=== PATIENT | male | born 1950 | race Caucasian/White ===

== ENCOUNTER 2016-11-16 12:37 | Inpatient (IN) | payer OTHER ==
[~2016-11-16] VITALS: Ht 165.1 cm; Wt 80.7 kg
[2016-11-16] MEDS ORDERED: SOD CHLORIDE 0.9% 500 ML IV STA (14:11)
[2016-11-16 14:36] LABS: ADD SCAN DIFF NO
[2016-11-16 14:40] LABS: BASOPHILS % 0.2 % (0.0-2.0); EOSINOPHILS # 0.1 10^3/ul (0.0-0.5); EOSINOPHILS % 0.4 % (0.0-7.0); HEMATOCRIT 34.4 % (42.0-52.0); HEMOGLOBIN 12.2 g/dl (14.0-18.0); LYMPHOCYTES # 1.9 10^3/ul (0.8-2.9); MEAN CORPUSCULAR HEMOGLOBIN 37.1 pg (29.0-33.0); MEAN CORPUSCULAR HGB CONC 35.5 g/dl (32.0-37.0); MEAN CORPUSCULAR VOLUME 104.6 fl (82.0-101.0); MEAN PLATELET VOLUME 11.3 fl (7.4-10.4); MONOCYTE # 1.2 10^3/ul (0.3-0.9); MONOCYTES % 6.9 % (0.0-11.0); NEUTROPHIL # 13.4 10^3/ul (1.6-7.5); NEUTROPHILS % 79.6 % (39.0-77.0); PLATELET COUNT 365 10^3/UL (140-415); RED BLOOD COUNT 3.29 10^6/ul (4.70-6.10); RED CELL DISTRIBUTION WIDTH 17.5 % (11.5-14.5); WHITE BLOOD COUNT 16.9 10^3/ul (4.8-10.8)
[2016-11-16 14:49] LABS: INR 1.29; PROTIME 16.2 Sec (12.2-14.2); PT RATIO 1.3
[2016-11-16 14:50] LABS: PARTIAL THROMBOPLASTIN TIME 36.6 Sec (25.0-35.0)
[2016-11-16 14:54] LABS: ALANINE AMINOTRANSFERASE 92 IU/L (13-69); ALBUMIN 2.9 g/dl (3.3-4.9); ALBUMIN/GLOBULIN RATIO 0.56; ALKALINE PHOSPHATASE 452 IU/L (42-121); ANION GAP 16 (8-16); ASPARTATE AMINO TRANSFERASE 277 IU/L (15-46); BILIRUBIN,INDIRECT 1.8 mg/dl (0-1.1); BLOOD UREA NITROGEN 9 mg/dl (7-20); CALCIUM 8.4 mg/dl (8.4-10.2); CARBON DIOXIDE 25 mmol/L (21-31); CHLORIDE 94 mmol/L (97-110); CREATININE 0.63 mg/dl (0.61-1.24); GLUCOSE 170 mg/dl (70-220); POTASSIUM 3.7 mmol/L (3.5-5.1); SODIUM 131 mmol/L (135-144)
[2016-11-16 15:20] LABS: TROPONIN-I < 0.012 ng/ml (0.00-0.12)
--- NOTE | 2016-11-16 15:32 | RADRPT ---
PROCEDURE: CT Abdomen and Pelvis without contrast. CLINICAL INDICATION: Abdominal and pelvic pain. Abdominal distension. TECHNIQUE: CT scan of the abdomen and pelvis without contrast was performed. Coronal and sagittal reformatted images were obtained from the axial source images. Images were reviewed on a high-resolu [employer] PACS workstation. Total exam DLP is 964.97 mGy-cm. CTDIvol is 15.32 mGy. One or more of the f ollowing dose reduction techniques were used: Automated exposure control, adjustment of the mA and/o r kV according to patient size, use of iterative reconstruction technique. COMPARISON: None. FINDINGS: The lung bases are normal. There is no pleural effusion. The heart size is normal and there is no p ericardial effusion. There is coronary artery calcification. The liver is enlarged and diffusely decreased in attenuation. There is no focal hepatic lesion. The re is recanalization of the umbilical vein. Dilated veins are present in the upper abdomen consiste nt with portal hypertension. Gallstones are present in the gallbladder. There is mild diffuse gallbladder wall thickening. The bile ducts are normal. The spleen is normal in size. There is no focal splenic lesion. Both adrenals are normal with no enlargement or mass. The pancreas is unremarkable with no mass or evidence of pancreatitis. There is no renal mass or hydronephrosis. There is no renal calculus or ureteral calculus. The abdominal aorta is not dilated. There is calcification in the aorta consistent with atherosclero sis. There is no retroperitoneal lymphadenopathy or mass. There is no pelvic lymphadenopathy or mass. The bladder and distal ureters are normal. The periappendiceal region is unremarkable with no evidence of appendicitis. The appendix is well se en and appears normal. There is extensive diverticulosis throughout the colon. There is no evidence of diverticulitis. Th e bowel and mesentery are otherwise normal. There is mild ascites. There is no free air. There are degenerative changes of the spine. There is no fracture or lytic lesion. IMPRESSION: 1. Coronary artery calcification. 2. Hepatomegaly. 3. Fatty metamorphosis of the liver. 4. Portal hypertension with multiple dilated veins in the upper abdomen and recanalization of the u mbilical vein. 5. Gallstones in the gallbladder and diffuse gallbladder wall thickening. 6. Atherosclerosis. 7. Normal appendix. 8. Extensive diverticulosis throughout the colon. No evidence of diverticulitis. 9. Mild ascites. 10. Degenerative changes of the spine. RPTAT: QQ .Roe Toribio MD, MD Date Time Electronically viewed and signed by .Roe Toribio MD, MD on 11/16/2016 15:32 .R/
[2016-11-16] MEDS ORDERED: ONDANSETRON 4 MG INJ IV STA (15:41)
[2016-11-16] MEDS ORDERED: morphine 4 MG/ML VIAL IV STA (15:41)
[2016-11-16] MEDS ORDERED: CEFTRIAXONE 1 GM/50 ML (PMX) 50 ML IVPB ONE (16:30)
--- NOTE | 2016-11-16 16:34 | RADRPT ---
PROCEDURE: Right upper quadrant abdominal ultrasound. CLINICAL INDICATION: Abdominal pain, abnormal liver function tests TECHNIQUE: Ojeda scale and color doppler ultrasound images of the right upper quadrant. COMPARISON: CT abdomen 11/16/2016 FINDINGS: Pancreas: Visualized portions appear of normal echogenicity, no focal lesions. Liver: Morphology: Enlarged measuring 20.0 cm. No evidence of contour nodularity. Echogenicity: Increased echogenicity of the liver parenchyma suggestive of hepatic steatosis. Focal lesions: None. Main portal vein: Hepatopetal flow observed on color Doppler images however spectral Doppler images were not obtained. Biliary System: Gallbladder appears contracted however there is apparent superimposed mural edema as seen on the regina or CT scan. No gallstones seen. No intrahepatic biliary dilatation. Common bile duct measures 4.7 mm in maximal dimension. Kidneys: Right 10.8 cm in length. Right renal cortical thickness is preserved. Normal echogenicity. No hydronephrosis. No renal calculi. No focal lesions. Trace ascites is present. IMPRESSION: Gallbladder appears contracted with mural edema without gallstones as seen on the prior CT scan. Th e appearance would be atypical for cholecystitis and may represent secondary causes of gallbladder w all thickening such as hepatic dysfunction. If clinical concern for cholecystitis HIDA scan can be obtained for further evaluation. Liver is enlarged and of increased echogenicity compatible with hepatic steatosis. No evidence of i ntrahepatic or extrahepatic biliary dilatation. No focal hepatic lesions. No definite contour nodul arity is seen to suggest sonographic changes of cirrhosis. Trace ascites is present. Main portal vein demonstrates hepatopetal flow on color Doppler images however spectral Doppler imag ing was not obtained. Complete portal - systemic vascular ultrasound of the abdomen can be obtained for further evaluation. RPTAT: AADD .Avinash Yan MD, Date Time Electronically viewed and signed by .Avinash Yan MD, on 11/16/2016 16:34 .B/
[2016-11-16 17:03] LABS: ADD UMIC NO; URINE BILIRUBIN (Dip) 3+ (NEGATIVE); URINE BLOOD (Dip) NEGATIVE (NEGATIVE); URINE COLOR AMBER (YELLOW); URINE GLUCOSE (Dip) NEGATIVE (NEGATIVE); URINE KETONES (Dip) NEGATIVE (NEGATIVE); URINE LEUKOCYTE ESTERASE (Dip) NEGATIVE (NEGATIVE); URINE NITRITE (Dip) NEGATIVE (NEGATIVE); URINE TOTAL PROTEIN (Dip) NEGATIVE (NEGATIVE); URINE UROBILINOGEN (Dip) 1.0 E.U./dL (0.1-1.0)
[2016-11-16 17:05] LABS: ICTOTEST POSITIVE (NEGATIVE)
--- NOTE | 2016-11-16 17:34 | RADRPT ---
PROCEDURE: US Abdomen (limited). CLINICAL INDICATION: Abdominal pain and distension. TECHNIQUE: Multiple real-time longitudinal and transverse images of the four quadrants of the abdo men were acquired utilizing a curved array transducer. Images were reviewed on a high-resolution PAC S workstation. COMPARISON: None FINDINGS: There is a small amount of free fluid in the abdomen. Free fluid is adjacent to the gallbladder. IMPRESSION: 1. Small amount of free fluid in the abdomen. 2. Free fluid is adjacent to the gallbladder. RPTAT: QQ .Roe Toribio MD, MD Date Time Electronically viewed and signed by .Roe Toribio MD, MD on 11/16/2016 17:34 .R/
[2016-11-16] MEDS ORDERED: SOD CHLORIDE 0.9% 1,000 ML IV SCH (17:43)
--- NOTE | 2016-11-16 17:49 | ERA ---
ER Documentation Chief Complaint Date/Time DATE: 11/16/16 TIME: 17:43 Chief Complaint FEELS WEAK, JAUNDINCE X 1 MOS. STOP DRINKING 10 DAYS AGO HPI This is a 65 male who presents to the emergency room for generalized weakness, jaundice, and abdominal distention. This patient does state that his symptoms have been present and progressively getting worse over the past 1 month. He has not seen a physician, he does state that he is to be a daily drinker and is to stop drinking 10 days ago. He states that he is uncomfortable in all portions of his abdomen, denies any nausea, vomiting or diarrhea. ROS All systems reviewed and are negative except as per history of present illness. Medications Home Meds No Active Prescriptions or Reported Meds Allergies Allergies: Coded Allergies: No Known Allergy (Unverified , 11/16/16) PMhx/Soc Hx Miscellaneous Medical Probl: Yes (CIRRHOSIS/ASCITES) Hx Alcohol Use: Yes Smoking Status: Current some day smoker Physical Exam Vitals Vital Signs Date Time Temp Pulse Resp B/P Pulse Ox O2 Delivery O2 Flow Rate FiO2 11/16/16 16:42 77 18 126/81 98 Room Air 11/16/16 12:41 98.1 101 18 129/76 99 Physical Exam INITIAL VITAL SIGNS: Reviewed by me GENERAL: The patient is well developed and appropriate for usual state of health in no apparent distress HEENT: Bilateral scleral icterus, pupils equal, round, and reactive to light. EOMI. NECK: C-spine is soft and supple, there is no meningismus. There is no cervical lymphadenopathy. LUNGS: Clear to auscultation bilaterally. There are no rales, wheezes or rhonchi. HEART: Regular rate and rhythm, no murmurs, clicks, rubs or gallops. ABDOMEN: Abdominal distention, tender in epigastric region, there are bowel sounds in all four quadrants. No rebound or guarding. EXTREMITIES: There is no peripheral cyanosis or edema. No focal swelling or erythema. NEUROLOGICAL: The patient moves all four extremities with 5/5 strength. Cranial nerves II - XII are intact. Normal gait. Alert and oriented SKIN: Jaundice HEME/LYMPHATIC: There is no evidence of excessive bruising or lymphedema. PSYCHIATRIC: The patient does not appear anxious or depressed. Result Diagram: 11/16/16 1420 11/16/16 1420 Results 24 hrs Laboratory Tests Test 11/16/16 14:20 11/16/16 16:47 White Blood Count 16.910^3/ul Red Blood Count 3.2910^6/ul Hemoglobin 12.2g/dl Hematocrit 34.4% Mean Corpuscular Volume 104.6fl Mean Corpuscular Hemoglobin 37.1pg Mean Corpuscular Hemoglobin Concent 35.5g/dl Red Cell Distribution Width 17.5% Platelet Count 52871^3/UL Mean Platelet Volume 11.3fl Neutrophils % 79.6% Lymphocytes % 11.0% Monocytes % 6.9% Eosinophils % 0.4% Basophils % 0.2% Nucleated Red Blood Cells % 0.0/100WBC Neutrophils # 13.410^3/ul Lymphocytes # 1.910^3/ul Monocytes # 1.210^3/ul Eosinophils # 0.110^3/ul Basophils # 0.010^3/ul Nucleated Red Blood Cells # 0.010^3/ul Prothrombin Time 16.2Sec Prothrombin Time Ratio 1.3 INR International Normalized Ratio 1.29 Activated Partial Thromboplast Time 36.6Sec Sodium Level 131mmol/L Potassium Level 3.7mmol/L Chloride Level 94mmol/L Carbon Dioxide Level 25mmol/L Anion Gap 16 Blood Urea Nitrogen 9mg/dl Creatinine 0.63mg/dl Glucose Level 170mg/dl Calcium Level 8.4mg/dl Total Bilirubin 11.0mg/dl Direct Bilirubin 9.20mg/dl Indirect Bilirubin 1.8mg/dl Aspartate Amino Transf (AST/SGOT) 277IU/L Alanine Aminotransferase (ALT/SGPT) 92IU/L Alkaline Phosphatase 452IU/L Troponin I < 0.012ng/ml Total Protein 8.0g/dl Albumin 2.9g/dl Globulin 5.10g/dl Albumin/Globulin Ratio 0.56 Lipase 268U/L Urine Color PEYMAN Urine Clarity CLEAR Urine pH 6.0 Urine Specific [place] 1.010 Urine Ketones NEGATIVE Urine Nitrite NEGATIVE Urine Bilirubin 3+ Urine Ictotest POSITIVE Urine Urobilinogen 1.0 E.U./dL Urine Leukocyte Esterase NEGATIVE Urine Hemoglobin NEGATIVE Urine Glucose NEGATIVE% Urine Total Protein NEGATIVE Current Medications Medications (Trade) Dose Ordered Sig/Carlie Route PRN Reason Start Time Stop Time Status Last Admin Dose Admin Sodium Chloride (NS) 500 ml @ 500 mls/hr Q1H STAT IV 11/16/16 14:11 11/16/16 15:10 DC 11/16/16 14:28 Morphine Sulfate (morphine) 4 mg ONCE STAT IV 11/16/16 15:41 11/16/16 15:52 DC Ondansetron HCl 4 mg 4 mg ONCE STAT IV 11/16/16 15:41 11/16/16 15:52 DC Ceftriaxone Sodium (Rocephin) 50 ml @ 100 mls/hr ONCE ONCE IVPB 11/16/16 16:30 11/16/16 16:59 DC 11/16/16 17:11 Procedures/MDM CT abdomen pelvis without: 1. Coronary artery calcification. 2. Hepatomegaly. 3. Fatty metamorphosis of the liver. 4. Portal hypertension with multiple dilated veins in the upper abdomen and recanalization of the umbilical vein. 5. Gallstones in the gallbladder and diffuse gallbladder wall thickening. 6. Atherosclerosis. 7. Normal appendix. 8. Extensive diverticulosis throughout the colon. No evidence of diverticulitis. 9. Mild ascites. 10. Degenerative changes of the spine. Gallbladder ultrasound: Gallbladder appears contracted with mural edema without gallstones as seen on the prior CT scan. The appearance would be atypical for cholecystitis and may represent secondary causes of gallbladder wall thickening such as hepatic dysfunction. If clinical concern for cholecystitis HIDA scan can be obtained for further evaluation. Liver is enlarged and of increased echogenicity compatible with hepatic steatosis. No evidence of intrahepatic or extrahepatic biliary dilatation. No focal hepatic lesions. No definite contour nodularity is seen to suggest sonographic changes of cirrhosis. Trace ascites is present. Main portal vein demonstrates hepatopetal flow on color Doppler images however spectral Doppler imaging was not obtained. Complete portal - systemic vascular ultrasound of the abdomen can be obtained for further evaluation. This 65-year-old male presents to the emergency room for evaluation of abdominal distention and jaundice. When I evaluated him this patient did have bilateral scleral icterus, he did appear jaundiced and did have abdominal distention. Lab work was obtained which shows elevation in his bilirubin. I did obtain a CT of the abdomen pelvis which showed gallbladder wall thickening. Ultrasound of the gallbladder was obtained which does not show any gallstones however does have gallbladder wall thickening. This patient does not have any severe tenderness over the right upper quadrant. He does have a leukocytosis of 17,000. He was given 1 g Rocephin. The patient is extremely jaundiced and will be placed in for admission at this time for possible HIDA scan as there is no definitive signs of cholecystitis. My suspicion for spontaneous pectoral peritonitis is low however he was given 1 g Rocephin for broad-spectrum coverage Departure Diagnosis: Primary Impression: Hepatitis Additional Impressions: Jaundice Leukocytosis Abdominal distention Hyperbilirubinemia Condition: Stable PITA MCARTHUR DO Nov 16, 2016 17:49
[2016-11-16] MEDS ORDERED: ACETAMINOPHEN 325 MG TAB PO PRN (18:00)
[2016-11-16] MEDS ORDERED: ONDANSETRON 4 MG INJ IV PRN ×2 (18:00→19:30)
[2016-11-16] MEDS ORDERED: morphine 2 MG INJ IV PRN (19:30)
[2016-11-16 21:00] VITALS: Ht 165.1 cm; Wt 80.7 kg
[2016-11-16] MEDS: SUCRALFATE 1 GM TAB PO SCH (21:00)
[2016-11-16] MEDS: CHLORDIAZEPOXIDE 25 MG CAP PO SCH (21:00)
[2016-11-16 21:38] VITALS: BP 136/90; RESP 18
[2016-11-17] MEDS: PANTOPRAZOLE 40 MG INJ IV SCH (06:11)
--- NOTE | 2016-11-17 07:23 | HP ---
DATE OF ADMISSION: 11/16/2016 PRESENTING COMPLAINT: Abdominal distention and weakness. HISTORY OF PRESENT ILLNESS: Mr. Gorman is a 65-year-old male with no significant medical history other than chronic alcoholism and probable underlying alcoholic cirrhosis who is not routinely followed by any doctors. The patient is complaining of severe lethargy, jaundice and abdominal distention and his last drink he says was about 10 days ago. He is very uncomfortable and he attributes this to abdominal distention. Denies fever. Denies nausea or vomiting. Denies diarrhea, denies hematuria or hematochezia. REVIEW OF SYSTEMS: A 12-point review of system was done. Pertinent findings as noted. HOME MEDICATIONS: None. ALLERGIES: NO KNOWN DRUG ALLERGIES. SOCIAL HISTORY: Current smoker and positive history of heavy alcohol use. FAMILY HISTORY: Noncontributory. PHYSICAL EXAMINATION VITAL SIGNS: Temperature 98.1, pulse ranges between 80 and 101, respirations between 17 18, blood pressure 129/76, saturations 98% on room air. GENERAL: A 65-year-old male obviously jaundiced, currently in no distress. HEENT: Bilateral scleral icterus. Mucous membranes are moist. Posterior pharynx is clear of exudate. NECK: Supple. CHEST: Clear to auscultation without crackles or wheezing. CARDIOVASCULAR: S1 and S2, no murmurs. ABDOMEN: Distended with mild epigastric tenderness, normoactive bowel sounds. EXTREMITIES: Negative for edema. NEUROLOGIC: No focal deficits. SKIN: Jaundiced. PSYCHIATRIC: Mildly anxious, but cooperative with exam. LABORATORY VALUES: Leukocytosis of 16,000. Megaloblastic anemia with hemoglobin of 12, with normal platelet count. Neutrophilia 79%. His chemistry is consistent with hyperbilirubinemia with a total bilirubin level of 11, direct bilirubin of 9.2, indirect bilirubin 1.8, AST of 277, ALT of 92, alkaline phosphatase of 452 and a low albumin level. Lipase was normal. Serum sodium was low at 131. IMAGING STUDIES: He had multiple imaging studies today. The first was a CT abdomen and pelvis that showed coronary artery calcification, hepatomegaly, fatty liver, portal hypertension with multiple dilated veins in the upper abdomen and recanalization of the umbilical vein. Gallstones of the gallbladder and bladder wall thickening, atherosclerosis, extensive diverticulosis without diverticulitis. Mild ascites and degenerative spine changes. Gallbladder ultrasound was obtained and showed hepatomegaly, hepatic steatosis and trace ascites and contracted gallbladder wall without gallstones. Assessment and plan 65 yo M who presents with abd distention, jaundice and lethargy managed for the following 1. Acute alcoholic hepatitis MDF score <32 2. Chronic liver disease 2/2 severe fatty liver superimposed by chronic heavy alcohol use 3. Probable underlying liver cirrhosis 4. Chronic alcoholism 5. Megaloblastic anemia 2/2 #2 6. Severe Jaundice 2/2 #1 7. Chronic Tobacco user 8. Portal hypertension 2/2 #2 PLAN: * Admit for supportive care * No steroids for now / alcohol abstinence / GI consult / banana bag / Librium therapy * Patient may likely also need upper endoscopy to evaluate for varices * Alcohol and Smoking Cessation Therapy: Pt. was advised for greater than 5 minutes on the health risks of continued smoking and alcohol abuse and the benefits of cessation and this will continue to be reinforced throughout hospitalization. * Check ammonia levels and commence lactulose therapy ifi indicated * r/o occult UTI as well Further evaluation and treatment will be based on clinical course Full discussion with care team done. All questions Answered PROPHYLAXIS: SCDS / PPI Dictated By: ZEUS PHILIPPE MD BA/NTS Conf#: [id number] DID#: [id number] ADRIANA
[2016-11-17 07:37] LABS: ADD SCAN DIFF NO
[2016-11-17 07:41] LABS: BASOPHIL # 0.1 10^3/ul (0.0-0.1); BASOPHILS % 0.3 % (0.0-2.0); EOSINOPHILS # 0.1 10^3/ul (0.0-0.5); EOSINOPHILS % 0.7 % (0.0-7.0); HEMATOCRIT 34.2 % (42.0-52.0); HEMOGLOBIN 11.8 g/dl (14.0-18.0); LYMPHOCYTES % 16.5 % (15.0-51.0); MEAN CORPUSCULAR HEMOGLOBIN 36.2 pg (29.0-33.0); MEAN CORPUSCULAR HGB CONC 34.5 g/dl (32.0-37.0); MEAN CORPUSCULAR VOLUME 104.9 fl (82.0-101.0); MEAN PLATELET VOLUME 11.1 fl (7.4-10.4); MONOCYTE # 1.3 10^3/ul (0.3-0.9); MONOCYTES % 7.1 % (0.0-11.0); NEUTROPHIL # 13.3 10^3/ul (1.6-7.5); NEUTROPHILS % 73.6 % (39.0-77.0); PLATELET COUNT 360 10^3/UL (140-415); RED BLOOD COUNT 3.26 10^6/ul (4.70-6.10); RED CELL DISTRIBUTION WIDTH 17.8 % (11.5-14.5); WHITE BLOOD COUNT 18.1 10^3/ul (4.8-10.8)
[2016-11-17 08:09] LABS: ALBUMIN 2.6 g/dl (3.3-4.9); ALBUMIN/GLOBULIN RATIO 0.57; BILIRUBIN,DIRECT 9.3 mg/dl (0.00-0.20); BILIRUBIN,INDIRECT 1.8 mg/dl (0-1.1); BILIRUBIN,TOTAL 11.1 mg/dl (0.2-1.3); CALCIUM 7.7 mg/dl (8.4-10.2); CHOL/HDL RATIO 10.4 RATIO; CREATININE 0.56 mg/dl (0.61-1.24); POTASSIUM 3.6 mmol/L (3.5-5.1); TOTAL PROTEIN 7.1 g/dl (6.1-8.1)
[2016-11-17 08:11] LABS: INR 1.31; PROTIME 16.4 Sec (12.2-14.2); PT RATIO 1.3
[2016-11-17 08:12] LABS: PARTIAL THROMBOPLASTIN TIME 37.2 Sec (25.0-35.0)
[2016-11-17 08:15] VITALS: BP 117/76; RESP 18
[2016-11-17] MEDS: MULTIVITAMINS 10 ML, THIAMINE 100 MG, FOLIC ACID 1 MG in SOD CHLORIDE 0.9% 1,000 ML IVPB SCH (10:30)
[2016-11-17] MEDS: SUCRALFATE 1 GM TAB PO SCH ×4 (10:42→21:36)
[2016-11-17] MEDS: CHLORDIAZEPOXIDE 25 MG CAP PO SCH ×3 (10:42→21:37)
--- NOTE | 2016-11-17 11:58 | PN ---
Date/Time of Note Date/Time of Note DATE: 11/17/16 TIME: 11:48 Assessment/Plan VTE Prophylaxis VTE Prophylaxis Intervention: SCD's Lines/Catheters IV Catheter Type (from Nrs): Peripheral IV Urinary Cath still in place: No Assessment/Plan Assessment/Plan 1. Alcoholic liver disease and probably MARSH, liver cirrhosis with portal hypertension, stopped drinking about 3 weeks ago, no withdrawal symptoms 2. Jaundice with high alk phos, ERCP 3. Macrocytic anemia due to alcoholism 4. Tobacco dependence, quit Subjective 24 Hr Interval Summary Free Text/Dictation abdominal distension, no nausea or vomiting, no fever or chills, no abdominal pain. Exam/Review of Systems Vital Signs Vitals Vital Signs Date Time Temp Pulse Resp B/P Pulse Ox O2 Delivery O2 Flow Rate FiO2 11/17/16 08:15 98.6 85 18 117/76 94 11/16/16 18:40 Room Air Intake and Output 11/16/16 11/16/16 11/17/16 15:00 23:00 07:00 Intake Total 720 ml Balance 720 ml Exam Constitutional: alert, oriented, well developed Psych: nl mood/affect, no complaints Head: atraumatic, normocephalic Eyes: EOMI, PERRL, nl conjunctiva, nl lids ENMT: nl external ears & nose, nl lips & teeth, nl nasal mucosa & septum Neck: non-tender, supple Respiratory: clear to auscultation, normal air movement, No congested cough, No crackles/rales, No diminished breath sounds, No intercostal retraction, No labored breathing, No other, No respirations, No tactile fremitus, No wheezing Cardiovascular: nl pulses, regular rate and rhythm, No S3, No S4, No bruits, No diastolic murmur, No edema, No gallop, No irregular rhythm, No jugular venous distention (JVD), No murmurs/extra sounds, No other, No rub, No systolic murmur Gastrointestinal: distended, hepatomegaly, soft Musculoskeletal: nl extremities to inspection Extremities: normal pulses, No calf tenderness, No clubbing, No cyanosis, No edema, No other, No palpable cord, No pitting pedal edema, No tenderness Neurological: [employer] II-XII intact, nl mental status, nl speech, nl strength Skin: nl turgor Lymph: nl lymph nodes Results Result Diagram: 11/17/16 0720 11/17/16 0720 Results 24 hrs Laboratory Tests Test 11/16/16 14:20 11/16/16 15:47 11/16/16 16:47 11/16/16 18:21 White Blood Count 16.9 H Red Blood Count 3.29 L Hemoglobin 12.2 L Hematocrit 34.4 L Mean Corpuscular Volume 104.6 H Mean Corpuscular Hemoglobin 37.1 H Mean Corpuscular Hemoglobin Concent 35.5 Red Cell Distribution Width 17.5 H Platelet Count 365 Mean Platelet Volume 11.3 H Neutrophils % 79.6 H Lymphocytes % 11.0 L Monocytes % 6.9 Eosinophils % 0.4 Basophils % 0.2 Nucleated Red Blood Cells % 0.0 Neutrophils # 13.4 H Lymphocytes # 1.9 Monocytes # 1.2 H Eosinophils # 0.1 Basophils # 0.0 Nucleated Red Blood Cells # 0.0 Prothrombin Time 16.2 H Prothrombin Time Ratio 1.3 INR International Normalized Ratio 1.29 Activated Partial Thromboplast Time 36.6 H Sodium Level 131 L Potassium Level 3.7 Chloride Level 94 L Carbon Dioxide Level 25 Anion Gap 16 Blood Urea Nitrogen 9 Creatinine 0.63 Glucose Level 170 Calcium Level 8.4 Total Bilirubin 11.0 H Direct Bilirubin 9.20 H Indirect Bilirubin 1.8 H Aspartate Amino Transf (AST/SGOT) 277 H Alanine Aminotransferase (ALT/SGPT) 92 H Alkaline Phosphatase 452 H Troponin I < 0.012 Total Protein 8.0 Albumin 2.9 L Globulin 5.10 H Albumin/Globulin Ratio 0.56 Lipase 268 Magnesium Level 2.1 Hepatitis B Surface Antibody NEGATIVE Hepatitis B Core Total Antibody REACTIVE H Hepatitis C Antibody NEGATIVE Urine Color PEYMAN Urine Clarity CLEAR Urine pH 6.0 Urine Specific [place] 1.010 Urine Ketones NEGATIVE Urine Nitrite NEGATIVE Urine Bilirubin 3+ H Urine Ictotest POSITIVE Urine Urobilinogen 1.0 E.U./dL Urine Leukocyte Esterase NEGATIVE Urine Hemoglobin NEGATIVE Urine Glucose NEGATIVE Urine Total Protein NEGATIVE Ammonia 178 H Test 11/17/16 07:20 White Blood Count 18.1 H Red Blood Count 3.26 L Hemoglobin 11.8 L Hematocrit 34.2 L Mean Corpuscular Volume 104.9 H Mean Corpuscular Hemoglobin 36.2 H Mean Corpuscular Hemoglobin Concent 34.5 Red Cell Distribution Width 17.8 H Platelet Count 360 Mean Platelet Volume 11.1 H Neutrophils % 73.6 Lymphocytes % 16.5 Monocytes % 7.1 Eosinophils % 0.7 Basophils % 0.3 Nucleated Red Blood Cells % 0.0 Neutrophils # 13.3 H Lymphocytes # 3.0 H Monocytes # 1.3 H Eosinophils # 0.1 Basophils # 0.1 Nucleated Red Blood Cells # 0.0 Prothrombin Time 16.4 H Prothrombin Time Ratio 1.3 INR International Normalized Ratio 1.31 Activated Partial Thromboplast Time 37.2 H Sodium Level 131 L Potassium Level 3.6 Chloride Level 101 Carbon Dioxide Level 23 Anion Gap 11 Blood Urea Nitrogen 9 Creatinine 0.56 L Glucose Level 92 # Calcium Level 7.7 L Total Bilirubin 11.1 H Direct Bilirubin 9.30 H Indirect Bilirubin 1.8 H Aspartate Amino Transf (AST/SGOT) 280 H Alanine Aminotransferase (ALT/SGPT) 90 H Alkaline Phosphatase 406 H Total Protein 7.1 Albumin 2.6 L Globulin 4.50 H Albumin/Globulin Ratio 0.57 Triglycerides Level 359 H Cholesterol Level 283 H LDL Cholesterol, Calculated 184 HDL Cholesterol 27 L Cholesterol/HDL Ratio 10.4 Medications Medications Current Medications Multivitamins/ Thiamine HCl/ Folic Acid/Sodium Chloride (Mvi Adult/ Vitamin B1/ Folic Acid/NS) 1,011.2 ml @ 125 mls/ hr DAILY@09 IVPB ; Start 11/17/16 at 09:00 Chlordiazepoxide (Librium) 25 mg TID PO Last administered on 11/17/16 10:42; Admin Dose 25 MG; Start 11/16/16 at 21:00 Pantoprazole (Protonix Iv) 40 mg DAILY@06 IV Last administered on 11/17/16 06: 11; Admin Dose 40 MG; Start 11/17/16 at 06:00 Sucralfate (Carafate) 1 gm QID PO Last administered on 11/17/16 10:42; Admin Dose 1 GM; Start 11/16/16 at 21:00 Ondansetron HCl (Zofran Inj) 4 mg Q6H PRN IV NAUSEA AND/OR VOMITING; Start at 19:30 Morphine Sulfate (morphine) 2 mg Q4H PRN IV pain; Start 11/16/16 at 19:30 RADHA JORGENSEN MD Nov 17, 2016 11:58
--- NOTE | 2016-11-17 17:02 | RADRPT ---
AMENDMENT: 11/18/2016 12:04:20 AM Riddhi Novak MD Delayed images of the abdomen obtained at 3 hours post injection demonstrates a small area of increa sed and in the gallbladder fossa region, which likely represents a visualization of the gallbladder. PROCEDURE: HIDA scan CLINICAL INDICATION: 65 -year-old patient with abdominal pain. TECHNIQUE: Following the intravenous injection of 8.4 mCi of Tc-99m mebrofenin, multiple images of the abdomen were obtained up to 90 minutes post injection. COMPARISON: No prior studies. FINDINGS: The liver is promptly visualized, demonstrates persistent homogeneous distribution of radionuclide. There is visualization of the common bile duct and gastrointestinal activity within normal time. The gallbladder is not visualized up to 90 minutes post injection. IMPRESSION: 1. Nonvisualization of the gallbladder up to 90 minutes post injection. 2. No definite evidence to suggest the presence of a common bile duct obstruction. 3. Persistent liver activity. Delayed images to follow. RPTAT: HH .Riddhi Novak MD, MD Date Time Electronically viewed and signed by .Riddhi Novak MD, on 11/18/2016 00:04 .L/
--- NOTE | 2016-11-17 17:13 | RADRPT ---
PROCEDURE: MRCP. CLINICAL INDICATION: Elevated liver function tests. Jaundice. TECHNIQUE: MRCP was performed. The following sequences were obtained: Three plane gradient echo localizers, coronal gradient echo images, breath hold axial T2-weighted fat saturation images, dianne nal T2-weighted images, axial 3-D LAVA images, axial T2-weighted breath hold fast spin echo images, and 3-D coronal rotating MIP images of the biliary tree. COMPARISON: CT scan of the abdomen and pelvis dated 11/16/2016 which demonstrated hepatomegaly, fa tty metamorphosis of the liver, portal hypertension, gallstones in the gallbladder, gallbladder wall thickening, and mild ascites. Nuclear medicine hepatic biliary scan dated 11/17/2016 which demonst rated nonvisualization of the gallbladder. FINDINGS: The liver is enlarged and demonstrates decreased signal intensity on the fat saturation images consi stent with fatty metamorphosis. There is no focal hepatic lesion. The gallbladder is distended and there is mild gallbladder wall thickening with adjacent fluid. The re are no gallstones visualized within the gallbladder. There is mild ascites. The spleen is normal in size and homogeneous in signal intensity. The pancreas is unremarkable with no evidence of pancreatitis or mass. The pancreatic duct is not d ilated. The bile ducts are normal with no dilatation or filling defect. Both kidneys are unremarkable. There is no renal mass or hydronephrosis. The abdominal aorta is not dilated. There is no retroperitoneal lymphadenopathy. IMPRESSION: 1. Fatty metamorphosis of the liver. Hepatomegaly. 2. Distended gallbladder with mild gallbladder wall thickening and adjacent fluid. This may indica te acalculous cholecystitis. 3. Mild ascites. 4. Normal bile ducts. 5. Otherwise unremarkable study. RPTAT: QQ .Roe Toribio MD, Date Time Electronically viewed and signed by .Roe Toribio MD, MD on 11/17/2016 17:13 .R/
--- NOTE | 2016-11-17 18:27 | CONS ---
Date/Time of Note Date/Time of Note DATE: 11/17/16 TIME: 18:07 Assessment/Plan Assessment/Plan Additional Assessment/Plan Assessment * Jaundice * Hepatocellular vs extrahepatic causes * Acute alcoholic hepatitis [facility] liver discrimination function 30 * Chronic alcoholism * Plan * await MRCP results * await HIDA scan results * resume regular diet Consultation Date/Type/Reason Admit Date/Time Nov 16, 2016 at 17:43 Date of Consultation: Nov 17, 2016 Type of Consultation: Gastroenterology Reason for Consultation alcoholic hepatitis Referring Provider: ZEUS PHILIPPE of Present Illness 65 y/o male with known history of chronic alcoholism for the past 27 years consuming a bottle of liquor 3x a week comes to our emergency room because of abdominal distension,body malaise and jaundice.patient denies any nausea or vomiting.He claims last intake of alcohol was 32 weeks ago.Emergency room course revealed total bilirubin 11 AST 277,ALT 92,alkaline phosphatase 422, ammonia 178. CT pelvis/abdomen 11/16/2016 1. Coronary artery calcification. 2. Hepatomegaly. 3. Fatty metamorphosis of the liver. 4. Portal hypertension with multiple dilated veins in the upper abdomen and recanalization of the umbilical vein. 5. Gallstones in the gallbladder and diffuse gallbladder wall thickening. 6. Atherosclerosis. 7. Normal appendix. 8. Extensive diverticulosis throughout the colon. No evidence of diverticulitis. 9. Mild ascites. 10. Degenerative changes of the spine. Ultrasound of abdomen Gallbladder appears contracted with mural edema without gallstones as seen on the prior CT scan. The appearance would be atypical for cholecystitis and may represent secondary causes of gallbladder wall thickening such as hepatic dysfunction. If clinical concern for cholecystitis HIDA scan can be obtained for further evaluation. Liver is enlarged and of increased echogenicity compatible with hepatic steatosis. No evidence of intrahepatic or extrahepatic biliary dilatation. No focal hepatic lesions. No definite contour nodularity is seen to suggest sonographic changes of cirrhosis. Trace ascites is present. Main portal vein demonstrates hepatopetal flow on color Doppler images however spectral Doppler imaging was not obtained. Complete portal - systemic vascular ultrasound of the abdomen can be obtained for further evaluation. Presently ,patient denies any abdominal pain,but still wary of his abdominal distention.Since his [facility] discriminant function is 30 ,corticosteroids wont be of benefit to this patient Eyes: no complaints ENT: no complaints Respiratory: no complaints Cardiovascular: no complaints Gastrointestinal: decreased appetite, flatus, pain (mild) Genitourinary: no complaints Musculoskeletal: no complaints Skin: no complaints Neurologic: no complaints Endocrine: no complaints Lymphatic: no complaints Psychological: nl mood/affect, no complaints Immunologic: no complaints Past Surgical History Past Surgical Hx: other (hernia surgery) Family History Significant Family History: no pertinent family hx Social History Alcohol Use: heavy (27 years consuming a bottle of liquor 3x a week) Smoking Status: Never smoker Exam/Review of Systems Vital Signs Vitals Vital Signs Date Time Temp Pulse Resp B/P Pulse Ox O2 Delivery O2 Flow Rate FiO2 11/17/16 08:15 98.6 85 18 117/76 94 11/16/16 18:40 Room Air Intake and Output 11/16/16 11/16/16 11/17/16 14:59 22:59 06:59 Intake Total 720 ml Balance 720 ml Exam Constitutional: alert, oriented, well developed Psych: nl mood/affect, no complaints Head: atraumatic, normocephalic Eyes: EOMI, PERRL, nl conjunctiva, nl lids, other (icteric sclera) Neck: non-tender, supple Respiratory: clear to auscultation, normal air movement Cardiovascular: nl pulses, regular rate and rhythm Gastrointestinal: bowel sounds, distended, non-tender, soft Musculoskeletal: nl extremities to inspection, nl gait and stance Extremities: normal pulses Neurological: nl speech, nl strength Skin: nl turgor, No rash or lesions Lymph: nl lymph nodes Results Result Diagram: 11/17/16 0720 11/17/16 0720 Results 24 hrs Laboratory Tests Test 11/16/16 18:21 11/17/16 07:20 Ammonia 178 H White Blood Count 18.1 H Red Blood Count 3.26 L Hemoglobin 11.8 L Hematocrit 34.2 L Mean Corpuscular Volume 104.9 H Mean Corpuscular Hemoglobin 36.2 H Mean Corpuscular Hemoglobin Concent 34.5 Red Cell Distribution Width 17.8 H Platelet Count 360 Mean Platelet Volume 11.1 H Neutrophils % 73.6 Lymphocytes % 16.5 Monocytes % 7.1 Eosinophils % 0.7 Basophils % 0.3 Nucleated Red Blood Cells % 0.0 Neutrophils # 13.3 H Lymphocytes # 3.0 H Monocytes # 1.3 H Eosinophils # 0.1 Basophils # 0.1 Nucleated Red Blood Cells # 0.0 Prothrombin Time 16.4 H Prothrombin Time Ratio 1.3 INR International Normalized Ratio 1.31 Activated Partial Thromboplast Time 37.2 H Sodium Level 131 L Potassium Level 3.6 Chloride Level 101 Carbon Dioxide Level 23 Anion Gap 11 Blood Urea Nitrogen 9 Creatinine 0.56 L Glucose Level 92 # Calcium Level 7.7 L Total Bilirubin 11.1 H Direct Bilirubin 9.30 H Indirect Bilirubin 1.8 H Aspartate Amino Transf (AST/SGOT) 280 H Alanine Aminotransferase (ALT/SGPT) 90 H Alkaline Phosphatase 406 H Total Protein 7.1 Albumin 2.6 L Globulin 4.50 H Albumin/Globulin Ratio 0.57 Triglycerides Level 359 H Cholesterol Level 283 H LDL Cholesterol, Calculated 184 HDL Cholesterol 27 L Cholesterol/HDL Ratio 10.4 Medications Medications Current Medications Multivitamins/ Thiamine HCl/ Folic Acid/Sodium Chloride (Mvi Adult/ Vitamin B1/ Folic Acid/NS) 1,011.2 ml @ 125 mls/ hr DAILY@09 IVPB Last administered on 10:30; Admin Dose 125 MLS/HR; Start 11/17/16 at 09:00 Chlordiazepoxide (Librium) 25 mg TID PO Last administered on 11/17/16 10:42; Admin Dose 25 MG; Start 11/16/16 at 21:00 Pantoprazole (Protonix Iv) 40 mg DAILY@06 IV Last administered on 11/17/16 06: 11; Admin Dose 40 MG; Start 11/17/16 at 06:00 Sucralfate (Carafate) 1 gm QID PO Last administered on 11/17/16 18:04; Admin Dose 1 GM; Start 11/16/16 at 21:00 Ondansetron HCl (Zofran Inj) 4 mg Q6H PRN IV NAUSEA AND/OR VOMITING; Start at 19:30 Morphine Sulfate (morphine) 2 mg Q4H PRN IV pain; Start 11/16/16 at 19:30 MORIS HINES MD Nov 17, 2016 18:17
[2016-11-17 21:28] VITALS: BP 147/84; RESP 18
[2016-11-18] MEDS: PANTOPRAZOLE 40 MG INJ IV SCH (05:35)
[2016-11-18 05:47] LABS: ADD SCAN DIFF NO
[2016-11-18 06:04] LABS: BASOPHIL # 0.1 10^3/ul (0.0-0.1); BASOPHILS % 0.4 % (0.0-2.0); EOSINOPHILS # 0.3 10^3/ul (0.0-0.5); EOSINOPHILS % 1.9 % (0.0-7.0); HEMATOCRIT 30.5 % (42.0-52.0); LYMPHOCYTES # 1.6 10^3/ul (0.8-2.9); LYMPHOCYTES % 11.2 % (15.0-51.0); MEAN CORPUSCULAR HEMOGLOBIN 38.2 pg (29.0-33.0); MEAN CORPUSCULAR HGB CONC 36.1 g/dl (32.0-37.0); MEAN CORPUSCULAR VOLUME 105.9 fl (82.0-101.0); MEAN PLATELET VOLUME 11.6 fl (7.4-10.4); NEUTROPHIL # 10.8 10^3/ul (1.6-7.5); NEUTROPHILS % 77.7 % (39.0-77.0); PLATELET COUNT 360 10^3/UL (140-415); RED BLOOD COUNT 2.88 10^6/ul (4.70-6.10); RED CELL DISTRIBUTION WIDTH 17.7 % (11.5-14.5); WHITE BLOOD COUNT 13.9 10^3/ul (4.8-10.8)
[2016-11-18 07:02] LABS: ALBUMIN 2.5 g/dl (3.3-4.9); ALBUMIN/GLOBULIN RATIO 0.58; BILIRUBIN,INDIRECT 1.7 mg/dl (0-1.1); BILIRUBIN,TOTAL 10.7 mg/dl (0.2-1.3); CALCIUM 7.6 mg/dl (8.4-10.2); CREATININE 0.72 mg/dl (0.61-1.24); TOTAL PROTEIN 6.8 g/dl (6.1-8.1)
[2016-11-18 07:25] VITALS: BP 125/81; RESP 16
[2016-11-18 09:10] LABS: INR 1.3; PROTIME 16.3 Sec (12.2-14.2); PT RATIO 1.3
[2016-11-18 09:11] LABS: PARTIAL THROMBOPLASTIN TIME 35.5 Sec (25.0-35.0)
[2016-11-18] MEDS: CHLORDIAZEPOXIDE 25 MG CAP PO SCH ×4 (09:21→20:11)
[2016-11-18] MEDS: SUCRALFATE 1 GM TAB PO SCH ×5 (09:21→20:11)
[2016-11-18] MEDS: MULTIVITAMINS 10 ML, THIAMINE 100 MG, FOLIC ACID 1 MG in SOD CHLORIDE 0.9% 1,000 ML IVPB SCH (09:21)
--- NOTE | 2016-11-18 11:11 | PN ---
Date/Time of Note Date/Time of Note DATE: 11/18/16 TIME: 10:58 Assessment/Plan VTE Prophylaxis VTE Prophylaxis Intervention: SCD's Lines/Catheters IV [facility] (from [facility]): Peripheral IV Urinary Cath still in place: No Assessment/Plan Assessment/Plan 1. Acute acalculous cholecystitis, Dr. Kwon consultation 2. Alcoholic liver disease and probably MARSH, liver cirrhosis with portal hypertension, stopped drinking about 3 weeks ago, no withdrawal symptoms 3. Jaundice with high alk phos, ERCP negative for CBD stone 4. Macrocytic anemia due to alcoholism 5. Tobacco dependence, quit 6. Dyslipidemia Subjective 24 Hr Interval Summary Free Text/Dictation no abdominal pain. no fever or chills Exam/Review of Systems Vital Signs Vitals Vital Signs Date Time Temp Pulse Resp B/P Pulse Ox O2 Delivery O2 Flow Rate FiO2 11/18/16 07:25 99.6 88 16 125/81 94 11/16/16 18:40 Room Air Intake and Output 11/17/16 11/17/16 11/18/16 15:00 23:00 07:00 Intake Total 500 ml 1231.2 ml Balance 500 ml 1231.2 ml Exam Constitutional: alert, oriented, well developed Psych: nl mood/affect, no complaints Head: atraumatic, normocephalic Eyes: EOMI, PERRL, nl conjunctiva, nl lids ENMT: nl external ears & nose, nl lips & teeth, nl nasal mucosa & septum Neck: non-tender, supple Respiratory: clear to auscultation, normal air movement, No congested cough, No crackles/rales, No diminished breath sounds, No intercostal retraction, No labored breathing, No other, No respirations, No tactile fremitus, No wheezing Cardiovascular: regular rate and rhythm, No S3, No S4, No bruits, No diastolic murmur, No edema, No gallop, No irregular rhythm, No jugular venous distention (JVD), No murmurs/extra sounds, No nl pulses, No other, No rub, No systolic murmur Gastrointestinal: distended, hepatomegaly, soft Musculoskeletal: nl extremities to inspection Extremities: normal pulses, No calf tenderness, No clubbing, No cyanosis, No edema, No other, No palpable cord, No pitting pedal edema, No tenderness Neurological: DIRECTOR ONCOLOGY II-XII intact, nl mental status, nl speech, nl strength Results Result Diagram: 11/18/16 0500 11/18/16 0500 Results 24 hrs Laboratory Tests Test 11/18/16 05:00 11/18/16 08:55 White Blood Count 13.9 #H Red Blood Count 2.88 L Hemoglobin 11.0 L Hematocrit 30.5 L Mean Corpuscular Volume 105.9 H Mean Corpuscular Hemoglobin 38.2 H Mean Corpuscular Hemoglobin Concent 36.1 Red Cell Distribution Width 17.7 H Platelet Count 360 Mean Platelet Volume 11.6 H Neutrophils % 77.7 H Lymphocytes % 11.2 L Monocytes % 7.0 Eosinophils % 1.9 Basophils % 0.4 Nucleated Red Blood Cells % 0.0 Neutrophils # 10.8 H Lymphocytes # 1.6 Monocytes # 1.0 H Eosinophils # 0.3 Basophils # 0.1 Nucleated Red Blood Cells # 0.0 Sodium Level 131 L Potassium Level 4.0 Chloride Level 99 Carbon Dioxide Level 26 Anion Gap 10 Blood Urea Nitrogen 12 Creatinine 0.72 Glucose Level 106 Calcium Level 7.6 L Total Bilirubin 10.7 H Direct Bilirubin 9.00 H Indirect Bilirubin 1.7 H Aspartate Amino Transf (AST/SGOT) 272 H Alanine Aminotransferase (ALT/SGPT) 84 H Alkaline Phosphatase 388 H Ammonia 70 #H Total Protein 6.8 Albumin 2.5 L Globulin 4.30 H Albumin/Globulin Ratio 0.58 Prothrombin Time 16.3 H Prothrombin Time Ratio 1.3 INR International Normalized Ratio 1.30 Activated Partial Thromboplast Time 35.5 H Medications Medications Current Medications Multivitamins/ Thiamine HCl/ Folic Acid/Sodium Chloride (Mvi Adult/ Vitamin B1/ Folic Acid/NS) 1,011.2 ml @ 125 mls/ hr DAILY@09 IVPB Last administered on 09:21; Admin Dose 125 MLS/HR; Start 11/17/16 at 09:00 Chlordiazepoxide (Librium) 25 mg TID PO Last administered on 11/18/16 09:21; Admin Dose 25 MG; Start 11/16/16 at 21:00 Pantoprazole (Protonix Iv) 40 mg DAILY@06 IV Last administered on 11/18/16 05: 35; Admin Dose 40 MG; Start 11/17/16 at 06:00 Sucralfate (Carafate) 1 gm QID PO Last administered on 11/18/16t 09:21; Admin Dose 1 GM; Start 11/16/16 at 21:00 Ondansetron HCl (Zofran Inj) 4 mg Q6H PRN IV NAUSEA AND/OR VOMITING; Start at 19:30 Morphine Sulfate (morphine) 2 mg Q4H PRN IV pain; Start 11/16/16 at 19:30 RADHA JORGENSEN MD Nov 18, 2016 11:08
[2016-11-18] MEDS: POTASSIUM CHLORIDE 10 MEQ in SOD CHLORIDE 0.9% 1,000 ML IV SCH ×2 (13:23→20:12)
--- NOTE | 2016-11-18 14:22 | PN ---
Date/Time of Note Date/Time of Note DATE: 11/18/16 TIME: 14:06 Assessment/Plan VTE Prophylaxis VTE Prophylaxis Intervention: SCD's Lines/Catheters [facility] (from [facility]): Peripheral IV Urinary Cath still in place: No Assessment/Plan Assessment/Plan Jaundice * Hepatocellular * Acute alcoholic hepatitis [facility] liver discrimination function 30 * Calculous cholecystitis BY MRCP * Hepatitis B infection chronic(?) * MRCP 11/18/2016 * 1. Fatty metamorphosis of the liver. Hepatomegaly. 2. Distended gallbladder with mild gallbladder wall thickening and adjacent fluid. This may indicate acalculous cholecystitis. 3. Mild ascites. 4. Normal bile ducts. 5. Otherwise unremarkable study. * HIDA scan 11/16/2016 * 1. Nonvisualization of the gallbladder up to 90 minutes post injection. 2. No definite evidence to suggest the presence of a common bile duct obstruction. 3. Persistent liver activity. Delayed images to follow. Delayed images of the abdomen obtained at 3 hours post injection demonstrates a small area of increased and in the gallbladder fossa region, which likely represents a visualization of the gallbladder * Chronic alcoholism * Plan * continue present management * monitor liver profile daily * Hepatitis B IgM antibody det Subjective 24 Hr Interval Summary Free Text/Dictation * Course reviewed with RN * patient seen and examined * denies abdominal pain * Hep B core antibody (+).Hep B surface antibody negative * still jaundice with abdominal distension * MRCP 11/17/2016 * 1. Fatty metamorphosis of the liver. Hepatomegaly. 2. Distended gallbladder with mild gallbladder wall thickening and adjacent fluid. This may indicate acalculous cholecystitis. 3. Mild ascites. 4. Normal bile ducts. 5. Otherwise unremarkable study. HIDA scan 11/17/2016 1. Nonvisualization of the gallbladder up to 90 minutes post injection. 2. No definite evidence to suggest the presence of a common bile duct obstruction. 3. Persistent liver activity. Delayed images to follow. Delayed images of the abdomen obtained at 3 hours post injection demonstrates a small area of increased and in the gallbladder fossa region, which likely represents a visualization of the gallbladder. Exam/Review of Systems Vital Signs Vitals Vital Signs Date Time Temp Pulse Resp B/P Pulse Ox O2 Delivery O2 Flow Rate FiO2 11/18/16 07:25 99.6 88 16 125/81 94 11/16/16 18:40 Room Air Intake and Output 11/17/16 11/17/16 11/18/16 15:00 23:00 07:00 Intake Total 500 ml 1231.2 ml Balance 500 ml 1231.2 ml Exam Constitutional: alert, oriented Head: normocephalic Neck: non-tender, supple Respiratory: clear to auscultation, normal air movement Cardiovascular: nl pulses, regular rate and rhythm Gastrointestinal: bowel sounds, distended, soft, No rebound or guarding Musculoskeletal: nl extremities to inspection, nl gait and stance Extremities: normal pulses Neurological: nl speech Skin: nl turgor Results Result Diagram: 11/18/16 0500 11/18/16 0500 Results 24 hrs Laboratory Tests Test 11/18/16 05:00 11/18/16 08:55 White Blood Count 13.9 #H Red Blood Count 2.88 L Hemoglobin 11.0 L Hematocrit 30.5 L Mean Corpuscular Volume 105.9 H Mean Corpuscular Hemoglobin 38.2 H Mean Corpuscular Hemoglobin Concent 36.1 Red Cell Distribution Width 17.7 H Platelet Count 360 Mean Platelet Volume 11.6 H Neutrophils % 77.7 H Lymphocytes % 11.2 L Monocytes % 7.0 Eosinophils % 1.9 Basophils % 0.4 Nucleated Red Blood Cells % 0.0 Neutrophils # 10.8 H Lymphocytes # 1.6 Monocytes # 1.0 H Eosinophils # 0.3 Basophils # 0.1 Nucleated Red Blood Cells # 0.0 Sodium Level 131 L Potassium Level 4.0 Chloride Level 99 Carbon Dioxide Level 26 Anion Gap 10 Blood Urea Nitrogen 12 Creatinine 0.72 Glucose Level 106 Calcium Level 7.6 L Total Bilirubin 10.7 H Direct Bilirubin 9.00 H Indirect Bilirubin 1.7 H Aspartate Amino Transf (AST/SGOT) 272 H Alanine Aminotransferase (ALT/SGPT) 84 H Alkaline Phosphatase 388 H Ammonia 70 #H Total Protein 6.8 Albumin 2.5 L Globulin 4.30 H Albumin/Globulin Ratio 0.58 Prothrombin Time 16.3 H Prothrombin Time Ratio 1.3 INR International Normalized Ratio 1.30 Activated Partial Thromboplast Time 35.5 H Medications Medications Current Medications Multivitamins/ Thiamine HCl/ Folic Acid/Sodium Chloride (Mvi Adult/ Vitamin B1/ Folic Acid/NS) 1,011.2 ml @ 125 mls/ hr DAILY@09 IVPB Last administered on t 09:21; Admin Dose 125 MLS/HR; Start 11/17/16 at 09:00 Chlordiazepoxide (Librium) 25 mg TID PO Last administered on 11/18/16 09:21; Admin Dose 25 MG; Start 11/16/16 at 21:00 Pantoprazole (Protonix Iv) 40 mg DAILY@06 IV Last administered on 11/18/16 05: 35; Admin Dose 40 MG; Start 11/17/16 at 06:00 Sucralfate (Carafate) 1 gm QID PO Last administered on 11/18/16 09:21; Admin Dose 1 GM; Start 11/16/16 at 21:00 Ondansetron HCl (Zofran Inj) 4 mg Q6H PRN IV NAUSEA AND/OR VOMITING; Start at 19:30 Morphine Sulfate 2 mg 2 mg Q4H PRN IV pain; Start 11/16/16 at 19:30 Piperacillin Sod/ Tazobactam Sod 100 ml @ 200 mls/hr Q8 IVPB ; Start 11/18/16 at 14:00 Potassium Chloride/Sodium Chloride (KCl/NS) 1,005 ml @ 75 mls/hr [id number] IV Last administered on 11/18/16 13:23; Admin Dose 75 MLS/HR; Start 11/18/16 at 11 :30 MORIS HINES MD Nov 18, 2016 14:17
[2016-11-18] MEDS: PIPER-TAZO 3.375 GM IV (PMX) 100 ML IVPB SCH ×2 (14:46→22:42)
[2016-11-18 20:54] VITALS: BP 124/80; RESP 18
[2016-11-19] MEDS: PANTOPRAZOLE 40 MG INJ IV SCH (05:45)
[2016-11-19] MEDS: PIPER-TAZO 3.375 GM IV (PMX) 100 ML IVPB SCH ×3 (05:46→21:19)
[2016-11-19 05:52] LABS: ALBUMIN 2.4 g/dl (3.3-4.9)
[2016-11-19 05:53] LABS: POTASSIUM 3.3 mmol/L (3.5-5.1)
[2016-11-19 05:55] LABS: ALBUMIN/GLOBULIN RATIO 0.54; BILIRUBIN,DIRECT 9.5 mg/dl (0.00-0.20); BILIRUBIN,INDIRECT 1.7 mg/dl (0-1.1); BILIRUBIN,TOTAL 11.2 mg/dl (0.2-1.3); CREATININE 0.64 mg/dl (0.61-1.24); TOTAL PROTEIN 6.8 g/dl (6.1-8.1)
[2016-11-19 05:56] LABS: CALCIUM 7.5 mg/dl (8.4-10.2)
[2016-11-19 06:10] LABS: ADD SCAN DIFF NO
[2016-11-19 06:23] LABS: BASOPHIL # 0.1 10^3/ul (0.0-0.1); BASOPHILS % 0.3 % (0.0-2.0); EOSINOPHILS # 0.2 10^3/ul (0.0-0.5); EOSINOPHILS % 1.5 % (0.0-7.0); HEMATOCRIT 32.1 % (42.0-52.0); HEMOGLOBIN 11.4 g/dl (14.0-18.0); LYMPHOCYTES # 1.8 10^3/ul (0.8-2.9); LYMPHOCYTES % 10.7 % (15.0-51.0); MEAN CORPUSCULAR HEMOGLOBIN 36.8 pg (29.0-33.0); MEAN CORPUSCULAR HGB CONC 35.5 g/dl (32.0-37.0); MEAN CORPUSCULAR VOLUME 103.5 fl (82.0-101.0); MONOCYTE # 1.3 10^3/ul (0.3-0.9); MONOCYTES % 7.8 % (0.0-11.0); NEUTROPHIL # 12.8 10^3/ul (1.6-7.5); NEUTROPHILS % 78.5 % (39.0-77.0); NUCLEATED RED BLOOD CELLS% 0.1 /100WBC (0.0-0.0); PLATELET COUNT 339 10^3/UL (140-415); RED CELL DISTRIBUTION WIDTH 17.4 % (11.5-14.5); WHITE BLOOD COUNT 16.3 10^3/ul (4.8-10.8)
[2016-11-19 07:30] VITALS: BP 124/79; RESP 18
[2016-11-19] MEDS: SUCRALFATE 1 GM TAB PO SCH ×4 (08:15→20:26)
[2016-11-19] MEDS: CHLORDIAZEPOXIDE 25 MG CAP PO SCH ×3 (08:15→20:26)
[2016-11-19] MEDS: MULTIVITAMINS 10 ML, THIAMINE 100 MG, FOLIC ACID 1 MG in SOD CHLORIDE 0.9% 1,000 ML IVPB SCH (08:24)
[2016-11-19] MEDS ORDERED: POTASSIUM CHLORIDE (SR) 20 MEQ TAB PO STA (14:26)
--- NOTE | 2016-11-19 14:26 | PN ---
Date/Time of Note Date/Time of Note DATE: 11/19/16 TIME: 14:24 Assessment/Plan VTE Prophylaxis VTE Prophylaxis Intervention: SCD's Lines/Catheters [facility] Peripheral IV Urinary Cath still in place: No Assessment/Plan Assessment/Plan 1. Acute acalculous cholecystitis, follow up with surgery, on zosyn 2. Alcoholic liver disease and probably MARSH, liver cirrhosis with portal hypertension, stopped drinking about 3 weeks ago, no withdrawal symptoms 3. Jaundice with high alk phos, ERCP negative for CBD stone 4. Macrocytic anemia due to alcoholism 5. Tobacco dependence, quit 6. Dyslipidemia 9. Hypokalemia, KCL Subjective 24 Hr Interval Summary Free Text/Dictation abdominal distension. no abdominal pain. no fever or chills. Exam/Review of Systems Vital Signs Vitals Vital Signs Date Time Temp Pulse Resp B/P Pulse Ox O2 Delivery O2 Flow Rate FiO2 11/19/16 07:30 98.9 96 18 124/79 96 11/16/16 18:40 Room Air Intake and Output 11/18/16 11/18/16 11/19/16 15:00 23:00 07:00 Intake Total 1550 ml 1040 ml Balance 1550 ml 1040 ml Exam Constitutional: alert, oriented, well developed Psych: nl mood/affect, no complaints Head: atraumatic, normocephalic Eyes: EOMI, PERRL, nl conjunctiva, nl lids ENMT: mucosa pink and moist, nl external ears & nose, nl lips & teeth, nl nasal mucosa & septum Neck: non-tender, supple Respiratory: clear to auscultation, normal air movement, No congested cough, No crackles/rales, No diminished breath sounds, No intercostal retraction, No labored breathing, No other, No respirations, No tactile fremitus, No wheezing Cardiovascular: nl pulses, regular rate and rhythm, No S3, No S4, No bruits, No diastolic murmur, No edema, No gallop, No irregular rhythm, No jugular venous distention (JVD), No murmurs/extra sounds, No other, No rub, No systolic murmur Gastrointestinal: distended, hepatomegaly Musculoskeletal: nl extremities to inspection Extremities: normal pulses, No calf tenderness, No clubbing, No cyanosis, No edema, No other, No palpable cord, No pitting pedal edema, No tenderness Neurological: TROLLEY COLLECTOR II-XII intact, nl mental status, nl speech, nl strength Skin: nl turgor Lymph: nl lymph nodes Results Result Diagram: 11/19/16 0504 11/19/16 0504 Results 24 hrs Laboratory Tests Test 11/19/16 05:04 White Blood Count 16.3 H Red Blood Count 3.10 L Hemoglobin 11.4 L Hematocrit 32.1 L Mean Corpuscular Volume 103.5 H Mean Corpuscular Hemoglobin 36.8 H Mean Corpuscular Hemoglobin Concent 35.5 Red Cell Distribution Width 17.4 H Platelet Count 339 Mean Platelet Volume 12.0 H Neutrophils % 78.5 H Lymphocytes % 10.7 L Monocytes % 7.8 Eosinophils % 1.5 Basophils % 0.3 Nucleated Red Blood Cells % 0.1 H Neutrophils # 12.8 H Lymphocytes # 1.8 Monocytes # 1.3 H Eosinophils # 0.2 Basophils # 0.1 Nucleated Red Blood Cells # 0.0 Sodium Level 134 L Potassium Level 3.3 L Chloride Level 100 Carbon Dioxide Level 22 Anion Gap 15 Blood Urea Nitrogen 10 Creatinine 0.64 Glucose Level 119 Calcium Level 7.5 L Total Bilirubin 11.2 H Direct Bilirubin 9.50 H Indirect Bilirubin 1.7 H Aspartate Amino Transf (AST/SGOT) 246 H Alanine Aminotransferase (ALT/SGPT) 82 H Alkaline Phosphatase 395 H Total Protein 6.8 Albumin 2.4 L Globulin 4.40 H Albumin/Globulin Ratio 0.54 Medications Medications Current Medications Multivitamins/ Thiamine HCl/ Folic Acid/Sodium Chloride (Mvi Adult/ Vitamin B1/ Folic Acid/NS) 1,011.2 ml @ 125 mls/ hr DAILY@09 IVPB Last administered on 08:24; Admin Dose 125 MLS/HR; Start 11/17/16 at 09:00 Chlordiazepoxide (Librium) 25 mg TID PO Last administered on 11/18/16 20:11; Admin Dose 25 MG; Start 11/16/16 at 21:00 Pantoprazole (Protonix Iv) 40 mg DAILY@06 IV Last administered on 11/19/16 05: 45; Admin Dose 40 MG; Start 11/17/16 at 06:00 Sucralfate (Carafate) 1 gm QID PO Last administered on 4/19/17at 20:11; Admin Dose 1 GM; Start 11/16/16 at 21:00 Ondansetron HCl (Zofran Inj) 4 mg Q6H PRN IV NAUSEA AND/OR VOMITING; Start at 19:30 Morphine Sulfate 2 mg 2 mg Q4H PRN IV pain; Start 11/16/16 at 19:30 Piperacillin Sod/ Tazobactam Sod 100 ml @ 200 mls/hr Q8 IVPB Last administered on 11/19/16t 05:46; Admin Dose 200 MLS/HR; Start 11/18/16 at 14:00 Potassium Chloride/Sodium Chloride (KCl/NS) 1,005 ml @ 75 mls/hr [id number] IV Last administered on 11/18/16t 20:12; Admin Dose 75 MLS/HR; Start 11/18/16 at 11 :30 RADHA JORGENSEN MD Nov 19, 2016 14:26
[2016-11-19] MEDS: POTASSIUM CHLORIDE 10 MEQ in SOD CHLORIDE 0.9% 1,000 ML IV SCH (14:32)
--- NOTE | 2016-11-19 14:35 | PN ---
Date/Time of Note Date/Time of Note DATE: 11/19/16 TIME: 14:31 Assessment/Plan VTE Prophylaxis VTE Prophylaxis Intervention: SCD's, other Lines/Catheters IV Catheter Type (from [facility]): Peripheral IV Urinary Cath still in place: No Assessment/Plan Assessment/Plan Jaundice * Hepatocellular * Acute alcoholic hepatitis [facility] liver discrimination function 30 * Calculous cholecystitis BY MRCP * Hepatitis B infection chronic(?) * MRCP 11/18/2016 * 1. Fatty metamorphosis of the liver. Hepatomegaly. 2. Distended gallbladder with mild gallbladder wall thickening and adjacent fluid. This may indicate acalculous cholecystitis. 3. Mild ascites. 4. Normal bile ducts. 5. Otherwise unremarkable study. * HIDA scan 11/16/2016 * 1. Nonvisualization of the gallbladder up to 90 minutes post injection. 2. No definite evidence to suggest the presence of a common bile duct obstruction. 3. Persistent liver activity. Delayed images to follow. Delayed images of the abdomen obtained at 3 hours post injection demonstrates a small area of increased and in the gallbladder fossa region, which likely represents a visualization of the gallbladder * Chronic alcoholism * Plan * continue present management * monitor liver profile daily * awaiting Hep[ B IgM result Subjective 24 Hr Interval Summary Free Text/Dictation * Course reviewed with RN * patient seen and examined * no abdominal pain but distended abdomen Exam/Review of Systems Vital Signs Vitals Vital Signs Date Time Temp Pulse Resp B/P Pulse Ox O2 Delivery O2 Flow Rate FiO2 11/19/16 07:30 98.9 96 18 124/79 96 11/16/16 18:40 Room Air Intake and Output 11/18/16 11/18/16 11/19/16 15:00 23:00 07:00 Intake Total 1550 ml 1040 ml Balance 1550 ml 1040 ml Exam Constitutional: alert, oriented Eyes: other (icteric sclera) Neck: non-tender, supple Respiratory: clear to auscultation, normal air movement Cardiovascular: nl pulses, regular rate and rhythm Gastrointestinal: bowel sounds, distended, non-tender, soft Musculoskeletal: nl extremities to inspection, nl gait and stance Neurological: nl mental status, nl strength Results Result Diagram: 11/19/16 0504 11/19/16 0504 Results 24 hrs Laboratory Tests Test 11/19/16 05:04 White Blood Count 16.3 H Red Blood Count 3.10 L Hemoglobin 11.4 L Hematocrit 32.1 L Mean Corpuscular Volume 103.5 H Mean Corpuscular Hemoglobin 36.8 H Mean Corpuscular Hemoglobin Concent 35.5 Red Cell Distribution Width 17.4 H Platelet Count 339 Mean Platelet Volume 12.0 H Neutrophils % 78.5 H Lymphocytes % 10.7 L Monocytes % 7.8 Eosinophils % 1.5 Basophils % 0.3 Nucleated Red Blood Cells % 0.1 H Neutrophils # 12.8 H Lymphocytes # 1.8 Monocytes # 1.3 H Eosinophils # 0.2 Basophils # 0.1 Nucleated Red Blood Cells # 0.0 Sodium Level 134 L Potassium Level 3.3 L Chloride Level 100 Carbon Dioxide Level 22 Anion Gap 15 Blood Urea Nitrogen 10 Creatinine 0.64 Glucose Level 119 Calcium Level 7.5 L Total Bilirubin 11.2 H Direct Bilirubin 9.50 H Indirect Bilirubin 1.7 H Aspartate Amino Transf (AST/SGOT) 246 H Alanine Aminotransferase (ALT/SGPT) 82 H Alkaline Phosphatase 395 H Total Protein 6.8 Albumin 2.4 L Globulin 4.40 H Albumin/Globulin Ratio 0.54 Medications Medications Current Medications Multivitamins/ Thiamine HCl/ Folic Acid/Sodium Chloride (Mvi Adult/ Vitamin B1/ Folic Acid/NS) 1,011.2 ml @ 125 mls/ hr DAILY@09 IVPB Last administered on 08:24; Admin Dose 125 MLS/HR; Start 11/17/16 at 09:00 Chlordiazepoxide (Librium) 25 mg TID PO Last administered on 11/18/16 20:11; Admin Dose 25 MG; Start 11/16/16 at 21:00 Pantoprazole (Protonix Iv) 40 mg DAILY@06 IV Last administered on 11/19/16 05: 45; Admin Dose 40 MG; Start 11/17/16 at 06:00 Sucralfate (Carafate) 1 gm QID PO Last administered on 11/18/16 20:11; Admin Dose 1 GM; Start 11/16/16 at 21:00 Ondansetron HCl (Zofran Inj) 4 mg Q6H PRN IV NAUSEA AND/OR VOMITING; Start at 19:30 Morphine Sulfate 2 mg 2 mg Q4H PRN IV pain; Start 11/16/16 at 19:30 Piperacillin Sod/ Tazobactam Sod 100 ml @ 200 mls/hr Q8 IVPB Last administered on 11/19/16 05:46; Admin Dose 200 MLS/HR; Start 11/18/16 at 14:00 Potassium Chloride/Sodium Chloride (KCl/NS) 1,005 ml @ 75 mls/hr [id number] IV Last administered on 11/18/16 20:12; Admin Dose 75 MLS/HR; Start 11/18/16 at 11 :30 MORIS HINES MD Nov 19, 2016 14:34
--- NOTE | 2016-11-19 16:05 | CONS ---
[facility] INITIAL INPATIENT CONSULTATION NOTE DATE OF CONSULTATION: 11/19/2016 PLACE OF SERVICE: [facility], second floor, [facility] ASSESSMENT AND PLAN: A very pleasant but unfortunate 65-year-old gentleman with multiple comorbidities including BMI 29.6, presenting with what appears to be active hepatitis likely due to his alcohol abuse. The gallbladder is visualized after 3 hours on the HIDA scan and he does not have any significant tenderness in the right upper quadrant. In the setting of active hepatitis, I sometimes find a HIDA scan not to be as sensitive for demonstration of issues with the cystic duct. The patient otherwise is at high risk for surgical complications given his active hepatitis, and fortunately I do not see any reason to offer the patient a surgical resection of the gallbladder. I also do not see any indication currently for interventional radiology drainage of the gallbladder. If the patient has a better, clearer clinical picture that demonstrates acalculous cholecystitis or need for interventions of the gallbladder, the first order of business would be to do a transhepatic percutaneous cholecystostomy tube to drain the gallbladder and allow the patient to recover from his active hepatitis with the plans of returning him after a number of weeks for an elective or a semi-elective laparoscopic cholecystectomy. In the meantime, the patient may eat and we can observe him in the hospital. I certainly think the patient is not stable enough to be discharged home and should be kept in house at least over the course of the next few days and perhaps over the weekend for us to be able to carefully monitor him and to manage issues as they arise. I explained all of this in detail with the patient, but mainly to his family and had multiple conversations with other physicians and providers regarding his care. I answered all questions to the best of my ability and I believe that the patient and family appear to understand and agree with the plans. With above assessment, I recommend the followin. Keep in-house. 2. Okay to start feedings. 3. Check labs in a.m. 4. Plan on having the patient stay in the hospital for at least the next 48 to 72 hours and likely over the course of the weekend. Thank you again for allowing us to participate in the care of this very pleasant gentleman and his wonderful family. If there are any questions, please feel free to contact to contact me at [phone]. TOTAL VISIT TIME: Sixty minutes, of which more than half was spent in face-to- face discussion with the patient, discussions with his family, as well as coordination of care between multiple physicians and providers. UPDATED CLINICAL SUMMARY: Patient is a very pleasant but unfortunate 65-year- old gentleman with comorbidities including BMI 29.6 as well as alcoholic cirrhosis, who was admitted through the emergency department to [facility] on 11/16/2016 with active hepatitis. COMORBIDITIES. 1. BMI 29.6. 2. Chronic alcoholism with likely alcohol related cirrhosis associated with some evidence of portal hypertension, although the platelet count is in the 300s , presenting with jaundice, elevated bilirubin, elevated ALT and AST as well as alkaline phosphatase and evidence of slight encephalopathy. 3. Megaloblastic anemia with hemoglobin of 12. 4. Hyperbilirubinemia. 5. Hyponatremia with sodium of 131. 6. Coronary artery calcification. 7. Degenerative spine changes. 8. Chronic tobacco user. 9. Mention of previous hernia surgery. 10. Heavy alcohol use, including 27 years consuming a bottle of liquor 3 times a week 11. Hepatomegaly. 12. Fatty liver disease. 13. Extensive diverticulosis without evidence of diverticulitis. DATE OF ADMISSION: 11/16/2016 HISTORY OF PRESENT ILLNESS: The patient is a very pleasant 65-year-old gentleman with above-mentioned comorbidities whom we were kindly asked to consult. The patient had a series of examinations done including CT scan of abdomen and pelvis on 11/16/2016, gallbladder ultrasound on the same date as well as abdominal ultrasound, HIDA scan on 11/18/2016 that reportedly showed nonvisualization of the gallbladder up to 90 minutes post-injection, and no definite evidence to suggest the presence of a common bile duct obstruction and persistent liver activity, but subsequent delayed images at 3 hours showed a small area of increased uptake in the gallbladder fossa region, likely representing visualization of the gallbladder. Patient also had an MRCP on that demonstrated a distended gallbladder with mild gallbladder wall thickening and adjacent fluid which may indicate acalculous cholecystitis. Mild ascites and normal bile ducts were noted. During my visit, the patient did not have any pain complaints and did not complain of any nausea or vomiting. Confirmed by family, the patient appears to be slightly confused and sometimes seen to be talking to himself. No issues with blood in the stool or urine and no difficulty with weight loss. ALLERGIES: NO KNOWN DRUG ALLERGIES. HOME MEDICATIONS: The patient does not have a list of medications. MEDICATIONS: Currently, the patient is on multiple medications, includin. Piperacillin/tazobactam. 2. Protonix. 3. Librium. 4. Carafate. 5. Zofran. 6. Morphine. SOCIAL HISTORY: The patient lives with his family. He drinks heavily and there is report of him stopping his drinking a short while ago. There is controversy whether he smokes or not, parts of the chart report him being a heavy smoker and parts say that he is not. The patient himself cannot tell us and the family did not comment. He does not report any intravenous drug use. FAMILY HISTORY: No mention of major medical, surgical or oncologic problems in the family. REVIEW OF SYSTEMS: Somewhat difficult to obtain given the patient's slight encephalopathic state, but no other pertinent positives or pertinent negatives in the attempted review of systems. HEENT: The patient appears to be a very pleasant gentleman of descent, appearing stated age, sitting in a chair comfortably and in no acute distress. BMI is 29.6. VITAL SIGNS: Temperature is 98.9, blood pressure 124/79, pulse 96, respiratory rate 18, pulse oximetry 96% on room air. HEENT: Normocephalic and atraumatic. Extraocular muscles and hearing are grossly intact bilaterally and symmetrically. Sclerae are icteric. Oral cavity is clear; oral mucosa appeared to be pink and moist. Dentition: fair to poor. NECK: Supple. There is no lymphadenopathy or JVD. There is no submental, submandibular or supraclavicular lymphadenopathy. CHEST: Rises symmetrically with each breath; patient is breathing comfortably. There are no audible wheezes, rales or rhonchi on the gross exam. HEART: Pulse is regular and palpable on the right wrist. Capillary refill was normal. Carotid pulses are palpable bilaterally and symmetrically in the neck. EXTREMITIES: Lower extremities contain no pitting edema around the ankles bilaterally and symmetrically. ABDOMEN: Protuberant. This is a well-healed scar in the anterior supraumbilical region. There is no obvious organomegaly, caput medusae, engorged subcutaneous veins, or obvious evidence of ascites. There is absolutely no tenderness to palpation in any of the quadrants, including deep palpation in the right upper quadrant. The abdomen is otherwise soft and does not appear to be distended, although it is protuberant. No peritoneal signs or guarding. SKIN: SKIN: Jaundiced and feels warm to touch. NEUROLOGIC: Awake, alert, and follows commands appropriately. LABORATORY DATA: Reviewed above. Note that his serologies show hepatitis B surface antibody to be negative, hepatitis C antibody is negative, hepatitis B core total antibody is reactive. The hepatitis B immunoglobulin levels are pending. His albumin is 2.4 after resuscitation. INR is 1.30. His latest platelet count was 339. Creatinine 0.64, sodium 134. Alkaline phosphatase 395. Total bilirubin 11.2. AST 246, ALT 82. IMAGING: Reviewed above. Note that I personally reviewed all the available images and I agree in general with their overall reported findings. Dictated By: ABEBA LEES/[place] Conf#: [id number] DID#: [id number] MTDD
[2016-11-19 20:37] VITALS: BP 113/75; RESP 18
[2016-11-20 05:24] LABS: ADD SCAN DIFF NO
[2016-11-20] MEDS: POTASSIUM CHLORIDE 10 MEQ in SOD CHLORIDE 0.9% 1,000 ML IV SCH ×2 (05:28→17:06)
[2016-11-20] MEDS: PANTOPRAZOLE 40 MG INJ IV SCH (05:30)
[2016-11-20] MEDS: PIPER-TAZO 3.375 GM IV (PMX) 100 ML IVPB SCH ×3 (05:31→21:12)
[2016-11-20 05:39] LABS: BASOPHIL # 0.1 10^3/ul (0.0-0.1); BASOPHILS % 0.5 % (0.0-2.0); EOSINOPHILS # 0.3 10^3/ul (0.0-0.5); EOSINOPHILS % 1.7 % (0.0-7.0); HEMOGLOBIN 11.8 g/dl (14.0-18.0); LYMPHOCYTES # 1.5 10^3/ul (0.8-2.9); LYMPHOCYTES % 9.2 % (15.0-51.0); MEAN CORPUSCULAR HEMOGLOBIN 37.2 pg (29.0-33.0); MEAN CORPUSCULAR HGB CONC 34.7 g/dl (32.0-37.0); MEAN CORPUSCULAR VOLUME 107.3 fl (82.0-101.0); MEAN PLATELET VOLUME 11.8 fl (7.4-10.4); MONOCYTE # 1.2 10^3/ul (0.3-0.9); MONOCYTES % 7.1 % (0.0-11.0); NEUTROPHIL # 13.2 10^3/ul (1.6-7.5); NEUTROPHILS % 79.6 % (39.0-77.0); PLATELET COUNT 339 10^3/UL (140-415); RED BLOOD COUNT 3.17 10^6/ul (4.70-6.10); WHITE BLOOD COUNT 16.6 10^3/ul (4.8-10.8)
[2016-11-20 06:15] LABS: ALBUMIN 2.4 g/dl (3.3-4.9)
[2016-11-20 06:16] LABS: POTASSIUM 3.8 mmol/L (3.5-5.1)
[2016-11-20 06:18] LABS: ALBUMIN/GLOBULIN RATIO 0.52; BILIRUBIN,DIRECT 10.1 mg/dl (0.00-0.20); BILIRUBIN,INDIRECT 1.7 mg/dl (0-1.1); BILIRUBIN,TOTAL 11.8 mg/dl (0.2-1.3); CREATININE 0.79 mg/dl (0.61-1.24)
[2016-11-20 06:19] LABS: CALCIUM 7.6 mg/dl (8.4-10.2)
[2016-11-20 08:50] VITALS: BP 133/88; RESP 17
[2016-11-20] MEDS: CHLORDIAZEPOXIDE 25 MG CAP PO SCH ×3 (08:54→21:12)
[2016-11-20] MEDS: SUCRALFATE 1 GM TAB PO SCH ×4 (08:54→21:12)
[2016-11-20] MEDS: MULTIVITAMINS 10 ML, THIAMINE 100 MG, FOLIC ACID 1 MG in SOD CHLORIDE 0.9% 1,000 ML IVPB SCH (09:45)
--- NOTE | 2016-11-20 10:50 | PN ---
Date/Time of Note Date/Time of Note DATE: 11/20/16 TIME: 10:48 Assessment/Plan Lines/Catheters IV Catheter Type (from [facility]): Peripheral IV [place] in Place (from [facility]): No Assessment/Plan Assessment/Plan [facility] Progress Note Date of Service: 11/20/16 Today's Impression & Plan: Overall stable. No indication for acute surgical intervention. Active hepatitis ongoing. Abd benign. With above assessment, I've recommended the following for today: 1. Cont current cares 2. Will follow from periphery and visit as needed Thank you again for your great care of this very pleasant patient and wonderful family. If there are any questions, please feel free to call me at [phone]. TOTAL VISIT TIME: 20 minutes of which more than half was spent in [id number] discussion with the patient, possibly including family, as well as coordination of care between multiple physicians and providers. Disclaimer: Inadvertent spelling or grammatical errors are likely due to EHR/ dictation software use and do not reflect on the overall quality of patient care. Updated Clinical Summary: Patient is a very pleasant but unfortunate 65-year-old gentleman with comorbidities including BMI 29.6 as well as alcoholic cirrhosis, who was admitted through the emergency department to [facility] on with active hepatitis. COMORBIDITIES. 1. BMI 29.6. 2. Chronic alcoholism with likely alcohol related cirrhosis associated with some evidence of portal hypertension, although the platelet count is in the 300s , presenting with jaundice, elevated bilirubin, elevated ALT and AST as well as alkaline phosphatase and evidence of slight encephalopathy. 3. Megaloblastic anemia with hemoglobin of 12. 4. Hyperbilirubinemia. 5. Hyponatremia with sodium of 131. 6. Coronary artery calcification. 7. Degenerative spine changes. 8. Chronic tobacco user. 9. Mention of previous hernia surgery. 10. Heavy alcohol use, including 27 years consuming a bottle of liquor 3 times a week 11. Hepatomegaly. 12. Fatty liver disease. 13. Extensive diverticulosis without evidence of diverticulitis. Subjective: No major events or complaints; no abd pain and tolerating solid food; no n/v/d; no sob or cp; + flatus; + BM; + activity Objective: Vitals: See below Exam: GENERAL: On exam, the patient was sitting in a chair and appeared to be comfortable and in no acute distress. ABDOMEN: Soft, nontender and nondistended. There are no peritoneal signs or guarding. SKIN: Skin appears to be jaundiced and feels warm to touch. NEUROLOGIC: Patient is awake, alert, and follows commands appropriately. Exam/Review of Systems Vital Signs Vitals Vital Signs Date Time Temp Pulse Resp B/P Pulse Ox O2 Delivery O2 Flow Rate FiO2 11/20/16 08:50 98.4 103 17 133/88 98 11/16/16 18:40 Room Air Intake and Output 11/19/16 11/19/16 11/20/16 15:00 23:00 07:00 Intake Total 405 ml 1697 ml 1090 ml Balance 405 ml 1697 ml 1090 ml Results Result Diagram: 11/20/16 0455 11/20/16 0455 ABEBA TIMMONS M.D. Nov 20, 2016 10:50
--- NOTE | 2016-11-20 11:04 | PN ---
Date/Time of Note Date/Time of Note DATE: 11/20/16 TIME: 10:57 Assessment/Plan VTE Prophylaxis VTE Prophylaxis Intervention: SCD's Lines/Catheters IV [facility]ter Type (from [facility]): Peripheral IV Urinary Cath still in place: No Assessment/Plan Assessment/Plan Jaundice * Hepatocellular * Acute alcoholic hepatitis [facility] liver discrimination function 30 * Calculous cholecystitis BY MRCP * Hepatitis B infection chronic(?) * MRCP 11/18/2016 * 1. Fatty metamorphosis of the liver. Hepatomegaly. 2. Distended gallbladder with mild gallbladder wall thickening and adjacent fluid. This may indicate acalculous cholecystitis. 3. Mild ascites. 4. Normal bile ducts. 5. Otherwise unremarkable study. * HIDA scan 11/16/2016 * 1. Nonvisualization of the gallbladder up to 90 minutes post injection. 2. No definite evidence to suggest the presence of a common bile duct obstruction. 3. Persistent liver activity. Delayed images to follow. Delayed images of the abdomen obtained at 3 hours post injection demonstrates a small area of increased and in the gallbladder fossa region, which likely represents a visualization of the gallbladder * Chronic alcoholism * Plan continue present management monitor liver function Subjective 24 Hr Interval Summary Free Text/Dictation * Course reviewed with RN * Patient seen and examined * Denies abdominal pain, Exam/Review of Systems Vital Signs Vitals Vital Signs Date Time Temp Pulse Resp B/P Pulse Ox O2 Delivery O2 Flow Rate FiO2 11/20/16 08:50 98.4 103 17 133/88 98 11/16/16 18:40 Room Air Intake and Output 11/19/16 11/19/16 11/20/16 15:00 23:00 07:00 Intake Total 405 ml 1697 ml 1090 ml Balance 405 ml 1697 ml 1090 ml Exam Constitutional: alert, oriented Eyes: icteric, nl conjunctiva Neck: non-tender, supple Respiratory: clear to auscultation, diminished breath sounds, normal air movement Cardiovascular: edema, nl pulses, regular rate and rhythm Gastrointestinal: bowel sounds, distended, soft Musculoskeletal: nl extremities to inspection, nl gait and stance Extremities: normal pulses Neurological: nl speech Results Result Diagram: 11/20/16 0455 11/20/16 0455 Results 24 hrs Laboratory Tests Test 11/20/16 04:55 White Blood Count 16.6 H Red Blood Count 3.17 L Hemoglobin 11.8 L Hematocrit 34.0 L Mean Corpuscular Volume 107.3 H Mean Corpuscular Hemoglobin 37.2 H Mean Corpuscular Hemoglobin Concent 34.7 Red Cell Distribution Width 18.0 H Platelet Count 339 Mean Platelet Volume 11.8 H Neutrophils % 79.6 H Lymphocytes % 9.2 L Monocytes % 7.1 Eosinophils % 1.7 Basophils % 0.5 Nucleated Red Blood Cells % 0.0 Neutrophils # 13.2 H Lymphocytes # 1.5 Monocytes # 1.2 H Eosinophils # 0.3 Basophils # 0.1 Nucleated Red Blood Cells # 0.0 Sodium Level 136 Potassium Level 3.8 Chloride Level 102 Carbon Dioxide Level 25 Anion Gap 13 Blood Urea Nitrogen 10 Creatinine 0.79 Glucose Level 119 Calcium Level 7.6 L Total Bilirubin 11.8 H Direct Bilirubin 10.10 H Indirect Bilirubin 1.7 H Aspartate Amino Transf (AST/SGOT) 261 H Alanine Aminotransferase (ALT/SGPT) 84 H Alkaline Phosphatase 445 H Total Protein 7.0 Albumin 2.4 L Globulin 4.60 H Albumin/Globulin Ratio 0.52 Medications Medications Current Medications Multivitamins/ Thiamine HCl/ Folic Acid/Sodium Chloride (Mvi Adult/ Vitamin B1/ Folic Acid/NS) 1,011.2 ml @ 125 mls/ hr DAILY@09 IVPB Last administered on 09:45; Admin Dose 125 MLS/HR; Start 11/17/16 at 09:00 Chlordiazepoxide (Librium) 25 mg TID PO Last administered on 11/20/16 08:54; Admin Dose 25 MG; Start 11/16/16 at 21:00 Pantoprazole (Protonix Iv) 40 mg DAILY@06 IV Last administered on 11/20/16 05: 30; Admin Dose 40 MG; Start 11/17/16 at 06:00 Sucralfate (Carafate) 1 gm QID PO Last administered on 11/20/16 08:54; Admin Dose 1 GM; Start 11/16/16 at 21:00 Ondansetron HCl (Zofran Inj) 4 mg Q6H PRN IV NAUSEA AND/OR VOMITING; Start at 19:30 Morphine Sulfate 2 mg 2 mg Q4H PRN IV pain; Start 11/16/16 at 19:30 Piperacillin Sod/ Tazobactam Sod 100 ml @ 200 mls/hr Q8 IVPB Last administered on 11/20/16 05:31; Admin Dose 200 MLS/HR; Start 11/18/16 at 14:00 Potassium Chloride/Sodium Chloride (KCl/NS) 1,005 ml @ 75 mls/hr [id number] IV Last administered on 11/20/16 05:28; Admin Dose 75 MLS/HR; Start 11/18/16 at 11 :30 MORIS HINES MD Nov 20, 2016 11:04
--- NOTE | 2016-11-20 13:27 | PN ---
Date/Time of Note Date/Time of Note DATE: 11/20/16 TIME: 13:23 Assessment/Plan VTE Prophylaxis VTE Prophylaxis Intervention: other Lines/Catheters IV Catheter Type (from [facility]): Peripheral IV Urinary Cath still in place: No Assessment/Plan Assessment/Plan 1. Possible acute acalculous cholecystitis, follow up with surgery, on zosyn 2. Alcoholic liver disease and probably MARSH, liver cirrhosis with portal hypertension, stopped drinking about 3 weeks ago, no withdrawal symptoms 3. Jaundice with high alk phos, ERCP negative for CBD stone 4. Macrocytic anemia due to alcoholism 5. Tobacco dependence, quit 6. Dyslipidemia 7. Leukocytosis, follow up with CBC Subjective 24 Hr Interval Summary Free Text/Dictation afebrile. no pain Exam/Review of Systems Vital Signs Vitals Vital Signs Date Time Temp Pulse Resp B/P Pulse Ox O2 Delivery O2 Flow Rate FiO2 11/20/16 08:50 98.4 103 17 133/88 98 11/16/16 18:40 Room Air Intake and Output 11/19/16 11/19/16 11/20/16 15:00 23:00 07:00 Intake Total 405 ml 1697 ml 1090 ml Balance 405 ml 1697 ml 1090 ml Exam Constitutional: alert, oriented, well developed Psych: nl mood/affect, no complaints Head: atraumatic, normocephalic Eyes: EOMI, PERRL, nl conjunctiva, nl lids ENMT: nl external ears & nose, nl lips & teeth, nl nasal mucosa & septum Neck: non-tender, supple Respiratory: clear to auscultation, normal air movement, No congested cough, No crackles/rales, No diminished breath sounds, No intercostal retraction, No labored breathing, No other, No respirations, No tactile fremitus, No wheezing Cardiovascular: nl pulses, regular rate and rhythm, No S3, No S4, No bruits, No diastolic murmur, No edema, No gallop, No irregular rhythm, No jugular venous distention (JVD), No murmurs/extra sounds, No other, No rub, No systolic murmur Gastrointestinal: distended, hepatomegaly Musculoskeletal: nl extremities to inspection Extremities: normal pulses, No calf tenderness, No clubbing, No cyanosis, No edema, No other, No palpable cord, No pitting pedal edema, No tenderness Neurological: GRAVITY METER OBSERVER II-XII intact, nl mental status, nl speech, nl strength Lymph: nl lymph nodes Results Result Diagram: 11/20/16 0455 11/20/16 0455 Results 24 hrs Laboratory Tests Test 11/20/16 04:55 White Blood Count 16.6 H Red Blood Count 3.17 L Hemoglobin 11.8 L Hematocrit 34.0 L Mean Corpuscular Volume 107.3 H Mean Corpuscular Hemoglobin 37.2 H Mean Corpuscular Hemoglobin Concent 34.7 Red Cell Distribution Width 18.0 H Platelet Count 339 Mean Platelet Volume 11.8 H Neutrophils % 79.6 H Lymphocytes % 9.2 L Monocytes % 7.1 Eosinophils % 1.7 Basophils % 0.5 Nucleated Red Blood Cells % 0.0 Neutrophils # 13.2 H Lymphocytes # 1.5 Monocytes # 1.2 H Eosinophils # 0.3 Basophils # 0.1 Nucleated Red Blood Cells # 0.0 Sodium Level 136 Potassium Level 3.8 Chloride Level 102 Carbon Dioxide Level 25 Anion Gap 13 Blood Urea Nitrogen 10 Creatinine 0.79 Glucose Level 119 Calcium Level 7.6 L Total Bilirubin 11.8 H Direct Bilirubin 10.10 H Indirect Bilirubin 1.7 H Aspartate Amino Transf (AST/SGOT) 261 H Alanine Aminotransferase (ALT/SGPT) 84 H Alkaline Phosphatase 445 H Total Protein 7.0 Albumin 2.4 L Globulin 4.60 H Albumin/Globulin Ratio 0.52 Medications Medications Current Medications Multivitamins/ Thiamine HCl/ Folic Acid/Sodium Chloride (Mvi Adult/ Vitamin B1/ Folic Acid/NS) 1,011.2 ml @ 125 mls/ hr DAILY@09 IVPB Last administered on 09:45; Admin Dose 125 MLS/HR; Start 11/17/16 at 09:00 Chlordiazepoxide (Librium) 25 mg TID PO Last administered on 11/20/16 13:08; Admin Dose 25 MG; Start 11/16/16 at 21:00 Pantoprazole (Protonix Iv) 40 mg DAILY@06 IV Last administered on 11/20/16 05: 30; Admin Dose 40 MG; Start 11/17/16 at 06:00 Sucralfate (Carafate) 1 gm QID PO Last administered on 11/20/16 13:08; Admin Dose 1 GM; Start 11/16/16 at 21:00 Ondansetron HCl (Zofran Inj) 4 mg Q6H PRN IV NAUSEA AND/OR VOMITING; Start at 19:30 Morphine Sulfate 2 mg 2 mg Q4H PRN IV pain; Start 11/16/16 at 19:30 Piperacillin Sod/ Tazobactam Sod 100 ml @ 200 mls/hr Q8 IVPB Last administered on 11/20/16 05:31; Admin Dose 200 MLS/HR; Start 11/18/16 at 14:00 Potassium Chloride/Sodium Chloride (KCl/NS) 1,005 ml @ 75 mls/hr [id number] IV Last administered on 11/20/16 05:28; Admin Dose 75 MLS/HR; Start 11/18/16 at 11 :30 RADHA JORGENSEN MD Nov 20, 2016 13:27
[2016-11-20 21:33] VITALS: BP 128/84; RESP 20
[2016-11-21] MEDS: POTASSIUM CHLORIDE 10 MEQ in SOD CHLORIDE 0.9% 1,000 ML IV SCH ×2 (00:31→21:07)
[2016-11-21] MEDS: PANTOPRAZOLE 40 MG INJ IV SCH (05:12)
[2016-11-21] MEDS: PIPER-TAZO 3.375 GM IV (PMX) 100 ML IVPB SCH ×3 (05:16→21:07)
[2016-11-21 06:13] LABS: ADD SCAN DIFF NO
[2016-11-21 06:28] LABS: BASOPHIL # 0.1 10^3/ul (0.0-0.1); BASOPHILS % 0.5 % (0.0-2.0); EOSINOPHILS # 0.3 10^3/ul (0.0-0.5); EOSINOPHILS % 1.5 % (0.0-7.0); HEMATOCRIT 35.5 % (42.0-52.0); HEMOGLOBIN 12.4 g/dl (14.0-18.0); LYMPHOCYTES # 2.2 10^3/ul (0.8-2.9); MEAN CORPUSCULAR HEMOGLOBIN 36.8 pg (29.0-33.0); MEAN CORPUSCULAR HGB CONC 34.9 g/dl (32.0-37.0); MEAN CORPUSCULAR VOLUME 105.3 fl (82.0-101.0); MEAN PLATELET VOLUME 12.1 fl (7.4-10.4); MONOCYTE # 1.3 10^3/ul (0.3-0.9); MONOCYTES % 7.2 % (0.0-11.0); NEUTROPHILS % 76.8 % (39.0-77.0); PLATELET COUNT 393 10^3/UL (140-415); RED BLOOD COUNT 3.37 10^6/ul (4.70-6.10); WHITE BLOOD COUNT 18.2 10^3/ul (4.8-10.8)
[2016-11-21 06:47] LABS: ALBUMIN/GLOBULIN RATIO 0.51
[2016-11-21 06:55] LABS: ALBUMIN 2.5 g/dl (3.3-4.9); BILIRUBIN,DIRECT 9.9 mg/dl (0.00-0.20); BILIRUBIN,INDIRECT 1.9 mg/dl (0-1.1); BILIRUBIN,TOTAL 11.8 mg/dl (0.2-1.3); CALCIUM 7.9 mg/dl (8.4-10.2); CREATININE 0.71 mg/dl (0.61-1.24); POTASSIUM 3.6 mmol/L (3.5-5.1); TOTAL PROTEIN 7.4 g/dl (6.1-8.1)
[2016-11-21 07:15] VITALS: BP 119/82; RESP 20
[2016-11-21] MEDS: SUCRALFATE 1 GM TAB PO SCH ×4 (08:25→21:07)
[2016-11-21] MEDS: CHLORDIAZEPOXIDE 25 MG CAP PO SCH (08:25)
[2016-11-21] MEDS: MULTIVITAMINS 10 ML, THIAMINE 100 MG, FOLIC ACID 1 MG in SOD CHLORIDE 0.9% 1,000 ML IVPB SCH (09:32)
--- NOTE | 2016-11-21 11:57 | PN ---
Date/Time of Note Date/Time of Note DATE: 11/21/16 TIME: 11:50 Assessment/Plan VTE Prophylaxis VTE Prophylaxis Intervention: SCD's Lines/Catheters IV Catheter Type (from [facility]): Peripheral IV Urinary Cath still in place: No Assessment/Plan Assessment/Plan Assessment/Plan Jaundice/Hepatocellular * Acute alcoholic hepatitis [facility] liver discrimination function 30 ?Acalculous cholecystitis BY MRCP/ clinically unlikely Hepatitis B exposure/no active infection Chronic alcoholism Plan continue present management monitor liver function Subjective 24 Hr Interval Summary Free Text/Dictation * Course reviewed with RN * Patient seen and examined * Denies abdominal pain * Tolerating diet Exam/Review of Systems Vital Signs Vitals Vital Signs Date Time Temp Pulse Resp B/P Pulse Ox O2 Delivery O2 Flow Rate FiO2 11/21/16 07:15 98.0 100 20 119/82 98 Intake and Output 11/20/16 11/20/16 11/21/16 15:00 23:00 07:00 Intake Total 225 ml 2171.2 ml 1910 ml Balance 225 ml 2171.2 ml 1910 ml Exam Constitutional: alert, oriented Eyes: icteric, nl conjunctiva Neck: non-tender, supple Respiratory: clear to auscultation, diminished breath sounds, normal air movement Cardiovascular: edema, nl pulses, regular rate and rhythm Gastrointestinal: bowel sounds, distended, soft Musculoskeletal: nl extremities to inspection, nl gait and stance Extremities: normal pulses Neurological: nl speech Results Result Diagram: 11/21/16 0503 11/21/16 0503 Results 24 hrs Laboratory Tests Test 11/21/16 05:03 White Blood Count 18.2 H Red Blood Count 3.37 L Hemoglobin 12.4 L Hematocrit 35.5 L Mean Corpuscular Volume 105.3 H Mean Corpuscular Hemoglobin 36.8 H Mean Corpuscular Hemoglobin Concent 34.9 Red Cell Distribution Width 18.0 H Platelet Count 393 Mean Platelet Volume 12.1 H Neutrophils % 76.8 Lymphocytes % 12.0 L Monocytes % 7.2 Eosinophils % 1.5 Basophils % 0.5 Nucleated Red Blood Cells % 0.0 Neutrophils # 14.0 H Lymphocytes # 2.2 Monocytes # 1.3 H Eosinophils # 0.3 Basophils # 0.1 Nucleated Red Blood Cells # 0.0 Sodium Level 134 L Potassium Level 3.6 Chloride Level 102 Carbon Dioxide Level 20 L Anion Gap 16 Blood Urea Nitrogen 10 Creatinine 0.71 Glucose Level 124 Calcium Level 7.9 L Total Bilirubin 11.8 H Direct Bilirubin 9.90 H Indirect Bilirubin 1.9 H Aspartate Amino Transf (AST/SGOT) 286 H Alanine Aminotransferase (ALT/SGPT) 88 H Alkaline Phosphatase 513 H Total Protein 7.4 Albumin 2.5 L Globulin 4.90 H Albumin/Globulin Ratio 0.51 Medications Medications Current Medications Multivitamins/ Thiamine HCl/ Folic Acid/Sodium Chloride (Mvi Adult/ Vitamin B1/ Folic Acid/NS) 1,011.2 ml @ 125 mls/ hr DAILY@09 IVPB Last administered on 09:32; Admin Dose 125 MLS/HR; Start 11/17/16 at 09:00 Chlordiazepoxide (Librium) 25 mg TID PO Last administered on 11/21/16 08:25; Admin Dose 25 MG; Start 11/16/16 at 21:00 Pantoprazole (Protonix Iv) 40 mg DAILY@06 IV Last administered on 11/21/16 05: 12; Admin Dose 40 MG; Start 11/17/16 at 06:00 Sucralfate (Carafate) 1 gm QID PO Last administered on 11/21/16 08:25; Admin Dose 1 GM; Start 11/16/16 at 21:00 Ondansetron HCl (Zofran Inj) 4 mg Q6H PRN IV NAUSEA AND/OR VOMITING; Start at 19:30 Morphine Sulfate 2 mg 2 mg Q4H PRN IV pain; Start 11/16/16 at 19:30 Piperacillin Sod/ Tazobactam Sod 100 ml @ 200 mls/hr Q8 IVPB Last administered on 11/21/16 05:16; Admin Dose 200 MLS/HR; Start 11/18/16 at 14:00 Potassium Chloride/Sodium Chloride (KCl/NS) 1,005 ml @ 75 mls/hr [id number] IV Last administered on 11/21/16 00:31; Admin Dose 75 MLS/HR; Start 11/18/16 at 11 :30 MORIS HINES MD Nov 21, 2016 11:57
--- NOTE | 2016-11-21 13:40 | PN ---
Date/Time of Note Date/Time of Note DATE: 11/21/16 TIME: 13:36 Assessment/Plan Lines/Catheters IV Catheter Type (from [facility]): Peripheral IV Mcmullen in Place (from [facility]): No Assessment/Plan Assessment/Plan [facility] Progress Note Date of Service: 11/21/16 Today's Impression & Plan: Overall stable. No indication for acute surgical intervention. Active hepatitis ongoing. Abd benign, but more distended than the last few days (? ascites build up). No active surgical issues, but still worried about hepatic function and ability of patient to be outside of the hospital safely. Appreciate Dr. Silver and rest of GI team's input regarding timing of discharge and outpatient management. Will follow from periphery for now and visit as needed. With above assessment, I've recommended the following for today: 1. Cont current cares 2. Will follow from periphery and visit as needed Thank you again for your great care of this very pleasant patient and wonderful family. If there are any questions, please feel free to call me at [phone]. TOTAL VISIT TIME: 20 minutes of which more than half was spent in [id number] discussion with the patient, possibly including family, as well as coordination of care between multiple physicians and providers. Disclaimer: Inadvertent spelling or grammatical errors are likely due to EHR/ dictation software use and do not reflect on the overall quality of patient care. Updated Clinical Summary: Patient is a very pleasant but unfortunate 65-year-old gentleman with comorbidities including BMI 29.6 as well as alcoholic cirrhosis, who was admitted through the emergency department to [facility] on with active hepatitis. COMORBIDITIES. 1. BMI 29.6. 2. Chronic alcoholism with likely alcohol related cirrhosis associated with some evidence of portal hypertension, although the platelet count is in the 300s , presenting with jaundice, elevated bilirubin, elevated ALT and AST as well as alkaline phosphatase and evidence of slight encephalopathy. 3. Megaloblastic anemia with hemoglobin of 12. 4. Hyperbilirubinemia. 5. Hyponatremia with sodium of 131. 6. Coronary artery calcification. 7. Degenerative spine changes. 8. Chronic tobacco user. 9. Mention of previous hernia surgery. 10. Heavy alcohol use, including 27 years consuming a bottle of liquor 3 times a week 11. Hepatomegaly. 12. Fatty liver disease. 13. Extensive diverticulosis without evidence of diverticulitis. Subjective: No major events or complaints; no abd pain and tolerating solid food; wondering when he can be discharged; no n/v/d; no sob or cp; + flatus; + BM; + activity Objective: Vitals: See below Exam: GENERAL: On exam, the patient was laying in bed and appeared to be comfortable and in no acute distress. ABDOMEN: Soft, nontender and distended. There are no peritoneal signs or guarding. SKIN: Skin appears to be jaundiced and feels warm to touch. NEUROLOGIC: Patient is awake, alert, and follows commands appropriately. Exam/Review of Systems Vital Signs Vitals Vital Signs Date Time Temp Pulse Resp B/P Pulse Ox O2 Delivery O2 Flow Rate FiO2 11/21/16 07:15 98.0 100 20 119/82 98 Intake and Output 11/20/16 11/20/16 11/21/16 15:00 23:00 07:00 Intake Total 225 ml 2171.2 ml 1910 ml Balance 225 ml 2171.2 ml 1910 ml Results Result Diagram: 11/21/16 0503 11/21/16 0503 ABEBA TIMMONS M.D. Nov 21, 2016 13:40
[2016-11-21] MEDS: LACTULOSE 30ML CUP PO SCH (13:46)
[2016-11-21] MEDS ORDERED: LIDOCAINE 1% (MPF) 5 ML VIAL ONE (16:16)
--- NOTE | 2016-11-21 16:26 | RADRPT ---
PROCEDURE: Ultrasound guided paracentesis. CLINICAL INDICATION: Ascites. TECHNIQUE: Ultrasound guidance. COMPARISON: MRI dated 11/17/2016. FINDINGS: Informed consent was obtained prior to the start of the procedure with the aid of a British interpre ter. The risks, benefits, alternatives were discussed which include but are not limited to bleeding , infection, damage the adjacent structures, and bowel perforation. A time out was performed immedi ately prior to the start of the procedure. Preliminary ultrasound of the abdomen was performed and demonstrated ascites. An appropriate site f or entry into the peritoneal cavity was identified in the right lower quadrant and marked at the ski n surface. The patient was prepped and draped in usual sterile fashion. The subcutaneous tissues we re anesthetized with 1% lidocaine. A small incision was made at the skin surface. Then, a 5-German coaxial needle was introduced into the peritoneal cavity and connected to tubing for suction. Appr oximately 3200 cc of clear yellow fluid was aspirated. The catheter was then removed and hemostasis was achieved at the skin surface with manual compression. A dry dressing was applied. The patient tolerated the procedure well and there were no immediate complications. A sample was sent to the lab for further analysis. IMPRESSION: Technically successful ultrasound-guided paracentesis. There were no immediate complications. RPTAT: QQ .Kyaw Cartagena MD, MD Date Time Electronically viewed and signed by .Kyaw Cartagena MD, MD on 11/21/2016 16:26 .P/
[2016-11-21 18:36] LABS: FLUID APPEARANCE CLEAR; FLUID TYPE ASCITES
[2016-11-21 18:37] LABS: FLUID RBC EST 0; FLUID WBC'S 370 /cmm
[2016-11-21 19:13] LABS: FLUID LYMPHOCYTES 32 %; FLUID NEUTROPHILS 17 %
[2016-11-21 19:15] LABS: FLUID BASOPHIL 0 %; FLUID EOSINOPHIL 0 %; FLUID MONOCYTES 16 %
[2016-11-21 20:01] VITALS: BP 135/85; RESP 19
[2016-11-22 05:57] LABS: INR 1.43; PROTIME 17.5 Sec (12.2-14.2); PT RATIO 1.4
[2016-11-22 05:58] LABS: ADD SCAN DIFF NO; PARTIAL THROMBOPLASTIN TIME 36.2 Sec (25.0-35.0)
[2016-11-22 06:00] LABS: ALBUMIN 2.4 g/dl (3.3-4.9); ALBUMIN/GLOBULIN RATIO 0.51; BILIRUBIN,INDIRECT 1.8 mg/dl (0-1.1); BILIRUBIN,TOTAL 11.8 mg/dl (0.2-1.3); CALCIUM 7.9 mg/dl (8.4-10.2); CREATININE 0.73 mg/dl (0.61-1.24); PHOSPHORUS 2.8 mg/dl (2.5-4.9); POTASSIUM 3.8 mmol/L (3.5-5.1); TOTAL PROTEIN 7.1 g/dl (6.1-8.1)
[2016-11-22] MEDS: PIPER-TAZO 3.375 GM IV (PMX) 100 ML IVPB SCH ×3 (06:01→21:33)
[2016-11-22] MEDS: PANTOPRAZOLE 40 MG INJ IV SCH (06:01)
[2016-11-22 06:06] LABS: ABNORMAL IP MESSAGE 1; BASOPHIL # 0.1 10^3/ul (0.0-0.1); BASOPHILS % 0.3 % (0.0-2.0); EOSINOPHILS # 0.2 10^3/ul (0.0-0.5); HEMATOCRIT 35.6 % (42.0-52.0); HEMOGLOBIN 12.3 g/dl (14.0-18.0); LYMPHOCYTES # 2.8 10^3/ul (0.8-2.9); LYMPHOCYTES % 14.6 % (15.0-51.0); MEAN CORPUSCULAR HEMOGLOBIN 36.5 pg (29.0-33.0); MEAN CORPUSCULAR HGB CONC 34.6 g/dl (32.0-37.0); MEAN CORPUSCULAR VOLUME 105.6 fl (82.0-101.0); MEAN PLATELET VOLUME 11.9 fl (7.4-10.4); MONOCYTE # 1.5 10^3/ul (0.3-0.9); MONOCYTES % 7.9 % (0.0-11.0); NEUTROPHIL # 14.3 10^3/ul (1.6-7.5); NEUTROPHILS % 73.9 % (39.0-77.0); PLATELET COUNT 377 10^3/UL (140-415); RED BLOOD COUNT 3.37 10^6/ul (4.70-6.10); RED CELL DISTRIBUTION WIDTH 18.2 % (11.5-14.5); WHITE BLOOD COUNT 19.4 10^3/ul (4.8-10.8)
[2016-11-22 07:07] LABS: ALBUMIN 2.2 g/dl (3.3-4.9)
[2016-11-22 07:08] LABS: POTASSIUM 3.9 mmol/L (3.5-5.1)
[2016-11-22 07:10] LABS: BILIRUBIN,DIRECT 10.2 mg/dl (0.00-0.20); BILIRUBIN,TOTAL 12.2 mg/dl (0.2-1.3); CREATININE 0.75 mg/dl (0.61-1.24)
[2016-11-22 07:11] LABS: CALCIUM 7.9 mg/dl (8.4-10.2); TOTAL PROTEIN 6.6 g/dl (6.1-8.1)
[2016-11-22] MEDS: LACTULOSE 30ML CUP PO SCH (08:17)
[2016-11-22] MEDS: SUCRALFATE 1 GM TAB PO SCH ×4 (08:17→21:33)
[2016-11-22 08:45] VITALS: BP 100/61; RESP 18
[2016-11-22] MEDS: MULTIVITAMINS 10 ML, THIAMINE 100 MG, FOLIC ACID 1 MG in SOD CHLORIDE 0.9% 1,000 ML IVPB SCH (08:53)
[2016-11-22] MEDS: POTASSIUM CHLORIDE 10 MEQ in SOD CHLORIDE 0.9% 1,000 ML IV SCH ×2 (09:18→22:42)
--- NOTE | 2016-11-22 10:28 | PN ---
Date/Time of Note Date/Time of Note DATE: 11/22/16 TIME: 10:23 Assessment/Plan VTE Prophylaxis VTE Prophylaxis Intervention: SCD's Lines/Catheters IV Catheter Type (from [facility]): Peripheral IV Urinary Cath still in place: No Assessment/Plan Assessment/Plan Jaundice/Hepatocellular * Acute alcoholic hepatitis [facility] liver discrimination function 37.5 ?Acalculous cholecystitis BY MRCP/ clinically unlikely Hepatitis B exposure/no active infection Ascites Chronic alcoholism Plan continue present management monitor liver function continue prednisolone 40 mg daily for 28 days Subjective 24 Hr Interval Summary Free Text/Dictation * Course reviewed with RN * patient seen and examined * Denies abdominal pain * S/P paracentesis 11/21/2016 * 4.2 liters taken Exam/Review of Systems Vital Signs Vitals Vital Signs Date Time Temp Pulse Resp B/P Pulse Ox O2 Delivery O2 Flow Rate FiO2 11/22/16 08:45 98.4 91 18 100/61 97 Intake and Output 11/21/16 11/21/16 11/22/16 15:00 23:00 07:00 Intake Total 400 ml 1711.2 ml 900 ml Output Total 300 ml Balance 400 ml 1411.2 ml 900 ml Exam Constitutional: alert, oriented Eyes: icteric, nl conjunctiva Neck: non-tender, supple Respiratory: clear to auscultation, diminished breath sounds, normal air movement Cardiovascular: edema, nl pulses, regular rate and rhythm Gastrointestinal: bowel sounds, distended, soft Musculoskeletal: nl extremities to inspection, nl gait and stance Extremities: normal pulses Neurological: nl speech Results Result Diagram: 11/22/16 0510 11/22/16 0510 Results 24 hrs Laboratory Tests Test 11/21/16 15:45 11/22/16 05:10 11/22/16 09:36 11/22/16 09:37 Body Fluid Type ASCITES Body Fluid Volume 21.0 Body Fluid Color YELLOW Body Fluid Appearance CLEAR Body Fluid WBC 370 Body Fluid RBC 0 Body Fluid Neutrophils % 17 Body Fluid Lymphocytes (%) 32 Body Fluid Monocytes % 16 Body Fluid Eosinophils % 0 Body Fluid Basophils % 0 Body Fluid Other Cells (%) White Blood Count 19.4 H Red Blood Count 3.37 L Hemoglobin 12.3 L Hematocrit 35.6 L Mean Corpuscular Volume 105.6 H Mean Corpuscular Hemoglobin 36.5 H Mean Corpuscular Hemoglobin Concent 34.6 Red Cell Distribution Width 18.2 H Platelet Count 377 Mean Platelet Volume 11.9 H Neutrophils % 73.9 Lymphocytes % 14.6 L Monocytes % 7.9 Eosinophils % 1.0 Basophils % 0.3 Nucleated Red Blood Cells % 0.0 Neutrophils # 14.3 H Lymphocytes # 2.8 Monocytes # 1.5 H Eosinophils # 0.2 Basophils # 0.1 Nucleated Red Blood Cells # 0.0 Prothrombin Time 17.5 H Prothrombin Time Ratio 1.4 INR International Normalized Ratio 1.43 Activated Partial Thromboplast Time 36.2 H Sodium Level 135 Potassium Level 3.9 Chloride Level 105 Carbon Dioxide Level 18 L Anion Gap 16 Blood Urea Nitrogen 10 Creatinine 0.75 Glucose Level 101 Lactic Acid Level 2.6 H Calcium Level 7.9 L Phosphorus Level 3.0 Magnesium Level 2.0 Total Bilirubin 12.2 H Direct Bilirubin 10.20 H Indirect Bilirubin 2.0 H Aspartate Amino Transf (AST/SGOT) 272 H Alanine Aminotransferase (ALT/SGPT) 90 H Alkaline Phosphatase 473 H Ammonia 50 H B-Type Natriuretic Peptide 170 H Total Protein 6.6 Albumin 2.2 L Globulin 4.70 H Albumin/Globulin Ratio 0.51 Lab Scanned Report REFERENCE LAB REFERENCE LAB Medications Medications Current Medications Multivitamins/ Thiamine HCl/ Folic Acid/Sodium Chloride (Mvi Adult/ Vitamin B1/ Folic Acid/NS) 1,011.2 ml @ 125 mls/ hr DAILY@09 IVPB Last administered on 08:53; Admin Dose 125 MLS/HR; Start 11/17/16 at 09:00 Pantoprazole (Protonix Iv) 40 mg DAILY@06 IV Last administered on 11/22/16 06: 01; Admin Dose 40 MG; Start 11/17/16 at 06:00 Sucralfate (Carafate) 1 gm QID PO Last administered on 11/22/16 08:17; Admin Dose 1 GM; Start 11/16/16 at 21:00 Ondansetron HCl (Zofran Inj) 4 mg Q6H PRN IV NAUSEA AND/OR VOMITING; Start at 19:30 Morphine Sulfate 2 mg 2 mg Q4H PRN IV pain; Start 11/16/16 at 19:30 Piperacillin Sod/ Tazobactam Sod 100 ml @ 200 mls/hr Q8 IVPB Last administered on 11/22/16 06:01; Admin Dose 200 MLS/HR; Start 11/18/16 at 14:00 Potassium Chloride/Sodium Chloride (KCl/NS) 1,005 ml @ 75 mls/hr [id number] IV Last administered on 11/21/16 21:07; Admin Dose 75 MLS/HR; Start 11/18/16 at 11 :30 Lactulose (Enulose) 20 gm DAILY PO Last administered on 11/22/16 08:17; Admin Dose 20 GM; Start 11/21/16 at 13:30 MOIRS HINES MD Nov 22, 2016 10:28
[2016-11-22] MEDS: FUROSEMIDE 40 MG TAB PO SCH ×3 (11:00→13:18)
[2016-11-22] MEDS: [UNRECOGNIZED DRUG - REMARK] XX SCH ×2 (12:00→20:00)
--- NOTE | 2016-11-22 13:33 | PN ---
Date/Time of Note Date/Time of Note DATE: 11/22/16 TIME: 13:31 Assessment/Plan VTE Prophylaxis VTE Prophylaxis Intervention: SCD's Lines/Catheters IV Catheter Type (from [facility]): Peripheral IV Urinary Cath still in place: No Assessment/Plan Assessment/Plan 65 yo M with 1. Acute alcoholic hepatitis 2. Severe chronic liver disease 2/2 fatty liver + chronic alcohol abuse 3. SIRS with leucocytosis and lactic acidosis likely 2/2 #1 4. Macrocytic anemia due to alcoholism 5. Tobacco dependence, quit 6. Dyslipidemia 7. Cholecytitis r/o negative HIDA scan PLAN: * Patient continues to have worsening leucocytosis, bilirubin levels with lactic acidosis no clear source of infection. Calculated DF score at this time is 36. Will start 28day treatment for alcoholic hepatitis with steroids and assess daily for improvement * Continue in-house supportive care. Plan for discharge once improved * Alcohol cessation re-inforced daily Subjective 24 Hr Interval Summary Free Text/Dictation Patient seen and examined. s/p paracentesis yesterday abd less distended Exam/Review of Systems Vital Signs Vitals Vital Signs Date Time Temp Pulse Resp B/P Pulse Ox O2 Delivery O2 Flow Rate FiO2 11/22/16 08:45 98.4 91 18 100/61 97 Intake and Output 11/21/16 11/21/16 11/22/16 15:00 23:00 07:00 Intake Total 400 ml 1711.2 ml 900 ml Output Total 300 ml Balance 400 ml 1411.2 ml 900 ml Exam Constitutional: alert, oriented Eyes: icteric ENMT: mucosa pink and moist Respiratory: clear to auscultation, diminished breath sounds Cardiovascular: regular rate and rhythm, No murmurs/extra sounds Gastrointestinal: ascites, bowel sounds, distended, soft Extremities: edema Neurological: nl mental status Skin: other (jaundiced) Results Result Diagram: 11/22/16 0510 11/22/16 0510 Results 24 hrs Laboratory Tests Test 11/21/16 15:45 11/22/16 05:10 11/22/16 09:36 11/22/16 09:37 Body Fluid Type ASCITES Body Fluid Volume 21.0 Body Fluid Color YELLOW Body Fluid Appearance CLEAR Body Fluid WBC 370 Body Fluid RBC 0 Body Fluid Neutrophils % 17 Body Fluid Lymphocytes (%) 32 Body Fluid Monocytes % 16 Body Fluid Eosinophils % 0 Body Fluid Basophils % 0 Body Fluid Other Cells (%) White Blood Count 19.4 H Red Blood Count 3.37 L Hemoglobin 12.3 L Hematocrit 35.6 L Mean Corpuscular Volume 105.6 H Mean Corpuscular Hemoglobin 36.5 H Mean Corpuscular Hemoglobin Concent 34.6 Red Cell Distribution Width 18.2 H Platelet Count 377 Mean Platelet Volume 11.9 H Neutrophils % 73.9 Lymphocytes % 14.6 L Monocytes % 7.9 Eosinophils % 1.0 Basophils % 0.3 Nucleated Red Blood Cells % 0.0 Neutrophils # 14.3 H Lymphocytes # 2.8 Monocytes # 1.5 H Eosinophils # 0.2 Basophils # 0.1 Nucleated Red Blood Cells # 0.0 Prothrombin Time 17.5 H Prothrombin Time Ratio 1.4 INR International Normalized Ratio 1.43 Activated Partial Thromboplast Time 36.2 H Sodium Level 135 Potassium Level 3.9 Chloride Level 105 Carbon Dioxide Level 18 L Anion Gap 16 Blood Urea Nitrogen 10 Creatinine 0.75 Glucose Level 101 Lactic Acid Level 2.6 H Calcium Level 7.9 L Phosphorus Level 3.0 Magnesium Level 2.0 Total Bilirubin 12.2 H Direct Bilirubin 10.20 H Indirect Bilirubin 2.0 H Aspartate Amino Transf (AST/SGOT) 272 H Alanine Aminotransferase (ALT/SGPT) 90 H Alkaline Phosphatase 473 H Ammonia 50 H B-Type Natriuretic Peptide 170 H Total Protein 6.6 Albumin 2.2 L Globulin 4.70 H Albumin/Globulin Ratio 0.51 Lab Scanned Report REFERENCE LAB REFERENCE LAB Medications Medications Current Medications Multivitamins/ Thiamine HCl/ Folic Acid/Sodium Chloride (Mvi Adult/ Vitamin B1/ Folic Acid/NS) 1,011.2 ml @ 125 mls/ hr DAILY@09 IVPB Last administered on 08:53; Admin Dose 125 MLS/HR; Start 11/17/16 at 09:00 Pantoprazole (Protonix Iv) 40 mg DAILY@06 IV Last administered on 11/22/16 06: 01; Admin Dose 40 MG; Start 11/17/16 at 06:00 Sucralfate (Carafate) 1 gm QID PO Last administered on 11/22/16 13:15; Admin Dose 1 GM; Start 11/16/16 at 21:00 Ondansetron HCl (Zofran Inj) 4 mg Q6H PRN IV NAUSEA AND/OR VOMITING; Start at 19:30 Morphine Sulfate 2 mg 2 mg Q4H PRN IV pain; Start 11/16/16 at 19:30 Piperacillin Sod/ Tazobactam Sod 100 ml @ 200 mls/hr Q8 IVPB Last administered on 11/22/16 13:14; Admin Dose 200 MLS/HR; Start 11/18/16 at 14:00 Potassium Chloride/Sodium Chloride (KCl/NS) 1,005 ml @ 75 mls/hr [id number] IV Last administered on 11/21/16 21:07; Admin Dose 75 MLS/HR; Start 11/18/16 at 11 :30 Lactulose (Enulose) 20 gm DAILY PO Last administered on 11/22/16 08:17; Admin Dose 20 GM; Start 11/21/16 at 13:30 Spironolactone (Aldactone) 100 mg DAILY PO ; Start 11/22/16 at 11:30 Furosemide (Lasix) 40 mg DAILY PO Last administered on 11/22/16 13:18; Admin Dose 40 MG; Start 11/22/16 at 11:00 Prednisolone (Prednisolone) 40 mg DAILY PO ; Start 11/22/16 at 12:00; Stop 12/20 at 11:59 Miscellaneous Information (*Order Clarification Bulletin) RE: PREDNISOLONE 40 MG... Q8H XX ; Start 11/22/16 at 12:00 Procedures Procedures PROCEDURE: Ultrasound guided paracentesis. CLINICAL INDICATION: Ascites. TECHNIQUE: Ultrasound guidance. COMPARISON: MRI dated 11/17/2016. FINDINGS: Informed consent was obtained prior to the start of the procedure with the aid of a radiation control worker. The risks, benefits, alternatives were discussed which include but are not limited to bleeding, infection, damage the adjacent structures, and bowel perforation. A time out was performed immediately prior to the start of the procedure. Preliminary ultrasound of the abdomen was performed and demonstrated ascites. An appropriate site for entry into the peritoneal cavity was identified in the right lower quadrant and marked at the skin surface. The patient was prepped and draped in usual sterile fashion. The subcutaneous tissues were anesthetized with 1% lidocaine. A small incision was made at the skin surface. Then, a 5-Israeli coaxial needle was introduced into the peritoneal cavity and connected to tubing for suction. Approximately 3200 cc of clear yellow fluid was aspirated. The catheter was then removed and hemostasis was achieved at the skin surface with manual compression. A dry dressing was applied. The patient tolerated the procedure well and there were no immediate complications. A sample was sent to the lab for further analysis. IMPRESSION: Technically successful ultrasound-guided paracentesis. There were no immediate complications. RPTAT: QQ .Kyaw Cartagena MD, MD Date Time Electronically viewed and signed by .Kyaw Cartagena MD, MD on 11/21/2016 16:26 .P/ CC: ZEUS PHILIPPE BOLATITO M. Nov 22, 2016 13:33
[2016-11-22] MEDS: SPIRONOLACTONE 50 MG TAB PO SCH (13:38)
[2016-11-22] MEDS: predniSOLONE 5 MG TAB PO SCH (13:38)
--- NOTE | 2016-11-22 14:07 | EN ---
Date/Time of Note Date/Time of Note DATE: 11/22/16 TIME: 14:03 Event Note Medicine Medicine Event Note LATE PROGRESS NOTE DATE OF SERVICE: 11/21/16 SUBJECTIVE: significant abd distention with discomfort OBJECTIVE: Vital Signs Date Time Temp Pulse Resp B/P Pulse Ox O2 Delivery O2 Flow Rate FiO2 11/21/16 07:15 98.0 100 20 119/82 98 Intake and Output 11/20/16 11/20/16 11/21/16 15:00 23:00 07:00 Intake Total 225 ml 2171.2 ml 1910 ml Balance 225 ml 2171.2 ml 1910 ml GENERAL: On exam, the patient was laying in bed and appeared to be comfortable and in no acute distress. CHEST : Diminished breath sounds ABDOMEN: Soft, nontender and distended. There are no peritoneal signs or guarding. SKIN: Skin appears to be jaundiced NEUROLOGIC: Patient is awake, alert, and follows commands appropriately. Results Result Diagram: 11/21/16 0503 11/21/16 0503 ASSESSMENT: 65 yo M with 1. Acute alcoholic hepatitis 2. Severe chronic liver disease 2/2 fatty liver + chronic alcohol abuse 3. SIRS with leucocytosis and lactic acidosis likely 2/2 #1 4. Macrocytic anemia due to alcoholism 5. Tobacco dependence, quit 6. Dyslipidemia 7. Cholecystitis ruled out with negative HIDA scan PLAN: * patient is having worsening leucocytosis and liver enzymes * plan for paracentesis today, if no improvement in labs by tomorrow, will consider steroid therapy. * Continue supportive care ZEUS PHILIPPE Nov 22, 2016 14:07
[2016-11-22 21:04] VITALS: BP 115/77; RESP 20
[2016-11-23] MEDS: POTASSIUM CHLORIDE 10 MEQ in SOD CHLORIDE 0.9% 1,000 ML IV SCH ×2 (02:24→21:43)
[2016-11-23] MEDS: [UNRECOGNIZED DRUG - REMARK] XX SCH ×3 (04:00→20:00)
[2016-11-23 05:10] LABS: ADD SCAN DIFF NO
[2016-11-23 05:20] LABS: BASOPHILS % 0.1 % (0.0-2.0); EOSINOPHILS % 0.1 % (0.0-7.0); HEMATOCRIT 32.9 % (42.0-52.0); HEMOGLOBIN 11.5 g/dl (14.0-18.0); LYMPHOCYTES # 1.3 10^3/ul (0.8-2.9); MEAN CORPUSCULAR HEMOGLOBIN 37.3 pg (29.0-33.0); MEAN CORPUSCULAR VOLUME 106.8 fl (82.0-101.0); MONOCYTE # 0.5 10^3/ul (0.3-0.9); MONOCYTES % 3.2 % (0.0-11.0); NEUTROPHIL # 14.3 10^3/ul (1.6-7.5); NEUTROPHILS % 86.8 % (39.0-77.0); PLATELET COUNT 325 10^3/UL (140-415); RED BLOOD COUNT 3.08 10^6/ul (4.70-6.10); RED CELL DISTRIBUTION WIDTH 18.1 % (11.5-14.5); WHITE BLOOD COUNT 16.5 10^3/ul (4.8-10.8)
[2016-11-23] MEDS: PIPER-TAZO 3.375 GM IV (PMX) 100 ML IVPB SCH ×3 (05:26→21:43)
[2016-11-23] MEDS: PANTOPRAZOLE 40 MG INJ IV SCH (05:26)
[2016-11-23 05:30] LABS: ALBUMIN 2.2 g/dl (3.3-4.9); CALCIUM 7.7 mg/dl (8.4-10.2); CREATININE 0.74 mg/dl (0.61-1.24); PHOSPHORUS 3.8 mg/dl (2.5-4.9); POTASSIUM 3.9 mmol/L (3.5-5.1)
[2016-11-23] MEDS: SUCRALFATE 1 GM TAB PO SCH ×4 (08:00→20:31)
[2016-11-23] MEDS: predniSOLONE 5 MG TAB PO SCH (08:00)
[2016-11-23] MEDS: SPIRONOLACTONE 50 MG TAB PO SCH (08:00)
[2016-11-23] MEDS: LACTULOSE 30ML CUP PO SCH (08:00)
[2016-11-23] MEDS: FUROSEMIDE 40 MG TAB PO SCH (08:03)
[2016-11-23 08:15] VITALS: BP 126/87; RESP 20
[2016-11-23] MEDS: MULTIVITAMINS 10 ML, THIAMINE 100 MG, FOLIC ACID 1 MG in SOD CHLORIDE 0.9% 1,000 ML IVPB SCH (08:54)
--- NOTE | 2016-11-23 15:17 | PN ---
Date/Time of Note Date/Time of Note DATE: 11/23/16 TIME: 15:10 Assessment/Plan VTE Prophylaxis VTE Prophylaxis Intervention: SCD's Lines/Catheters [facility] (from [facility]): Peripheral IV Urinary Cath still in place: No Assessment/Plan Chief Complaint/Hosp Course Assessment/Plan 65 yo M with 1. Acute alcoholic hepatitis 2. Severe chronic liver disease 2/2 fatty liver + chronic alcohol abuse 3. SIRS with leucocytosis and lactic acidosis likely 2/2 #1 4. Macrocytic anemia due to alcoholism 5. Tobacco dependence, quit 6. Dyslipidemia 7. Cholecytitis r/o negative HIDA scan PLAN: * Patient continues to have worsening leucocytosis, bilirubin levels with lactic acidosis no clear source of infection. Calculated DF score at this time is 36. continue 28day treatment for alcoholic hepatitis including steroids and assess daily for improvement * Continue in-house supportive care. Plan for discharge once improved * Alcohol cessation re-inforced daily, including today with family at bedside Problems: Subjective 24 Hr Interval Summary Free Text/Dictation No acute events overnight, family at bedside. Exam/Review of Systems Vital Signs Vitals Vital Signs Date Time Temp Pulse Resp B/P Pulse Ox O2 Delivery O2 Flow Rate FiO2 11/23/16 08:15 98.0 83 20 126/87 92 Intake and Output 11/22/16 11/22/16 11/23/16 15:00 23:00 07:00 Intake Total 500 ml 2330 ml 1066.2 ml Balance 500 ml 2330 ml 1066.2 ml Exam Constitutional: alert, oriented Eyes: icteric ENMT: mucosa pink and moist Respiratory: clear to auscultation, diminished breath sounds Cardiovascular: regular rate and rhythm, No murmurs/extra sounds Gastrointestinal: ascites, bowel sounds, distended, soft Extremities: edema Neurological: nl mental status Skin: other (jaundiced) Results Result Diagram: 11/23/16 0435 11/23/16 0435 Results 24 hrs Laboratory Tests Test 11/23/16 04:35 White Blood Count 16.5 H Red Blood Count 3.08 L Hemoglobin 11.5 L Hematocrit 32.9 L Mean Corpuscular Volume 106.8 H Mean Corpuscular Hemoglobin 37.3 H Mean Corpuscular Hemoglobin Concent 35.0 Red Cell Distribution Width 18.1 H Platelet Count 325 Mean Platelet Volume 12.0 H Neutrophils % 86.8 H Lymphocytes % 8.0 L Monocytes % 3.2 Eosinophils % 0.1 Basophils % 0.1 Nucleated Red Blood Cells % 0.0 Neutrophils # 14.3 H Lymphocytes # 1.3 Monocytes # 0.5 Eosinophils # 0.0 Basophils # 0.0 Nucleated Red Blood Cells # 0.0 Sodium Level 132 L Potassium Level 3.9 Chloride Level 106 Carbon Dioxide Level 21 Anion Gap 9 # Blood Urea Nitrogen 12 Creatinine 0.74 Glucose Level 169 Calcium Level 7.7 L Phosphorus Level 3.8 Albumin 2.2 L Medications Medications Current Medications Multivitamins/ Thiamine HCl/ Folic Acid/Sodium Chloride (Mvi Adult/ Vitamin B1/ Folic Acid/NS) 1,011.2 ml @ 125 mls/ hr DAILY@09 IVPB Last administered on 08:54; Admin Dose 125 MLS/HR; Start 11/17/16 at 09:00 Pantoprazole (Protonix Iv) 40 mg DAILY@06 IV Last administered on 11/23/16 05: 26; Admin Dose 40 MG; Start 11/17/16 at 06:00 Sucralfate (Carafate) 1 gm QID PO Last administered on 11/23/16 13:14; Admin Dose 1 GM; Start 11/16/16 at 21:00 Ondansetron HCl (Zofran Inj) 4 mg Q6H PRN IV NAUSEA AND/OR VOMITING; Start at 19:30 Morphine Sulfate 2 mg 2 mg Q4H PRN IV pain; Start 11/16/16 at 19:30 Piperacillin Sod/ Tazobactam Sod 100 ml @ 200 mls/hr Q8 IVPB Last administered on 11/23/16 13:14; Admin Dose 200 MLS/HR; Start 11/18/16 at 14:00 Potassium Chloride/Sodium Chloride (KCl/NS) 1,005 ml @ 75 mls/hr [id number] IV Last administered on 11/23/16 02:24; Admin Dose 75 MLS/HR; Start 11/18/16 at 11 :30 Lactulose (Enulose) 20 gm DAILY PO Last administered on 11/23/16 08:00; Admin Dose 20 GM; Start 11/21/16 at 13:30 Spironolactone (Aldactone) 100 mg DAILY PO Last administered on 11/23/16 08:00 ; Admin Dose 100 MG; Start 11/22/16 at 11:30 Furosemide (Lasix) 40 mg DAILY PO Last administered on 11/23/16 08:03; Admin Dose 40 MG; Start 11/22/16 at 11:00 Prednisolone (Prednisolone) 40 mg DAILY PO Last administered on 11/23/16 08:00 ; Admin Dose 40 MG; Start 11/22/16 at 12:00; Stop 12/20/16 at 11:59 Miscellaneous Information (*Order Clarification Bulletin) RE: PREDNISOLONE 40 MG... Q8H XX ; Start 11/22/16 at 12:00 HARI HUMPHREYS Nov 23, 2016 15:17
--- NOTE | 2016-11-23 15:54 | PN ---
Date/Time of Note Date/Time of Note DATE: 11/23/16 TIME: 15:51 Assessment/Plan VTE Prophylaxis VTE Prophylaxis Intervention: SCD's Lines/Catheters [facility] (from [facility] Peripheral IV Urinary Cath still in place: No Assessment/Plan Assessment/Plan Jaundice/Hepatocellular * Acute alcoholic hepatitis Osiris liver discrimination function 37.5 ?Acalculous cholecystitis BY MRCP/ clinically unlikely Hepatitis B exposure/no active infection Ascites Chronic alcoholism Plan continue present management monitor liver function continue prednisolone 40 mg daily for 28 days Subjective 24 Hr Interval Summary Free Text/Dictation * Course reviewed with RN * patient seen and examined * denies abdominal pain Exam/Review of Systems Vital Signs Vitals Vital Signs Date Time Temp Pulse Resp B/P Pulse Ox O2 Delivery O2 Flow Rate FiO2 11/23/16 08:15 98.0 83 20 126/87 92 Intake and Output 11/22/16 11/22/16 11/23/16 15:00 23:00 07:00 Intake Total 500 ml 2330 ml 1066.2 ml Balance 500 ml 2330 ml 1066.2 ml Exam Constitutional: alert, oriented Psych: no complaints Head: normocephalic Eyes: icteric, nl conjunctiva Neck: non-tender, supple Respiratory: clear to auscultation, diminished breath sounds, normal air movement Cardiovascular: nl pulses, regular rate and rhythm Gastrointestinal: ascites, bowel sounds, non-tender, soft, No rebound or guarding Musculoskeletal: nl extremities to inspection, nl gait and stance Extremities: normal pulses Neurological: nl speech Skin: nl turgor, rash or lesions Lymph: nl lymph nodes Results Result Diagram: 11/23/16 0435 11/23/16 0435 Results 24 hrs Laboratory Tests Test 11/23/16 04:35 White Blood Count 16.5 H Red Blood Count 3.08 L Hemoglobin 11.5 L Hematocrit 32.9 L Mean Corpuscular Volume 106.8 H Mean Corpuscular Hemoglobin 37.3 H Mean Corpuscular Hemoglobin Concent 35.0 Red Cell Distribution Width 18.1 H Platelet Count 325 Mean Platelet Volume 12.0 H Neutrophils % 86.8 H Lymphocytes % 8.0 L Monocytes % 3.2 Eosinophils % 0.1 Basophils % 0.1 Nucleated Red Blood Cells % 0.0 Neutrophils # 14.3 H Lymphocytes # 1.3 Monocytes # 0.5 Eosinophils # 0.0 Basophils # 0.0 Nucleated Red Blood Cells # 0.0 Sodium Level 132 L Potassium Level 3.9 Chloride Level 106 Carbon Dioxide Level 21 Anion Gap 9 # Blood Urea Nitrogen 12 Creatinine 0.74 Glucose Level 169 Calcium Level 7.7 L Phosphorus Level 3.8 Albumin 2.2 L Medications Medications Current Medications Multivitamins/ Thiamine HCl/ Folic Acid/Sodium Chloride (Mvi Adult/ Vitamin B1/ Folic Acid/NS) 1,011.2 ml @ 125 mls/ hr DAILY@09 IVPB Last administered on 08:54; Admin Dose 125 MLS/HR; Start 11/17/16 at 09:00 Pantoprazole (Protonix Iv) 40 mg DAILY@06 IV Last administered on 11/23/16 05: 26; Admin Dose 40 MG; Start 11/17/16 at 06:00 Sucralfate (Carafate) 1 gm QID PO Last administered on 11/23/16 13:14; Admin Dose 1 GM; Start 11/16/16 at 21:00 Ondansetron HCl (Zofran Inj) 4 mg Q6H PRN IV NAUSEA AND/OR VOMITING; Start at 19:30 Morphine Sulfate 2 mg 2 mg Q4H PRN IV pain; Start 11/16/16 at 19:30 Piperacillin Sod/ Tazobactam Sod 100 ml @ 200 mls/hr Q8 IVPB Last administered on 11/23/16 13:14; Admin Dose 200 MLS/HR; Start 11/18/16 at 14:00 Potassium Chloride/Sodium Chloride (KCl/NS) 1,005 ml @ 75 mls/hr [id number] IV Last administered on 11/23/16 02:24; Admin Dose 75 MLS/HR; Start 11/18/16 at 11 :30 Lactulose (Enulose) 20 gm DAILY PO Last administered on 11/23/16 08:00; Admin Dose 20 GM; Start 11/21/16 at 13:30 Spironolactone (Aldactone) 100 mg DAILY PO Last administered on 11/23/16 08:00 ; Admin Dose 100 MG; Start 11/22/16 at 11:30 Furosemide (Lasix) 40 mg DAILY PO Last administered on 11/23/16 08:03; Admin Dose 40 MG; Start 11/22/16 at 11:00 Prednisolone (Prednisolone) 40 mg DAILY PO Last administered on 11/23/16t 08:00 ; Admin Dose 40 MG; Start 11/22/16 at 12:00; Stop 12/20/16 at 11:59 Miscellaneous Information (*Order Clarification Bulletin) RE: PREDNISOLONE 40 MG... Q8H XX ; Start 11/22/16 at 12:00 MORIS HINES MD Nov 23, 2016 15:54
[2016-11-23 19:52] VITALS: BP 136/93; RESP 16
[2016-11-24] MEDS: [UNRECOGNIZED DRUG - REMARK] XX SCH ×3 (04:00→20:00)
[2016-11-24] MEDS: PIPER-TAZO 3.375 GM IV (PMX) 100 ML IVPB SCH ×3 (05:12→21:14)
[2016-11-24] MEDS: PANTOPRAZOLE (EC) 40 MG TAB PO SCH (05:12)
[2016-11-24 05:30] LABS: ADD SCAN DIFF NO
[2016-11-24 05:47] LABS: ALBUMIN 2.1 g/dl (3.3-4.9); POTASSIUM 4.3 mmol/L (3.5-5.1)
[2016-11-24 05:50] LABS: BASOPHILS % 0.1 % (0.0-2.0); CALCIUM 7.9 mg/dl (8.4-10.2); CREATININE 0.88 mg/dl (0.61-1.24); HEMATOCRIT 36.5 % (42.0-52.0); HEMOGLOBIN 12.3 g/dl (14.0-18.0); LYMPHOCYTES # 2.2 10^3/ul (0.8-2.9); LYMPHOCYTES % 10.8 % (15.0-51.0); MEAN CORPUSCULAR HEMOGLOBIN 36.1 pg (29.0-33.0); MEAN CORPUSCULAR HGB CONC 33.7 g/dl (32.0-37.0); MONOCYTE # 1.1 10^3/ul (0.3-0.9); MONOCYTES % 5.4 % (0.0-11.0); NEUTROPHIL # 16.9 10^3/ul (1.6-7.5); NEUTROPHILS % 81.9 % (39.0-77.0); PHOSPHORUS 3.7 mg/dl (2.5-4.9); PLATELET COUNT 407 10^3/UL (140-415); RED BLOOD COUNT 3.41 10^6/ul (4.70-6.10); RED CELL DISTRIBUTION WIDTH 18.3 % (11.5-14.5); WHITE BLOOD COUNT 20.7 10^3/ul (4.8-10.8)
[2016-11-24 07:57] VITALS: BP 132/87; RESP 20
[2016-11-24] MEDS: SUCRALFATE 1 GM TAB PO SCH ×4 (08:37→21:14)
[2016-11-24] MEDS: predniSOLONE 5 MG TAB PO SCH (08:37)
[2016-11-24] MEDS: SPIRONOLACTONE 50 MG TAB PO SCH (08:37)
[2016-11-24] MEDS: LACTULOSE 30ML CUP PO SCH (08:37)
[2016-11-24] MEDS: MULTIVITAMINS 10 ML, THIAMINE 100 MG, FOLIC ACID 1 MG in SOD CHLORIDE 0.9% 1,000 ML IVPB SCH (08:37)
[2016-11-24] MEDS: FUROSEMIDE 40 MG TAB PO SCH (08:38)
[2016-11-24 09:36] LABS: ALBUMIN 2.1 g/dl (3.3-4.9); BILIRUBIN,DIRECT 5.9 mg/dl (0.00-0.20); BILIRUBIN,INDIRECT 1.9 mg/dl (0-1.1); BILIRUBIN,TOTAL 7.8 mg/dl (0.2-1.3); TOTAL PROTEIN 6.3 g/dl (6.1-8.1)
[2016-11-24] MEDS: POTASSIUM CHLORIDE 10 MEQ in SOD CHLORIDE 0.9% 1,000 ML IV SCH (14:54)
--- NOTE | 2016-11-24 15:33 | PN ---
Date/Time of Note Date/Time of Note DATE: 11/24/16 TIME: 15:32 Assessment/Plan VTE Prophylaxis VTE Prophylaxis Intervention: SCD's Lines/Catheters [facility] Type (from [facility]): Peripheral IV Urinary Cath still in place: No Assessment/Plan Chief Complaint/Hosp Course Assessment/Plan: 65 yo M with 1. Acute alcoholic hepatitis 2. Severe chronic liver disease 2/2 fatty liver + chronic alcohol abuse 3. SIRS with leucocytosis and lactic acidosis likely 2/2 #1 4. Macrocytic anemia due to alcoholism 5. Tobacco dependence, quit 6. Dyslipidemia 7. Cholecytitis r/o negative HIDA scan PLAN: * Patient continues to have worsening leucocytosis, bilirubin levels with lactic acidosis no clear source of infection. Calculated DF score at this time is 36. continue 28day treatment for alcoholic hepatitis including steroids and assess daily for improvement * Continue in-house supportive care. Plan for discharge once improved * Alcohol cessation re-inforced daily, including today with family at bedside Problems: Exam/Review of Systems Vital Signs Vitals Vital Signs Date Time Temp Pulse Resp B/P Pulse Ox O2 Delivery O2 Flow Rate FiO2 11/24/16 07:57 97.4 71 20 132/87 92 Intake and Output 11/23/16 11/23/16 11/24/16 15:00 23:00 07:00 Intake Total 475 ml 2830 ml 725 ml Output Total 700 ml Balance 475 ml 2830 ml 25 ml Exam Constitutional: lying in bed Eyes: icteric ENMT: mucosa pink and moist Respiratory: clear to auscultation, diminished breath sounds Cardiovascular: regular rate and rhythm, No murmurs/extra sounds Gastrointestinal: ascites, bowel sounds, distended, soft Extremities: edema Neurological: nl mental status Skin: other (jaundiced) Results Result Diagram: 11/24/16 0515 11/24/16 0515 Results 24 hrs Laboratory Tests Test 11/24/16 05:15 White Blood Count 20.7 #H Red Blood Count 3.41 L Hemoglobin 12.3 L Hematocrit 36.5 L Mean Corpuscular Volume 107.0 H Mean Corpuscular Hemoglobin 36.1 H Mean Corpuscular Hemoglobin Concent 33.7 Red Cell Distribution Width 18.3 H Platelet Count 407 # Mean Platelet Volume 12.0 H Neutrophils % 81.9 H Lymphocytes % 10.8 L Monocytes % 5.4 Eosinophils % 0.0 Basophils % 0.1 Nucleated Red Blood Cells % 0.0 Neutrophils # 16.9 H Lymphocytes # 2.2 Monocytes # 1.1 H Eosinophils # 0.0 Basophils # 0.0 Nucleated Red Blood Cells # 0.0 Sodium Level 135 Potassium Level 4.3 Chloride Level 103 Carbon Dioxide Level 22 Anion Gap 14 Blood Urea Nitrogen 17 Creatinine 0.88 Glucose Level 122 # Lactic Acid Level 1.5 Calcium Level 7.9 L Phosphorus Level 3.7 Total Bilirubin 7.8 H Direct Bilirubin 5.90 H Indirect Bilirubin 1.9 H Aspartate Amino Transf (AST/SGOT) 200 H Alanine Aminotransferase (ALT/SGPT) 87 H Alkaline Phosphatase 441 H Ammonia 25 # Total Protein 6.3 Albumin 2.1 L Medications Medications Current Medications Multivitamins/ Thiamine HCl/ Folic Acid/Sodium Chloride (Mvi Adult/ Vitamin B1/ Folic Acid/NS) 1,011.2 ml @ 125 mls/ hr DAILY@09 IVPB Last administered on 08:37; Admin Dose 125 MLS/HR; Start 11/17/16 at 09:00 Sucralfate (Carafate) 1 gm QID PO Last administered on 11/24/16 08:37; Admin Dose 1 GM; Start 11/16/16 at 21:00 Ondansetron HCl (Zofran Inj) 4 mg Q6H PRN IV NAUSEA AND/OR VOMITING; Start at 19:30 Morphine Sulfate 2 mg 2 mg Q4H PRN IV pain; Start 11/16/16 at 19:30 Piperacillin Sod/ Tazobactam Sod 100 ml @ 200 mls/hr Q8 IVPB Last administered on 11/24/16 14:22; Admin Dose 200 MLS/HR; Start 11/18/16 at 14:00 Potassium Chloride/Sodium Chloride (KCl/NS) 1,005 ml @ 75 mls/hr [id number] IV Last administered on 11/23/16 21:43; Admin Dose 75 MLS/HR; Start 11/18/16 at 11 :30 Lactulose (Enulose) 20 gm DAILY PO Last administered on 11/24/16 08:37; Admin Dose 20 GM; Start 11/21/16 at 13:30 Spironolactone (Aldactone) 100 mg DAILY PO Last administered on 11/24/16 08:37 ; Admin Dose 100 MG; Start 11/22/16 at 11:30 Furosemide (Lasix) 40 mg DAILY PO Last administered on 11/24/16 08:38; Admin Dose 40 MG; Start 11/22/16 at 11:00 Prednisolone (Prednisolone) 40 mg DAILY PO Last administered on 11/24/16 08:37 ; Admin Dose 40 MG; Start 11/22/16 at 12:00; Stop 12/20/16 at 11:59 Miscellaneous Information (*Order Clarification Bulletin) RE: PREDNISOLONE 40 MG... Q8H XX ; Start 11/22/16 at 12:00 Pantoprazole (Protonix Tab) 40 mg DAILY@06 PO Last administered on 11/24/16 05 :12; Admin Dose 40 MG; Start 11/24/16 at 06:00 HARI HUMPHREYS Nov 24, 2016 15:33
--- NOTE | 2016-11-24 15:49 | PN ---
Date/Time of Note Date/Time of Note DATE: 11/24/16 TIME: 15:46 Assessment/Plan VTE Prophylaxis VTE Prophylaxis Intervention: SCD's Lines/Catheters IV [facility] Type (from [facility] Peripheral IV Urinary Cath still in place: No Assessment/Plan Chief Complaint/Hosp Course Assessment/Plan: 65 yo M with 1. Acute alcoholic hepatitis 2. Severe chronic liver disease 2/2 fatty liver + chronic alcohol abuse 3. SIRS with leucocytosis and lactic acidosis likely 2/2 #1 4. Macrocytic anemia due to alcoholism 5. Tobacco dependence, quit 6. Dyslipidemia 7. Cholecytitis r/o negative HIDA scan PLAN: * Patient continues to have worsening leucocytosis, bilirubin levels with lactic acidosis no clear source of infection. Calculated DF score at this time is 36. continue 28day treatment for alcoholic hepatitis including steroids and assess daily for improvement * Continue in-house supportive care. Plan for discharge once improved * Alcohol cessation re-inforced daily with family at bedside Problems: Subjective 24 Hr Interval Summary Free Text/Dictation No acute events overnight. Exam/Review of Systems Vital Signs Vitals Vital Signs Date Time Temp Pulse Resp B/P Pulse Ox O2 Delivery O2 Flow Rate FiO2 11/24/16 07:57 97.4 71 20 132/87 92 Intake and Output 11/23/16 11/23/16 11/24/16 15:00 23:00 07:00 Intake Total 475 ml 2830 ml 725 ml Output Total 700 ml Balance 475 ml 2830 ml 25 ml Exam Constitutional: lying in bed Eyes: icteric ENMT: mucosa pink and moist Respiratory: clear to auscultation, diminished breath sounds Cardiovascular: regular rate and rhythm, No murmurs/extra sounds Gastrointestinal: ascites, bowel sounds, distended, soft Extremities: edema Neurological: nl mental status Skin: other (jaundiced) Results Result Diagram: 11/24/16 0515 11/24/16 0515 Results 24 hrs Laboratory Tests Test 11/24/16 05:15 White Blood Count 20.7 #H Red Blood Count 3.41 L Hemoglobin 12.3 L Hematocrit 36.5 L Mean Corpuscular Volume 107.0 H Mean Corpuscular Hemoglobin 36.1 H Mean Corpuscular Hemoglobin Concent 33.7 Red Cell Distribution Width 18.3 H Platelet Count 407 # Mean Platelet Volume 12.0 H Neutrophils % 81.9 H Lymphocytes % 10.8 L Monocytes % 5.4 Eosinophils % 0.0 Basophils % 0.1 Nucleated Red Blood Cells % 0.0 Neutrophils # 16.9 H Lymphocytes # 2.2 Monocytes # 1.1 H Eosinophils # 0.0 Basophils # 0.0 Nucleated Red Blood Cells # 0.0 Sodium Level 135 Potassium Level 4.3 Chloride Level 103 Carbon Dioxide Level 22 Anion Gap 14 Blood Urea Nitrogen 17 Creatinine 0.88 Glucose Level 122 # Lactic Acid Level 1.5 Calcium Level 7.9 L Phosphorus Level 3.7 Total Bilirubin 7.8 H Direct Bilirubin 5.90 H Indirect Bilirubin 1.9 H Aspartate Amino Transf (AST/SGOT) 200 H Alanine Aminotransferase (ALT/SGPT) 87 H Alkaline Phosphatase 441 H Ammonia 25 # Total Protein 6.3 Albumin 2.1 L Medications Medications Current Medications Multivitamins/ Thiamine HCl/ Folic Acid/Sodium Chloride (Mvi Adult/ Vitamin B1/ Folic Acid/NS) 1,011.2 ml @ 125 mls/ hr DAILY@09 IVPB Last administered on 08:37; Admin Dose 125 MLS/HR; Start 11/17/16 at 09:00 Sucralfate (Carafate) 1 gm QID PO Last administered on 11/24/16 08:37; Admin Dose 1 GM; Start 11/16/16 at 21:00 Ondansetron HCl (Zofran Inj) 4 mg Q6H PRN IV NAUSEA AND/OR VOMITING; Start at 19:30 Morphine Sulfate 2 mg 2 mg Q4H PRN IV pain; Start 11/16/16 at 19:30 Piperacillin Sod/ Tazobactam Sod 100 ml @ 200 mls/hr Q8 IVPB Last administered on 11/24/16 14:22; Admin Dose 200 MLS/HR; Start 11/18/16 at 14:00 Potassium Chloride/Sodium Chloride (KCl/NS) 1,005 ml @ 75 mls/hr [id number] IV Last administered on 11/23/16 21:43; Admin Dose 75 MLS/HR; Start 11/18/16 at 11 :30 Lactulose (Enulose) 20 gm DAILY PO Last administered on 11/24/16 08:37; Admin Dose 20 GM; Start 11/21/16 at 13:30 Spironolactone (Aldactone) 100 mg DAILY PO Last administered on 11/24/16 08:37 ; Admin Dose 100 MG; Start 11/22/16 at 11:30 Furosemide (Lasix) 40 mg DAILY PO Last administered on 11/24/16 08:38; Admin Dose 40 MG; Start 11/22/16 at 11:00 Prednisolone (Prednisolone) 40 mg DAILY PO Last administered on 11/24/16 08:37 ; Admin Dose 40 MG; Start 11/22/16 at 12:00; Stop 12/20/16 at 11:59 Miscellaneous Information (*Order Clarification Bulletin) RE: PREDNISOLONE 40 MG... Q8H XX ; Start 11/22/16 at 12:00 Pantoprazole (Protonix Tab) 40 mg DAILY@06 PO Last administered on 11/24/16 05 :12; Admin Dose 40 MG; Start 11/24/16 at 06:00 HARI HUMPHREYS Nov 24, 2016 15:48
--- NOTE | 2016-11-24 17:19 | PN ---
Date/Time of Note Date/Time of Note DATE: 11/24/16 TIME: 17:16 Assessment/Plan VTE Prophylaxis VTE Prophylaxis Intervention: SCD's Lines/Catheters IV C[facility]ter Type (from [facility]): Peripheral IV Urinary Cath still in place: No Assessment/Plan Assessment/Plan Jaundice/Hepatocellular * Acute alcoholic hepatitis Osiris liver discrimination function 37.5 ?Acalculous cholecystitis BY MRCP/ clinically unlikely Hepatitis B exposure/no active infection Ascites Chronic alcoholism Plan continue present management monitor liver function Subjective 24 Hr Interval Summary Free Text/Dictation * Course reviewed with RN * Patient seen and examined * Denies abdominal pain * Total bilirubin improved 7.8 from 12 Exam/Review of Systems Vital Signs Vitals Vital Signs Date Time Temp Pulse Resp B/P Pulse Ox O2 Delivery O2 Flow Rate FiO2 11/24/16 07:57 97.4 71 20 132/87 92 Intake and Output 11/23/16 11/23/16 11/24/16 15:00 23:00 07:00 Intake Total 475 ml 2830 ml 725 ml Output Total 700 ml Balance 475 ml 2830 ml 25 ml Exam Constitutional: alert, oriented Eyes: PERRL, icteric, nl conjunctiva Neck: non-tender, supple Respiratory: clear to auscultation, diminished breath sounds Cardiovascular: nl pulses, regular rate and rhythm Gastrointestinal: ascites, bowel sounds, distended, non-tender, soft, No rebound or guarding Musculoskeletal: nl extremities to inspection, nl gait and stance Extremities: normal pulses Neurological: nl speech Skin: nl turgor, rash or lesions Results Result Diagram: 11/24/16 0515 11/24/16 0515 Results 24 hrs Laboratory Tests Test 11/24/16 05:15 White Blood Count 20.7 #H Red Blood Count 3.41 L Hemoglobin 12.3 L Hematocrit 36.5 L Mean Corpuscular Volume 107.0 H Mean Corpuscular Hemoglobin 36.1 H Mean Corpuscular Hemoglobin Concent 33.7 Red Cell Distribution Width 18.3 H Platelet Count 407 # Mean Platelet Volume 12.0 H Neutrophils % 81.9 H Lymphocytes % 10.8 L Monocytes % 5.4 Eosinophils % 0.0 Basophils % 0.1 Nucleated Red Blood Cells % 0.0 Neutrophils # 16.9 H Lymphocytes # 2.2 Monocytes # 1.1 H Eosinophils # 0.0 Basophils # 0.0 Nucleated Red Blood Cells # 0.0 Sodium Level 135 Potassium Level 4.3 Chloride Level 103 Carbon Dioxide Level 22 Anion Gap 14 Blood Urea Nitrogen 17 Creatinine 0.88 Glucose Level 122 # Lactic Acid Level 1.5 Calcium Level 7.9 L Phosphorus Level 3.7 Total Bilirubin 7.8 H Direct Bilirubin 5.90 H Indirect Bilirubin 1.9 H Aspartate Amino Transf (AST/SGOT) 200 H Alanine Aminotransferase (ALT/SGPT) 87 H Alkaline Phosphatase 441 H Ammonia 25 # Total Protein 6.3 Albumin 2.1 L Medications Medications Current Medications Multivitamins/ Thiamine HCl/ Folic Acid/Sodium Chloride (Mvi Adult/ Vitamin B1/ Folic Acid/NS) 1,011.2 ml @ 125 mls/ hr DAILY@09 IVPB Last administered on 08:37; Admin Dose 125 MLS/HR; Start 11/17/16 at 09:00 Sucralfate (Carafate) 1 gm QID PO Last administered on 11/24/16 08:37; Admin Dose 1 GM; Start 11/16/16 at 21:00 Ondansetron HCl (Zofran Inj) 4 mg Q6H PRN IV NAUSEA AND/OR VOMITING; Start at 19:30 Morphine Sulfate 2 mg 2 mg Q4H PRN IV pain; Start 11/16/16 at 19:30 Piperacillin Sod/ Tazobactam Sod 100 ml @ 200 mls/hr Q8 IVPB Last administered on 11/24/16 14:22; Admin Dose 200 MLS/HR; Start 11/18/16 at 14:00 Potassium Chloride/Sodium Chloride (KCl/NS) 1,005 ml @ 75 mls/hr [id number] IV Last administered on 11/23/16 21:43; Admin Dose 75 MLS/HR; Start 11/18/16 at 11 :30 Lactulose (Enulose) 20 gm DAILY PO Last administered on 11/24/16 08:37; Admin Dose 20 GM; Start 11/21/16 at 13:30 Spironolactone (Aldactone) 100 mg DAILY PO Last administered on 11/24/16 08:37 ; Admin Dose 100 MG; Start 11/22/16 at 11:30 Furosemide (Lasix) 40 mg DAILY PO Last administered on 11/24/16 08:38; Admin Dose 40 MG; Start 11/22/16 at 11:00 Prednisolone (Prednisolone) 40 mg DAILY PO Last administered on 11/24/16 08:37 ; Admin Dose 40 MG; Start 11/22/16 at 12:00; Stop 12/20/16 at 11:59 Miscellaneous Information (*Order Clarification Bulletin) RE: PREDNISOLONE 40 MG... Q8H XX ; Start 11/22/16 at 12:00 Pantoprazole (Protonix Tab) 40 mg DAILY@06 PO Last administered on 11/24/16 05 :12; Admin Dose 40 MG; Start 11/24/16 at 06:00 MORIS HINES MD Nov 24, 2016 17:19
[2016-11-24 20:02] VITALS: BP 135/97; RESP 18
[2016-11-25] MEDS: [UNRECOGNIZED DRUG - REMARK] XX SCH ×3 (04:00→20:00)
[2016-11-25] MEDS: POTASSIUM CHLORIDE 10 MEQ in SOD CHLORIDE 0.9% 1,000 ML IV SCH ×2 (04:41→17:57)
[2016-11-25] MEDS: PIPER-TAZO 3.375 GM IV (PMX) 100 ML IVPB SCH ×3 (04:41→22:07)
[2016-11-25] MEDS: PANTOPRAZOLE (EC) 40 MG TAB PO SCH (04:44)
[2016-11-25 05:25] LABS: ADD SCAN DIFF NO
[2016-11-25 05:29] LABS: BASOPHILS % 0.1 % (0.0-2.0); EOSINOPHILS % 0.1 % (0.0-7.0); HEMATOCRIT 35.3 % (42.0-52.0); HEMOGLOBIN 12.1 g/dl (14.0-18.0); LYMPHOCYTES # 1.4 10^3/ul (0.8-2.9); MEAN CORPUSCULAR HEMOGLOBIN 36.1 pg (29.0-33.0); MEAN CORPUSCULAR HGB CONC 34.3 g/dl (32.0-37.0); MEAN CORPUSCULAR VOLUME 105.4 fl (82.0-101.0); MONOCYTE # 1.3 10^3/ul (0.3-0.9); MONOCYTES % 6.4 % (0.0-11.0); NEUTROPHIL # 17.1 10^3/ul (1.6-7.5); NEUTROPHILS % 85.1 % (39.0-77.0); PLATELET COUNT 372 10^3/UL (140-415); RED BLOOD COUNT 3.35 10^6/ul (4.70-6.10); RED CELL DISTRIBUTION WIDTH 18.3 % (11.5-14.5); WHITE BLOOD COUNT 20.2 10^3/ul (4.8-10.8)
[2016-11-25 07:14] LABS: BILIRUBIN,DIRECT 5.1 mg/dl (0.00-0.20); BILIRUBIN,INDIRECT 1.5 mg/dl (0-1.1); BILIRUBIN,TOTAL 6.6 mg/dl (0.2-1.3); TOTAL PROTEIN 5.8 g/dl (6.1-8.1)
[2016-11-25 07:45] VITALS: BP 121/82; RESP 16
[2016-11-25] MEDS: MULTIVITAMINS 10 ML, THIAMINE 100 MG, FOLIC ACID 1 MG in SOD CHLORIDE 0.9% 1,000 ML IVPB SCH (08:45)
[2016-11-25] MEDS: SPIRONOLACTONE 50 MG TAB PO SCH (08:46)
[2016-11-25] MEDS: SUCRALFATE 1 GM TAB PO SCH ×4 (08:46→21:02)
[2016-11-25] MEDS: FUROSEMIDE 40 MG TAB PO SCH (08:46)
[2016-11-25] MEDS: LACTULOSE 30ML CUP PO SCH (08:46)
[2016-11-25] MEDS: predniSOLONE 5 MG TAB PO SCH (08:49)
--- NOTE | 2016-11-25 14:06 | PN ---
Date/Time of Note Date/Time of Note DATE: 11/25/16 TIME: 14:03 Assessment/Plan VTE Prophylaxis VTE Prophylaxis Intervention: SCD's Lines/Catheters IV Catheter Type (from [facility]): Saline Lock Urinary Cath still in place: No Assessment/Plan Chief Complaint/Hosp Course Assessment/Plan: 65 yo M with 1. Acute alcoholic hepatitis 2. Severe chronic liver disease 2/2 fatty liver + chronic alcohol abuse 3. SIRS with leucocytosis and lactic acidosis likely 2/2 #1 4. Macrocytic anemia due to alcoholism 5. Tobacco dependence, quit 6. Dyslipidemia 7. Cholecytitis r/o negative HIDA scan PLAN: * Leukocytosis likely sec to PO steroids, no fevers. Calculated DF score at this time is 36. continue 28day treatment for alcoholic hepatitis including steroids and assess daily for improvement * Continue in-house supportive care. Plan for discharge once improved and after PT eval. * Alcohol cessation re-inforced daily with family at bedside Problems: Subjective 24 Hr Interval Summary Free Text/Dictation No acute events overnight, Pt ambulating in room at times. Exam/Review of Systems Vital Signs Vitals Vital Signs Date Time Temp Pulse Resp B/P Pulse Ox O2 Delivery O2 Flow Rate FiO2 11/25/16 07:45 97.5 92 16 121/82 94 Intake and Output 11/24/16 11/24/16 11/25/16 15:00 23:00 07:00 Intake Total 300 ml 2700 ml 885 ml Output Total 950 ml 500 ml Balance 300 ml 1750 ml 385 ml Exam Constitutional: lying in bed Eyes: icteric ENMT: mucosa pink and moist Respiratory: clear to auscultation, diminished breath sounds Cardiovascular: regular rate and rhythm, No murmurs/extra sounds Gastrointestinal: ascites, bowel sounds, distended, soft Extremities: edema Neurological: nl mental status Skin: other (jaundiced) Results Result Diagram: 11/25/16 0500 11/24/16 0515 Results 24 hrs Laboratory Tests Test 11/25/16 05:00 11/25/16 12:09 White Blood Count 20.2 H Red Blood Count 3.35 L Hemoglobin 12.1 L Hematocrit 35.3 L Mean Corpuscular Volume 105.4 H Mean Corpuscular Hemoglobin 36.1 H Mean Corpuscular Hemoglobin Concent 34.3 Red Cell Distribution Width 18.3 H Platelet Count 372 Mean Platelet Volume 12.0 H Neutrophils % 85.1 H Lymphocytes % 7.0 L Monocytes % 6.4 Eosinophils % 0.1 Basophils % 0.1 Nucleated Red Blood Cells % 0.0 Neutrophils # 17.1 H Lymphocytes # 1.4 Monocytes # 1.3 H Eosinophils # 0.0 Basophils # 0.0 Nucleated Red Blood Cells # 0.0 Total Bilirubin 6.6 H Direct Bilirubin 5.10 H Indirect Bilirubin 1.5 H Aspartate Amino Transf (AST/SGOT) 233 H Alanine Aminotransferase (ALT/SGPT) 102 H Alkaline Phosphatase 512 H Total Protein 5.8 L Albumin 2.0 L Bedside Glucose 159 Medications Medications Current Medications Multivitamins/ Thiamine HCl/ Folic Acid/Sodium Chloride (Mvi Adult/ Vitamin B1/ Folic Acid/NS) 1,011.2 ml @ 125 mls/ hr DAILY@09 IVPB Last administered on 08:45; Admin Dose 125 MLS/HR; Start 11/17/16 at 09:00 Sucralfate (Carafate) 1 gm QID PO Last administered on 11/25/16 12:10; Admin Dose 1 GM; Start 11/16/16 at 21:00 Ondansetron HCl (Zofran Inj) 4 mg Q6H PRN IV NAUSEA AND/OR VOMITING; Start at 19:30 Morphine Sulfate 2 mg 2 mg Q4H PRN IV pain; Start 11/16/16 at 19:30 Piperacillin Sod/ Tazobactam Sod 100 ml @ 200 mls/hr Q8 IVPB Last administered on 11/25/16 04:41; Admin Dose 200 MLS/HR; Start 11/18/16 at 14:00 Potassium Chloride/Sodium Chloride (KCl/NS) 1,005 ml @ 75 mls/hr [id number] IV Last administered on 11/25/16 04:41; Admin Dose 75 MLS/HR; Start 11/18/16 at 11 :30 Lactulose (Enulose) 20 gm DAILY PO Last administered on 11/25/16 08:46; Admin Dose 20 GM; Start 11/21/16 at 13:30 Spironolactone (Aldactone) 100 mg DAILY PO Last administered on 11/25/16 08:46 ; Admin Dose 100 MG; Start 11/22/16 at 11:30 Furosemide (Lasix) 40 mg DAILY PO Last administered on 11/25/16 08:46; Admin Dose 40 MG; Start 11/22/16 at 11:00 Prednisolone (Prednisolone) 40 mg DAILY PO Last administered on 11/25/16 08:49 ; Admin Dose 40 MG; Start 11/22/16 at 12:00; Stop 12/20/16 at 11:59 Miscellaneous Information (*Order Clarification Bulletin) RE: PREDNISOLONE 40 MG... Q8H XX ; Start 11/22/16 at 12:00 Pantoprazole (Protonix Tab) 40 mg DAILY@06 PO Last administered on 11/25/16 04 :44; Admin Dose 40 MG; Start 11/24/16 at 06:00 HARI HUMPHREYS Nov 25, 2016 14:06
--- NOTE | 2016-11-25 17:44 | PN ---
Date/Time of Note Date/Time of Note DATE: 11/25/16 TIME: 17:41 Assessment/Plan VTE Prophylaxis VTE Prophylaxis Intervention: SCD's Lines/Catheters [facility] Saline Lock Urinary Cath still in place: No Assessment/Plan Assessment/Plan Jaundice/Hepatocellular * Acute alcoholic hepatitis [place] liver discrimination function 37.5 ?Acalculous cholecystitis BY MRCP/ clinically unlikely Hepatitis B exposure/no active infection Ascites Chronic alcoholism Plan continue present management Subjective 24 Hr Interval Summary Free Text/Dictation * Course reviewed with RN * Patient seen and examined * Denies abdominal pain.jaundice improving Exam/Review of Systems Vital Signs Vitals Vital Signs Date Time Temp Pulse Resp B/P Pulse Ox O2 Delivery O2 Flow Rate FiO2 11/25/16 07:45 97.5 92 16 121/82 94 Intake and Output 11/24/16 11/24/16 11/25/16 15:00 23:00 07:00 Intake Total 300 ml 2700 ml 885 ml Output Total 950 ml 500 ml Balance 300 ml 1750 ml 385 ml Exam Constitutional: alert, oriented Psych: no complaints Head: normocephalic Neck: non-tender, supple Respiratory: clear to auscultation, normal air movement Cardiovascular: nl pulses, regular rate and rhythm Gastrointestinal: ascites, bowel sounds, non-tender, soft, No rebound or guarding Musculoskeletal: nl extremities to inspection, nl gait and stance Extremities: normal pulses Results Result Diagram: 11/25/16 0500 11/24/16 0515 Results 24 hrs Laboratory Tests Test 11/25/16 05:00 11/25/16 12:09 White Blood Count 20.2 H Red Blood Count 3.35 L Hemoglobin 12.1 L Hematocrit 35.3 L Mean Corpuscular Volume 105.4 H Mean Corpuscular Hemoglobin 36.1 H Mean Corpuscular Hemoglobin Concent 34.3 Red Cell Distribution Width 18.3 H Platelet Count 372 Mean Platelet Volume 12.0 H Neutrophils % 85.1 H Lymphocytes % 7.0 L Monocytes % 6.4 Eosinophils % 0.1 Basophils % 0.1 Nucleated Red Blood Cells % 0.0 Neutrophils # 17.1 H Lymphocytes # 1.4 Monocytes # 1.3 H Eosinophils # 0.0 Basophils # 0.0 Nucleated Red Blood Cells # 0.0 Total Bilirubin 6.6 H Direct Bilirubin 5.10 H Indirect Bilirubin 1.5 H Aspartate Amino Transf (AST/SGOT) 233 H Alanine Aminotransferase (ALT/SGPT) 102 H Alkaline Phosphatase 512 H Total Protein 5.8 L Albumin 2.0 L Bedside Glucose 159 Medications Medications Current Medications Multivitamins/ Thiamine HCl/ Folic Acid/Sodium Chloride (Mvi Adult/ Vitamin B1/ Folic Acid/NS) 1,011.2 ml @ 125 mls/ hr DAILY@09 IVPB Last administered on 08:45; Admin Dose 125 MLS/HR; Start 11/17/16 at 09:00 Sucralfate (Carafate) 1 gm QID PO Last administered on 11/25/16 12:10; Admin Dose 1 GM; Start 11/16/16 at 21:00 Ondansetron HCl (Zofran Inj) 4 mg Q6H PRN IV NAUSEA AND/OR VOMITING; Start at 19:30 Morphine Sulfate 2 mg 2 mg Q4H PRN IV pain; Start 11/16/16 at 19:30 Piperacillin Sod/ Tazobactam Sod 100 ml @ 200 mls/hr Q8 IVPB Last administered on 11/25/16 15:05; Admin Dose 200 MLS/HR; Start 11/18/16 at 14:00 Potassium Chloride/Sodium Chloride (KCl/NS) 1,005 ml @ 75 mls/hr [id number] IV Last administered on 11/25/16 04:41; Admin Dose 75 MLS/HR; Start 11/18/16 at 11 :30 Lactulose (Enulose) 20 gm DAILY PO Last administered on 11/25/16 08:46; Admin Dose 20 GM; Start 11/21/16 at 13:30 Spironolactone (Aldactone) 100 mg DAILY PO Last administered on 11/25/16 08:46 ; Admin Dose 100 MG; Start 11/22/16 at 11:30 Furosemide (Lasix) 40 mg DAILY PO Last administered on 11/25/16 08:46; Admin Dose 40 MG; Start 11/22/16 at 11:00 Prednisolone (Prednisolone) 40 mg DAILY PO Last administered on 11/25/16 08:49 ; Admin Dose 40 MG; Start 11/22/16 at 12:00; Stop 12/20/16 at 11:59 Miscellaneous Information (*Order Clarification Bulletin) RE: PREDNISOLONE 40 MG... Q8H XX ; Start 11/22/16 at 12:00 Pantoprazole (Protonix Tab) 40 mg DAILY@06 PO Last administered on 11/25/16t 04 :44; Admin Dose 40 MG; Start 11/24/16 at 06:00 MORIS HINES MD Nov 25, 2016 17:44
[2016-11-25 21:33] VITALS: BP 125/83; RESP 16
[2016-11-26] MEDS: [UNRECOGNIZED DRUG - REMARK] XX SCH (04:00)
[2016-11-26] MEDS: PANTOPRAZOLE (EC) 40 MG TAB PO SCH (05:22)
[2016-11-26] MEDS: PIPER-TAZO 3.375 GM IV (PMX) 100 ML IVPB SCH ×3 (05:22→21:16)
[2016-11-26 05:49] LABS: ADD SCAN DIFF NO
[2016-11-26 05:55] LABS: BASOPHIL # 0.1 10^3/ul (0.0-0.1); BASOPHILS % 0.2 % (0.0-2.0); EOSINOPHILS % 0.2 % (0.0-7.0); HEMATOCRIT 35.6 % (42.0-52.0); HEMOGLOBIN 12.4 g/dl (14.0-18.0); LYMPHOCYTES # 1.7 10^3/ul (0.8-2.9); LYMPHOCYTES % 7.7 % (15.0-51.0); MEAN CORPUSCULAR HEMOGLOBIN 36.5 pg (29.0-33.0); MEAN CORPUSCULAR HGB CONC 34.8 g/dl (32.0-37.0); MEAN CORPUSCULAR VOLUME 104.7 fl (82.0-101.0); MEAN PLATELET VOLUME 11.7 fl (7.4-10.4); MONOCYTE # 1.1 10^3/ul (0.3-0.9); MONOCYTES % 5.1 % (0.0-11.0); NEUTROPHIL # 18.2 10^3/ul (1.6-7.5); NEUTROPHILS % 85.4 % (39.0-77.0); PLATELET COUNT 399 10^3/UL (140-415); RED CELL DISTRIBUTION WIDTH 18.3 % (11.5-14.5); WHITE BLOOD COUNT 21.4 10^3/ul (4.8-10.8)
[2016-11-26] MEDS: POTASSIUM CHLORIDE 10 MEQ in SOD CHLORIDE 0.9% 1,000 ML IV SCH ×2 (07:06→17:51)
[2016-11-26 08:22] VITALS: BP 104/72; RESP 18
[2016-11-26] MEDS: MULTIVITAMINS 10 ML, THIAMINE 100 MG, FOLIC ACID 1 MG in SOD CHLORIDE 0.9% 1,000 ML IVPB SCH (08:36)
[2016-11-26] MEDS: predniSOLONE 5 MG TAB PO SCH (08:43)
[2016-11-26] MEDS: SUCRALFATE 1 GM TAB PO SCH ×4 (08:44→20:10)
[2016-11-26] MEDS: SPIRONOLACTONE 50 MG TAB PO SCH (08:44)
[2016-11-26] MEDS: LACTULOSE 30ML CUP PO SCH (08:44)
[2016-11-26] MEDS: FUROSEMIDE 40 MG TAB PO SCH (08:49)
[2016-11-26 10:59] LABS: ALBUMIN 2.2 g/dl (3.3-4.9)
[2016-11-26 11:01] LABS: BILIRUBIN,DIRECT 4.1 mg/dl (0.00-0.20); BILIRUBIN,INDIRECT 1.6 mg/dl (0-1.1); BILIRUBIN,TOTAL 5.7 mg/dl (0.2-1.3); TOTAL PROTEIN 6.3 g/dl (6.1-8.1)
--- NOTE | 2016-11-26 13:33 | PN ---
Date/Time of Note Date/Time of Note DATE: 11/26/16 TIME: 13:30 Assessment/Plan VTE Prophylaxis VTE Prophylaxis Intervention: SCD's Lines/Catheters IV [facility] Type (from [facility] Saline Lock Urinary Cath still in place: No Assessment/Plan Assessment/Plan Jaundice/Hepatocellular * Acute alcoholic hepatitis [place] liver discrimination function 37.5 ?Acalculous cholecystitis BY MRCP/ clinically unlikely Hepatitis B exposure/no active infection Ascites Chronic alcoholism Plan continue present management Subjective 24 Hr Interval Summary Free Text/Dictation * Course reviewed with RN * Patient seen and examined * Denies abdominal pain * WBC 21.4,afebrile Exam/Review of Systems Vital Signs Vitals Vital Signs Date Time Temp Pulse Resp B/P Pulse Ox O2 Delivery O2 Flow Rate FiO2 11/26/16 08:22 97.1 80 18 104/72 95 Intake and Output 11/25/16 11/25/16 11/26/16 15:00 23:00 07:00 Intake Total 1911.2 ml 1505 ml Output Total 1500 ml Balance 1911.2 ml 5 ml Exam Constitutional: alert, oriented Psych: no complaints Head: normocephalic Eyes: icteric Neck: non-tender, supple Respiratory: clear to auscultation, normal air movement Cardiovascular: nl pulses, regular rate and rhythm Gastrointestinal: ascites, bowel sounds, distended, soft, No rebound or guarding Musculoskeletal: nl extremities to inspection, nl gait and stance Skin: nl turgor, rash or lesions Results Result Diagram: 11/26/16 0520 11/24/16 0515 Results 24 hrs Laboratory Tests Test 11/26/16 00:52 11/26/16 05:20 Total Bilirubin 5.7 H Direct Bilirubin 4.10 #H Indirect Bilirubin 1.6 H Aspartate Amino Transf (AST/SGOT) 281 H Alanine Aminotransferase (ALT/SGPT) 114 H Alkaline Phosphatase 511 H Total Protein 6.3 Albumin 2.2 L White Blood Count 21.4 H Red Blood Count 3.40 L Hemoglobin 12.4 L Hematocrit 35.6 L Mean Corpuscular Volume 104.7 H Mean Corpuscular Hemoglobin 36.5 H Mean Corpuscular Hemoglobin Concent 34.8 Red Cell Distribution Width 18.3 H Platelet Count 399 Mean Platelet Volume 11.7 H Neutrophils % 85.4 H Lymphocytes % 7.7 L Monocytes % 5.1 Eosinophils % 0.2 Basophils % 0.2 Nucleated Red Blood Cells % 0.0 Neutrophils # 18.2 H Lymphocytes # 1.7 Monocytes # 1.1 H Eosinophils # 0.0 Basophils # 0.1 Nucleated Red Blood Cells # 0.0 Medications Medications Current Medications Multivitamins/ Thiamine HCl/ Folic Acid/Sodium Chloride (Mvi Adult/ Vitamin B1/ Folic Acid/NS) 1,011.2 ml @ 125 mls/ hr DAILY@09 IVPB Last administered on 08:36; Admin Dose 125 MLS/HR; Start 11/17/16 at 09:00 Sucralfate (Carafate) 1 gm QID PO Last administered on 11/26/16 08:44; Admin Dose 1 GM; Start 11/16/16 at 21:00 Ondansetron HCl (Zofran Inj) 4 mg Q6H PRN IV NAUSEA AND/OR VOMITING; Start at 19:30 Morphine Sulfate 2 mg 2 mg Q4H PRN IV pain; Start 11/16/16 at 19:30 Piperacillin Sod/ Tazobactam Sod 100 ml @ 200 mls/hr Q8 IVPB Last administered on 11/26/16 05:22; Admin Dose 200 MLS/HR; Start 11/18/16 at 14:00 Potassium Chloride/Sodium Chloride (KCl/NS) 1,005 ml @ 75 mls/hr [id number] IV Last administered on 11/25/16 17:57; Admin Dose 75 MLS/HR; Start 11/18/16 at 11 :30 Lactulose (Enulose) 20 gm DAILY PO Last administered on 11/26/16 08:44; Admin Dose 20 GM; Start 11/21/16 at 13:30 Spironolactone (Aldactone) 100 mg DAILY PO Last administered on 11/26/16 08:44 ; Admin Dose 100 MG; Start 11/22/16 at 11:30 Furosemide (Lasix) 40 mg DAILY PO Last administered on 11/25/16 08:46; Admin Dose 40 MG; Start 11/22/16 at 11:00 Prednisolone (Prednisolone) 40 mg DAILY PO Last administered on 11/26/16 08:43 ; Admin Dose 40 MG; Start 11/22/16 at 12:00; Stop 12/20/16 at 11:59 Miscellaneous Information (*Order Clarification Bulletin) RE: PREDNISOLONE 40 MG... Q8H XX ; Start 11/22/16 at 12:00 Pantoprazole (Protonix Tab) 40 mg DAILY@06 PO Last administered on 11/26/16t 05 :22; Admin Dose 40 MG; Start 11/24/16 at 06:00 MORIS HINES MD Nov 26, 2016 13:33
--- NOTE | 2016-11-26 15:10 | PN ---
Date/Time of Note Date/Time of Note DATE: 11/26/16 TIME: 15:09 Assessment/Plan VTE Prophylaxis VTE Prophylaxis Intervention: SCD's Lines/Catheters IV [facility] Type (from [facility] Saline Lock Urinary Cath still in place: No Assessment/Plan Chief Complaint/Hosp Course Assessment/Plan: 65 yo M with 1. Acute alcoholic hepatitis 2. Severe chronic liver disease 2/2 fatty liver + chronic alcohol abuse 3. SIRS with leucocytosis and lactic acidosis likely 2/2 #1 4. Macrocytic anemia due to alcoholism 5. Tobacco dependence, quit 6. Dyslipidemia 7. Cholecytitis r/o negative HIDA scan PLAN: * Leukocytosis likely sec to PO steroids, no fevers. Calculated DF score at this time is 36. continue 28day treatment for alcoholic hepatitis including steroids and assess daily for improvement * Continue in-house supportive care. Plan for discharge once improved and after PT eval. * Alcohol cessation re-inforced daily with family at bedside Problems: Subjective 24 Hr Interval Summary Free Text/Dictation Pt denies cp or SOB. Exam/Review of Systems Vital Signs Vitals Vital Signs Date Time Temp Pulse Resp B/P Pulse Ox O2 Delivery O2 Flow Rate FiO2 11/26/16 08:22 97.1 80 18 104/72 95 Intake and Output 11/25/16 11/25/16 11/26/16 15:00 23:00 07:00 Intake Total 1911.2 ml 1505 ml Output Total 1500 ml Balance 1911.2 ml 5 ml Exam Constitutional: lying in bed Eyes: icteric ENMT: mucosa pink and moist Respiratory: clear to auscultation, diminished breath sounds Cardiovascular: regular rate and rhythm, No murmurs/extra sounds Gastrointestinal: ascites, bowel sounds, distended, soft Extremities: edema Neurological: nl mental status Skin: other (jaundiced) Results Result Diagram: 11/26/16 0520 11/24/16 0515 Results 24 hrs Laboratory Tests Test 11/26/16 00:52 11/26/16 05:20 Total Bilirubin 5.7 H Direct Bilirubin 4.10 #H Indirect Bilirubin 1.6 H Aspartate Amino Transf (AST/SGOT) 281 H Alanine Aminotransferase (ALT/SGPT) 114 H Alkaline Phosphatase 511 H Total Protein 6.3 Albumin 2.2 L White Blood Count 21.4 H Red Blood Count 3.40 L Hemoglobin 12.4 L Hematocrit 35.6 L Mean Corpuscular Volume 104.7 H Mean Corpuscular Hemoglobin 36.5 H Mean Corpuscular Hemoglobin Concent 34.8 Red Cell Distribution Width 18.3 H Platelet Count 399 Mean Platelet Volume 11.7 H Neutrophils % 85.4 H Lymphocytes % 7.7 L Monocytes % 5.1 Eosinophils % 0.2 Basophils % 0.2 Nucleated Red Blood Cells % 0.0 Neutrophils # 18.2 H Lymphocytes # 1.7 Monocytes # 1.1 H Eosinophils # 0.0 Basophils # 0.1 Nucleated Red Blood Cells # 0.0 Medications Medications Current Medications Multivitamins/ Thiamine HCl/ Folic Acid/Sodium Chloride (Mvi Adult/ Vitamin B1/ Folic Acid/NS) 1,011.2 ml @ 125 mls/ hr DAILY@09 IVPB Last administered on 08:36; Admin Dose 125 MLS/HR; Start 11/17/16 at 09:00 Sucralfate (Carafate) 1 gm QID PO Last administered on 11/26/16 13:54; Admin Dose 1 GM; Start 11/16/16 at 21:00 Ondansetron HCl (Zofran Inj) 4 mg Q6H PRN IV NAUSEA AND/OR VOMITING; Start at 19:30 Morphine Sulfate 2 mg 2 mg Q4H PRN IV pain; Start 11/16/16 at 19:30 Piperacillin Sod/ Tazobactam Sod 100 ml @ 200 mls/hr Q8 IVPB Last administered on 11/26/16 13:54; Admin Dose 200 MLS/HR; Start 11/18/16 at 14:00 Potassium Chloride/Sodium Chloride (KCl/NS) 1,005 ml @ 75 mls/hr [id number] IV Last administered on 11/25/16 17:57; Admin Dose 75 MLS/HR; Start 11/18/16 at 11 :30 Lactulose (Enulose) 20 gm DAILY PO Last administered on 11/26/16 08:44; Admin Dose 20 GM; Start 11/21/16 at 13:30 Spironolactone (Aldactone) 100 mg DAILY PO Last administered on 11/26/16 08:44 ; Admin Dose 100 MG; Start 11/22/16 at 11:30 Furosemide (Lasix) 40 mg DAILY PO Last administered on 11/25/16 08:46; Admin Dose 40 MG; Start 11/22/16 at 11:00 Prednisolone (Prednisolone) 40 mg DAILY PO Last administered on 11/26/16 08:43 ; Admin Dose 40 MG; Start 11/22/16 at 12:00; Stop 12/20/16 at 11:59 Miscellaneous Information (*Order Clarification Bulletin) RE: PREDNISOLONE 40 MG... Q8H XX ; Start 11/22/16 at 12:00 Pantoprazole (Protonix Tab) 40 mg DAILY@06 PO Last administered on 11/26/16 05 :22; Admin Dose 40 MG; Start 11/24/16 at 06:00 HARI HUMPHREYS Nov 26, 2016 15:09
[2016-11-26 16:36] VITALS: BP 180/86; PULSE 85
[2016-11-26 20:59] VITALS: BP 126/84; RESP 16
[2016-11-27] MEDS: PIPER-TAZO 3.375 GM IV (PMX) 100 ML IVPB SCH ×3 (05:36→22:27)
[2016-11-27] MEDS: PANTOPRAZOLE (EC) 40 MG TAB PO SCH (05:36)
[2016-11-27 06:43] LABS: ADD SCAN DIFF NO
[2016-11-27 06:49] LABS: BASOPHILS % 0.1 % (0.0-2.0); EOSINOPHILS % 0.1 % (0.0-7.0); HEMATOCRIT 36.8 % (42.0-52.0); HEMOGLOBIN 12.7 g/dl (14.0-18.0); LYMPHOCYTES % 8.7 % (15.0-51.0); MEAN CORPUSCULAR HEMOGLOBIN 36.5 pg (29.0-33.0); MEAN CORPUSCULAR HGB CONC 34.5 g/dl (32.0-37.0); MEAN CORPUSCULAR VOLUME 105.7 fl (82.0-101.0); MEAN PLATELET VOLUME 11.9 fl (7.4-10.4); MONOCYTE # 0.9 10^3/ul (0.3-0.9); MONOCYTES % 3.8 % (0.0-11.0); NEUTROPHIL # 19.3 10^3/ul (1.6-7.5); NUCLEATED RED BLOOD CELLS% 0.1 /100WBC (0.0-0.0); PLATELET COUNT 405 10^3/UL (140-415); RED BLOOD COUNT 3.48 10^6/ul (4.70-6.10); RED CELL DISTRIBUTION WIDTH 18.3 % (11.5-14.5); WHITE BLOOD COUNT 22.5 10^3/ul (4.8-10.8)
[2016-11-27 07:05] LABS: ALBUMIN 2.1 g/dl (3.3-4.9)
[2016-11-27 07:08] LABS: BILIRUBIN,DIRECT 4.3 mg/dl (0.00-0.20); BILIRUBIN,INDIRECT 1.4 mg/dl (0-1.1); BILIRUBIN,TOTAL 5.7 mg/dl (0.2-1.3); TOTAL PROTEIN 6.1 g/dl (6.1-8.1)
[2016-11-27 07:44] VITALS: BP 104/74; PULSE 76; RESP 16
[2016-11-27] MEDS: MULTIVITAMINS 10 ML, THIAMINE 100 MG, FOLIC ACID 1 MG in SOD CHLORIDE 0.9% 1,000 ML IVPB SCH (08:12)
[2016-11-27] MEDS: predniSOLONE 5 MG TAB PO SCH (08:13)
[2016-11-27] MEDS: SPIRONOLACTONE 50 MG TAB PO SCH (08:13)
[2016-11-27] MEDS: SUCRALFATE 1 GM TAB PO SCH ×4 (08:13→22:27)
[2016-11-27] MEDS: LACTULOSE 30ML CUP PO SCH ×3 (08:13→22:27)
[2016-11-27] MEDS: FUROSEMIDE 40 MG TAB PO SCH (08:14)
[2016-11-27 08:58] VITALS: BP 104/74; RESP 16
[2016-11-27] MEDS: POTASSIUM CHLORIDE 10 MEQ in SOD CHLORIDE 0.9% 1,000 ML IV SCH ×2 (09:54→17:55)
--- NOTE | 2016-11-27 10:36 | CONS ---
Date/Time of Note Date/Time of Note DATE: 11/27/16 TIME: 10:35 Assessment/Plan Assessment/Plan Additional Assessment/Plan Jaundice/Hepatocellular * Acute alcoholic hepatitis [place] liver discrimination function 37.5 ?Acalculous cholecystitis BY MRCP/ clinically unlikely Hepatitis B exposure/no active infection Ascites Chronic alcoholism Plan * continue present management * monitor liver function * continue prednisolone 40 mg daily for 28 days * Further recommendations depend on clinical course * Pt seen in collaboration with Dr. Silver Consultation Date/Type/Reason Admit Date/Time Nov 16, 2016 at 17:43 Initial Consult Date 11/17/16 Type of Consultation: Gastroenterology Referring Provider: ZEUS PHILIPPE 24 HR Interval Summary Free Text/Dictation LFTs elevated Christi diet Denies abdominal pain Exam/Review of Systems Vital Signs Vitals Vital Signs Date Time Temp Pulse Resp B/P Pulse Ox O2 Delivery O2 Flow Rate FiO2 11/27/16 08:58 95.0 76 16 104/74 96 11/27/16 07:44 Room Air Intake and Output 11/26/16 11/26/16 11/27/16 15:00 23:00 07:00 Intake Total 100 ml 2490 ml 1450 ml Output Total 1000 ml Balance 100 ml 2490 ml 450 ml Exam Constitutional: alert, oriented Psych: no complaints Head: normocephalic Neck: non-tender, supple Respiratory: clear to auscultation, normal air movement Cardiovascular: nl pulses, regular rate and rhythm Gastrointestinal: ascites, bowel sounds, non-tender, soft, No rebound or guarding Musculoskeletal: nl extremities to inspection, nl gait and stance Extremities: normal pulses Results Result Diagram: 11/27/16 0545 11/24/16 0515 Results 24 hrs Laboratory Tests Test 11/26/16 18:12 11/27/16 05:45 Ammonia 62 #H White Blood Count 22.5 H Red Blood Count 3.48 L Hemoglobin 12.7 L Hematocrit 36.8 L Mean Corpuscular Volume 105.7 H Mean Corpuscular Hemoglobin 36.5 H Mean Corpuscular Hemoglobin Concent 34.5 Red Cell Distribution Width 18.3 H Platelet Count 405 Mean Platelet Volume 11.9 H Neutrophils % 86.0 H Lymphocytes % 8.7 L Monocytes % 3.8 Eosinophils % 0.1 Basophils % 0.1 Nucleated Red Blood Cells % 0.1 H Neutrophils # 19.3 H Lymphocytes # 2.0 Monocytes # 0.9 Eosinophils # 0.0 Basophils # 0.0 Nucleated Red Blood Cells # 0.0 Total Bilirubin 5.7 H Direct Bilirubin 4.30 H Indirect Bilirubin 1.4 H Aspartate Amino Transf (AST/SGOT) 274 H Alanine Aminotransferase (ALT/SGPT) 129 H Alkaline Phosphatase 540 H Total Protein 6.1 Albumin 2.1 L Medications Medications Current Medications Multivitamins/ Thiamine HCl/ Folic Acid/Sodium Chloride (Mvi Adult/ Vitamin B1/ Folic Acid/NS) 1,011.2 ml @ 125 mls/ hr DAILY@09 IVPB Last administered on 08:12; Admin Dose 125 MLS/HR; Start 11/17/16 at 09:00 Sucralfate (Carafate) 1 gm QID PO Last administered on 11/27/16 08:13; Admin Dose 1 GM; Start 11/16/16 at 21:00 Ondansetron HCl (Zofran Inj) 4 mg Q6H PRN IV NAUSEA AND/OR VOMITING; Start at 19:30 Morphine Sulfate 2 mg 2 mg Q4H PRN IV pain; Start 11/16/16 at 19:30 Piperacillin Sod/ Tazobactam Sod 100 ml @ 200 mls/hr Q8 IVPB Last administered on 11/27/16 05:36; Admin Dose 200 MLS/HR; Start 11/18/16 at 14:00 Potassium Chloride/Sodium Chloride (KCl/NS) 1,005 ml @ 75 mls/hr [id number] IV Last administered on 11/26/16 17:51; Admin Dose 75 MLS/HR; Start 11/18/16 at 11 :30 Lactulose (Enulose) 20 gm DAILY PO Last administered on 11/27/16 08:13; Admin Dose 20 GM; Start 11/21/16 at 13:30 Spironolactone (Aldactone) 100 mg DAILY PO Last administered on 11/27/16 08:13 ; Admin Dose 100 MG; Start 11/22/16 at 11:30 Furosemide (Lasix) 40 mg DAILY PO Last administered on 11/25/16 08:46; Admin Dose 40 MG; Start 11/22/16 at 11:00 Prednisolone (Prednisolone) 40 mg DAILY PO Last administered on 11/27/16 08:13 ; Admin Dose 40 MG; Start 11/22/16 at 12:00; Stop 12/20/16 at 11:59 Miscellaneous Information (*Order Clarification Bulletin) RE: PREDNISOLONE 40 MG... Q8H XX ; Start 11/22/16 at 12:00 Pantoprazole (Protonix Tab) 40 mg DAILY@06 PO Last administered on 11/27/16 05 :36; Admin Dose 40 MG; Start 11/24/16 at 06:00 ZEENAT BRAY Nov 27, 2016 10:36
--- NOTE | 2016-11-27 12:58 | PN ---
Date/Time of Note Date/Time of Note DATE: 11/27/16 TIME: 12:56 Assessment/Plan VTE Prophylaxis VTE Prophylaxis Intervention: SCD's Lines/Catheters [facility] ([facility] Peripheral IV Urinary Cath still in place: No Assessment/Plan Chief Complaint/Hosp Course Assessment/Plan: 65 yo M with 1. Acute alcoholic hepatitis 2. Severe chronic liver disease 2/2 fatty liver + chronic alcohol abuse 3. SIRS with leucocytosis and lactic acidosis likely 2/2 #1 4. Macrocytic anemia due to alcoholism 5. Tobacco dependence, quit 6. Dyslipidemia 7. Cholecytitis r/o negative HIDA scan PLAN: * Leukocytosis likely sec to PO steroids, no fevers. Calculated DF score at this time is 36. continue 28day treatment for alcoholic hepatitis including steroids and assess daily for improvement * Continue in-house supportive care. Plan for discharge once improved, will also increase lactulose to TID today given elevated ammonia. * Alcohol cessation re-inforced daily with family at bedside Problems: Subjective 24 Hr Interval Summary Free Text/Dictation Pt feels more distended today. Exam/Review of Systems Vital Signs Vitals Vital Signs Date Time Temp Pulse Resp B/P Pulse Ox O2 Delivery O2 Flow Rate FiO2 11/27/16 08:58 95.0 76 16 104/74 96 11/27/16 07:44 Room Air Intake and Output 11/26/16 11/26/16 11/27/16 15:00 23:00 07:00 Intake Total 100 ml 2490 ml 1450 ml Output Total 1000 ml Balance 100 ml 2490 ml 450 ml Exam Constitutional: lying in bed Eyes: icteric ENMT: mucosa pink and moist Respiratory: clear to auscultation, diminished breath sounds Cardiovascular: regular rate and rhythm, No murmurs/extra sounds Gastrointestinal: ascites, bowel sounds, distended, soft Extremities: edema Neurological: nl mental status Skin: other (jaundiced) Results Result Diagram: 11/27/16 0545 11/24/16 0515 Results 24 hrs Laboratory Tests Test 11/26/16 18:12 11/27/16 05:45 Ammonia 62 #H White Blood Count 22.5 H Red Blood Count 3.48 L Hemoglobin 12.7 L Hematocrit 36.8 L Mean Corpuscular Volume 105.7 H Mean Corpuscular Hemoglobin 36.5 H Mean Corpuscular Hemoglobin Concent 34.5 Red Cell Distribution Width 18.3 H Platelet Count 405 Mean Platelet Volume 11.9 H Neutrophils % 86.0 H Lymphocytes % 8.7 L Monocytes % 3.8 Eosinophils % 0.1 Basophils % 0.1 Nucleated Red Blood Cells % 0.1 H Neutrophils # 19.3 H Lymphocytes # 2.0 Monocytes # 0.9 Eosinophils # 0.0 Basophils # 0.0 Nucleated Red Blood Cells # 0.0 Total Bilirubin 5.7 H Direct Bilirubin 4.30 H Indirect Bilirubin 1.4 H Aspartate Amino Transf (AST/SGOT) 274 H Alanine Aminotransferase (ALT/SGPT) 129 H Alkaline Phosphatase 540 H Total Protein 6.1 Albumin 2.1 L Medications Medications Current Medications Multivitamins/ Thiamine HCl/ Folic Acid/Sodium Chloride (Mvi Adult/ Vitamin B1/ Folic Acid/NS) 1,011.2 ml @ 125 mls/ hr DAILY@09 IVPB Last administered on 08:12; Admin Dose 125 MLS/HR; Start 11/17/16 at 09:00 Sucralfate (Carafate) 1 gm QID PO Last administered on 11/27/16 12:30; Admin Dose 1 GM; Start 11/16/16 at 21:00 Ondansetron HCl (Zofran Inj) 4 mg Q6H PRN IV NAUSEA AND/OR VOMITING; Start at 19:30 Morphine Sulfate 2 mg 2 mg Q4H PRN IV pain; Start 11/16/16 at 19:30 Piperacillin Sod/ Tazobactam Sod 100 ml @ 200 mls/hr Q8 IVPB Last administered on 11/27/16 05:36; Admin Dose 200 MLS/HR; Start 11/18/16 at 14:00 Potassium Chloride/Sodium Chloride (KCl/NS) 1,005 ml @ 75 mls/hr [id number] IV Last administered on 11/26/16 17:51; Admin Dose 75 MLS/HR; Start 11/18/16 at 11 :30 Spironolactone (Aldactone) 100 mg DAILY PO Last administered on 11/27/16 08:13 ; Admin Dose 100 MG; Start 11/22/16 at 11:30 Furosemide (Lasix) 40 mg DAILY PO Last administered on 11/25/16 08:46; Admin Dose 40 MG; Start 11/22/16 at 11:00 Prednisolone (Prednisolone) 40 mg DAILY PO Last administered on 11/27/16 08:13 ; Admin Dose 40 MG; Start 11/22/16 at 12:00; Stop 12/20/16 at 11:59 Miscellaneous Information (*Order Clarification Bulletin) RE: PREDNISOLONE 40 MG... Q8H XX ; Start 11/22/16 at 12:00 Pantoprazole (Protonix Tab) 40 mg DAILY@06 PO Last administered on 11/27/16 05 :36; Admin Dose 40 MG; Start 11/24/16 at 06:00 Lactulose (Enulose) 20 gm TID PO Last administered on 11/27/16 12:31; Admin Dose 20 GM; Start 11/27/16 at 13:00 HARI HUMPHREYS Nov 27, 2016 12:58
[2016-11-27] MEDS ORDERED: LIDOCAINE 1% (MPF) 5 ML VIAL ONE (15:00)
[2016-11-27 16:11] VITALS: BP 136/90; PULSE 78; RESP 20
[2016-11-27 17:23] VITALS: BP 103/73; PULSE 80; RESP 18
--- NOTE | 2016-11-27 17:34 | RADRPT ---
PROCEDURE: Ultrasound guided paracentesis. CLINICAL INDICATION: Ascites and shortness of breath. COMPARISON: 11/21/2016. TECHNIQUE: The risks, benefits, and alternatives were explained to the patient and/or the patient's family, inc luding but not limited to bleeding, infection, pain, visceral or vascular damage, shock, and . The patient and/or the patient's family understood the risks and the alternatives and wished to pro ceed with the procedure. Informed written consent was obtained. A procedural time out was performed . The patient's name, date of , and procedure to be performed were verified. Utilizing ultrasound guidance, optimal location for entry to the peritoneal cavity was ascertained. The overlying skin was prepped and draped in the usual sterile fashion. Approximately 10 ml of 1% Xylocaine was injected locally for pain control. Using ultrasound guidance, an 8 [place] catheter wa s introduced into the peritoneal cavity in the right lower quadrant without difficulty. FINDINGS: Initial images demonstrate ascites. Approximately 4.7 liters of serous fluid was aspirated and disc arded. The patient tolerated the procedure well without complication. IMPRESSION: 1. Successful ultrasound-guided paracentesis. RPTAT: QQ .Roe Toribio MD, Date Time Electronically viewed and signed by .Roe Toribio MD, on 11/27/2016 17:34 .R/
[2016-11-27 21:23] VITALS: BP 122/83; RESP 16
[2016-11-28 05:57] LABS: ADD SCAN DIFF NO
[2016-11-28] MEDS: PANTOPRAZOLE (EC) 40 MG TAB PO SCH (06:05)
[2016-11-28] MEDS: PIPER-TAZO 3.375 GM IV (PMX) 100 ML IVPB SCH ×3 (06:05→22:04)
[2016-11-28 06:11] LABS: BASOPHILS % 0.2 % (0.0-2.0); HEMATOCRIT 35.5 % (42.0-52.0); HEMOGLOBIN 12.1 g/dl (14.0-18.0); LYMPHOCYTES # 1.2 10^3/ul (0.8-2.9); LYMPHOCYTES % 5.8 % (15.0-51.0); MEAN CORPUSCULAR HEMOGLOBIN 35.9 pg (29.0-33.0); MEAN CORPUSCULAR HGB CONC 34.1 g/dl (32.0-37.0); MEAN CORPUSCULAR VOLUME 105.3 fl (82.0-101.0); MEAN PLATELET VOLUME 12.1 fl (7.4-10.4); MONOCYTE # 0.8 10^3/ul (0.3-0.9); MONOCYTES % 3.8 % (0.0-11.0); NEUTROPHILS % 89.3 % (39.0-77.0); PLATELET COUNT 353 10^3/UL (140-415); RED BLOOD COUNT 3.37 10^6/ul (4.70-6.10); RED CELL DISTRIBUTION WIDTH 18.2 % (11.5-14.5); WHITE BLOOD COUNT 21.3 10^3/ul (4.8-10.8)
[2016-11-28 08:01] VITALS: BP 114/74; RESP 18
[2016-11-28 08:24] LABS: ALBUMIN 2.2 g/dl (3.3-4.9); BILIRUBIN,DIRECT 3.5 mg/dl (0.00-0.20); BILIRUBIN,INDIRECT 1.1 mg/dl (0-1.1); BILIRUBIN,TOTAL 4.6 mg/dl (0.2-1.3)
[2016-11-28] MEDS: LACTULOSE 30ML CUP PO SCH ×2 (09:15→22:03)
[2016-11-28] MEDS: MULTIVITAMINS 10 ML, THIAMINE 100 MG, FOLIC ACID 1 MG in SOD CHLORIDE 0.9% 1,000 ML IVPB SCH (09:18)
[2016-11-28] MEDS: SUCRALFATE 1 GM TAB PO SCH ×4 (09:21→22:04)
[2016-11-28] MEDS: predniSOLONE 5 MG TAB PO SCH (09:21)
[2016-11-28] MEDS: SPIRONOLACTONE 50 MG TAB PO SCH (09:23)
[2016-11-28] MEDS: FUROSEMIDE 40 MG TAB PO SCH (09:23)
--- NOTE | 2016-11-28 10:05 | CONS ---
Date/Time of Note Date/Time of Note DATE: 11/28/16 TIME: 10:02 Assessment/Plan Assessment/Plan Additional Assessment/Plan Jaundice/Hepatocellular * Acute alcoholic hepatitis Osiris liver discrimination function 37.5 ?Acalculous cholecystitis BY MRCP/ clinically unlikely Hepatitis B exposure/no active infection Ascites Chronic alcoholism Plan: Continue present management Monitor liver function test Paracentesis as needed Continue prednisolone 40 mg daily for 28 days Further recommendations depend on clinical course Pt seen in collaboration with Dr. Silver Consultation Date/Type/Reason Admit Date/Time Nov 16, 2016 at 17:43 Initial Consult Date 11/17/16 Type of Consultation: Gastroenterology Referring Provider: ZEUS PHILIPPE 24 HR Interval Summary Free Text/Dictation Status post 4.7 L removed paracentesis Denies abdominal pain Tolerating diet Exam/Review of Systems Vital Signs Vitals Vital Signs Date Time Temp Pulse Resp B/P Pulse Ox O2 Delivery O2 Flow Rate FiO2 11/28/16 08:01 97.9 74 18 114/74 96 11/27/16 17:23 Room Air Intake and Output 11/27/16 11/27/16 11/28/16 15:00 23:00 07:00 Intake Total 1831.2 ml 1430 ml Output Total 5000 ml 520 ml Balance -3168.8 ml 910 ml Exam Constitutional: alert, oriented Psych: no complaints Head: normocephalic Neck: non-tender, supple Respiratory: clear to auscultation, normal air movement Cardiovascular: nl pulses, regular rate and rhythm Gastrointestinal: ascites, bowel sounds, non-tender, soft, No rebound or guarding Musculoskeletal: nl extremities to inspection, nl gait and stance Extremities: normal pulses Results Result Diagram: 11/28/16 0510 11/24/16 0515 Results 24 hrs Laboratory Tests Test 11/28/16 05:10 White Blood Count 21.3 H Red Blood Count 3.37 L Hemoglobin 12.1 L Hematocrit 35.5 L Mean Corpuscular Volume 105.3 H Mean Corpuscular Hemoglobin 35.9 H Mean Corpuscular Hemoglobin Concent 34.1 Red Cell Distribution Width 18.2 H Platelet Count 353 Mean Platelet Volume 12.1 H Neutrophils % 89.3 H Lymphocytes % 5.8 L Monocytes % 3.8 Eosinophils % 0.0 Basophils % 0.2 Nucleated Red Blood Cells % 0.0 Neutrophils # 19.0 H Lymphocytes # 1.2 Monocytes # 0.8 Eosinophils # 0.0 Basophils # 0.0 Nucleated Red Blood Cells # 0.0 Total Bilirubin 4.6 H Direct Bilirubin 3.50 H Indirect Bilirubin 1.1 Aspartate Amino Transf (AST/SGOT) 249 H Alanine Aminotransferase (ALT/SGPT) 143 H Alkaline Phosphatase 667 H Ammonia 50 H Total Protein 6.0 L Albumin 2.2 L Medications Medications Current Medications Multivitamins/ Thiamine HCl/ Folic Acid/Sodium Chloride (Mvi Adult/ Vitamin B1/ Folic Acid/NS) 1,011.2 ml @ 125 mls/ hr DAILY@09 IVPB Last administered on 09:18; Admin Dose 125 MLS/HR; Start 11/17/16 at 09:00 Sucralfate (Carafate) 1 gm QID PO Last administered on 11/28/16 09:21; Admin Dose 1 GM; Start 11/16/16 at 21:00 Ondansetron HCl (Zofran Inj) 4 mg Q6H PRN IV NAUSEA AND/OR VOMITING; Start at 19:30 Morphine Sulfate 2 mg 2 mg Q4H PRN IV pain; Start 11/16/16 at 19:30 Piperacillin Sod/ Tazobactam Sod 100 ml @ 200 mls/hr Q8 IVPB Last administered on 11/28/16 06:05; Admin Dose 200 MLS/HR; Start 11/18/16 at 14:00 Potassium Chloride/Sodium Chloride (KCl/NS) 1,005 ml @ 75 mls/hr [id number] IV Last administered on 11/27/16 17:55; Admin Dose 75 MLS/HR; Start 11/18/16 at 11 :30 Spironolactone (Aldactone) 100 mg DAILY PO Last administered on 11/28/16 09:23 ; Admin Dose 100 MG; Start 11/22/16 at 11:30 Furosemide (Lasix) 40 mg DAILY PO Last administered on 11/28/16 09:23; Admin Dose 40 MG; Start 11/22/16 at 11:00 Prednisolone (Prednisolone) 40 mg DAILY PO Last administered on 11/28/16 09:21 ; Admin Dose 40 MG; Start 11/22/16 at 12:00; Stop 12/20/16 at 11:59 Pantoprazole (Protonix Tab) 40 mg DAILY@06 PO Last administered on 11/28/16 06 :05; Admin Dose 40 MG; Start 11/24/16 at 06:00 Lactulose (Enulose) 20 gm TID PO Last administered on 11/28/16 09:15; Admin Dose 20 GM; Start 11/27/16 at 13:00 ZEENAT BRAY Nov 28, 2016 10:05
--- NOTE | 2016-11-28 14:27 | PN ---
Date/Time of Note Date/Time of Note DATE: 11/28/16 TIME: 14:26 Assessment/Plan VTE Prophylaxis VTE Prophylaxis Intervention: SCD's Lines/Catheters [facility] Type (from [facility]): Peripheral IV Urinary Cath still in place: No Assessment/Plan Chief Complaint/Hosp Course Assessment/Plan: 65 yo M with 1. Acute alcoholic hepatitis 2. Severe chronic liver disease 2/2 fatty liver + chronic alcohol abuse 3. SIRS with leucocytosis and lactic acidosis likely 2/2 #1 4. Macrocytic anemia due to alcoholism 5. Tobacco dependence, quit 6. Dyslipidemia 7. Cholecytitis r/o negative HIDA scan PLAN: * Leukocytosis likely sec to PO steroids, no fevers. Calculated DF score at this time is 36. continue 28day treatment for alcoholic hepatitis including steroids and assess daily for improvement * Continue in-house supportive care. Plan for discharge once improved, lactulose TID given elevated ammonia. * Alcohol cessation re-inforced daily with family at bedside Problems: Subjective 24 Hr Interval Summary Free Text/Dictation Pt had paracentesis, no acute events overnight. Exam/Review of Systems Vital Signs Vitals Vital Signs Date Time Temp Pulse Resp B/P Pulse Ox O2 Delivery O2 Flow Rate FiO2 11/28/16 08:01 97.9 74 18 114/74 96 11/27/16 17:23 Room Air Intake and Output 11/27/16 11/27/16 11/28/16 15:00 23:00 07:00 Intake Total 1831.2 ml 1430 ml Output Total 5000 ml 520 ml Balance -3168.8 ml 910 ml Exam Constitutional: lying in bed Eyes: less icteric ENMT: mucosa pink and moist Respiratory: clear to auscultation, diminished breath sounds Cardiovascular: regular rate and rhythm, No murmurs/extra sounds Gastrointestinal: ascites, bowel sounds, distended, soft Extremities: edema Neurological: nl mental status Skin: other (jaundiced) Results Result Diagram: 11/28/16 0510 11/24/16 0515 Results 24 hrs Laboratory Tests Test 11/28/16 05:10 White Blood Count 21.3 H Red Blood Count 3.37 L Hemoglobin 12.1 L Hematocrit 35.5 L Mean Corpuscular Volume 105.3 H Mean Corpuscular Hemoglobin 35.9 H Mean Corpuscular Hemoglobin Concent 34.1 Red Cell Distribution Width 18.2 H Platelet Count 353 Mean Platelet Volume 12.1 H Neutrophils % 89.3 H Lymphocytes % 5.8 L Monocytes % 3.8 Eosinophils % 0.0 Basophils % 0.2 Nucleated Red Blood Cells % 0.0 Neutrophils # 19.0 H Lymphocytes # 1.2 Monocytes # 0.8 Eosinophils # 0.0 Basophils # 0.0 Nucleated Red Blood Cells # 0.0 Total Bilirubin 4.6 H Direct Bilirubin 3.50 H Indirect Bilirubin 1.1 Aspartate Amino Transf (AST/SGOT) 249 H Alanine Aminotransferase (ALT/SGPT) 143 H Alkaline Phosphatase 667 H Ammonia 50 H Total Protein 6.0 L Albumin 2.2 L Medications Medications Current Medications Sucralfate (Carafate) 1 gm QID PO Last administered on 11/28/16 09:21; Admin Dose 1 GM; Start 11/16/16 at 21:00 Ondansetron HCl (Zofran Inj) 4 mg Q6H PRN IV NAUSEA AND/OR VOMITING; Start at 19:30 Morphine Sulfate 2 mg 2 mg Q4H PRN IV pain; Start 11/16/16 at 19:30 Piperacillin Sod/ Tazobactam Sod (Zosyn 3.375gm/ 100 ml (Pmx)) 100 ml @ 200 mls /hr Q8 IVPB Last administered on 11/28/16 06:05; Admin Dose 200 MLS/HR; Start 11/18/16 at 14:00 Spironolactone (Aldactone) 100 mg DAILY PO Last administered on 11/28/16 09:23 ; Admin Dose 100 MG; Start 11/22/16 at 11:30 Prednisolone (Prednisolone) 40 mg DAILY PO Last administered on 11/28/16 09:21 ; Admin Dose 40 MG; Start 11/22/16 at 12:00; Stop 12/20/16 at 11:59 Pantoprazole (Protonix Tab) 40 mg DAILY@06 PO Last administered on 11/28/16 06 :05; Admin Dose 40 MG; Start 11/24/16 at 06:00 Furosemide (Lasix) 20 mg DAILY IV ; Start 11/28/16 at 14:30 Lactulose (Enulose) 30 gm TID PO ; Start 11/28/16 at 21:00 HARI HUMPHREYS Nov 28, 2016 14:27
[2016-11-28] MEDS: FUROSEMIDE 20 MG INJ IV SCH (15:30)
[2016-11-28 20:18] VITALS: BP 126/84; RESP 18
[2016-11-29 05:35] LABS: ADD SCAN DIFF NO
[2016-11-29] MEDS: PIPER-TAZO 3.375 GM IV (PMX) 100 ML IVPB SCH ×3 (05:56→21:03)
[2016-11-29] MEDS: PANTOPRAZOLE (EC) 40 MG TAB PO SCH (05:57)
[2016-11-29 05:58] LABS: ABNORMAL IP MESSAGE 1; BASOPHILS % 0.2 % (0.0-2.0); EOSINOPHILS % 0.1 % (0.0-7.0); HEMATOCRIT 35.2 % (42.0-52.0); HEMOGLOBIN 12.2 g/dl (14.0-18.0); LYMPHOCYTES # 1.4 10^3/ul (0.8-2.9); LYMPHOCYTES % 5.5 % (15.0-51.0); MEAN CORPUSCULAR HEMOGLOBIN 36.3 pg (29.0-33.0); MEAN CORPUSCULAR HGB CONC 34.7 g/dl (32.0-37.0); MEAN CORPUSCULAR VOLUME 104.8 fl (82.0-101.0); MEAN PLATELET VOLUME 12.2 fl (7.4-10.4); NEUTROPHIL # 22.8 10^3/ul (1.6-7.5); NEUTROPHILS % 89.3 % (39.0-77.0); PLATELET COUNT 378 10^3/UL (140-415); RED BLOOD COUNT 3.36 10^6/ul (4.70-6.10); RED CELL DISTRIBUTION WIDTH 18.1 % (11.5-14.5); WHITE BLOOD COUNT 25.5 10^3/ul (4.8-10.8)
[2016-11-29 06:04] LABS: POTASSIUM 3.6 mmol/L (3.5-5.1)
[2016-11-29 06:07] LABS: CREATININE 0.87 mg/dl (0.61-1.24)
[2016-11-29 06:08] LABS: CALCIUM 8.3 mg/dl (8.4-10.2)
[2016-11-29 07:21] LABS: ALBUMIN 2.2 g/dl (3.3-4.9)
[2016-11-29 07:24] LABS: BILIRUBIN,DIRECT 3.7 mg/dl (0.00-0.20); BILIRUBIN,INDIRECT 1.4 mg/dl (0-1.1); BILIRUBIN,TOTAL 5.1 mg/dl (0.2-1.3); TOTAL PROTEIN 6.2 g/dl (6.1-8.1)
[2016-11-29 08:00] VITALS: BP 105/73; RESP 20
[2016-11-29] MEDS: LACTULOSE 30ML CUP PO SCH ×5 (10:06→21:03)
[2016-11-29] MEDS: SPIRONOLACTONE 50 MG TAB PO SCH (10:07)
[2016-11-29] MEDS: SUCRALFATE 1 GM TAB PO SCH ×4 (10:07→21:03)
[2016-11-29] MEDS: predniSOLONE 5 MG TAB PO SCH (10:08)
[2016-11-29] MEDS: FUROSEMIDE 20 MG INJ IV SCH (10:09)
--- NOTE | 2016-11-29 12:36 | PN ---
Date/Time of Note Date/Time of Note DATE: 11/29/16 TIME: 12:34 Assessment/Plan VTE Prophylaxis VTE Prophylaxis Intervention: SCD's Lines/Catheters IV Catheter Type (from [facility]): Peripheral IV Urinary Cath still in place: No Assessment/Plan Chief Complaint/Hosp Course Assessment/Plan: 65 yo M with 1. Acute alcoholic hepatitis 2. Severe chronic liver disease 2/2 fatty liver + chronic alcohol abuse 3. SIRS with leucocytosis and lactic acidosis likely 2/2 #1 4. Macrocytic anemia due to alcoholism 5. Tobacco dependence, quit 6. Dyslipidemia 7. Cholecytitis r/o negative HIDA scan PLAN: * Leukocytosis likely sec to PO steroids, no fevers. Calculated DF score at this time is 36. continue 28day treatment for alcoholic hepatitis including steroids and assess daily for improvement * Continue in-house supportive care. Plan for discharge once improved, lactulose now QID given still elevated ammonia, although pt asymptomatic * Alcohol cessation re-inforced daily with family at bedside Problems: Subjective 24 Hr Interval Summary Free Text/Dictation Pt alert, taking his meds. Exam/Review of Systems Vital Signs Vitals Vital Signs Date Time Temp Pulse Resp B/P Pulse Ox O2 Delivery O2 Flow Rate FiO2 11/29/16 08:00 97.8 84 20 105/73 98 11/27/16 17:23 Room Air Intake and Output 11/28/16 11/28/16 11/29/16 15:00 23:00 07:00 Intake Total 250 ml 1600 ml 480 ml Output Total 1150 ml 1200 ml Balance 250 ml 450 ml -720 ml Exam Constitutional: lying in bed Eyes: less icteric ENMT: mucosa pink and moist Respiratory: clear to auscultation, diminished breath sounds Cardiovascular: regular rate and rhythm, No murmurs/extra sounds Gastrointestinal: ascites, bowel sounds, distended, soft Extremities: edema Neurological: nl mental status Skin: other (jaundiced) Results Result Diagram: 11/29/16 0450 11/29/16 0450 Results 24 hrs Laboratory Tests Test 11/29/16 04:50 White Blood Count 25.5 H Red Blood Count 3.36 L Hemoglobin 12.2 L Hematocrit 35.2 L Mean Corpuscular Volume 104.8 H Mean Corpuscular Hemoglobin 36.3 H Mean Corpuscular Hemoglobin Concent 34.7 Red Cell Distribution Width 18.1 H Platelet Count 378 Mean Platelet Volume 12.2 H Neutrophils % 89.3 H Lymphocytes % 5.5 L Monocytes % 4.0 Eosinophils % 0.1 Basophils % 0.2 Nucleated Red Blood Cells % 0.0 Neutrophils # 22.8 H Lymphocytes # 1.4 Monocytes # 1.0 H Eosinophils # 0.0 Basophils # 0.0 Nucleated Red Blood Cells # 0.0 Sodium Level 133 L Potassium Level 3.6 Chloride Level 98 Carbon Dioxide Level 25 Anion Gap 14 Blood Urea Nitrogen 15 Creatinine 0.87 Glucose Level 181 Calcium Level 8.3 L Total Bilirubin 5.1 H Direct Bilirubin 3.70 H Indirect Bilirubin 1.4 H Aspartate Amino Transf (AST/SGOT) 251 H Alanine Aminotransferase (ALT/SGPT) 150 H Alkaline Phosphatase 753 H Ammonia 79 #H Total Protein 6.2 Albumin 2.2 L Medications Medications Current Medications Sucralfate (Carafate) 1 gm QID PO Last administered on 11/29/16 12:17; Admin Dose 1 GM; Start 11/16/16 at 21:00 Ondansetron HCl (Zofran Inj) 4 mg Q6H PRN IV NAUSEA AND/OR VOMITING; Start at 19:30 Morphine Sulfate 2 mg 2 mg Q4H PRN IV pain; Start 11/16/16 at 19:30 Piperacillin Sod/ Tazobactam Sod (Zosyn 3.375gm/ 100 ml (Pmx)) 100 ml @ 200 mls /hr Q8 IVPB Last administered on 11/29/16 05:56; Admin Dose 200 MLS/HR; Start 11/18/16 at 14:00 Spironolactone (Aldactone) 100 mg DAILY PO Last administered on 11/29/16 10:07 ; Admin Dose 100 MG; Start 11/22/16 at 11:30 Prednisolone (Prednisolone) 40 mg DAILY PO Last administered on 11/29/16 10:08 ; Admin Dose 40 MG; Start 11/22/16 at 12:00; Stop 12/20/16 at 11:59 Pantoprazole (Protonix Tab) 40 mg DAILY@06 PO Last administered on 11/29/16 05 :57; Admin Dose 40 MG; Start 11/24/16 at 06:00 Furosemide (Lasix) 20 mg DAILY IV Last administered on 11/29/16 10:09; Admin Dose 20 MG; Start 11/28/16 at 14:30 Lactulose (Enulose) 30 gm TID PO Last administered on 11/29/16t 12:17; Admin Dose 30 GM; Start 11/28/16 at 21:00 HARI HUMPHREYS Nov 29, 2016 12:36
[2016-11-29] MEDS ORDERED: LACTULOSE ENEMA 1,000 ML BTL PR ONE (13:00)
--- NOTE | 2016-11-29 13:16 | CONS ---
Date/Time of Note Date/Time of Note DATE: 11/29/16 TIME: 13:14 Assessment/Plan Assessment/Plan Additional Assessment/Plan Jaundice/Hepatocellular * Acute alcoholic hepatitis [place] liver discrimination function 37.5 ?Acalculous cholecystitis BY MRCP/ clinically unlikely Hepatitis B exposure/no active infection Ascites Chronic alcoholism Plan: Continue present management Monitor liver function test Paracentesis as needed Continue prednisolone 40 mg daily for 28 days Further recommendations depend on clinical course Pt seen in collaboration with Dr. Silver Consultation Date/Type/Reason Admit Date/Time Nov 16, 2016 at 17:43 Initial Consult Date 11/17/16 Type of Consultation: Gastroenterology Referring Provider: ZEUS PHILIPPE 24 HR Interval Summary Free Text/Dictation Christi diet Denies abdominal pain Lfts trending upward Exam/Review of Systems Vital Signs Vitals Vital Signs Date Time Temp Pulse Resp B/P Pulse Ox O2 Delivery O2 Flow Rate FiO2 11/29/16 08:00 97.8 84 20 105/73 98 11/27/16 17:23 Room Air Intake and Output 11/28/16 11/28/16 11/29/16 15:00 23:00 07:00 Intake Total 250 ml 1600 ml 480 ml Output Total 1150 ml 1200 ml Balance 250 ml 450 ml -720 ml Exam Constitutional: alert, oriented Psych: no complaints Head: normocephalic Neck: non-tender, supple Respiratory: clear to auscultation, normal air movement Cardiovascular: nl pulses, regular rate and rhythm Gastrointestinal: ascites, distended, bowel sounds, non-tender, soft, No rebound or guarding Musculoskeletal: nl extremities to inspection, nl gait and stance Extremities: normal pulses Results Result Diagram: 11/29/16 0450 11/29/16 0450 Results 24 hrs Laboratory Tests Test 11/29/16 04:50 White Blood Count 25.5 H Red Blood Count 3.36 L Hemoglobin 12.2 L Hematocrit 35.2 L Mean Corpuscular Volume 104.8 H Mean Corpuscular Hemoglobin 36.3 H Mean Corpuscular Hemoglobin Concent 34.7 Red Cell Distribution Width 18.1 H Platelet Count 378 Mean Platelet Volume 12.2 H Neutrophils % 89.3 H Lymphocytes % 5.5 L Monocytes % 4.0 Eosinophils % 0.1 Basophils % 0.2 Nucleated Red Blood Cells % 0.0 Neutrophils # 22.8 H Lymphocytes # 1.4 Monocytes # 1.0 H Eosinophils # 0.0 Basophils # 0.0 Nucleated Red Blood Cells # 0.0 Sodium Level 133 L Potassium Level 3.6 Chloride Level 98 Carbon Dioxide Level 25 Anion Gap 14 Blood Urea Nitrogen 15 Creatinine 0.87 Glucose Level 181 Calcium Level 8.3 L Total Bilirubin 5.1 H Direct Bilirubin 3.70 H Indirect Bilirubin 1.4 H Aspartate Amino Transf (AST/SGOT) 251 H Alanine Aminotransferase (ALT/SGPT) 150 H Alkaline Phosphatase 753 H Ammonia 79 #H Total Protein 6.2 Albumin 2.2 L Medications Medications Current Medications Sucralfate (Carafate) 1 gm QID PO Last administered on 11/29/16 12:17; Admin Dose 1 GM; Start 11/16/16 at 21:00 Ondansetron HCl (Zofran Inj) 4 mg Q6H PRN IV NAUSEA AND/OR VOMITING; Start at 19:30 Morphine Sulfate 2 mg 2 mg Q4H PRN IV pain; Start 11/16/16 at 19:30 Piperacillin Sod/ Tazobactam Sod (Zosyn 3.375gm/ 100 ml (Pmx)) 100 ml @ 200 mls /hr Q8 IVPB Last administered on 11/29/16 05:56; Admin Dose 200 MLS/HR; Start 11/18/16 at 14:00 Spironolactone (Aldactone) 100 mg DAILY PO Last administered on 11/29/16 10:07 ; Admin Dose 100 MG; Start 11/22/16 at 11:30 Prednisolone (Prednisolone) 40 mg DAILY PO Last administered on 11/29/16 10:08 ; Admin Dose 40 MG; Start 11/22/16 at 12:00; Stop 12/20/16 at 11:59 Pantoprazole (Protonix Tab) 40 mg DAILY@06 PO Last administered on 11/29/16 05 :57; Admin Dose 40 MG; Start 11/24/16 at 06:00 Furosemide (Lasix) 20 mg DAILY IV Last administered on 11/29/16 10:09; Admin Dose 20 MG; Start 11/28/16 at 14:30 Lactulose (Enulose) 30 gm QID PO ; Start 11/29/16 at 13:00 Lactulose (Lactulose Enema) 100 ml ONCE ONCE VT ; Start 11/29/16 at 13:00; Stop 11/29/16 at 13:01 ZEENAT BRAY Nov 29, 2016 13:16
[2016-11-29 21:17] VITALS: BP 118/86; RESP 20
[2016-11-30] MEDS: PANTOPRAZOLE (EC) 40 MG TAB PO SCH (05:18)
[2016-11-30] MEDS: PIPER-TAZO 3.375 GM IV (PMX) 100 ML IVPB SCH ×2 (05:18→13:31)
[2016-11-30 05:27] LABS: ADD SCAN DIFF NO
[2016-11-30 05:31] LABS: ABNORMAL IP MESSAGE 1; BASOPHILS % 0.2 % (0.0-2.0); HEMATOCRIT 35.7 % (42.0-52.0); HEMOGLOBIN 12.6 g/dl (14.0-18.0); LYMPHOCYTES # 1.4 10^3/ul (0.8-2.9); LYMPHOCYTES % 6.1 % (15.0-51.0); MEAN CORPUSCULAR HGB CONC 35.3 g/dl (32.0-37.0); MEAN CORPUSCULAR VOLUME 104.7 fl (82.0-101.0); MONOCYTES % 4.3 % (0.0-11.0); NEUTROPHIL # 20.1 10^3/ul (1.6-7.5); NEUTROPHILS % 88.4 % (39.0-77.0); PLATELET COUNT 330 10^3/UL (140-415); RED BLOOD COUNT 3.41 10^6/ul (4.70-6.10); RED CELL DISTRIBUTION WIDTH 18.1 % (11.5-14.5); WHITE BLOOD COUNT 22.8 10^3/ul (4.8-10.8)
[2016-11-30 05:56] LABS: POTASSIUM 3.8 mmol/L (3.5-5.1)
[2016-11-30 05:59] LABS: CREATININE 0.8 mg/dl (0.61-1.24)
[2016-11-30 06:00] LABS: CALCIUM 8.5 mg/dl (8.4-10.2)
[2016-11-30 07:45] VITALS: BP 109/77; RESP 16
[2016-11-30 08:55] LABS: ALBUMIN 2.3 g/dl (3.3-4.9)
[2016-11-30 08:58] LABS: BILIRUBIN,DIRECT 2.6 mg/dl (0.00-0.20); BILIRUBIN,INDIRECT 1.4 mg/dl (0-1.1); TOTAL PROTEIN 6.2 g/dl (6.1-8.1)
[2016-11-30] MEDS: predniSOLONE 5 MG TAB PO SCH (09:14)
[2016-11-30] MEDS: FUROSEMIDE 20 MG INJ IV SCH (09:15)
[2016-11-30] MEDS: SPIRONOLACTONE 50 MG TAB PO SCH (09:15)
[2016-11-30] MEDS: SUCRALFATE 1 GM TAB PO SCH ×4 (09:15→20:49)
[2016-11-30] MEDS: LACTULOSE 30ML CUP PO SCH ×4 (09:19→20:49)
--- NOTE | 2016-11-30 11:12 | PN ---
Date/Time of Note Date/Time of Note DATE: 11/30/16 TIME: 11:10 Assessment/Plan VTE Prophylaxis VTE Prophylaxis Intervention: ambulation VTE Contraindication Reason: patient non compliant (with scds) Lines/Catheters IV Catheter Type (from Nrs): Saline Lock Urinary Cath still in place: No Assessment/Plan Assessment/Plan 1. Acute alcoholic hepatitis: improving 2. Severe chronic liver disease 2/2 fatty liver + chronic alcohol abuse 3. SIRS with leucocytosis and lactic acidosis likely 2/2 #1 4. Macrocytic anemia due to alcoholism 5. Tobacco dependence, quit 6. Dyslipidemia 7. Cholecystitis ruled out with negative HIDA scan 8. Hyperammonianemia without encephalopathy PLAN: * Leukocytosis likely sec to PO steroids, no fevers. Calculated DF score was 36. continue 28day treatment for alcoholic hepatitis including steroids and assess daily for improvement * Continue in-house supportive care. Plan for discharge once improved, Continue daily lactulose * Alcohol cessation re-inforced daily with family at bedside Subjective 24 Hr Interval Summary Free Text/Dictation Patient seen and examined. Nursing reports no acute overnight events. Exam/Review of Systems Vital Signs Vitals Vital Signs Date Time Temp Pulse Resp B/P Pulse Ox O2 Delivery O2 Flow Rate FiO2 11/30/16 07:45 97.6 78 16 109/77 98 11/27/16 17:23 Room Air Intake and Output 11/29/16 11/29/16 11/30/16 14:59 22:59 06:59 Intake Total 100 ml 620 ml 460 ml Output Total 800 ml Balance 100 ml -180 ml 460 ml Exam Constitutional: lying in bed Eyes: less icteric ENMT: mucosa pink and moist Respiratory: clear to auscultation, diminished breath sounds Cardiovascular: regular rate and rhythm, No murmurs/extra sounds Gastrointestinal: ascites, bowel sounds, distended, soft Extremities: edema Neurological: nl mental status Skin: other (jaundiced) Results Result Diagram: 11/30/16 0500 11/30/16 0500 Results 24 hrs Laboratory Tests Test 11/30/16 05:00 White Blood Count 22.8 H Red Blood Count 3.41 L Hemoglobin 12.6 L Hematocrit 35.7 L Mean Corpuscular Volume 104.7 H Mean Corpuscular Hemoglobin 37.0 H Mean Corpuscular Hemoglobin Concent 35.3 Red Cell Distribution Width 18.1 H Platelet Count 330 Mean Platelet Volume 12.0 H Neutrophils % 88.4 H Lymphocytes % 6.1 L Monocytes % 4.3 Eosinophils % 0.0 Basophils % 0.2 Nucleated Red Blood Cells % 0.0 Neutrophils # 20.1 H Lymphocytes # 1.4 Monocytes # 1.0 H Eosinophils # 0.0 Basophils # 0.0 Nucleated Red Blood Cells # 0.0 Sodium Level 138 Potassium Level 3.8 Chloride Level 101 Carbon Dioxide Level 27 Anion Gap 14 Blood Urea Nitrogen 17 Creatinine 0.80 Glucose Level 148 Calcium Level 8.5 Total Bilirubin 4.0 H Direct Bilirubin 2.60 #H Indirect Bilirubin 1.4 H Aspartate Amino Transf (AST/SGOT) 225 H Alanine Aminotransferase (ALT/SGPT) 159 H Alkaline Phosphatase 681 H Ammonia 45 H Total Protein 6.2 Albumin 2.3 L Medications Medications Current Medications Sucralfate (Carafate) 1 gm QID PO Last administered on 11/30/16 09:15; Admin Dose 1 GM; Start 11/16/16 at 21:00 Ondansetron HCl (Zofran Inj) 4 mg Q6H PRN IV NAUSEA AND/OR VOMITING; Start at 19:30 Morphine Sulfate 2 mg 2 mg Q4H PRN IV pain; Start 11/16/16 at 19:30 Piperacillin Sod/ Tazobactam Sod (Zosyn 3.375gm/ 100 ml (Pmx)) 100 ml @ 200 mls /hr Q8 IVPB Last administered on 11/30/16 05:18; Admin Dose 200 MLS/HR; Start 11/18/16 at 14:00 Spironolactone (Aldactone) 100 mg DAILY PO Last administered on 11/30/16 09:15 ; Admin Dose 100 MG; Start 11/22/16 at 11:30 Prednisolone (Prednisolone) 40 mg DAILY PO Last administered on 11/30/16 09:14 ; Admin Dose 40 MG; Start 11/22/16 at 12:00; Stop 12/20/16 at 11:59 Pantoprazole (Protonix Tab) 40 mg DAILY@06 PO Last administered on 11/30/16 05: 18; Admin Dose 40 MG; Start 11/24/16 at 06:00 Furosemide (Lasix) 20 mg DAILY IV Last administered on 11/30/16 09:15; Admin Dose 20 MG; Start 11/28/16 at 14:30 Lactulose (Enulose) 30 gm QID PO Last administered on 11/30/16 09:19; Admin Dose 30 GM; Start 11/29/16 at 13:00 ZEUS PHILIPPE November 30, 2016 11:12
--- NOTE | 2016-11-30 13:34 | PN ---
Date/Time of Note Date/Time of Note DATE: 11/30/16 TIME: 13:30 Assessment/Plan VTE Prophylaxis VTE Prophylaxis Intervention: SCD's Lines/Catheters IV [facility]from [facility] Saline Lock Urinary Cath still in place: No Assessment/Plan Assessment/Plan Jaundice/Hepatocellular * Acute alcoholic hepatitis ?Acalculous cholecystitis BY MRCP/ clinically unlikely Hepatitis B exposure/no active infection Ascites Chronic alcoholism Plan: Continue present management Monitor liver function test Paracentesis as needed Continue prednisolone 40 mg daily for 28 days Subjective 24 Hr Interval Summary Free Text/Dictation * Course reviewed with RN * Patient seen and examined * Denies any abdominal pain Exam/Review of Systems Vital Signs Vitals Vital Signs Date Time Temp Pulse Resp B/P Pulse Ox O2 Delivery O2 Flow Rate FiO2 11/30/16 07:45 97.6 78 16 109/77 98 11/27/16 17:23 Room Air Intake and Output 11/29/16 11/29/16 11/30/16 15:00 23:00 07:00 Intake Total 100 ml 620 ml 460 ml Output Total 800 ml Balance 100 ml -180 ml 460 ml Exam Constitutional: alert, oriented Psych: no complaints Head: normocephalic Eyes: icteric Neck: non-tender, supple Respiratory: clear to auscultation, diminished breath sounds, normal air movement Cardiovascular: nl pulses, regular rate and rhythm Gastrointestinal: ascites, bowel sounds, distended, non-tender, soft Musculoskeletal: nl extremities to inspection, nl gait and stance Extremities: normal pulses Skin: nl turgor, other (jaundice), rash or lesions Results Result Diagram: 11/30/16 0500 11/30/16 0500 Results 24 hrs Laboratory Tests Test 11/30/16 05:00 White Blood Count 22.8 H Red Blood Count 3.41 L Hemoglobin 12.6 L Hematocrit 35.7 L Mean Corpuscular Volume 104.7 H Mean Corpuscular Hemoglobin 37.0 H Mean Corpuscular Hemoglobin Concent 35.3 Red Cell Distribution Width 18.1 H Platelet Count 330 Mean Platelet Volume 12.0 H Neutrophils % 88.4 H Lymphocytes % 6.1 L Monocytes % 4.3 Eosinophils % 0.0 Basophils % 0.2 Nucleated Red Blood Cells % 0.0 Neutrophils # 20.1 H Lymphocytes # 1.4 Monocytes # 1.0 H Eosinophils # 0.0 Basophils # 0.0 Nucleated Red Blood Cells # 0.0 Sodium Level 138 Potassium Level 3.8 Chloride Level 101 Carbon Dioxide Level 27 Anion Gap 14 Blood Urea Nitrogen 17 Creatinine 0.80 Glucose Level 148 Calcium Level 8.5 Total Bilirubin 4.0 H Direct Bilirubin 2.60 #H Indirect Bilirubin 1.4 H Aspartate Amino Transf (AST/SGOT) 225 H Alanine Aminotransferase (ALT/SGPT) 159 H Alkaline Phosphatase 681 H Ammonia 45 H Total Protein 6.2 Albumin 2.3 L Medications Medications Current Medications Sucralfate (Carafate) 1 gm QID PO Last administered on 11/30/16 09:15; Admin Dose 1 GM; Start 11/16/16 at 21:00 Ondansetron HCl (Zofran Inj) 4 mg Q6H PRN IV NAUSEA AND/OR VOMITING; Start at 19:30 Morphine Sulfate 2 mg 2 mg Q4H PRN IV pain; Start 11/16/16 at 19:30 Piperacillin Sod/ Tazobactam Sod (Zosyn 3.375gm/ 100 ml (Pmx)) 100 ml @ 200 mls /hr Q8 IVPB Last administered on 11/30/16 05:18; Admin Dose 200 MLS/HR; Start 11/18/16 at 14:00 Spironolactone (Aldactone) 100 mg DAILY PO Last administered on 11/30/16 09:15 ; Admin Dose 100 MG; Start 11/22/16 at 11:30 Prednisolone (Prednisolone) 40 mg DAILY PO Last administered on 11/30/16 09:14 ; Admin Dose 40 MG; Start 11/22/16 at 12:00; Stop 12/20/16 at 11:59 Pantoprazole (Protonix Tab) 40 mg DAILY@06 PO Last administered on 11/30/16 05: 18; Admin Dose 40 MG; Start 11/24/16 at 06:00 Furosemide (Lasix) 20 mg DAILY IV Last administered on 11/30/16 09:15; Admin Dose 20 MG; Start 11/28/16 at 14:30 Lactulose (Enulose) 30 gm QID PO Last administered on 11/30/16 09:19; Admin Dose 30 GM; Start 11/29/16 at 13:00 MORIS HINES MD November 30, 2016 13:34
[2016-11-30 20:02] VITALS: BP 138/92; RESP 17
[2016-12-01] MEDS: PIPER-TAZO 3.375 GM IV (PMX) 100 ML IVPB SCH ×3 (00:26→14:50)
[2016-12-01] MEDS: PANTOPRAZOLE (EC) 40 MG TAB PO SCH (05:31)
[2016-12-01 05:38] LABS: ADD SCAN DIFF NO
[2016-12-01 05:45] LABS: ABNORMAL IP MESSAGE 1; BASOPHILS % 0.1 % (0.0-2.0); EOSINOPHILS % 0.1 % (0.0-7.0); HEMATOCRIT 34.3 % (42.0-52.0); LYMPHOCYTES # 1.5 10^3/ul (0.8-2.9); LYMPHOCYTES % 6.1 % (15.0-51.0); MEAN CORPUSCULAR HEMOGLOBIN 36.7 pg (29.0-33.0); MEAN CORPUSCULAR VOLUME 104.9 fl (82.0-101.0); MEAN PLATELET VOLUME 12.4 fl (7.4-10.4); MONOCYTE # 1.2 10^3/ul (0.3-0.9); MONOCYTES % 4.9 % (0.0-11.0); NEUTROPHIL # 20.9 10^3/ul (1.6-7.5); NEUTROPHILS % 87.9 % (39.0-77.0); PLATELET COUNT 285 10^3/UL (140-415); RED BLOOD COUNT 3.27 10^6/ul (4.70-6.10); RED CELL DISTRIBUTION WIDTH 18.2 % (11.5-14.5); WHITE BLOOD COUNT 23.8 10^3/ul (4.8-10.8)
[2016-12-01 06:35] LABS: POTASSIUM 3.7 mmol/L (3.5-5.1)
[2016-12-01 06:38] LABS: CALCIUM 8.4 mg/dl (8.4-10.2); CREATININE 0.88 mg/dl (0.61-1.24)
[2016-12-01 07:48] VITALS: BP 102/70; RESP 20
[2016-12-01] MEDS: predniSOLONE 5 MG TAB PO SCH (08:02)
[2016-12-01] MEDS: SUCRALFATE 1 GM TAB PO SCH ×4 (08:02→22:10)
[2016-12-01] MEDS: LACTULOSE 30ML CUP PO SCH ×4 (08:03→22:10)
[2016-12-01] MEDS: FUROSEMIDE 20 MG INJ IV SCH (08:03)
[2016-12-01] MEDS: SPIRONOLACTONE 50 MG TAB PO SCH (12:03)
--- NOTE | 2016-12-01 13:29 | PN ---
Date/Time of Note Date/Time of Note DATE: 12/01/16 TIME: 13:27 Assessment/Plan VTE Prophylaxis VTE Prophylaxis Intervention: SCD's Lines/Catheters [facility] Saline Lock Urinary Cath still in place: No Assessment/Plan Assessment/Plan Jaundice/Hepatocellular * Acute alcoholic hepatitis ?Acalculous cholecystitis BY MRCP/ clinically unlikely Hepatitis B exposure/no active infection Ascites Chronic alcoholism Plan: Continue present management Monitor liver function test Paracentesis as needed Continue prednisolone 40 mg daily for 28 days Subjective 24 Hr Interval Summary Free Text/Dictation * Course reviewed with RN * Patient seen and examined * Denies abdominal pain Exam/Review of Systems Vital Signs Vitals Vital Signs Date Time Temp Pulse Resp B/P Pulse Ox O2 Delivery O2 Flow Rate FiO2 12/01/16 07:48 97.5 86 20 102/70 96 11/27/16 17:23 Room Air Intake and Output 11/30/16 11/30/16 12/01/16 15:00 23:00 07:00 Intake Total 100 ml 950 ml 550 ml Balance 100 ml 950 ml 550 ml Exam Constitutional: alert, oriented Psych: nl mood/affect, no complaints Head: atraumatic Eyes: icteric Neck: non-tender, supple Respiratory: clear to auscultation, normal air movement Cardiovascular: nl pulses, regular rate and rhythm Gastrointestinal: ascites, bowel sounds, distended, non-tender, soft Musculoskeletal: nl extremities to inspection Extremities: normal pulses Neurological: nl mental status Skin: nl turgor, rash or lesions Results Result Diagram: 12/01/16 0505 12/01/16 0505 Results 24 hrs Laboratory Tests Test 12/01/16 05:05 White Blood Count 23.8 H Red Blood Count 3.27 L Hemoglobin 12.0 L Hematocrit 34.3 L Mean Corpuscular Volume 104.9 H Mean Corpuscular Hemoglobin 36.7 H Mean Corpuscular Hemoglobin Concent 35.0 Red Cell Distribution Width 18.2 H Platelet Count 285 Mean Platelet Volume 12.4 H Neutrophils % 87.9 H Lymphocytes % 6.1 L Monocytes % 4.9 Eosinophils % 0.1 Basophils % 0.1 Nucleated Red Blood Cells % 0.0 Neutrophils # 20.9 H Lymphocytes # 1.5 Monocytes # 1.2 H Eosinophils # 0.0 Basophils # 0.0 Nucleated Red Blood Cells # 0.0 Sodium Level 137 Potassium Level 3.7 Chloride Level 100 Carbon Dioxide Level 27 Anion Gap 14 Blood Urea Nitrogen 18 Creatinine 0.88 Glucose Level 193 Calcium Level 8.4 Medications Medications Current Medications Sucralfate (Carafate) 1 gm QID PO Last administered on 12/01/16 12:03; Admin Dose 1 GM; Start 11/16/16 at 21:00 Ondansetron HCl (Zofran Inj) 4 mg Q6H PRN IV NAUSEA AND/OR VOMITING; Start at 19:30 Morphine Sulfate 2 mg 2 mg Q4H PRN IV pain; Start 11/16/16 at 19:30 Piperacillin Sod/ Tazobactam Sod (Zosyn 3.375gm/ 100 ml (Pmx)) 100 ml @ 200 mls /hr Q8 IVPB Last administered on 12/01/16 05:30; Admin Dose 200 MLS/HR; Start 11/18/16 at 14:00 Spironolactone (Aldactone) 100 mg DAILY PO Last administered on 12/01/16 12:03 ; Admin Dose 100 MG; Start 11/22/16 at 11:30 Prednisolone (Prednisolone) 40 mg DAILY PO Last administered on 12/01/16 08:02 ; Admin Dose 40 MG; Start 11/22/16 at 12:00; Stop 12/20/16 at 11:59 Pantoprazole (Protonix Tab) 40 mg DAILY@06 PO Last administered on 12/01/16 05: 31; Admin Dose 40 MG; Start 11/24/16 at 06:00 Furosemide (Lasix) 20 mg DAILY IV Last administered on 12/01/16 08:03; Admin Dose 20 MG; Start 11/28/16 at 14:30 Lactulose (Enulose) 30 gm QID PO Last administered on 12/01/16 12:03; Admin Dose 30 GM; Start 11/29/16 at 13:00 MORIS HINES MD December 01, 2016 13:29
--- NOTE | 2016-12-01 18:02 | PN ---
Date/Time of Note Date/Time of Note DATE: 12/01/16 TIME: 18:00 Assessment/Plan VTE Prophylaxis VTE Prophylaxis Intervention: SCD's VTE Contraindication Reason: thrombocytopenia Lines/Catheters IV Catheter Type (from Nrs): Saline Lock Urinary Cath still in place: No Assessment/Plan Assessment/Plan 1. Acute alcoholic hepatitis: improving 2. Severe chronic liver disease 2/2 fatty liver + chronic alcohol abuse 3. SIRS with leucocytosis and lactic acidosis likely 2/2 #1 4. Macrocytic anemia due to alcoholism 5. Tobacco dependence, quit 6. Dyslipidemia 7. Cholecystitis ruled out with negative HIDA scan 8. Hyperammonianemia without encephalopathy PLAN: * Leukocytosis likely sec to PO steroids, no fevers. Calculated DF score was 36. continue 28day treatment for alcoholic hepatitis including steroids and assess daily for improvement * Will repeat [facility] cultures to r/o occult infection * Continue in-house supportive care. Plan for discharge once improved, Continue daily lactulose * Alcohol cessation re-inforced daily with family at bedside Subjective 24 Hr Interval Summary Constitutional: no complaints Exam/Review of Systems Vital Signs Vitals Vital Signs Date Time Temp Pulse Resp B/P Pulse Ox O2 Delivery O2 Flow Rate FiO2 12/01/16 07:48 97.5 86 20 102/70 96 11/27/16 17:23 Room Air Intake and Output 11/30/16 11/30/16 12/01/16 14:59 22:59 06:59 Intake Total 100 ml 950 ml 550 ml Balance 100 ml 950 ml 550 ml Exam Constitutional: lying in bed Eyes: less icteric ENMT: mucosa pink and moist Respiratory: clear to auscultation, diminished breath sounds Cardiovascular: regular rate and rhythm, No murmurs/extra sounds Gastrointestinal: ascites, bowel sounds, distended, soft Extremities: edema Neurological: nl mental status Skin: other (jaundiced) Results Result Diagram: 12/01/16 0505 12/01/16 0505 Results 24 hrs Laboratory Tests Test 12/01/16 05:05 White Blood Count 23.8 H Red Blood Count 3.27 L Hemoglobin 12.0 L Hematocrit 34.3 L Mean Corpuscular Volume 104.9 H Mean Corpuscular Hemoglobin 36.7 H Mean Corpuscular Hemoglobin Concent 35.0 Red Cell Distribution Width 18.2 H Platelet Count 285 Mean Platelet Volume 12.4 H Neutrophils % 87.9 H Lymphocytes % 6.1 L Monocytes % 4.9 Eosinophils % 0.1 Basophils % 0.1 Nucleated Red Blood Cells % 0.0 Neutrophils # 20.9 H Lymphocytes # 1.5 Monocytes # 1.2 H Eosinophils # 0.0 Basophils # 0.0 Nucleated Red Blood Cells # 0.0 Sodium Level 137 Potassium Level 3.7 Chloride Level 100 Carbon Dioxide Level 27 Anion Gap 14 Blood Urea Nitrogen 18 Creatinine 0.88 Glucose Level 193 Calcium Level 8.4 Medications Medications Current Medications Sucralfate (Carafate) 1 gm QID PO Last administered on 12/01/16 16:55; Admin Dose 1 GM; Start 11/16/16 at 21:00 Ondansetron HCl (Zofran Inj) 4 mg Q6H PRN IV NAUSEA AND/OR VOMITING; Start at 19:30 Morphine Sulfate 2 mg 2 mg Q4H PRN IV pain; Start 11/16/16 at 19:30 Piperacillin Sod/ Tazobactam Sod (Zosyn 3.375gm/ 100 ml (Pmx)) 100 ml @ 200 mls /hr Q8 IVPB Last administered on 12/01/16 14:50; Admin Dose 200 MLS/HR; Start 11/18/16 at 14:00 Spironolactone (Aldactone) 100 mg DAILY PO Last administered on 12/01/16 12:03 ; Admin Dose 100 MG; Start 11/22/16 at 11:30 Prednisolone (Prednisolone) 40 mg DAILY PO Last administered on 12/01/16 08:02 ; Admin Dose 40 MG; Start 11/22/16 at 12:00; Stop 12/20/16 at 11:59 Pantoprazole (Protonix Tab) 40 mg DAILY@06 PO Last administered on 12/01/16 05: 31; Admin Dose 40 MG; Start 11/24/16 at 06:00 Furosemide (Lasix) 20 mg DAILY IV Last administered on 12/01/16 08:03; Admin Dose 20 MG; Start 11/28/16 at 14:30 Lactulose (Enulose) 30 gm QID PO Last administered on 12/01/16 16:55; Admin Dose 30 GM; Start 11/29/16 at 13:00 ZEUS PHILIPPE December 01, 2016 18:01
[2016-12-01 20:31] VITALS: BP 110/76; RESP 19
[2016-12-02 05:43] LABS: ADD SCAN DIFF NO
[2016-12-02] MEDS: PANTOPRAZOLE (EC) 40 MG TAB PO SCH (06:12)
[2016-12-02 06:18] LABS: BASOPHILS % 0.1 % (0.0-2.0); EOSINOPHILS # 0.1 10^3/ul (0.0-0.5); EOSINOPHILS % 0.4 % (0.0-7.0); HEMATOCRIT 36.6 % (42.0-52.0); HEMOGLOBIN 12.5 g/dl (14.0-18.0); LYMPHOCYTES # 1.7 10^3/ul (0.8-2.9); LYMPHOCYTES % 7.7 % (15.0-51.0); MEAN CORPUSCULAR HEMOGLOBIN 36.3 pg (29.0-33.0); MEAN CORPUSCULAR HGB CONC 34.2 g/dl (32.0-37.0); MEAN CORPUSCULAR VOLUME 106.4 fl (82.0-101.0); MEAN PLATELET VOLUME 12.6 fl (7.4-10.4); MONOCYTES % 4.5 % (0.0-11.0); NEUTROPHIL # 18.9 10^3/ul (1.6-7.5); NEUTROPHILS % 86.3 % (39.0-77.0); PLATELET COUNT 251 10^3/UL (140-415); RED BLOOD COUNT 3.44 10^6/ul (4.70-6.10); WHITE BLOOD COUNT 21.9 10^3/ul (4.8-10.8)
[2016-12-02 06:24] LABS: ALBUMIN 2.2 g/dl (3.3-4.9); BILIRUBIN,DIRECT 2.7 mg/dl (0.00-0.20); BILIRUBIN,INDIRECT 1.4 mg/dl (0-1.1); BILIRUBIN,TOTAL 4.1 mg/dl (0.2-1.3); TOTAL PROTEIN 5.4 g/dl (6.1-8.1)
[2016-12-02 06:29] LABS: POTASSIUM 3.6 mmol/L (3.5-5.1)
[2016-12-02 06:31] LABS: CREATININE 0.71 mg/dl (0.61-1.24)
[2016-12-02 06:32] LABS: CALCIUM 8.4 mg/dl (8.4-10.2)
--- NOTE | 2016-12-02 06:46 | RADRPT ---
PROCEDURE: XR Chest. CLINICAL INDICATION: Leukocytosis TECHNIQUE: PA and lateral views of the chest were obtained. COMPARISON: None. FINDINGS: There is mild bibasilar atelectasis. There is a trace left pleural effusion. No pneumothorax is se en. The cardiomediastinal silhouette is within normal limits for size. The osseous structures are unremarkable. IMPRESSION: 1. Bibasilar atelectasis. 2. Trace left pleural effusion. RPTAT: HH .Fallon Garza MD, MD Date Time Electronically viewed and signed by .Fallon Garza MD, MD on 12/02/2016 06:45 .G/
[2016-12-02 08:00] VITALS: BP 115/73; RESP 18
[2016-12-02] MEDS: SUCRALFATE 1 GM TAB PO SCH ×4 (08:10→19:56)
[2016-12-02] MEDS: LACTULOSE 30ML CUP PO SCH ×4 (08:10→19:56)
[2016-12-02] MEDS: FUROSEMIDE 20 MG INJ IV SCH (08:10)
[2016-12-02] MEDS: SPIRONOLACTONE 50 MG TAB PO SCH (08:10)
[2016-12-02] MEDS: predniSOLONE 5 MG TAB PO SCH (08:10)
--- NOTE | 2016-12-02 13:08 | PN ---
Date/Time of Note Date/Time of Note DATE: 12/02/16 TIME: 13:06 Assessment/Plan VTE Prophylaxis VTE Prophylaxis Intervention: SCD's Lines/Catheters IV [facility] Saline Lock Urinary Cath still in place: No Assessment/Plan Assessment/Plan Jaundice/Hepatocellular * Acute alcoholic hepatitis ?Acalculous cholecystitis BY MRCP/ clinically unlikely Hepatitis B exposure/no active infection Ascites Chronic alcoholism Plan: Continue present management Monitor liver function test Paracentesis as needed Subjective 24 Hr Interval Summary Free Text/Dictation * Course reviewed with RN * patient seen and examined * No abdominal pain Exam/Review of Systems Vital Signs Vitals Vital Signs Date Time Temp Pulse Resp B/P Pulse Ox O2 Delivery O2 Flow Rate FiO2 12/02/16 08:00 98.6 82 18 115/73 96 Intake and Output 12/01/16 12/01/16 12/02/16 15:00 23:00 07:00 Intake Total 2140 ml 300 ml Balance 2140 ml 300 ml Exam Constitutional: alert, oriented Head: normocephalic Eyes: icteric Neck: non-tender, supple Respiratory: clear to auscultation, normal air movement Cardiovascular: nl pulses, regular rate and rhythm Gastrointestinal: ascites, bowel sounds, distended, non-tender, soft Musculoskeletal: nl extremities to inspection, nl gait and stance Extremities: normal pulses Results Result Diagram: 12/02/16 0455 12/02/16 0455 Results 24 hrs Laboratory Tests Test 12/02/16 04:55 White Blood Count 21.9 H Red Blood Count 3.44 L Hemoglobin 12.5 L Hematocrit 36.6 L Mean Corpuscular Volume 106.4 H Mean Corpuscular Hemoglobin 36.3 H Mean Corpuscular Hemoglobin Concent 34.2 Red Cell Distribution Width 18.0 H Platelet Count 251 Mean Platelet Volume 12.6 H Neutrophils % 86.3 H Lymphocytes % 7.7 L Monocytes % 4.5 Eosinophils % 0.4 Basophils % 0.1 Nucleated Red Blood Cells % 0.0 Neutrophils # 18.9 H Lymphocytes # 1.7 Monocytes # 1.0 H Eosinophils # 0.1 Basophils # 0.0 Nucleated Red Blood Cells # 0.0 Sodium Level 138 Potassium Level 3.6 Chloride Level 101 Carbon Dioxide Level 27 Anion Gap 14 Blood Urea Nitrogen 19 Creatinine 0.71 Glucose Level 119 # Calcium Level 8.4 Total Bilirubin 4.1 H Direct Bilirubin 2.70 H Indirect Bilirubin 1.4 H Aspartate Amino Transf (AST/SGOT) 213 H Alanine Aminotransferase (ALT/SGPT) 187 H Alkaline Phosphatase 745 H Ammonia 61 H Total Protein 5.4 L Albumin 2.2 L Medications Medications Current Medications Sucralfate (Carafate) 1 gm QID PO Last administered on 12/02/16 12:24; Admin Dose 1 GM; Start 11/16/16 at 21:00 Ondansetron HCl (Zofran Inj) 4 mg Q6H PRN IV NAUSEA AND/OR VOMITING; Start at 19:30 Morphine Sulfate (morphine) 2 mg Q4H PRN IV pain; Start 11/16/16 at 19:30 Spironolactone (Aldactone) 100 mg DAILY PO Last administered on 12/02/16 08:10 ; Admin Dose 100 MG; Start 11/22/16 at 11:30 Prednisolone (Prednisolone) 40 mg DAILY PO Last administered on 12/02/16 08:10 ; Admin Dose 40 MG; Start 11/22/16 at 12:00; Stop 12/20/16 at 11:59 Pantoprazole (Protonix Tab) 40 mg DAILY@06 PO Last administered on 12/02/16 06: 12; Admin Dose 40 MG; Start 11/24/16 at 06:00 Furosemide (Lasix) 20 mg DAILY IV Last administered on 12/02/16 08:10; Admin Dose 20 MG; Start 11/28/16 at 14:30 Lactulose (Enulose) 30 gm QID PO Last administered on 12/02/16 12:24; Admin Dose 30 GM; Start 11/29/16 at 13:00 MORIS HINES MD December 02, 2016 13:08
--- NOTE | 2016-12-02 18:43 | PN ---
Date/Time of Note Date/Time of Note DATE: 12/02/16 TIME: 18:41 Assessment/Plan VTE Prophylaxis VTE Prophylaxis Intervention: ambulation, SCD's Lines/Catheters IV [facility] Saline Lock Urinary Cath still in place: No Assessment/Plan Assessment/Plan 1. Acute alcoholic hepatitis: improving 2. Severe chronic liver disease 2/2 fatty liver + chronic alcohol abuse 3. SIRS with leucocytosis and lactic acidosis likely 2/2 #1 4. Macrocytic anemia due to alcoholism 5. Tobacco dependence, quit 6. Dyslipidemia 7. Cholecystitis ruled out with negative HIDA scan 8. Hyperammonemia without encephalopathy PLAN: * Leukocytosis likely sec to PO steroids, no fevers. seems to be improving * Calculated DF score was 36. * Continue 28day treatment for alcoholic hepatitis including steroids and assess daily for improvement * Cultures still pending * Continue in-house supportive care. Plan for discharge once improved, Continue daily lactulose * Alcohol cessation re-inforced daily with family at bedside Subjective 24 Hr Interval Summary Constitutional: improved, no complaints Exam/Review of Systems Vital Signs Vitals Vital Signs Date Time Temp Pulse Resp B/P Pulse Ox O2 Delivery O2 Flow Rate FiO2 12/02/16 08:00 98.6 82 18 115/73 96 Intake and Output 12/01/16 12/01/16 12/02/16 15:00 23:00 07:00 Intake Total 2140 ml 300 ml Balance 2140 ml 300 ml Exam Constitutional: lying in bed Eyes: less icteric ENMT: mucosa pink and moist Respiratory: clear to auscultation, diminished breath sounds Cardiovascular: regular rate and rhythm, No murmurs/extra sounds Gastrointestinal: ascites, bowel sounds, distended, soft Extremities: edema Neurological: nl mental status Skin: other (jaundiced) Results Result Diagram: 12/02/16 0455 12/02/16 0455 Results 24 hrs Laboratory Tests Test 12/02/16 04:55 White Blood Count 21.9 H Red Blood Count 3.44 L Hemoglobin 12.5 L Hematocrit 36.6 L Mean Corpuscular Volume 106.4 H Mean Corpuscular Hemoglobin 36.3 H Mean Corpuscular Hemoglobin Concent 34.2 Red Cell Distribution Width 18.0 H Platelet Count 251 Mean Platelet Volume 12.6 H Neutrophils % 86.3 H Lymphocytes % 7.7 L Monocytes % 4.5 Eosinophils % 0.4 Basophils % 0.1 Nucleated Red Blood Cells % 0.0 Neutrophils # 18.9 H Lymphocytes # 1.7 Monocytes # 1.0 H Eosinophils # 0.1 Basophils # 0.0 Nucleated Red Blood Cells # 0.0 Sodium Level 138 Potassium Level 3.6 Chloride Level 101 Carbon Dioxide Level 27 Anion Gap 14 Blood Urea Nitrogen 19 Creatinine 0.71 Glucose Level 119 # Calcium Level 8.4 Total Bilirubin 4.1 H Direct Bilirubin 2.70 H Indirect Bilirubin 1.4 H Aspartate Amino Transf (AST/SGOT) 213 H Alanine Aminotransferase (ALT/SGPT) 187 H Alkaline Phosphatase 745 H Ammonia 61 H Total Protein 5.4 L Albumin 2.2 L Medications Medications Current Medications Sucralfate (Carafate) 1 gm QID PO Last administered on 12/02/16 16:24; Admin Dose 1 GM; Start 11/16/16 at 21:00 Ondansetron HCl (Zofran Inj) 4 mg Q6H PRN IV NAUSEA AND/OR VOMITING; Start at 19:30 Morphine Sulfate (morphine) 2 mg Q4H PRN IV pain; Start 11/16/16 at 19:30 Spironolactone (Aldactone) 100 mg DAILY PO Last administered on 12/02/16 08:10 ; Admin Dose 100 MG; Start 11/22/16 at 11:30 Prednisolone (Prednisolone) 40 mg DAILY PO Last administered on 12/02/16 08:10 ; Admin Dose 40 MG; Start 11/22/16 at 12:00; Stop 12/20/16 at 11:59 Pantoprazole (Protonix Tab) 40 mg DAILY@06 PO Last administered on 12/02/16 06: 12; Admin Dose 40 MG; Start 11/24/16 at 06:00 Furosemide (Lasix) 20 mg DAILY IV Last administered on 12/02/16 08:10; Admin Dose 20 MG; Start 11/28/16 at 14:30 Lactulose (Enulose) 30 gm QID PO Last administered on 12/02/16 16:24; Admin Dose 30 GM; Start 11/29/16 at 13:00 ZEUS PHILIPPE December 02, 2016 18:43
[2016-12-02 21:00] VITALS: BP 121/79; RESP 20
[2016-12-03 05:47] LABS: ADD SCAN DIFF NO
[2016-12-03] MEDS: PANTOPRAZOLE (EC) 40 MG TAB PO SCH (05:55)
[2016-12-03 06:09] LABS: ABNORMAL IP MESSAGE 1; BASOPHIL # 0.1 10^3/ul (0.0-0.1); BASOPHILS % 0.2 % (0.0-2.0); EOSINOPHILS % 0.1 % (0.0-7.0); HEMATOCRIT 36.7 % (42.0-52.0); HEMOGLOBIN 12.7 g/dl (14.0-18.0); LYMPHOCYTES % 6.8 % (15.0-51.0); MEAN CORPUSCULAR HEMOGLOBIN 36.7 pg (29.0-33.0); MEAN CORPUSCULAR HGB CONC 34.6 g/dl (32.0-37.0); MEAN CORPUSCULAR VOLUME 106.1 fl (82.0-101.0); MEAN PLATELET VOLUME 13.1 fl (7.4-10.4); MONOCYTE # 1.1 10^3/ul (0.3-0.9); MONOCYTES % 3.8 % (0.0-11.0); NEUTROPHIL # 25.1 10^3/ul (1.6-7.5); PLATELET COUNT 259 10^3/UL (140-415); RED BLOOD COUNT 3.46 10^6/ul (4.70-6.10); WHITE BLOOD COUNT 28.5 10^3/ul (4.8-10.8)
[2016-12-03 06:15] LABS: POTASSIUM 3.9 mmol/L (3.5-5.1)
[2016-12-03 06:17] LABS: CREATININE 0.73 mg/dl (0.61-1.24)
[2016-12-03 06:18] LABS: CALCIUM 8.6 mg/dl (8.4-10.2)
[2016-12-03 07:31] LABS: INR 1.29; PARTIAL THROMBOPLASTIN TIME 29.5 Sec (25.0-35.0); PROTIME 16.2 Sec (12.2-14.2); PT RATIO 1.3
[2016-12-03 07:48] VITALS: BP 104/62; PULSE 84; RESP 16
[2016-12-03] MEDS ORDERED: LIDOCAINE 1% (MPF) 5 ML VIAL ONE (08:42)
[2016-12-03] MEDS: LACTULOSE 30ML CUP PO SCH ×4 (10:20→20:27)
[2016-12-03] MEDS: FUROSEMIDE 40 MG TAB PO SCH (10:21)
[2016-12-03] MEDS: SUCRALFATE 1 GM TAB PO SCH ×4 (10:21→20:26)
[2016-12-03] MEDS: predniSOLONE 5 MG TAB PO SCH (10:21)
[2016-12-03] MEDS: SPIRONOLACTONE 50 MG TAB PO SCH (10:21)
--- NOTE | 2016-12-03 11:44 | RADRPT ---
PROCEDURE: Ultrasound guided paracentesis. CLINICAL INDICATION: Ascites and shortness of breath. COMPARISON: 11/27/2016. TECHNIQUE: The risks, benefits, and alternatives were explained to the patient and/or the patient's family, inc luding but not limited to bleeding, infection, pain, visceral or vascular damage, shock, and . The patient and/or the patient's family understood the risks and the alternatives and wished to pro ceed with the procedure. Informed written consent was obtained. A procedural time out was performed . The patient's name, date of , and procedure to be performed were verified. Utilizing ultrasound guidance, optimal location for entry to the peritoneal cavity was ascertained. The overlying skin was prepped and draped in the usual sterile fashion. Approximately 10 ml of 1% Xylocaine was injected locally for pain control. Using ultrasound guidance, an 8 [place] catheter wa s introduced into the peritoneal cavity in the right upper quadrant without difficulty. FINDINGS: Initial images demonstrate ascites. Approximately 2.3 liters of serous fluid was aspirated and disc arded. The patient tolerated the procedure well without complication. IMPRESSION: 1. Successful ultrasound-guided paracentesis. RPTAT: QQ .Roe Toribio MD, Date Time Electronically viewed and signed by .Roe Toribio MD, on 12/03/2016 11:44 .R/
--- NOTE | 2016-12-03 14:27 | PN ---
Date/Time of Note Date/Time of Note DATE: 12/03/16 TIME: 14:22 Assessment/Plan VTE Prophylaxis VTE Prophylaxis Intervention: ambulation, SCD's Lines/Catheters IV Catheter Type (from [facility] Saline Lock Urinary Cath still in place: No Assessment/Plan Assessment/Plan 1. Acute alcoholic hepatitis: improving 2. Severe chronic liver disease 2/2 fatty liver + chronic alcohol abuse 3. SIRS with leucocytosis and lactic acidosis likely 2/2 #1 4. Macrocytic anemia due to alcoholism 5. Tobacco dependence, quit 6. Dyslipidemia 7. Cholecystitis ruled out with negative HIDA scan 8. Hyperammonemia without encephalopathy PLAN: * Leukocytosis likely sec to PO steroids, * Urine cultures <10,000 yeast, ID consult * Continue in-house supportive care. Plan for discharge once improved, Continue daily lactulose * Alcohol cessation re-inforced daily Subjective 24 Hr Interval Summary Free Text/Dictation Patient seen and examined. Nursing reports no acute overnight events. Exam/Review of Systems Vital Signs Vitals Vital Signs Date Time Temp Pulse Resp B/P Pulse Ox O2 Delivery O2 Flow Rate FiO2 12/03/16 07:48 97.6 84 16 104/62 97 Room Air Intake and Output 12/02/16 12/02/16 12/03/16 15:00 23:00 07:00 Intake Total 1440 ml 480 ml Balance 1440 ml 480 ml Exam Constitutional: lying in bed Eyes: less icteric ENMT: mucosa pink and moist Respiratory: clear to auscultation, diminished breath sounds Cardiovascular: regular rate and rhythm, No murmurs/extra sounds Gastrointestinal: ascites, bowel sounds, distended, soft Extremities: edema Neurological: nl mental status Skin: other (jaundiced) Results Result Diagram: 12/03/16 0450 12/03/16 0450 Results 24 hrs Laboratory Tests Test 12/03/16 04:50 12/03/16 06:38 White Blood Count 28.5 #H Red Blood Count 3.46 L Hemoglobin 12.7 L Hematocrit 36.7 L Mean Corpuscular Volume 106.1 H Mean Corpuscular Hemoglobin 36.7 H Mean Corpuscular Hemoglobin Concent 34.6 Red Cell Distribution Width 18.0 H Platelet Count 259 Mean Platelet Volume 13.1 H Neutrophils % 88.0 H Lymphocytes % 6.8 L Monocytes % 3.8 Eosinophils % 0.1 Basophils % 0.2 Nucleated Red Blood Cells % 0.0 Neutrophils # 25.1 H Lymphocytes # 2.0 Monocytes # 1.1 H Eosinophils # 0.0 Basophils # 0.1 Nucleated Red Blood Cells # 0.0 Sodium Level 136 Potassium Level 3.9 Chloride Level 99 Carbon Dioxide Level 26 Anion Gap 15 Blood Urea Nitrogen 20 Creatinine 0.73 Glucose Level 196 Calcium Level 8.6 Prothrombin Time 16.2 H Prothrombin Time Ratio 1.3 INR International Normalized Ratio 1.29 Activated Partial Thromboplast Time 29.5 Medications Medications Current Medications Sucralfate (Carafate) 1 gm QID PO Last administered on 12/03/16 13:25; Admin Dose 1 GM; Start 11/16/16 at 21:00 Ondansetron HCl (Zofran Inj) 4 mg Q6H PRN IV NAUSEA AND/OR VOMITING; Start at 19:30 Morphine Sulfate (morphine) 2 mg Q4H PRN IV pain; Start 11/16/16 at 19:30 Spironolactone (Aldactone) 100 mg DAILY PO Last administered on 12/03/16 10:21 ; Admin Dose 100 MG; Start 11/22/16 at 11:30 Pantoprazole (Protonix Tab) 40 mg DAILY@06 PO Last administered on 12/03/16 05: 55; Admin Dose 40 MG; Start 11/24/16 at 06:00 Lactulose (Enulose) 30 gm QID PO Last administered on 12/03/16 13:25; Admin Dose 30 GM; Start 11/29/16 at 13:00 Furosemide (Lasix) 40 mg DAILY PO Last administered on 12/03/16 10:21; Admin Dose 40 MG; Start 12/03/16 at 09:00 Procedures Procedures PROCEDURE: Ultrasound guided paracentesis. CLINICAL INDICATION: Ascites and shortness of breath. COMPARISON: 11/27/2016. TECHNIQUE: The risks, benefits, and alternatives were explained to the patient and/or the patient's family, including but not limited to bleeding, infection, pain, visceral or vascular damage, shock, and . The patient and/or the patient' s family understood the risks and the alternatives and wished to proceed with the procedure. Informed written consent was obtained. A procedural time out was performed. The patient's name, date of , and procedure to be performed were verified. Utilizing ultrasound guidance, optimal location for entry to the peritoneal cavity was ascertained. The overlying skin was prepped and draped in the usual sterile fashion. Approximately 10 ml of 1% Xylocaine was injected locally for pain control. Using ultrasound guidance, an 8 [place] catheter was introduced into the peritoneal cavity in the right upper quadrant without difficulty. FINDINGS: Initial images demonstrate ascites. Approximately 2.3 liters of serous fluid was aspirated and discarded. The patient tolerated the procedure well without complication. IMPRESSION: 1. Successful ultrasound-guided paracentesis. RPTAT: QQ .Roe Toribio MD, Date Time Electronically viewed and signed by .Roe Toribio MD, on 12/03/2016 11:44 .R/ CC: ZEUS PHILIPPE BOLATITO M. December 03, 2016 14:27
[2016-12-03] MEDS ORDERED: FLUCONAZOLE 200 MG TAB PO ONE (16:30)
[2016-12-03 16:42] VITALS: BP 118/79; PULSE 93; RESP 23
--- NOTE | 2016-12-03 17:54 | PN ---
Date/Time of Note Date/Time of Note DATE: 12/03/16 TIME: 17:51 Assessment/Plan VTE Prophylaxis VTE Prophylaxis Intervention: SCD's Lines/Catheters [facility]from [facility] Saline Lock Urinary Cath still in place: No Assessment/Plan Assessment/Plan Leukocytosis steroid intake vs occult infection Jaundice/Hepatocellular * Acute alcoholic hepatitis ?Acalculous cholecystitis BY MRCP/ clinically unlikely Hepatitis B exposure/no active infection Ascites Chronic alcoholism Plan: Continue present management Monitor liver function test Paracentesis as needed Continue prednisolone 40 mg daily for 28 days Subjective 24 Hr Interval Summary Free Text/Dictation * Course reviewed with RN * patient seen and examined * no abdominal pain * wbc 28.2 Exam/Review of Systems Vital Signs Vitals Vital Signs Date Time Temp Pulse Resp B/P Pulse Ox O2 Delivery O2 Flow Rate FiO2 12/03/16 16:42 98.2 93 23 118/79 95 Room Air Intake and Output 12/02/16 12/02/16 12/03/16 15:00 23:00 07:00 Intake Total 1440 ml 480 ml Balance 1440 ml 480 ml Exam Constitutional: alert, oriented Head: normocephalic Neck: non-tender, supple Respiratory: clear to auscultation, normal air movement Cardiovascular: nl pulses, regular rate and rhythm Gastrointestinal: ascites, bowel sounds, distended Musculoskeletal: nl extremities to inspection, nl gait and stance Extremities: normal pulses Results Result Diagram: 12/03/16 0450 12/03/16 0450 Results 24 hrs Laboratory Tests Test 12/03/16 04:50 12/03/16 06:38 White Blood Count 28.5 #H Red Blood Count 3.46 L Hemoglobin 12.7 L Hematocrit 36.7 L Mean Corpuscular Volume 106.1 H Mean Corpuscular Hemoglobin 36.7 H Mean Corpuscular Hemoglobin Concent 34.6 Red Cell Distribution Width 18.0 H Platelet Count 259 Mean Platelet Volume 13.1 H Neutrophils % 88.0 H Lymphocytes % 6.8 L Monocytes % 3.8 Eosinophils % 0.1 Basophils % 0.2 Nucleated Red Blood Cells % 0.0 Neutrophils # 25.1 H Lymphocytes # 2.0 Monocytes # 1.1 H Eosinophils # 0.0 Basophils # 0.1 Nucleated Red Blood Cells # 0.0 Sodium Level 136 Potassium Level 3.9 Chloride Level 99 Carbon Dioxide Level 26 Anion Gap 15 Blood Urea Nitrogen 20 Creatinine 0.73 Glucose Level 196 Calcium Level 8.6 Prothrombin Time 16.2 H Prothrombin Time Ratio 1.3 INR International Normalized Ratio 1.29 Activated Partial Thromboplast Time 29.5 Medications Medications Current Medications Sucralfate (Carafate) 1 gm QID PO Last administered on 12/03/16 13:25; Admin Dose 1 GM; Start 11/16/16 at 21:00 Ondansetron HCl (Zofran Inj) 4 mg Q6H PRN IV NAUSEA AND/OR VOMITING; Start at 19:30 Morphine Sulfate (morphine) 2 mg Q4H PRN IV pain; Start 11/16/16 at 19:30 Spironolactone (Aldactone) 100 mg DAILY PO Last administered on 12/03/16 10:21 ; Admin Dose 100 MG; Start 11/22/16 at 11:30 Pantoprazole (Protonix Tab) 40 mg DAILY@06 PO Last administered on 12/03/16 05: 55; Admin Dose 40 MG; Start 11/24/16 at 06:00 Lactulose (Enulose) 30 gm QID PO Last administered on 12/03/16 13:25; Admin Dose 30 GM; Start 11/29/16 at 13:00 Furosemide (Lasix) 40 mg DAILY PO Last administered on 12/03/16 10:21; Admin Dose 40 MG; Start 12/03/16 at 09:00 MORIS HINES MD December 03, 2016 17:54
--- NOTE | 2016-12-03 20:09 | CONS ---
DATE OF ADMISSION: 11/16/2016 DATE OF CONSULTATION: 12/03/2016 TYPE OF CONSULTATION: Infectious Disease. REASON FOR CONSULTATION: Antibiotic management. HISTORY OF PRESENT ILLNESS: Alberto Gorman is a 65-year-old male who comes in with abdominal distentio n and weakness and is being seen for leukocytosis. He had no previous medical history other than ch ronic alcoholism and underlying alcoholic cirrhosis. He is complaining of severe lethargy, jaundice , abdominal distention. His last drink was 10 days prior to admission. He denies any fever. The john atthompson was admitted as noted on, I believe, the . He is currently still with leukocytosis. On admission, his white count was 16,000. He had a megaloblastic anemia with a hemoglobin of 12, a nor mal platelet count, neutrophils of 79%. He is hyperbilirubinemic, with a total bilirubin of 11, dir ect bilirubin of 9.2, indirect of 1.8, AST 277, ALT 92, alkaline phosphatase 152 on admission. Curr ently his white count is 28.5, H and H of 12.7 and 36.7, a platelet count 259,000. BUN and creatini ne are 20/0.73. His urine shows 3+ bilirubin. Microbiology, he has yeast in his urine as of 12/01 and as far as I can see, is on no antifungal, though this was just probably reported. He was on 40 mg of prednisone which was discontinued. He had a CT scan of the abdomen and pelvis which showed th e coronary artery calcification, hepatomegaly, fatty metamorphosis of the liver, portal hypertension with multiple dilated veins in the upper abdomen and recannulization of the umbilical vein. Gallst ones in the gallbladder, diffuse gallbladder wall thickening, atherosclerosis, normal appendix, exte nsive diverticulosis throughout the colon, no evidence of diverticulitis, mild ascites, degenerative changes of the spine. A gallbladder ultrasound demonstrates hepatopetal flow, complete portal system vascular ultrasound o f the abdomen can be obtained for further evaluation. He had an abdominal ultrasound which showed a small amount of free fluid in the abdomen. A HIDA scan, nonvisualization of the gallbladder up to 90 minutes. No definite evidence to suggest the presence of common bile duct obstruction, persisten t liver activity delayed - images to follow. He had a number of paracentesis. He had one today, wh ich took off 2.3 L of serous fluid. A chest x-ray shows bibasilar atelectasis and trace left pleura l effusion. His blood cultures have been negative. Fungal cultures from the ascitic fluid have bee n negative. PAST MEDICAL HISTORY: Operations, as outlined. FAMILY HISTORY: Noncontributory. SOCIAL HISTORY: He is a current smoker, has a history of heavy alcohol abuse. ALLERGIES: NONE TO PENICILLIN, SULFA OR FOODS. MEDICATIONS: Per chart. REVIEW OF SYSTEMS: As per HPI. PHYSICAL EXAMINATION GENERAL: The patient is a jaundiced, 65-year-old male in no acute distress. VITAL SIGNS: Stable. He is afebrile. SKIN: Without generalized rash. HEENT: Within normal limits. NECK: Supple. LYMPHATIC: Lymph nodes, none palpable. CHEST: Decreased breath sounds at the bases. HEART: Without murmur or gallop. ABDOMEN: Soft, nontender, without organosplenomegaly or masses. EXTREMITIES: Without cyanosis, clubbing, or edema. RECTAL: Deferred. GENITAL: Deferred. NEUROLOGIC: No focal neurological abnormalities. IMPRESSION AND PLAN: The patient still has significant leukocytosis. We are going to start him on fluconazole 200 mg a day for 5 days. He is off prednisone and will see what happens with his white count, which is, as I said, 28.5. I will dictate my findings to the hospitalists and to the various consultants. Dictated By: JOSE EDUARDO DRISCOLL MD, JD/[place] Conf#: [id number] DID#: [id number]
[2016-12-03 21:11] VITALS: BP 129/74; RESP 20
[2016-12-04 05:21] LABS: ADD SCAN DIFF NO
[2016-12-04] MEDS: PANTOPRAZOLE (EC) 40 MG TAB PO SCH (05:31)
[2016-12-04 05:32] LABS: ABNORMAL IP MESSAGE 1; BASOPHILS % 0.1 % (0.0-2.0); HEMATOCRIT 36.6 % (42.0-52.0); HEMOGLOBIN 12.6 g/dl (14.0-18.0); LYMPHOCYTES # 1.8 10^3/ul (0.8-2.9); LYMPHOCYTES % 6.1 % (15.0-51.0); MEAN CORPUSCULAR HGB CONC 34.4 g/dl (32.0-37.0); MEAN CORPUSCULAR VOLUME 104.6 fl (82.0-101.0); MEAN PLATELET VOLUME 12.8 fl (7.4-10.4); MONOCYTE # 1.3 10^3/ul (0.3-0.9); MONOCYTES % 4.3 % (0.0-11.0); NEUTROPHIL # 26.2 10^3/ul (1.6-7.5); NEUTROPHILS % 88.3 % (39.0-77.0); PLATELET COUNT 238 10^3/UL (140-415); RED CELL DISTRIBUTION WIDTH 17.5 % (11.5-14.5); WHITE BLOOD COUNT 29.7 10^3/ul (4.8-10.8)
[2016-12-04 07:27] VITALS: BP 108/66; PULSE 71; RESP 18
[2016-12-04 08:08] VITALS: BP 108/66; RESP 18
[2016-12-04] MEDS: LACTULOSE 30ML CUP PO SCH ×4 (09:44→20:33)
[2016-12-04] MEDS: FUROSEMIDE 40 MG TAB PO SCH (09:45)
[2016-12-04] MEDS: SPIRONOLACTONE 50 MG TAB PO SCH (09:46)
[2016-12-04] MEDS: SUCRALFATE 1 GM TAB PO SCH ×4 (09:46→20:33)
--- NOTE | 2016-12-04 10:01 | PN ---
Date/Time of Note Date/Time of Note DATE: 12/04/16 TIME: 10:00 Assessment/Plan VTE Prophylaxis VTE Prophylaxis Intervention: SCD's VTE Contraindication Reason: thrombocytopenia Lines/Catheters [facility] Saline Lock Urinary Cath still in place: No Assessment/Plan Assessment/Plan 1. Acute alcoholic hepatitis: improving 2. Severe chronic liver disease 2/2 fatty liver + chronic alcohol abuse 3. SIRS with leucocytosis and lactic acidosis likely 2/2 #1 4. Macrocytic anemia due to alcoholism 5. Tobacco dependence, quit 6. Dyslipidemia 7. Cholecystitis ruled out with negative HIDA scan 8. Hyperammonemia without encephalopathy PLAN: * Leukocytosis though to be likely sec to PO steroids, steroids held 12/03 after 11 days, WBC still increasing * Urine cultures <10,000 yeast, ID recs noted and appreciated, started on antifungals * Will also consult hematology * Continue in-house supportive care. Plan for discharge once improved, Continue daily lactulose * Alcohol cessation re-inforced daily Subjective 24 Hr Interval Summary Free Text/Dictation Patient remains well without complaints. continues to deny pain or fever. Exam/Review of Systems Vital Signs Vitals Vital Signs Date Time Temp Pulse Resp B/P Pulse Ox O2 Delivery O2 Flow Rate FiO2 12/04/16 08:08 97.6 71 18 108/66 99 12/04/16 07:27 Room Air Intake and Output 12/03/16 12/03/16 12/04/16 15:00 23:00 07:00 Intake Total 780 ml 720 ml Balance 780 ml 720 ml Exam Constitutional: lying in bed Eyes: less icteric ENMT: mucosa pink and moist Respiratory: clear to auscultation, diminished breath sounds Cardiovascular: regular rate and rhythm, No murmurs/extra sounds Gastrointestinal: ascites, bowel sounds, distended, soft Extremities: edema Neurological: nl mental status Skin: other (jaundiced) Results Result Diagram: 12/04/16 0455 12/03/16 0450 Results 24 hrs Laboratory Tests Test 12/04/16 04:55 White Blood Count 29.7 H Red Blood Count 3.50 L Hemoglobin 12.6 L Hematocrit 36.6 L Mean Corpuscular Volume 104.6 H Mean Corpuscular Hemoglobin 36.0 H Mean Corpuscular Hemoglobin Concent 34.4 Red Cell Distribution Width 17.5 H Platelet Count 238 Mean Platelet Volume 12.8 H Neutrophils % 88.3 H Lymphocytes % 6.1 L Monocytes % 4.3 Eosinophils % 0.0 Basophils % 0.1 Nucleated Red Blood Cells % 0.0 Neutrophils # 26.2 H Lymphocytes # 1.8 Monocytes # 1.3 H Eosinophils # 0.0 Basophils # 0.0 Nucleated Red Blood Cells # 0.0 Medications Medications Current Medications Sucralfate (Carafate) 1 gm QID PO Last administered on 12/04/16 09:46; Admin Dose 1 GM; Start 11/16/16 at 21:00 Ondansetron HCl (Zofran Inj) 4 mg Q6H PRN IV NAUSEA AND/OR VOMITING; Start at 19:30 Morphine Sulfate (morphine) 2 mg Q4H PRN IV pain; Start 11/16/16 at 19:30 Spironolactone (Aldactone) 100 mg DAILY PO Last administered on 12/04/16 09:46 ; Admin Dose 100 MG; Start 11/22/16 at 11:30 Pantoprazole (Protonix Tab) 40 mg DAILY@06 PO Last administered on 12/04/16 05: 31; Admin Dose 40 MG; Start 11/24/16 at 06:00 Lactulose (Enulose) 30 gm QID PO Last administered on 12/04/16 09:44; Admin Dose 30 GM; Start 11/29/16 at 13:00 Furosemide (Lasix) 40 mg DAILY PO Last administered on 12/04/16 09:45; Admin Dose 40 MG; Start 12/03/16 at 09:00 ZEUS PHILIPPE December 04, 2016 10:01
--- NOTE | 2016-12-04 12:23 | CONS ---
Date/Time of Note Date/Time of Note DATE: 12/04/16 TIME: 12:22 Assessment/Plan Assessment/Plan Additional Assessment/Plan Jaundice/Hepatocellular * Acute alcoholic hepatitis [place] liver discrimination function 37.5 ?Acalculous cholecystitis BY MRCP/ clinically unlikely Hepatitis B exposure/no active infection Ascites Chronic alcoholism Plan: Continue present management Monitor liver function test Paracentesis as needed Prednisolone 40 mg daily for 28 days, recommended once leukocytosis resolved Further recommendations depend on clinical course Pt seen in collaboration with Dr. Silver Consultation Date/Type/Reason Admit Date/Time Nov 16, 2016 at 17:43 Initial Consult Date 11/17/16 Type of Consultation: Gastroenterology Referring Provider: ZEUS PHILIPPE 24 HR Interval Summary Free Text/Dictation Status post 2.3 L of fluid removed from paracentesis Tolerating LFTs elevated Exam/Review of Systems Vital Signs Vitals Vital Signs Date Time Temp Pulse Resp B/P Pulse Ox O2 Delivery O2 Flow Rate FiO2 12/04/16 08:08 97.6 71 18 108/66 99 12/04/16 07:27 Room Air Intake and Output 12/03/16 12/03/16 12/04/16 15:00 23:00 07:00 Intake Total 780 ml 720 ml Balance 780 ml 720 ml Exam Constitutional: alert, oriented Psych: no complaints Head: normocephalic Neck: non-tender, supple Respiratory: clear to auscultation, normal air movement Cardiovascular: nl pulses, regular rate and rhythm Gastrointestinal: ascites, distended, bowel sounds, non-tender, soft, No rebound or guarding Musculoskeletal: nl extremities to inspection, nl gait and stance Extremities: normal pulses Results Result Diagram: 12/04/16 0455 12/03/16 0450 Results 24 hrs Laboratory Tests Test 12/04/16 04:55 White Blood Count 29.7 H Red Blood Count 3.50 L Hemoglobin 12.6 L Hematocrit 36.6 L Mean Corpuscular Volume 104.6 H Mean Corpuscular Hemoglobin 36.0 H Mean Corpuscular Hemoglobin Concent 34.4 Red Cell Distribution Width 17.5 H Platelet Count 238 Mean Platelet Volume 12.8 H Neutrophils % 88.3 H Lymphocytes % 6.1 L Monocytes % 4.3 Eosinophils % 0.0 Basophils % 0.1 Nucleated Red Blood Cells % 0.0 Neutrophils # 26.2 H Lymphocytes # 1.8 Monocytes # 1.3 H Eosinophils # 0.0 Basophils # 0.0 Nucleated Red Blood Cells # 0.0 Medications Medications Current Medications Sucralfate (Carafate) 1 gm QID PO Last administered on 12/04/16 09:46; Admin Dose 1 GM; Start 11/16/16 at 21:00 Ondansetron HCl (Zofran Inj) 4 mg Q6H PRN IV NAUSEA AND/OR VOMITING; Start at 19:30 Morphine Sulfate (morphine) 2 mg Q4H PRN IV pain; Start 11/16/16 at 19:30 Spironolactone (Aldactone) 100 mg DAILY PO Last administered on 12/04/16 09:46 ; Admin Dose 100 MG; Start 11/22/16 at 11:30 Pantoprazole (Protonix Tab) 40 mg DAILY@06 PO Last administered on 12/04/16 05: 31; Admin Dose 40 MG; Start 11/24/16 at 06:00 Lactulose (Enulose) 30 gm QID PO Last administered on 12/04/16 09:44; Admin Dose 30 GM; Start 11/29/16 at 13:00 Furosemide (Lasix) 40 mg DAILY PO Last administered on 12/04/16 09:45; Admin Dose 40 MG; Start 12/03/16 at 09:00 ZEENAT BRAY December 04, 2016 12:23
--- NOTE | 2016-12-04 14:27 | PN ---
DATE: 12/04/2016 SUBJECTIVE: The patient is alert, feels good, complaining of diarrhea, no fevers, no acute distress . He is ambulating. WBC today 29.7, platelets 238, neutrophils 88.3, BUN 20, creatinine 0.73. MICROBIOLOGY: Urine culture December 01 grew yeast. Blood cultures have been negative. DIAGNOSTICS: Chest x-ray on December 01 revealed bibasilar atelectasis. ANTIMICROBIALS: The patient was given fluconazole dose. PHYSICAL EXAMINATION: GENERAL: Well-developed, elderly man who is alert, in no distress. HEENT: Head atraumatic, normocephalic. Sclerae anicteric. Buccal mucosa dry. NECK: Supple. CHEST: Rise symmetrical. Breath sounds clear. HEART: S1, S2. ABDOMEN: Distended, soft. Bowel sounds present. EXTREMITIES: No cyanosis. ASSESSMENT: 1. Persistent leukocytosis, likely reactive, possibly Clostridium difficile colitis. 2. Diarrhea. 3. Fungal urinary tract infection. 4. Acute alcoholic hepatitis. Questionable acalculous cholecystitis. 5. Chronic alcohol abuse. 6. Recurrent ascites, status post paracentesis with fluid cultures revealed no evidence of spontane ous bacterial peritonitis. PLAN: We are going to start patient on Flagyl and send stool for C. difficile. Dictated By: MARIBETH BARRETT RUBBER TRIMMER for JOSE EDUARDO PEPPER/[place] Conf#: [id number] DID#: [id number]
[2016-12-04] MEDS: metroNIDAZOLE 500 MG TAB PO SCH ×2 (14:49→21:40)
[2016-12-04 15:38] VITALS: BP 127/83; PULSE 101; RESP 22
--- NOTE | 2016-12-04 19:09 | CONS ---
Date/Time of Note Date/Time of Note DATE: 12/04/16 TIME: 18:59 Assessment/Plan Assessment/Plan Chief Complaint/Hosp Course Alberto Gorman is a 65-year-old male with a history of chronic alcoholism and underlying alcoholic cirrhosis, who was admitted with abdominal distention and weakness with significant leukocytosis. He denies any fever. He is being treated for acute alcoholic hepatitis, improving, with history of Hep B exposure without active infection, SIRS with leucocytosis and lactic acidosis likely 2/2 #1, and macrocytic anemia due to alcoholism. # Leukocytosis, likely reactive, secondary to acute alcoholic hepatitis and likely exacerbated by steroids - Trend WBC, will check ESR and CRP - Appreciate ID recs, agree with sending C. diff and empiric flagyl and fluconazole for fungal UTI - Though lower suspicion, will send flow cytometry for leukemia/lymphoma, BCR/ ABL and JAK2 V617 mutation to eval for underlying primary hematologic process # Macrocytic anemia, likely due to alcoholism, stable. Monitor. Will continue to follow Problems: Consultation Date/Type/Reason Admit Date/Time Nov 16, 2016 at 17:43 Date of Consultation: December 04, 2016 Type of Consultation: Hematology Reason for Consultation Leukocytosis Hx of Present Illness Alberto Gorman is a 65-year-old male with a history of chronic alcoholism and underlying alcoholic cirrhosis, who was admitted with abdominal distention and weakness with significant leukocytosis. He denies any fever. He is being treated for acute alcoholic hepatitis, improving, with history of Hep B exposure without active infection, SIRS with leucocytosis and lactic acidosis likely 2/2 #1, and macrocytic anemia due to alcoholism. Hematology being consulted for persistent leukocytosis, thought to be likely sec to PO steroids. Steroids held 12/03 after 11 days, however WBC still increasing. Urine culture showed <10,000 yeast, ID recs noted and started on antifungals for fungal UTI. Per ID, persistent leukocytosis, likely reactive, possibly Clostridium difficile colitis and patient started on Flagyl and stool for C. diff sent. Patient also with recurrent ascites, status post paracentesis with fluid cultures revealed no evidence of spontaneous bacterial peritonitis. The patient currently denies pain or fever. He does endorse continued diarrhea. He states that he feels much better overall, however. Constitutional: improved, no complaints Eyes: no complaints ENT: no complaints Respiratory: no complaints Cardiovascular: no complaints Gastrointestinal: decreased appetite, flatus, pain (mild) Genitourinary: no complaints Musculoskeletal: no complaints Skin: no complaints Neurologic: no complaints Endocrine: no complaints Lymphatic: no complaints Psychological: nl mood/affect, no complaints Immunologic: no complaints Past Medical History Chronic alcoholism and underlying alcoholic cirrhosis. Tobacco dependence, quit. Dyslipidemia Past Surgical History Past Surgical Hx: other (hernia surgery) Family History Significant Family History: no pertinent family hx Social History Denies tobacco; positive history of heavy alcohol use. Alcohol Use: heavy (27 years consuming a bottle of liquor 3x a week) Exam/Review of Systems Vital Signs Vitals Vital Signs Date Time Temp Pulse Resp B/P Pulse Ox O2 Delivery O2 Flow Rate FiO2 12/04/16 15:38 98.1 101 22 127/83 95 Room Air Intake and Output 12/03/16 12/03/16 12/04/16 15:00 23:00 07:00 Intake Total 780 ml 720 ml Balance 780 ml 720 ml Exam Constitutional: alert, oriented Psych: no complaints Head: normocephalic Neck: supple Respiratory: clear to auscultation Cardiovascular: regular rate and rhythm Gastrointestinal: soft Neurological: AGRONOMY MANAGER II-XII intact Results Result Diagram: 12/04/16 0455 12/03/16 0450 Results 24 hrs Laboratory Tests Test 12/04/16 04:55 White Blood Count 29.7 H Red Blood Count 3.50 L Hemoglobin 12.6 L Hematocrit 36.6 L Mean Corpuscular Volume 104.6 H Mean Corpuscular Hemoglobin 36.0 H Mean Corpuscular Hemoglobin Concent 34.4 Red Cell Distribution Width 17.5 H Platelet Count 238 Mean Platelet Volume 12.8 H Neutrophils % 88.3 H Lymphocytes % 6.1 L Monocytes % 4.3 Eosinophils % 0.0 Basophils % 0.1 Nucleated Red Blood Cells % 0.0 Neutrophils # 26.2 H Lymphocytes # 1.8 Monocytes # 1.3 H Eosinophils # 0.0 Basophils # 0.0 Nucleated Red Blood Cells # 0.0 Medications Medications Current Medications Sucralfate (Carafate) 1 gm QID PO Last administered on 12/04/16t 16:48; Admin Dose 1 GM; Start 11/16/16 at 21:00 Ondansetron HCl (Zofran Inj) 4 mg Q6H PRN IV NAUSEA AND/OR VOMITING; Start at 19:30 Morphine Sulfate (morphine) 2 mg Q4H PRN IV pain; Start 11/16/16 at 19:30 Spironolactone (Aldactone) 100 mg DAILY PO Last administered on 12/04/16 09:46 ; Admin Dose 100 MG; Start 11/22/16 at 11:30 Pantoprazole (Protonix Tab) 40 mg DAILY@06 PO Last administered on 12/04/16 05: 31; Admin Dose 40 MG; Start 11/24/16 at 06:00 Lactulose (Enulose) 30 gm QID PO Last administered on 12/04/16 16:48; Admin Dose 30 GM; Start 11/29/16 at 13:00 Furosemide (Lasix) 40 mg DAILY PO Last administered on 12/04/16 09:45; Admin Dose 40 MG; Start 12/03/16 at 09:00 Metronidazole (Flagyl) 500 mg Q8 PO Last administered on 12/04/16 14:49; Admin Dose 500 MG; Start 12/04/16 at 14:00 JANIE DUMAS MD December 04, 2016 19:09
[2016-12-04 20:51] VITALS: BP 105/68; RESP 20
[2016-12-05] MEDS: PANTOPRAZOLE (EC) 40 MG TAB PO SCH (05:28)
[2016-12-05] MEDS: metroNIDAZOLE 500 MG TAB PO SCH ×3 (05:28→22:25)
[2016-12-05 07:50] VITALS: BP 108/65; RESP 18
[2016-12-05] MEDS: LACTULOSE 30ML CUP PO SCH ×3 (09:21→16:38)
[2016-12-05] MEDS: SPIRONOLACTONE 50 MG TAB PO SCH (09:21)
[2016-12-05] MEDS: SUCRALFATE 1 GM TAB PO SCH ×4 (09:21→22:25)
[2016-12-05] MEDS: FUROSEMIDE 40 MG TAB PO SCH (09:21)
--- NOTE | 2016-12-05 09:46 | PN ---
Date/Time of Note Date/Time of Note DATE: 12/05/16 TIME: 09:43 Assessment/Plan VTE Prophylaxis VTE Prophylaxis Intervention: ambulation VTE Contraindication Reason: thrombocytopenia Lines/Catheters IV C[facility]ter Type (from [facility]): Saline Lock Urinary Cath still in place: No Assessment/Plan Assessment/Plan 1. Acute alcoholic hepatitis: improving 2. Severe chronic liver disease 2/2 fatty liver + chronic alcohol abuse o 3. SIRS with leucocytosis and lactic acidosis likely 2/2 #1 4. Macrocytic anemia due to alcoholism 5. Tobacco dependence, quit 6. Dyslipidemia 7. Cholecystitis ruled out with negative HIDA scan 8. Hyperammonemia without encephalopathy: on lactulose 9. Persistent leucocytosis 10. Yeast UTI : oral antifungals PLAN: * Leukocytosis though to be likely sec to PO steroids, steroids held 12/03 after 11 days, WBC still increasing * Diarrhea likely 2/2 lactulose therapy: c-diff negative * Spoke for a long time with hematology. Continue to hold steroids. White blood cell count will likely improve. Marty 2 mutation testing pending. * Continue in-house supportive care. Plan for discharge once improved, Continue daily lactulose * Alcohol cessation re-inforced daily Subjective 24 Hr Interval Summary Free Text/Dictation still having diarrhea likely from lactulose therapy. Exam/Review of Systems Vital Signs Vitals Vital Signs Date Time Temp Pulse Resp B/P Pulse Ox O2 Delivery O2 Flow Rate FiO2 12/05/16 07:50 98.1 101 18 108/65 97 12/04/16 15:38 Room Air Intake and Output 12/04/16 12/04/16 12/05/16 15:00 23:00 07:00 Intake Total 1050 ml 580 ml Balance 1050 ml 580 ml Exam Constitutional: lying in bed Eyes: less icteric ENMT: mucosa pink and moist Respiratory: clear to auscultation, diminished breath sounds Cardiovascular: regular rate and rhythm, No murmurs/extra sounds Gastrointestinal: ascites, bowel sounds, distended, soft Extremities: edema Neurological: nl mental status Skin: other (jaundiced) Results Result Diagram: 12/04/16 0455 12/03/16 0450 Results 24 hrs Laboratory Tests Test 12/05/16 05:01 12/05/16 05:08 C-Reactive Protein 7.0 H Erythrocyte Sedimentation Rate 76 H Medications Medications Current Medications Sucralfate (Carafate) 1 gm QID PO Last administered on 12/05/16 09:21; Admin Dose 1 GM; Start 11/16/16 at 21:00 Ondansetron HCl (Zofran Inj) 4 mg Q6H PRN IV NAUSEA AND/OR VOMITING; Start at 19:30 Morphine Sulfate (morphine) 2 mg Q4H PRN IV pain; Start 11/16/16 at 19:30 Spironolactone (Aldactone) 100 mg DAILY PO Last administered on 12/05/16 09:21 ; Admin Dose 100 MG; Start 11/22/16 at 11:30 Pantoprazole (Protonix Tab) 40 mg DAILY@06 PO Last administered on 12/05/16 05: 28; Admin Dose 40 MG; Start 11/24/16 at 06:00 Lactulose (Enulose) 30 gm QID PO Last administered on 12/05/16 09:21; Admin Dose 30 GM; Start 11/29/16 at 13:00 Furosemide (Lasix) 40 mg DAILY PO Last administered on 12/05/16 09:21; Admin Dose 40 MG; Start 12/03/16 at 09:00 Metronidazole (Flagyl) 500 mg Q8 PO Last administered on 12/05/16 05:28; Admin Dose 500 MG; Start 12/04/16 at 14:00 ZEUS PHILIPPE December 05, 2016 09:46
--- NOTE | 2016-12-05 12:53 | CONS ---
Date/Time of Note Date/Time of Note DATE: 12/05/16 TIME: 12:50 Assessment/Plan Assessment/Plan Additional Assessment/Plan Jaundice/Hepatocellular * Acute alcoholic hepatitis Osiris liver discrimination function 37.5 ?Acalculous cholecystitis BY MRCP/ clinically unlikely Hepatitis B exposure/no active infection Ascites Chronic alcoholism Plan: Continue present management Monitor liver function test Paracentesis as needed Prednisolone 40 mg daily for 28 days, recommended once leukocytosis resolved Further recommendations depend on clinical course Pt seen in collaboration with Dr. Silver Consultation Date/Type/Reason Admit Date/Time Nov 16, 2016 at 17:43 Initial Consult Date 11/17/16 Type of Consultation: Gastroenterology Referring Provider: ZEUS PHILIPPE 24 HR Interval Summary Free Text/Dictation Tolerating diet Denies abdominal pain, nausea, vomiting LFTs trending upward Exam/Review of Systems Vital Signs Vitals Vital Signs Date Time Temp Pulse Resp B/P Pulse Ox O2 Delivery O2 Flow Rate FiO2 12/05/16 07:50 98.1 101 18 108/65 97 12/04/16 15:38 Room Air Intake and Output 12/04/16 12/04/16 12/05/16 15:00 23:00 07:00 Intake Total 1050 ml 580 ml Balance 1050 ml 580 ml Exam Constitutional: alert, oriented Psych: no complaints Head: normocephalic Neck: non-tender, supple Respiratory: clear to auscultation, normal air movement Cardiovascular: nl pulses, regular rate and rhythm Gastrointestinal: ascites, distended, bowel sounds, non-tender, soft, No rebound or guarding Musculoskeletal: nl extremities to inspection, nl gait and stance Extremities: normal pulses Results Result Diagram: 12/04/16 0455 12/03/16 0450 Results 24 hrs Laboratory Tests Test 12/05/16 05:01 12/05/16 05:08 C-Reactive Protein 7.0 H Erythrocyte Sedimentation Rate 76 H Medications Medications Current Medications Sucralfate (Carafate) 1 gm QID PO Last administered on 12/05/16t 09:21; Admin Dose 1 GM; Start 11/16/16 at 21:00 Ondansetron HCl (Zofran Inj) 4 mg Q6H PRN IV NAUSEA AND/OR VOMITING; Start at 19:30 Morphine Sulfate (morphine) 2 mg Q4H PRN IV pain; Start 11/16/16 at 19:30 Spironolactone (Aldactone) 100 mg DAILY PO Last administered on 12/05/16 09:21 ; Admin Dose 100 MG; Start 11/22/16 at 11:30 Pantoprazole (Protonix Tab) 40 mg DAILY@06 PO Last administered on 12/05/16 05: 28; Admin Dose 40 MG; Start 11/24/16 at 06:00 Lactulose (Enulose) 30 gm QID PO Last administered on 12/05/16 09:21; Admin Dose 30 GM; Start 11/29/16 at 13:00 Furosemide (Lasix) 40 mg DAILY PO Last administered on 12/05/16 09:21; Admin Dose 40 MG; Start 12/03/16 at 09:00 Metronidazole (Flagyl) 500 mg Q8 PO Last administered on 12/05/16 05:28; Admin Dose 500 MG; Start 12/04/16 at 14:00 ZEENAT BRAY December 05, 2016 12:53
[2016-12-05 16:44] LABS: ADD SCAN DIFF NO
[2016-12-05 16:49] LABS: ABNORMAL IP MESSAGE 1; HEMATOCRIT 32.2 % (42.0-52.0); HEMOGLOBIN 11.5 g/dl (14.0-18.0); MEAN CORPUSCULAR HEMOGLOBIN 36.9 pg (29.0-33.0); MEAN CORPUSCULAR HGB CONC 35.7 g/dl (32.0-37.0); MEAN CORPUSCULAR VOLUME 103.2 fl (82.0-101.0); MEAN PLATELET VOLUME 12.8 fl (7.4-10.4); PLATELET COUNT 175 10^3/UL (140-415); RED BLOOD COUNT 3.12 10^6/ul (4.70-6.10); RED CELL DISTRIBUTION WIDTH 16.9 % (11.5-14.5); WHITE BLOOD COUNT 23.5 10^3/ul (4.8-10.8)
[2016-12-05 17:11] LABS: ALBUMIN 2.2 g/dl (3.3-4.9); ALBUMIN/GLOBULIN RATIO 0.62; BILIRUBIN,DIRECT 6.1 mg/dl (0.00-0.20); BILIRUBIN,INDIRECT 1.6 mg/dl (0-1.1); BILIRUBIN,TOTAL 7.7 mg/dl (0.2-1.3); CALCIUM 8.2 mg/dl (8.4-10.2); CREATININE 0.78 mg/dl (0.61-1.24); IRON 39 ug/dl (35-150); POTASSIUM 4.3 mmol/L (3.5-5.1); TOTAL PROTEIN 5.7 g/dl (6.1-8.1)
[2016-12-05 17:20] LABS: TOTAL IRON BINDING CAPACITY 159 ug/dl (241-421)
[2016-12-05 17:41] LABS: THYROID STIMULATING HORMONE 2.31 MIU/L (0.465-4.680)
--- NOTE | 2016-12-05 17:43 | PN ---
DATE: 12/05/2016 HISTORY OF PRESENT ILLNESS: Mr. Gorman is a 66-year-old gentleman with a history of alcoho lic cirrhosis, admitted because of ascites and abdominal distention and leukocytosis. The patient w as on steroids, which were discontinued on 12/03/2016, but even before steroids were started, his wh ite count was about 18,000 with a left shift. The patient was found to have positive hepatitis B co re antibody. PAST HISTORY AND REVIEW OF SYSTEMS: Please see the H and P. PHYSICAL EXAMINATION: GENERAL: Shows moderately built male in no distress. He is alert, oriented, cooperative. ENT: Unremarkable. HEART: Unremarkable. LUNGS: Unremarkable. ABDOMEN: Shows 4+ ascites. Other systems unremarkable. LABORATORY DATA: His CBC today shows WBC 29,700 with 88% neutrophils, hemoglobin 12.6 with MCV 104 and platelets normal at 238,000. His LFTs have improved with the bilirubin down to 4.1. His hepati tis C serology was negative. IMPRESSION: 1. Leukocytosis with mild left shift, most likely reactive. 2. Macrocytic anemia. 3. Positive hepatitis B core antibody. PLAN: This patient with history of cirrhosis now also has positive hepatitis B core antibody. Furt her serology tests for hepatitis B should be done and consider treatment if necessary for hepatitis B. Regarding leukocytosis, JAK2 mutation test has been ordered and is pending. His macrocytic anem ia may be related to his liver disease. I will add an anemia panel to this workup. Dictated By: BO MORAN/NTS Conf#: [id number] DID#: [id number]
[2016-12-05 18:16] LABS: FOLATE 7.2 ng/ml (2.8-20.0)
[2016-12-05 18:17] LABS: EOSINOPHILS # 0.2 10^3/ul (0.0-0.5); LYMPHOCYTES # 2.8 10^3/ul (0.8-2.9); MONOCYTE # 1.2 10^3/ul (0.3-0.9); MYELOCYTES # 0.5; NEUTROPHIL # 18.8 10^3/ul (1.6-7.5)
[2016-12-05] MEDS ORDERED: FUROSEMIDE 20 MG INJ IV ONE (20:00)
--- NOTE | 2016-12-05 20:02 | CONS ---
Date/Time of Note Date/Time of Note DATE: 12/05/16 TIME: 20:00 Assessment/Plan Assessment/Plan Chief Complaint/Hosp Course SUBJECTIVE: The patient is alert, feels good, no fevers MICROBIOLOGY: C dif neg. Blood cultures have been negative. DIAGNOSTICS: Chest x-ray on December 01 revealed bibasilar atelectasis. ANTIMICROBIALS: Flagyl, s/p fluconazole dose. PHYSICAL EXAMINATION: GENERAL: Well-developed, elderly man who is alert, in no distress. HEENT: Head atraumatic, normocephalic. Sclerae anicteric. Buccal mucosa dry. NECK: Supple. CHEST: Rise symmetrical. Breath sounds clear. HEART: S1, S2. ABDOMEN: Distended, soft. Bowel sounds present. EXTREMITIES: No cyanosis. ASSESSMENT: 1. Persistent leukocytosis, likely reactive 2. Diarrhea. 3. Fungal urinary tract infection. 4. Acute alcoholic hepatitis. Questionable acalculous cholecystitis. 5. Chronic alcohol abuse. 6. Recurrent ascites, status post paracentesis with fluid cultures revealed no evidence of spontaneous bacterial peritonitis. PLAN: Remains stable, wbc decreasing, continue present care, f/u GI rec-s, [facility] Problems: Consultation Date/Type/Reason Admit Date/Time Nov 16, 2016 at 17:43 Initial Consult Date 12/04/16 Type of Consultation: ID Referring Provider: ZEUS PHILIPPE Exam/Review of Systems Vital Signs Vitals Vital Signs Date Time Temp Pulse Resp B/P Pulse Ox O2 Delivery O2 Flow Rate FiO2 12/05/16 07:50 98.1 101 18 108/65 97 12/04/16 15:38 Room Air Intake and Output 12/04/16 12/04/16 12/05/16 14:59 22:59 06:59 Intake Total 1050 ml 580 ml Balance 1050 ml 580 ml Results Result Diagram: 12/05/16 1625 12/05/16 1625 Results 24 hrs Laboratory Tests Test 12/05/16 05:01 12/05/16 05:08 12/05/16 16:25 C-Reactive Protein 7.0 H Erythrocyte Sedimentation Rate 76 H White Blood Count 23.5 #H Red Blood Count 3.12 L Hemoglobin 11.5 L Hematocrit 32.2 L Mean Corpuscular Volume 103.2 H Mean Corpuscular Hemoglobin 36.9 H Mean Corpuscular Hemoglobin Concent 35.7 Red Cell Distribution Width 16.9 H Platelet Count 175 # Mean Platelet Volume 12.8 H Neutrophils % 80.0 H Lymphocytes % 12.0 L Monocytes % 5.0 Eosinophils % 1.0 Myelocytes % 2.0 H Neutrophils # 18.8 H Lymphocytes # 2.8 Monocytes # 1.2 H Eosinophils # 0.2 Myelocytes # 0.5 Sodium Level 128 L Potassium Level 4.3 Chloride Level 97 Carbon Dioxide Level 26 Anion Gap 9 Blood Urea Nitrogen 18 Creatinine 0.78 Glucose Level 251 H Calcium Level 8.2 L Iron Level 39 Total Iron Binding Capacity 159 L Percent Iron Saturation 25 Ferritin 649.0 H Total Bilirubin 7.7 H Direct Bilirubin 6.10 H Indirect Bilirubin 1.6 H Aspartate Amino Transf (AST/SGOT) 237 H Alanine Aminotransferase (ALT/SGPT) 168 H Alkaline Phosphatase 838 H Lactate Dehydrogenase 421 Total Protein 5.7 L Albumin 2.2 L Globulin 3.50 H Albumin/Globulin Ratio 0.62 Vitamin B12 Level 896 Folate 7.2 Thyroid Stimulating Hormone (TSH) 2.310 Medications Medications Current Medications Sucralfate (Carafate) 1 gm QID PO Last administered on 12/05/16 16:37; Admin Dose 1 GM; Start 11/16/16 at 21:00 Ondansetron HCl (Zofran Inj) 4 mg Q6H PRN IV NAUSEA AND/OR VOMITING; Start at 19:30 Morphine Sulfate (morphine) 2 mg Q4H PRN IV pain; Start 11/16/16 at 19:30 Spironolactone (Aldactone) 100 mg DAILY PO Last administered on 12/05/16 09:21 ; Admin Dose 100 MG; Start 11/22/16 at 11:30 Pantoprazole (Protonix Tab) 40 mg DAILY@06 PO Last administered on 12/05/16 05: 28; Admin Dose 40 MG; Start 11/24/16 at 06:00 Furosemide (Lasix) 40 mg DAILY PO Last administered on 12/05/16 09:21; Admin Dose 40 MG; Start 12/03/16 at 09:00 Metronidazole (Flagyl) 500 mg Q8 PO Last administered on 12/05/16 13:21; Admin Dose 500 MG; Start 12/04/16 at 14:00 Lactulose 30 gm 30 gm DAILY PO ; Start 12/06/16 at 09:00 Albumin Human (Albumin Human 25%) 50 ml @ 100 mls/hr ONCE ONCE IV ; Start 12/05 at 20:30; Stop 12/05/16 at 20:59 Furosemide (Lasix) 20 mg ONCE ONCE IV ; Start 12/05/16 at 20:00; Stop 12/05/16 at 20:01 MARIBETH BARRETT NP December 05, 2016 20:02
[2016-12-05] MEDS ORDERED: ALBUMIN HUMAN 25% 50 ML IV ONE (20:30)
[2016-12-05 22:12] VITALS: BP 112/58; RESP 20
[2016-12-05 22:30] VITALS: BP 107/69
[2016-12-05 23:34] VITALS: BP 101/65
[2016-12-06] MEDS: metroNIDAZOLE 500 MG TAB PO SCH ×3 (05:16→21:35)
[2016-12-06] MEDS: PANTOPRAZOLE (EC) 40 MG TAB PO SCH (05:17)
[2016-12-06 06:08] LABS: ADD SCAN DIFF NO
[2016-12-06 06:12] LABS: ABNORMAL IP MESSAGE 1; HEMATOCRIT 31.5 % (42.0-52.0); HEMOGLOBIN 10.9 g/dl (14.0-18.0); MEAN CORPUSCULAR HEMOGLOBIN 36.2 pg (29.0-33.0); MEAN CORPUSCULAR HGB CONC 34.6 g/dl (32.0-37.0); MEAN CORPUSCULAR VOLUME 104.7 fl (82.0-101.0); MEAN PLATELET VOLUME 13.7 fl (7.4-10.4); PLATELET COUNT 144 10^3/UL (140-415); RED BLOOD COUNT 3.01 10^6/ul (4.70-6.10); WHITE BLOOD COUNT 22.5 10^3/ul (4.8-10.8)
[2016-12-06 06:41] LABS: ALBUMIN 2.4 g/dl (3.3-4.9); ALBUMIN/GLOBULIN RATIO 0.68; BILIRUBIN,DIRECT 6.4 mg/dl (0.00-0.20); BILIRUBIN,TOTAL 8.4 mg/dl (0.2-1.3); CALCIUM 8.2 mg/dl (8.4-10.2); CREATININE 0.72 mg/dl (0.61-1.24); TOTAL PROTEIN 5.9 g/dl (6.1-8.1)
--- NOTE | 2016-12-06 07:31 | PN ---
Date/Time of Note Date/Time of Note DATE: 12/06/16 TIME: 07:27 Assessment/Plan VTE Prophylaxis VTE Prophylaxis Intervention: ambulation, SCD's Lines/Catheters [facility] Saline Lock Urinary Cath still in place: No Assessment/Plan Assessment/Plan 1. Acute alcoholic hepatitis: improving 2. Severe chronic liver disease 2/2 fatty liver + chronic alcohol abuse o 3. SIRS with leucocytosis and lactic acidosis likely 2/2 #1 4. Macrocytic anemia due to alcoholism 5. Tobacco dependence, quit 6. Dyslipidemia 7. Cholecystitis ruled out with negative HIDA scan 8. Hyperammonemia without encephalopathy: on lactulose 9. Persistent leucocytosis 10. Yeast UTI : oral antifungals 11. Hyponatremia: likely 2/2 end stage liver disease PLAN: * Leukocytosis though to be likely sec to PO steroids, steroids held 12/03 after 11 days, WBC now improving, however bilirubin trending up * Started on albumin and lasix for hyponatremia, will add nephro consult * Diarrhea likely 2/2 lactulose therapy: c-diff negative : lactulose dose reduced * Spoke for a long time with hematology. Continue to hold steroids. White blood cell count will likely improve. Marty 2 mutation testing pending. * Continue in-house supportive care. Plan for discharge once improved, Continue daily lactulose * Alcohol cessation re-inforced daily Subjective 24 Hr Interval Summary Constitutional: no complaints Exam/Review of Systems Vital Signs Vitals Vital Signs Date Time Temp Pulse Resp B/P Pulse Ox O2 Delivery O2 Flow Rate FiO2 12/05/16 23:34 101/65 12/05/16 22:12 98.5 91 20 100 12/04/16 15:38 Room Air Intake and Output 12/05/16 12/05/16 12/06/16 15:00 23:00 07:00 Intake Total 810 ml 530 ml Output Total 300 ml Balance 810 ml 230 ml Exam Constitutional: lying in bed Eyes: icteric ENMT: mucosa pink and moist Respiratory: clear to auscultation, diminished breath sounds Cardiovascular: regular rate and rhythm, No murmurs/extra sounds Gastrointestinal: ascites, bowel sounds, distended, soft Extremities: edema Neurological: nl mental status Skin: other (jaundiced) Results Result Diagram: 12/06/16 0501 12/06/16 0501 Results 24 hrs Laboratory Tests Test 12/05/16 16:25 12/06/16 05:01 White Blood Count 23.5 #H 22.5 H Red Blood Count 3.12 L 3.01 L Hemoglobin 11.5 L 10.9 L Hematocrit 32.2 L 31.5 L Mean Corpuscular Volume 103.2 H 104.7 H Mean Corpuscular Hemoglobin 36.9 H 36.2 H Mean Corpuscular Hemoglobin Concent 35.7 34.6 Red Cell Distribution Width 16.9 H 17.0 H Platelet Count 175 # 144 Mean Platelet Volume 12.8 H 13.7 H Neutrophils % 80.0 H 83.6 H Lymphocytes % 12.0 L 8.5 L Monocytes % 5.0 5.1 Eosinophils % 1.0 0.7 Myelocytes % 2.0 H Neutrophils # 18.8 H 18.9 H Lymphocytes # 2.8 1.9 Monocytes # 1.2 H 1.1 H Eosinophils # 0.2 0.2 Myelocytes # 0.5 Sodium Level 128 L 128 L Potassium Level 4.3 4.0 Chloride Level 97 96 L Carbon Dioxide Level 26 26 Anion Gap 9 10 Blood Urea Nitrogen 18 18 Creatinine 0.78 0.72 Glucose Level 251 H 139 # Calcium Level 8.2 L 8.2 L Iron Level 39 Total Iron Binding Capacity 159 L Percent Iron Saturation 25 Ferritin 649.0 H Total Bilirubin 7.7 H 8.4 H Direct Bilirubin 6.10 H 6.40 H Indirect Bilirubin 1.6 H 2.0 H Aspartate Amino Transf (AST/SGOT) 237 H 194 H Alanine Aminotransferase (ALT/SGPT) 168 H 153 H Alkaline Phosphatase 838 H 785 H Lactate Dehydrogenase 421 Total Protein 5.7 L 5.9 L Albumin 2.2 L 2.4 L Globulin 3.50 H 3.50 H Albumin/Globulin Ratio 0.62 0.68 Vitamin B12 Level 896 Folate 7.2 Thyroid Stimulating Hormone (TSH) 2.310 Basophils % 0.1 Nucleated Red Blood Cells % 0.0 Basophils # 0.0 Nucleated Red Blood Cells # 0.0 Medications Medications Current Medications Sucralfate (Carafate) 1 gm QID PO Last administered on 12/05/16t 22:25; Admin Dose 1 GM; Start 11/16/16 at 21:00 Ondansetron HCl (Zofran Inj) 4 mg Q6H PRN IV NAUSEA AND/OR VOMITING; Start 4/ 17/17 at 19:30 Morphine Sulfate (morphine) 2 mg Q4H PRN IV pain; Start 11/16/16 at 19:30 Spironolactone (Aldactone) 100 mg DAILY PO Last administered on 12/05/16 09:21 ; Admin Dose 100 MG; Start 11/22/16 at 11:30 Pantoprazole (Protonix Tab) 40 mg DAILY@06 PO Last administered on 12/06/16 05: 17; Admin Dose 40 MG; Start 11/24/16 at 06:00 Furosemide (Lasix) 40 mg DAILY PO Last administered on 12/05/16 09:21; Admin Dose 40 MG; Start 12/03/16 at 09:00 Metronidazole (Flagyl) 500 mg Q8 PO Last administered on 12/06/16 05:16; Admin Dose 500 MG; Start 12/04/16 at 14:00 Lactulose (Enulose) 30 gm DAILY PO ; Start 12/06/16 at 09:00 ZEUS PHILIPPE December 06, 2016 07:31
[2016-12-06 08:10] VITALS: BP 86/53; RESP 19
[2016-12-06] MEDS: SUCRALFATE 1 GM TAB PO SCH ×4 (09:13→20:42)
[2016-12-06] MEDS: SPIRONOLACTONE 50 MG TAB PO SCH (09:20)
[2016-12-06] MEDS: FUROSEMIDE 40 MG TAB PO SCH (09:20)
[2016-12-06] MEDS: LACTULOSE 30ML CUP PO SCH (09:22)
[2016-12-06 09:57] LABS: EOSINOPHILS # 0.5 10^3/ul (0.0-0.5); MONOCYTE # 0.7 10^3/ul (0.3-0.9); NEUTROPHIL # 19.4 10^3/ul (1.6-7.5); POLYCHROMASIA OCCASIONAL
--- NOTE | 2016-12-06 13:52 | CONS ---
Date/Time of Note Date/Time of Note DATE: 12/06/16 TIME: 13:49 Assessment/Plan Assessment/Plan Additional Assessment/Plan Jaundice/Hepatocellular * Acute alcoholic hepatitis [place]is liver discrimination function 37.5 ?Acalculous cholecystitis BY MRCP/ clinically unlikely Hepatitis B exposure/no active infection Ascites Chronic alcoholism Plan: Continue present management Monitor liver function test Paracentesis as needed Prednisolone 40 mg daily for 28 days, recommended once leukocytosis resolved Further recommendations depend on clinical course Pt seen in collaboration with Dr. Silver Consultation Date/Type/Reason Admit Date/Time Nov 16, 2016 at 17:43 Initial Consult Date 11/17/16 Type of Consultation: Gastroenterology Referring Provider: ZEUS PHILIPPE 24 HR Interval Summary Free Text/Dictation Tolerating diet Increasing abdominal girth, patient denies abdominal pain Will continue to monitor May need paracentesis if abdomen continues to expand Exam/Review of Systems Vital Signs Vitals Vital Signs Date Time Temp Pulse Resp B/P Pulse Ox O2 Delivery O2 Flow Rate FiO2 12/06/16 08:10 97.4 93 19 86/53 97 12/04/16 15:38 Room Air Intake and Output 12/05/16 12/05/16 12/06/16 15:00 23:00 07:00 Intake Total 810 ml 530 ml Output Total 300 ml Balance 810 ml 230 ml Exam Constitutional: alert, oriented Psych: no complaints Head: normocephalic Neck: non-tender, supple Respiratory: clear to auscultation, normal air movement Cardiovascular: nl pulses, regular rate and rhythm Gastrointestinal: ascites, distended, bowel sounds, non-tender, soft, No rebound or guarding Musculoskeletal: nl extremities to inspection, nl gait and stance Extremities: normal pulses Results Result Diagram: 12/06/16 0501 12/06/16 0501 Results 24 hrs Laboratory Tests Test 12/05/16 16:25 12/06/16 05:01 White Blood Count 23.5 #H 22.5 H Red Blood Count 3.12 L 3.01 L Hemoglobin 11.5 L 10.9 L Hematocrit 32.2 L 31.5 L Mean Corpuscular Volume 103.2 H 104.7 H Mean Corpuscular Hemoglobin 36.9 H 36.2 H Mean Corpuscular Hemoglobin Concent 35.7 34.6 Red Cell Distribution Width 16.9 H 17.0 H Platelet Count 175 # 144 Mean Platelet Volume 12.8 H 13.7 H Neutrophils % 80.0 H 86.0 H Lymphocytes % 12.0 L 9.0 L Monocytes % 5.0 3.0 Eosinophils % 1.0 2.0 Myelocytes % 2.0 H Neutrophils # 18.8 H 19.4 H Lymphocytes # 2.8 2.0 Monocytes # 1.2 H 0.7 Eosinophils # 0.2 0.5 Myelocytes # 0.5 Sodium Level 128 L 128 L Potassium Level 4.3 4.0 Chloride Level 97 96 L Carbon Dioxide Level 26 26 Anion Gap 9 10 Blood Urea Nitrogen 18 18 Creatinine 0.78 0.72 Glucose Level 251 H 139 # Calcium Level 8.2 L 8.2 L Iron Level 39 Total Iron Binding Capacity 159 L Percent Iron Saturation 25 Ferritin 649.0 H Total Bilirubin 7.7 H 8.4 H Direct Bilirubin 6.10 H 6.40 H Indirect Bilirubin 1.6 H 2.0 H Aspartate Amino Transf (AST/SGOT) 237 H 194 H Alanine Aminotransferase (ALT/SGPT) 168 H 153 H Alkaline Phosphatase 838 H 785 H Lactate Dehydrogenase 421 Total Protein 5.7 L 5.9 L Albumin 2.2 L 2.4 L Globulin 3.50 H 3.50 H Albumin/Globulin Ratio 0.62 0.68 Vitamin B12 Level 896 Folate 7.2 Thyroid Stimulating Hormone (TSH) 2.310 Basophils % Nucleated Red Blood Cells % 1.0 H Basophils # Nucleated Red Blood Cells # Differential Comment MANUAL DIFF Large Platelets OCCASIONAL Polychromasia OCCASIONAL Medications Medications Current Medications Sucralfate (Carafate) 1 gm QID PO Last administered on 12/06/16 13:37; Admin Dose 1 GM; Start 11/16/16 at 21:00 Ondansetron HCl (Zofran Inj) 4 mg Q6H PRN IV NAUSEA AND/OR VOMITING; Start at 19:30 Morphine Sulfate (morphine) 2 mg Q4H PRN IV pain; Start 11/16/16 at 19:30 Spironolactone (Aldactone) 100 mg DAILY PO Last administered on 12/06/16 09:20 ; Admin Dose 100 MG; Start 11/22/16 at 11:30 Pantoprazole (Protonix Tab) 40 mg DAILY@06 PO Last administered on 12/06/16 05: 17; Admin Dose 40 MG; Start 11/24/16 at 06:00 Furosemide (Lasix) 40 mg DAILY PO Last administered on 12/06/16 09:20; Admin Dose 40 MG; Start 12/03/16 at 09:00 Metronidazole (Flagyl) 500 mg Q8 PO Last administered on 12/06/16 13:37; Admin Dose 500 MG; Start 12/04/16 at 14:00 Lactulose (Enulose) 30 gm DAILY PO Last administered on 12/06/16 09:22; Admin Dose 30 GM; Start 12/06/16 at 09:00 ZEENAT BRAY December 06, 2016 13:52
--- NOTE | 2016-12-06 14:51 | CONS ---
DATE OF ADMISSION: 11/16/2016 DATE OF CONSULTATION: 12/06/2016 REASON FOR CONSULTATION: Severe hyponatremia, gradually worsening sodium. REFERRING PHYSICIAN: Dr. Drew Capps HISTORY OF PRESENT ILLNESS: This is a 66-year-old male who has a past medical history of chronic li rosa disease secondary to fatty liver and chronic alcohol abuse, history of dyslipidemia, history of alcoholic hepatitis, who presented with worsening jaundice and noted to have acute alcoholic hepatit is. The patient also had systemic inflammatory response syndrome with leukocytosis and lactic acido sis. His MRCP was suspicious for possible acalculous cholecystitis. The patient had a yeast UTI an d has been getting oral antifungals for that. The patient is noted to have hyponatremia of 131 on a dmission, which improved to 134 to 136. Again, it drops down to 128 and renal has been consulted fo r a hyponatremia workup. REVIEW OF SYSTEMS: Positive for abdominal pain, distention, nausea. Other review of systems has be en obtained and is negative except what is mentioned in the history of present illness. PAST MEDICAL HISTORY: History of hypertension, history of dyslipidemia, history of chronic liver di sease sending secondary to fatty liver and chronic alcohol abuse. History of dyslipidemia and histo ry of smoking. PAST SURGICAL HISTORY: History of hernia surgery. SOCIAL HISTORY: The patient has a history of alcohol abuse but no smoking or recreational drug use. FAMILY HISTORY: No family history of coronary artery disease, chronic kidney disease or stroke in t he family. PHYSICAL EXAMINATION: VITAL SIGNS: Temperature 97.4, heart rate 93, respiration 19, blood pressure 86/53, saturation is 9 7% on room air. GENERAL: Awake, alert, no acute distress, but the patient has a significantly distended abdomen. HEENT: Mild scleral icterus, pale conjunctivae. Pupils equal, round, reactive to light and accommo dation. NECK: Supple, no JVD, no lymphadenopathy. LUNGS: Decreased breath sounds at both lung bases. No crackles, no wheezes. HEART: S1, S2, with regular rhythm, no murmur. ABDOMEN: Soft, distended. Ascites present. Fluid wave is present, nontender. EXTREMITIES: 1 to 2+ pitting edema, no clubbing, no cyanosis. NEUROLOGICAL: Alert, oriented x3. Cranial nerves II through XII intact. No focal deficits. Stren gth is normal. PSYCHIATRIC: Appropriate affect and mood. LABORATORY DATA/DIAGNOSTIC IMAGING: Sodium 128, potassium 4, chloride 96, bicarbonate 26, BUN 18, c reatinine 0.7, glucose 139, calcium 8.2, total bilirubin 8.4, total direct bilirubin 6.4, ALT 194, A ST 153, alkaline phosphatase 785, albumin 2.4. PT, PTT, INR is normal. WBC 22.5, hemoglobin 10.9, platelet count 144. Urinalysis was done on admission which was negative for any protein. Serology has been positive for hepatitis B core total antibody. IMPRESSION: This is a 66-year-old male who has been admitted for acute alcoholic hepatitis and celso re chronic liver disease. He has been having this workup for systemic inflammatory response syndrom e and workup has been initially positive for possible acalculous cholecystitis, but his HIDA scan sandoval s been negative. The patient is noted to have a hyponatremia with a sodium of 128 and renal has bee n consulted for: 1. Hyponatremia likely secondary to liver disease causing hypovolemic hyponatremia. 2. Chronic and acute alcoholic hepatitis. 3. Severe chronic liver disease with a significant symptomatic ascites. 4. Systemic inflammatory response syndrome with leukocytosis and lactic acidosis likely secondary t o acute alcoholic hepatitis. 5. Macrocytic anemia. 6. History of smoking. 7. History of dyslipidemia. 8. Cholecystitis ruled out with negative HIDA scan. 9. Hyperammonemia without encephalopathy. 10. Persistent leukocytosis secondary to alcoholic hepatitis. 11. Urinary tract infection on oral antifungals. PLAN: 1. Thank you, Dr. Capps, for this consultation. The patient will need paracentesis for his significa nt symptomatic ascites, which will help in improvement of his sodium. We will plan to give albumin a fter the paracentesis done. 2. Currently urine studies have been ordered including a urine sodium, urine osmolality and serum o smolality acid. 3. Continue the Lasix 40 mg p.o. daily. Spironolactone 100 mg p.o. daily for his liver cirrhosis a nd symptomatic ascites. 4. The patient is currently seen in the med/surg floor and will be followed up along with the [facility] service and the GI service. Once again, thank you, Dr. Capps, for this consultation. I will continue to follow this patient along with you. Dictated By: ISRRAEL MACKEY MD, KP/[place] Conf#: [id number] [facility]#: [id number]
--- NOTE | 2016-12-06 16:03 | CONS ---
Date/Time of Note Date/Time of Note DATE: 12/06/16 TIME: 16:01 Assessment/Plan Assessment/Plan Chief Complaint/Hosp Course SUBJECTIVE: The patient is alert, feels good, no fevers MICROBIOLOGY: C dif neg. Blood cultures have been negative. DIAGNOSTICS: Chest x-ray on December 01 revealed bibasilar atelectasis. ANTIMICROBIALS: Flagyl, s/p fluconazole dose. PHYSICAL EXAMINATION: GENERAL: Well-developed, elderly man who is alert, in no distress. HEENT: Head atraumatic, normocephalic. Sclerae anicteric. Buccal mucosa dry. NECK: Supple. CHEST: Rise symmetrical. Breath sounds clear. HEART: S1, S2. ABDOMEN: Distended, soft. Bowel sounds present. EXTREMITIES: No cyanosis. ASSESSMENT: 1. Persistent leukocytosis, likely reactive 2. Diarrhea. 3. Fungal urinary tract infection. 4. Acute alcoholic hepatitis. Questionable acalculous cholecystitis. 5. Chronic alcohol abuse. 6. Recurrent ascites, status post paracentesis with fluid cultures revealed no evidence of spontaneous bacterial peritonitis. PLAN: Remains stable, will dc Flagyl, continue present care, f/u GI/hematology rec-s, christ[facility] cx prn for T 101, f/u cxr in am [facility] staff Problems: Consultation Date/Type/Reason Admit Date/Time Nov 16, 2016 at 17:43 Initial Consult Date 12/04/16 Type of Consultation: ID Referring Provider: ZEUS PHILIPPE Exam/Review of Systems Vital Signs Vitals Vital Signs Date Time Temp Pulse Resp B/P Pulse Ox O2 Delivery O2 Flow Rate FiO2 12/06/16 08:10 97.4 93 19 86/53 97 12/04/16 15:38 Room Air Intake and Output 12/05/16 12/05/16 12/06/16 15:00 23:00 07:00 Intake Total 810 ml 530 ml Output Total 300 ml Balance 810 ml 230 ml Results Result Diagram: 12/06/16 0501 12/06/16 0501 Results 24 hrs Laboratory Tests Test 12/05/16 16:25 12/06/16 05:01 White Blood Count 23.5 #H 22.5 H Red Blood Count 3.12 L 3.01 L Hemoglobin 11.5 L 10.9 L Hematocrit 32.2 L 31.5 L Mean Corpuscular Volume 103.2 H 104.7 H Mean Corpuscular Hemoglobin 36.9 H 36.2 H Mean Corpuscular Hemoglobin Concent 35.7 34.6 Red Cell Distribution Width 16.9 H 17.0 H Platelet Count 175 # 144 Mean Platelet Volume 12.8 H 13.7 H Neutrophils % 80.0 H 86.0 H Lymphocytes % 12.0 L 9.0 L Monocytes % 5.0 3.0 Eosinophils % 1.0 2.0 Myelocytes % 2.0 H Neutrophils # 18.8 H 19.4 H Lymphocytes # 2.8 2.0 Monocytes # 1.2 H 0.7 Eosinophils # 0.2 0.5 Myelocytes # 0.5 Sodium Level 128 L 128 L Potassium Level 4.3 4.0 Chloride Level 97 96 L Carbon Dioxide Level 26 26 Anion Gap 9 10 Blood Urea Nitrogen 18 18 Creatinine 0.78 0.72 Glucose Level 251 H 139 # Calcium Level 8.2 L 8.2 L Iron Level 39 Total Iron Binding Capacity 159 L Percent Iron Saturation 25 Ferritin 649.0 H Total Bilirubin 7.7 H 8.4 H Direct Bilirubin 6.10 H 6.40 H Indirect Bilirubin 1.6 H 2.0 H Aspartate Amino Transf (AST/SGOT) 237 H 194 H Alanine Aminotransferase (ALT/SGPT) 168 H 153 H Alkaline Phosphatase 838 H 785 H Lactate Dehydrogenase 421 Total Protein 5.7 L 5.9 L Albumin 2.2 L 2.4 L Globulin 3.50 H 3.50 H Albumin/Globulin Ratio 0.62 0.68 Vitamin B12 Level 896 Folate 7.2 Thyroid Stimulating Hormone (TSH) 2.310 Basophils % Nucleated Red Blood Cells % 1.0 H Basophils # Nucleated Red Blood Cells # Differential Comment MANUAL DIFF Large Platelets OCCASIONAL Polychromasia OCCASIONAL Medications Medications Current Medications Sucralfate (Carafate) 1 gm QID PO Last administered on 12/06/16 13:37; Admin Dose 1 GM; Start 11/16/16 at 21:00 Ondansetron HCl (Zofran Inj) 4 mg Q6H PRN IV NAUSEA AND/OR VOMITING; Start at 19:30 Morphine Sulfate (morphine) 2 mg Q4H PRN IV pain; Start 11/16/16 at 19:30 Spironolactone (Aldactone) 100 mg DAILY PO Last administered on 12/06/16 09:20 ; Admin Dose 100 MG; Start 11/22/16 at 11:30 Pantoprazole (Protonix Tab) 40 mg DAILY@06 PO Last administered on 12/06/16 05: 17; Admin Dose 40 MG; Start 11/24/16 at 06:00 Furosemide (Lasix) 40 mg DAILY PO Last administered on 12/06/16 09:20; Admin Dose 40 MG; Start 12/03/16 at 09:00 Metronidazole (Flagyl) 500 mg Q8 PO Last administered on 12/06/16 13:37; Admin Dose 500 MG; Start 12/04/16 at 14:00 Lactulose 30 gm 30 gm DAILY PO Last administered on 12/06/16 09:22; Admin Dose 30 GM; Start 12/06/16 at 09:00 Albumin Human (Albumin Human 25%) 100 ml @ 100 mls/hr ONCE ONCE IV ; Start 12/07/16 at 12:00; Stop 12/07/16 at 12:59 MARIBETH BARRETT NP December 06, 2016 16:03
[2016-12-06 20:47] VITALS: BP 94/62; RESP 20
[2016-12-07] MEDS: metroNIDAZOLE 500 MG TAB PO SCH (05:34)
[2016-12-07] MEDS: PANTOPRAZOLE (EC) 40 MG TAB PO SCH (05:34)
[2016-12-07 06:17] LABS: ADD SCAN DIFF NO
[2016-12-07 06:26] LABS: ABNORMAL IP MESSAGE 1; BASOPHIL # 0.1 10^3/ul (0.0-0.1); BASOPHILS % 0.2 % (0.0-2.0); EOSINOPHILS # 0.2 10^3/ul (0.0-0.5); EOSINOPHILS % 0.7 % (0.0-7.0); HEMATOCRIT 32.9 % (42.0-52.0); HEMOGLOBIN 11.6 g/dl (14.0-18.0); LYMPHOCYTES # 2.1 10^3/ul (0.8-2.9); MEAN CORPUSCULAR HEMOGLOBIN 36.5 pg (29.0-33.0); MEAN CORPUSCULAR HGB CONC 35.3 g/dl (32.0-37.0); MEAN CORPUSCULAR VOLUME 103.5 fl (82.0-101.0); MEAN PLATELET VOLUME 14.1 fl (7.4-10.4); MONOCYTE # 1.2 10^3/ul (0.3-0.9); MONOCYTES % 5.2 % (0.0-11.0); NEUTROPHIL # 19.2 10^3/ul (1.6-7.5); PLATELET COUNT 150 10^3/UL (140-415); RED BLOOD COUNT 3.18 10^6/ul (4.70-6.10); WHITE BLOOD COUNT 23.2 10^3/ul (4.8-10.8)
[2016-12-07 07:02] LABS: ALBUMIN 2.4 g/dl (3.3-4.9); ALBUMIN/GLOBULIN RATIO 0.66; BILIRUBIN,INDIRECT 1.6 mg/dl (0-1.1); BILIRUBIN,TOTAL 7.6 mg/dl (0.2-1.3); CALCIUM 8.2 mg/dl (8.4-10.2); CREATININE 0.74 mg/dl (0.61-1.24); POTASSIUM 4.3 mmol/L (3.5-5.1)
[2016-12-07 07:17] LABS: THYROID STIMULATING HORMONE 2.73 MIU/L (0.465-4.680)
[2016-12-07 07:23] LABS: URIC ACID 2.7 mg/dl (3.1-7.9)
[2016-12-07 07:50] VITALS: BP 93/65; RESP 16
[2016-12-07] MEDS ORDERED: LIDOCAINE 1% (MPF) 5 ML VIAL ONE (08:56)
[2016-12-07] MEDS: FUROSEMIDE 40 MG TAB PO SCH (09:00)
--- NOTE | 2016-12-07 09:12 | RADRPT ---
PROCEDURE: Chest Radiograph. CLINICAL INDICATION: Cough. TECHNIQUE: Single frontal chest radiograph. COMPARISON: Chest radiograph 12/01/2016 FINDINGS: The cardiomediastinal silhouette is within normal limits. No infiltrate or effusion is seen. Th e bones are intact. IMPRESSION: 1. Unremarkable chest radiograph. RPTAT: HJBF .Coy Fernandes MD, MD Date Time Electronically viewed and signed by .Coy Fernandes MD, on 12/07/2016 09:12 .B/
[2016-12-07] MEDS: LACTULOSE 30ML CUP PO SCH (10:06)
[2016-12-07] MEDS: SUCRALFATE 1 GM TAB PO SCH ×4 (10:07→20:28)
[2016-12-07] MEDS: SPIRONOLACTONE 50 MG TAB PO SCH (10:07)
--- NOTE | 2016-12-07 11:22 | PN ---
Date/Time of Note Date/Time of Note DATE: 12/07/16 TIME: 11:17 Assessment/Plan VTE Prophylaxis VTE Prophylaxis Intervention: LMWH Lines/Catheters IV [facility] Saline Lock Urinary Cath still in place: No Assessment/Plan Chief Complaint/Hosp Course S: 66-year-old gentleman admitted with ascites. O: Vss. Systolic around 90. No temperature. I's and O's positive. Weight -6 kg since admission Physical exam No pallor adenopathy Reg, no murmur rub gallop CTAB BS present, nontender, mild/moderate distended. No RR G. 2+ edema negative Hom[place] Assessment and plan 1. Decompensated ascites. Probable cirrhosis. Appreciate GI assistance. Stable cont spironolactone/ Lasix. Beta-ted? 2. Cirrhosis? 3. Alcoholic liver disease; discharge home once okay w GI. 4. Hepatitis B, chronic status 5. Past alcoholism; thiamine. AA as needed 6. Chronic liver disease sequela/anemia. 7. Tobacco abuse 8. Depression 9. Leukocytosis/possible leukemoid reaction 10. Hyponatremia. Possibly hypovolemic/intravascular depleted. 11. Dyslipidemia 12. Hypoalbuminemia 13. Problems: Exam/Review of Systems Vital Signs Vitals Vital Signs Date Time Temp Pulse Resp B/P Pulse Ox O2 Delivery O2 Flow Rate FiO2 12/07/16 07:50 98.5 102 16 93/65 98 12/04/16 15:38 Room Air Intake and Output 12/06/16 12/06/16 12/07/16 15:00 23:00 07:00 Intake Total 640 ml 720 ml Output Total 650 ml Balance -10 ml 720 ml Results Result Diagram: 12/07/16 0505 12/07/16 0505 Results 24 hrs Laboratory Tests Test 12/06/16 17:20 12/07/16 05:05 12/07/16 05:15 Urine Osmolality 550 Urine Random Sodium 86 White Blood Count 23.2 H Red Blood Count 3.18 L Hemoglobin 11.6 L Hematocrit 32.9 L Mean Corpuscular Volume 103.5 H Mean Corpuscular Hemoglobin 36.5 H Mean Corpuscular Hemoglobin Concent 35.3 Red Cell Distribution Width 17.0 H Platelet Count 150 Mean Platelet Volume 14.1 H Neutrophils % 83.0 H Lymphocytes % 9.0 L Monocytes % 5.2 Eosinophils % 0.7 Basophils % 0.2 Nucleated Red Blood Cells % 0.0 Neutrophils # 19.2 H Lymphocytes # 2.1 Monocytes # 1.2 H Eosinophils # 0.2 Basophils # 0.1 Nucleated Red Blood Cells # 0.0 Differential Comment AUTO w/SCAN Sodium Level 129 L Potassium Level 4.3 Chloride Level 97 Carbon Dioxide Level 24 Anion Gap 12 Blood Urea Nitrogen 18 Creatinine 0.74 Glucose Level 187 Osmolality 281 Uric Acid 2.7 L Calcium Level 8.2 L Total Bilirubin 7.6 H Direct Bilirubin 6.00 H Indirect Bilirubin 1.6 H Aspartate Amino Transf (AST/SGOT) 149 H Alanine Aminotransferase (ALT/SGPT) 131 H Alkaline Phosphatase 934 H Total Protein 6.0 L Albumin 2.4 L Globulin 3.60 H Albumin/Globulin Ratio 0.66 Thyroid Stimulating Hormone (TSH) 2.730 Random Cortisol 18.3 Free Thyroxine 1.45 Medications Medications Current Medications Sucralfate (Carafate) 1 gm QID PO Last administered on 12/07/16 10:07; Admin Dose 1 GM; Start 11/16/16 at 21:00 Ondansetron HCl (Zofran Inj) 4 mg Q6H PRN IV NAUSEA AND/OR VOMITING; Start at 19:30 Morphine Sulfate (morphine) 2 mg Q4H PRN IV pain; Start 11/16/16 at 19:30 Spironolactone (Aldactone) 100 mg DAILY PO Last administered on 12/07/16 10:07 ; Admin Dose 100 MG; Start 11/22/16 at 11:30 Pantoprazole (Protonix Tab) 40 mg DAILY@06 PO Last administered on 12/07/16 05: 34; Admin Dose 40 MG; Start 11/24/16 at 06:00 Furosemide (Lasix) 40 mg DAILY PO Last administered on 12/06/16 09:20; Admin Dose 40 MG; Start 12/03/16 at 09:00 Lactulose 30 gm 30 gm DAILY PO Last administered on 12/07/16 10:06; Admin Dose 30 GM; Start 12/06/16 at 09:00 Albumin Human (Albumin Human 25%) 100 ml @ 100 mls/hr ONCE ONCE IV ; Start 12/07/16 at 12:00; Stop 12/07/16 at 12:59 VERONICA HARE MD December 07, 2016 11:22
[2016-12-07] MEDS ORDERED: ALBUMIN HUMAN 25% 100 ML IV ONE (12:00)
--- NOTE | 2016-12-07 12:07 | RADRPT ---
PROCEDURE: Ultrasound guided paracentesis. CLINICAL INDICATION: Ascites and shortness of breath. COMPARISON: 12/03/2016. TECHNIQUE: The risks, benefits, and alternatives were explained to the patient and/or the patient's family, inc luding but not limited to bleeding, infection, pain, visceral or vascular damage, shock, and . The patient and/or the patient's family understood the risks and the alternatives and wished to pro ceed with the procedure. Informed written consent was obtained. A procedural time out was performed . The patient's name, date of , and procedure to be performed were verified. Utilizing ultrasound guidance, optimal location for entry to the peritoneal cavity was ascertained. The overlying skin was prepped and draped in the usual sterile fashion. Approximately 10 ml of 1% Xylocaine was injected locally for pain control. Using ultrasound guidance, an 8 Hungarian catheter wa s introduced into the peritoneal cavity in the right lower quadrant without difficulty. FINDINGS: Initial images demonstrate ascites. Approximately 3.7 liters of serous fluid was aspirated and disc arded. The patient tolerated the procedure well without complication. IMPRESSION: 1. Successful ultrasound-guided paracentesis. RPTAT: QQ .Roe Toribio MD, Date Time Electronically viewed and signed by .Roe Toribio MD, on 12/07/2016 12:06 .R/
--- NOTE | 2016-12-07 12:33 | CONS ---
Date/Time of Note Date/Time of Note DATE: 12/07/16 TIME: 12:32 Assessment/Plan Assessment/Plan Chief Complaint/Hosp Course SUBJECTIVE: The patient is alert, feels good, no fevers MICROBIOLOGY: C dif neg. Blood cultures have been negative. DIAGNOSTICS: Chest x-ray on December 01 revealed bibasilar atelectasis. PHYSICAL EXAMINATION: GENERAL: Well-developed, elderly man who is alert, in no distress. HEENT: Head atraumatic, normocephalic. Sclerae anicteric. Buccal mucosa dry. NECK: Supple. CHEST: Rise symmetrical. Breath sounds clear. HEART: S1, S2. ABDOMEN: Distended, soft. Bowel sounds present. EXTREMITIES: No cyanosis. ASSESSMENT: 1. Persistent leukocytosis, likely reactive 2. Diarrhea. 3. Fungal urinary tract infection. 4. Acute alcoholic hepatitis. Questionable acalculous cholecystitis. 5. Chronic alcohol abuse. 6. Recurrent ascites, status post paracentesis with fluid cultures revealed no evidence of spontaneous bacterial peritonitis. PLAN: Remains stable, off abx, continue present care, f/u GI/hematology rec-s, [facility] cx prn for T 101, f/u cxr in am [facility] staff Problems: Consultation Date/Type/Reason Admit Date/Time Nov 16, 2016 at 17:43 Initial Consult Date 12/04/16 Type of Consultation: ID Referring Provider: ZEUS PHILIPPE Exam/Review of Systems Vital Signs Vitals Vital Signs Date Time Temp Pulse Resp B/P Pulse Ox O2 Delivery O2 Flow Rate FiO2 12/07/16 07:50 98.5 102 16 93/65 98 12/04/16 15:38 Room Air Intake and Output 12/06/16 12/06/16 12/07/16 15:00 23:00 07:00 Intake Total 640 ml 720 ml Output Total 650 ml Balance -10 ml 720 ml Results Result Diagram: 12/07/16 0505 12/07/16 0505 Results 24 hrs Laboratory Tests Test 12/06/16 17:20 12/07/16 05:05 12/07/16 05:15 Urine Osmolality 550 Urine Random Sodium 86 White Blood Count 23.2 H Red Blood Count 3.18 L Hemoglobin 11.6 L Hematocrit 32.9 L Mean Corpuscular Volume 103.5 H Mean Corpuscular Hemoglobin 36.5 H Mean Corpuscular Hemoglobin Concent 35.3 Red Cell Distribution Width 17.0 H Platelet Count 150 Mean Platelet Volume 14.1 H Neutrophils % 83.0 H Lymphocytes % 9.0 L Monocytes % 5.2 Eosinophils % 0.7 Basophils % 0.2 Nucleated Red Blood Cells % 0.0 Neutrophils # 19.2 H Lymphocytes # 2.1 Monocytes # 1.2 H Eosinophils # 0.2 Basophils # 0.1 Nucleated Red Blood Cells # 0.0 Differential Comment AUTO w/SCAN Sodium Level 129 L Potassium Level 4.3 Chloride Level 97 Carbon Dioxide Level 24 Anion Gap 12 Blood Urea Nitrogen 18 Creatinine 0.74 Glucose Level 187 Osmolality 281 Uric Acid 2.7 L Calcium Level 8.2 L Total Bilirubin 7.6 H Direct Bilirubin 6.00 H Indirect Bilirubin 1.6 H Aspartate Amino Transf (AST/SGOT) 149 H Alanine Aminotransferase (ALT/SGPT) 131 H Alkaline Phosphatase 934 H Total Protein 6.0 L Albumin 2.4 L Globulin 3.60 H Albumin/Globulin Ratio 0.66 Thyroid Stimulating Hormone (TSH) 2.730 Random Cortisol 18.3 Free Thyroxine 1.45 Medications Medications Current Medications Sucralfate (Carafate) 1 gm QID PO Last administered on 12/07/16 10:07; Admin Dose 1 GM; Start 11/16/16 at 21:00 Ondansetron HCl (Zofran Inj) 4 mg Q6H PRN IV NAUSEA AND/OR VOMITING; Start at 19:30 Morphine Sulfate (morphine) 2 mg Q4H PRN IV pain; Start 11/16/16 at 19:30 Spironolactone (Aldactone) 100 mg DAILY PO Last administered on 12/07/16 10:07 ; Admin Dose 100 MG; Start 11/22/16 at 11:30 Pantoprazole (Protonix Tab) 40 mg DAILY@06 PO Last administered on 12/07/16 05: 34; Admin Dose 40 MG; Start 11/24/16 at 06:00 Furosemide (Lasix) 40 mg DAILY PO Last administered on 12/06/16 09:20; Admin Dose 40 MG; Start 12/03/16 at 09:00 Lactulose 30 gm 30 gm DAILY PO Last administered on 12/07/16 10:06; Admin Dose 30 GM; Start 12/06/16 at 09:00 Albumin Human (Albumin Human 25%) 100 ml @ 100 mls/hr ONCE ONCE IV ; Start 12/07/16 at 12:00; Stop 12/07/16 at 12:59 Thiamine HCl (Vitamin B1) 100 mg DAILY PO ; Start 12/07/16 at 11:30 Enoxaparin Sodium (Lovenox) 30 mg DAILY SC ; Start 12/07/16 at 11:30 Lactobacillus Acidophilus/ Rhamnosus (Culturelle) 1 cap BID PO ; Start 12/07/16 at 11:30 MARIBETH BARRETT NP December 07, 2016 12:33
[2016-12-07] MEDS: LACTOBACILLUS RHAMNOSUS CAP PO SCH ×2 (13:03→20:28)
[2016-12-07] MEDS: THIAMINE 100 MG TAB PO SCH (13:03)
[2016-12-07] MEDS: ENOXAPARIN 30 MG/0.3 ML SYG SC SCH (13:06)
--- NOTE | 2016-12-07 14:06 | PN ---
Date/Time of Note Date/Time of Note DATE: 12/07/16 TIME: 14:04 Assessment/Plan VTE Prophylaxis VTE Prophylaxis Intervention: SCD's Lines/Catheters IV Catheter Type (from [facility] Urinary Cath still in place: No Assessment/Plan Assessment/Plan aundice/Hepatocellular * Acute alcoholic hepatitis Os[place]is liver discrimination function 37.5 ?Acalculous cholecystitis BY MRCP/ clinically unlikely Hepatitis B exposure/no active infection Ascites Chronic alcoholism Plan: Continue present management Monitor liver function test Paracentesis as needed Prednisolone 40 mg daily for 28 days, Further recommendations depend on clinical course Subjective 24 Hr Interval Summary Free Text/Dictation * Course reviewed with RN * Patient seen and examined * Denies abdominal pain * scheduled for abdominal paracentesis today Exam/Review of Systems Vital Signs Vitals Vital Signs Date Time Temp Pulse Resp B/P Pulse Ox O2 Delivery O2 Flow Rate FiO2 12/07/16 07:50 98.5 102 16 93/65 98 12/04/16 15:38 Room Air Intake and Output 12/06/16 12/06/16 12/07/16 15:00 23:00 07:00 Intake Total 640 ml 720 ml Output Total 650 ml Balance -10 ml 720 ml Exam Constitutional: alert, oriented Head: normocephalic Neck: non-tender, supple Respiratory: clear to auscultation, normal air movement Cardiovascular: nl pulses, regular rate and rhythm Gastrointestinal: ascites, bowel sounds, soft, No rebound or guarding Musculoskeletal: nl extremities to inspection, nl gait and stance Results Result Diagram: 12/07/16 0505 12/07/16 0505 Results 24 hrs Laboratory Tests Test 12/06/16 17:20 12/07/16 05:05 12/07/16 05:15 Urine Osmolality 550 Urine Random Sodium 86 White Blood Count 23.2 H Red Blood Count 3.18 L Hemoglobin 11.6 L Hematocrit 32.9 L Mean Corpuscular Volume 103.5 H Mean Corpuscular Hemoglobin 36.5 H Mean Corpuscular Hemoglobin Concent 35.3 Red Cell Distribution Width 17.0 H Platelet Count 150 Mean Platelet Volume 14.1 H Neutrophils % 83.0 H Lymphocytes % 9.0 L Monocytes % 5.2 Eosinophils % 0.7 Basophils % 0.2 Nucleated Red Blood Cells % 0.0 Neutrophils # 19.2 H Lymphocytes # 2.1 Monocytes # 1.2 H Eosinophils # 0.2 Basophils # 0.1 Nucleated Red Blood Cells # 0.0 Differential Comment AUTO w/SCAN Sodium Level 129 L Potassium Level 4.3 Chloride Level 97 Carbon Dioxide Level 24 Anion Gap 12 Blood Urea Nitrogen 18 Creatinine 0.74 Glucose Level 187 Osmolality 281 Uric Acid 2.7 L Calcium Level 8.2 L Total Bilirubin 7.6 H Direct Bilirubin 6.00 H Indirect Bilirubin 1.6 H Aspartate Amino Transf (AST/SGOT) 149 H Alanine Aminotransferase (ALT/SGPT) 131 H Alkaline Phosphatase 934 H Total Protein 6.0 L Albumin 2.4 L Globulin 3.60 H Albumin/Globulin Ratio 0.66 Thyroid Stimulating Hormone (TSH) 2.730 Random Cortisol 18.3 Free Thyroxine 1.45 Medications Medications Current Medications Sucralfate (Carafate) 1 gm QID PO Last administered on 12/07/16 13:02; Admin Dose 1 GM; Start 11/16/16 at 21:00 Ondansetron HCl (Zofran Inj) 4 mg Q6H PRN IV NAUSEA AND/OR VOMITING; Start at 19:30 Morphine Sulfate (morphine) 2 mg Q4H PRN IV pain; Start 11/16/16 at 19:30 Spironolactone (Aldactone) 100 mg DAILY PO Last administered on 12/07/16 10:07 ; Admin Dose 100 MG; Start 11/22/16 at 11:30 Pantoprazole (Protonix Tab) 40 mg DAILY@06 PO Last administered on 12/07/16 05: 34; Admin Dose 40 MG; Start 11/24/16 at 06:00 Furosemide (Lasix) 40 mg DAILY PO Last administered on 12/06/16 09:20; Admin Dose 40 MG; Start 12/03/16 at 09:00 Lactulose (Enulose) 30 gm DAILY PO Last administered on 12/07/16 10:06; Admin Dose 30 GM; Start 12/06/16 at 09:00 Thiamine HCl (Vitamin B1) 100 mg DAILY PO Last administered on 12/07/16 13:03; Admin Dose 100 MG; Start 12/07/16 at 11:30 Enoxaparin Sodium (Lovenox) 30 mg DAILY SC Last administered on 12/07/16 13:06 ; Admin Dose 30 MG; Start 12/07/16 at 11:30 Lactobacillus Acidophilus/ Rhamnosus (Culturelle) 1 cap BID PO Last administered on 12/07/16t 13:03; Admin Dose 1 CAP; Start 12/07/16 at 11:30 MORIS HINES MD December 07, 2016 14:06
--- NOTE | 2016-12-07 16:46 | CONS ---
Date/Time of Note Date/Time of Note DATE: 12/07/16 TIME: 16:42 Assessment/Plan Assessment/Plan Additional Assessment/Plan 1. Hyponatremia likely secondary to liver disease causing hypervolemic hyponatremia. 2. Acute alcoholic hepatitis. 3. Decompensated Liver cirrhosis with symptomatic ascites 4. Systemic inflammatory response syndrome with leukocytosis and lactic acidosis likely secondary to acute alcoholic hepatitis. 5. Macrocytic anemia. 6. History of smoking. 7. History of dyslipidemia. 8. Cholecystitis ruled out with negative HIDA scan. 9. Hyperammonemia without encephalopathy. 10. Persistent leukocytosis secondary to alcoholic hepatitis. 11. Urinary tract infection on oral antifungal Plan: Continue current treatment for Acute hepatitis, WBC still high US guided paracentesis ordered by me will give albumin 25% IV x 1 dose after paracentesis done BP stable will continue to follow up pt is not a candidate of tolvaptan due to elevated liver enzymes. Consultation Date/Type/Reason Admit Date/Time Nov 16, 2016 at 17:43 Initial Consult Date 12/06/16 Type of Consultation: NEPHROLOGY Reason for Consultation Hyponatremia, Symptomatic ascites, ESLD Referring Provider: ZEUS PHILIPPE 24 HR Interval Summary Free Text/Dictation Na 129 today, WBC still high Exam/Review of Systems Vital Signs Vitals Vital Signs Date Time Temp Pulse Resp B/P Pulse Ox O2 Delivery O2 Flow Rate FiO2 12/07/16 07:50 98.5 102 16 93/65 98 12/04/16 15:38 Room Air Intake and Output 12/06/16 12/06/16 12/07/16 15:00 23:00 07:00 Intake Total 640 ml 720 ml Output Total 650 ml Balance -10 ml 720 ml Exam GENERAL: Awake, alert, no acute distress, but the patient has a significantly distended abdomen. HEENT: Mild scleral icterus, pale conjunctivae. Pupils equal, round, reactive to light and accommodation. NECK: Supple, no JVD, no lymphadenopathy. LUNGS: Decreased breath sounds at both lung bases. No crackles, no wheezes. HEART: S1, S2, with regular rhythm, no murmur. ABDOMEN: Soft, distended. Ascites present. Fluid wave is present, nontender. EXTREMITIES: 1 to 2+ pitting edema, no clubbing, no cyanosis. NEUROLOGICAL: Alert, oriented x3. Cranial nerves II through XII intact. No focal deficits. Strength is normal. PSYCHIATRIC: Appropriate affect and mood. Results Result Diagram: 12/07/16 0505 12/07/16 0505 Results 24 hrs Laboratory Tests Test 12/06/16 17:20 12/07/16 05:05 12/07/16 05:15 Urine Osmolality 550 Urine Random Sodium 86 White Blood Count 23.2 H Red Blood Count 3.18 L Hemoglobin 11.6 L Hematocrit 32.9 L Mean Corpuscular Volume 103.5 H Mean Corpuscular Hemoglobin 36.5 H Mean Corpuscular Hemoglobin Concent 35.3 Red Cell Distribution Width 17.0 H Platelet Count 150 Mean Platelet Volume 14.1 H Neutrophils % 83.0 H Lymphocytes % 9.0 L Monocytes % 5.2 Eosinophils % 0.7 Basophils % 0.2 Nucleated Red Blood Cells % 0.0 Neutrophils # 19.2 H Lymphocytes # 2.1 Monocytes # 1.2 H Eosinophils # 0.2 Basophils # 0.1 Nucleated Red Blood Cells # 0.0 Differential Comment AUTO w/SCAN Sodium Level 129 L Potassium Level 4.3 Chloride Level 97 Carbon Dioxide Level 24 Anion Gap 12 Blood Urea Nitrogen 18 Creatinine 0.74 Glucose Level 187 Osmolality 281 Uric Acid 2.7 L Calcium Level 8.2 L Total Bilirubin 7.6 H Direct Bilirubin 6.00 H Indirect Bilirubin 1.6 H Aspartate Amino Transf (AST/SGOT) 149 H Alanine Aminotransferase (ALT/SGPT) 131 H Alkaline Phosphatase 934 H Total Protein 6.0 L Albumin 2.4 L Globulin 3.60 H Albumin/Globulin Ratio 0.66 Thyroid Stimulating Hormone (TSH) 2.730 Random Cortisol 18.3 Free Thyroxine 1.45 Medications Medications Current Medications Sucralfate (Carafate) 1 gm QID PO Last administered on 12/07/16 13:02; Admin Dose 1 GM; Start 11/16/16 at 21:00 Ondansetron HCl (Zofran Inj) 4 mg Q6H PRN IV NAUSEA AND/OR VOMITING; Start at 19:30 Morphine Sulfate (morphine) 2 mg Q4H PRN IV pain; Start 11/16/16 at 19:30 Spironolactone (Aldactone) 100 mg DAILY PO Last administered on 12/07/16 10:07 ; Admin Dose 100 MG; Start 11/22/16 at 11:30 Pantoprazole (Protonix Tab) 40 mg DAILY@06 PO Last administered on 12/07/16 05: 34; Admin Dose 40 MG; Start 11/24/16 at 06:00 Furosemide (Lasix) 40 mg DAILY PO Last administered on 12/06/16 09:20; Admin Dose 40 MG; Start 12/03/16 at 09:00 Lactulose (Enulose) 30 gm DAILY PO Last administered on 12/07/16 10:06; Admin Dose 30 GM; Start 12/06/16 at 09:00 Thiamine HCl (Vitamin B1) 100 mg DAILY PO Last administered on 12/07/16 13:03; Admin Dose 100 MG; Start 12/07/16 at 11:30 Enoxaparin Sodium (Lovenox) 30 mg DAILY SC Last administered on 12/07/16 13:06 ; Admin Dose 30 MG; Start 12/07/16 at 11:30 Lactobacillus Acidophilus/ Rhamnosus (Culturelle) 1 cap BID PO Last administered on 12/07/16 13:03; Admin Dose 1 CAP; Start 12/07/16 at 11:30 ISRRAEL MACKEY MD December 07, 2016 16:46
--- NOTE | 2016-12-07 17:26 | CONS ---
Date/Time of Note Date/Time of Note DATE: 12/07/16 TIME: 17:22 Assessment/Plan Assessment/Plan Chief Complaint/Hosp Course Alberto Gorman is a 65-year-old male with a history of chronic alcoholism and underlying alcoholic cirrhosis, who was admitted with abdominal distention and weakness with significant leukocytosis. He denies any fever. He is being treated for acute alcoholic hepatitis, improving, with history of Hep B exposure without active infection, SIRS with leucocytosis and lactic acidosis likely 2/2 #1, and macrocytic anemia due to alcoholism. This patient with history of cirrhosis now also has positive hepatitis B core antibody. Further serology tests for hepatitis B should be done and consider treatment if necessary for hepatitis B. # Leukocytosis, likely reactive, secondary to acute alcoholic hepatitis and likely exacerbated by steroids - Trend WBC, downtrending from 29.7 to 23.2, likely reactive as ESR and CRP elevated at 76 and 7, respectively - Appreciate ID recs, C. diff negative, observe off antibiotics per ID. Diarrhea likely related to lactulose. - Though lower suspicion, will send flow cytometry for leukemia/lymphoma, BCR/ ABL and JAK2 V617 mutation to eval for underlying primary hematologic process ( pending) # Macrocytic anemia, likely due to alcoholism and anemia of chronic inflammation , mild, stable. Monitor. Iron panel consistent with anemia of chronic inflammation (Fe 39, RIBC 159 low, %sat 25%, ferritin 649), B12/folate/TSH WNL, LDH normal at 421, pending haptoglobin, retic count Will continue to follow Problems: Consultation Date/Type/Reason Admit Date/Time Nov 16, 2016 at 17:43 Initial Consult Date 12/04/16 Type of Consultation: Hematology Referring Provider: ZEUS PHILIPPE 24 HR Interval Summary Free Text/Dictation The patient has no complaints. Had paracentesis today. 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 Results Result Diagram: 12/07/16 1650 12/07/16 0505 Results 24 hrs Laboratory Tests Test 12/07/16 05:05 12/07/16 05:15 12/07/16 16:50 Sodium Level 129 L Potassium Level 4.3 Chloride Level 97 Carbon Dioxide Level 24 Anion Gap 12 Blood Urea Nitrogen 18 Creatinine 0.74 Glucose Level 187 Osmolality 281 Uric Acid 2.7 L Calcium Level 8.2 L Total Bilirubin 7.6 H Direct Bilirubin 6.00 H Indirect Bilirubin 1.6 H Aspartate Amino Transf (AST/SGOT) 149 H Alanine Aminotransferase (ALT/SGPT) 131 H Alkaline Phosphatase 934 H Total Protein 6.0 L Albumin 2.4 L Globulin 3.60 H Albumin/Globulin Ratio 0.66 Thyroid Stimulating Hormone (TSH) 2.730 Random Cortisol 18.3 Free Thyroxine 1.45 White Blood Count 23.2 H Red Blood Count 3.18 L Hemoglobin 11.6 L Hematocrit 32.9 L Mean Corpuscular Volume 103.5 H Mean Corpuscular Hemoglobin 36.5 H Mean Corpuscular Hemoglobin Concent 35.3 Red Cell Distribution Width 17.0 H Platelet Count 150 Mean Platelet Volume 14.1 H Neutrophils % 83.0 H Lymphocytes % 9.0 L Monocytes % 5.2 Eosinophils % 0.7 Basophils % 0.2 Nucleated Red Blood Cells % 0.0 Neutrophils # 19.2 H Lymphocytes # 2.1 Monocytes # 1.2 H Eosinophils # 0.2 Basophils # 0.1 Nucleated Red Blood Cells # 0.0 Differential Comment AUTO w/SCAN Medications Medications Current Medications Sucralfate (Carafate) 1 gm QID PO Last administered on 12/07/16 13:02; Admin Dose 1 GM; Start 11/16/16 at 21:00 Ondansetron HCl (Zofran Inj) 4 mg Q6H PRN IV NAUSEA AND/OR VOMITING; Start at 19:30 Morphine Sulfate (morphine) 2 mg Q4H PRN IV pain; Start 11/16/16 at 19:30 Spironolactone (Aldactone) 100 mg DAILY PO Last administered on 12/07/16 10:07 ; Admin Dose 100 MG; Start 11/22/16 at 11:30 Pantoprazole (Protonix Tab) 40 mg DAILY@06 PO Last administered on 12/07/16 05: 34; Admin Dose 40 MG; Start 11/24/16 at 06:00 Furosemide (Lasix) 40 mg DAILY PO Last administered on 12/06/16 09:20; Admin Dose 40 MG; Start 12/03/16 at 09:00 Lactulose (Enulose) 30 gm DAILY PO Last administered on 12/07/16 10:06; Admin Dose 30 GM; Start 12/06/16 at 09:00 Thiamine HCl (Vitamin B1) 100 mg DAILY PO Last administered on 12/07/16 13:03; Admin Dose 100 MG; Start 12/07/16 at 11:30 Enoxaparin Sodium (Lovenox) 30 mg DAILY SC Last administered on 12/07/16 13:06 ; Admin Dose 30 MG; Start 12/07/16 at 11:30 Lactobacillus Acidophilus/ Rhamnosus (Culturelle) 1 cap BID PO Last administered on 12/07/16 13:03; Admin Dose 1 CAP; Start 12/07/16 at 11:30 JANIE DUMAS MD December 07, 2016 17:26
[2016-12-07 19:42] VITALS: BP 91/59; RESP 20
[2016-12-08] MEDS: PANTOPRAZOLE (EC) 40 MG TAB PO SCH (05:43)
[2016-12-08 06:30] LABS: ADD SCAN DIFF NO
[2016-12-08 06:32] LABS: ABNORMAL IP MESSAGE 1; BASOPHILS % 0.1 % (0.0-2.0); EOSINOPHILS # 0.1 10^3/ul (0.0-0.5); EOSINOPHILS % 0.6 % (0.0-7.0); HEMATOCRIT 33.1 % (42.0-52.0); HEMOGLOBIN 11.7 g/dl (14.0-18.0); LYMPHOCYTES # 2.2 10^3/ul (0.8-2.9); LYMPHOCYTES % 10.3 % (15.0-51.0); MEAN CORPUSCULAR HEMOGLOBIN 36.7 pg (29.0-33.0); MEAN CORPUSCULAR HGB CONC 35.3 g/dl (32.0-37.0); MEAN CORPUSCULAR VOLUME 103.8 fl (82.0-101.0); MEAN PLATELET VOLUME 13.4 fl (7.4-10.4); MONOCYTE # 1.1 10^3/ul (0.3-0.9); MONOCYTES % 5.3 % (0.0-11.0); NEUTROPHIL # 17.4 10^3/ul (1.6-7.5); NEUTROPHILS % 81.7 % (39.0-77.0); PLATELET COUNT 157 10^3/UL (140-415); RED BLOOD COUNT 3.19 10^6/ul (4.70-6.10); RED CELL DISTRIBUTION WIDTH 17.2 % (11.5-14.5); WHITE BLOOD COUNT 21.3 10^3/ul (4.8-10.8)
[2016-12-08 06:59] LABS: ALBUMIN 2.6 g/dl (3.3-4.9); ALBUMIN/GLOBULIN RATIO 0.68; BILIRUBIN,DIRECT 7.5 mg/dl (0.00-0.20); BILIRUBIN,TOTAL 9.5 mg/dl (0.2-1.3); CALCIUM 8.5 mg/dl (8.4-10.2); CREATININE 0.74 mg/dl (0.61-1.24); POTASSIUM 4.4 mmol/L (3.5-5.1); TOTAL PROTEIN 6.4 g/dl (6.1-8.1)
[2016-12-08 07:06] LABS: MAGNESIUM 1.7 mg/dl (1.7-2.5); PHOSPHORUS 3.2 mg/dl (2.5-4.9)
[2016-12-08 07:36] VITALS: BP 100/65; RESP 16
[2016-12-08 09:19] LABS: RETICULOCYTE COUNT % 4.3 % (0.5-1.5)
[2016-12-08] MEDS: SUCRALFATE 1 GM TAB PO SCH ×4 (09:24→22:15)
[2016-12-08] MEDS: SPIRONOLACTONE 50 MG TAB PO SCH (09:25)
[2016-12-08] MEDS: LACTOBACILLUS RHAMNOSUS CAP PO SCH ×2 (09:26→22:15)
[2016-12-08] MEDS: LACTULOSE 30ML CUP PO SCH (09:26)
[2016-12-08] MEDS: THIAMINE 100 MG TAB PO SCH (09:26)
[2016-12-08] MEDS: FUROSEMIDE 40 MG TAB PO SCH (09:26)
[2016-12-08] MEDS: ENOXAPARIN 30 MG/0.3 ML SYG SC SCH (09:28)
--- NOTE | 2016-12-08 12:41 | CONS ---
Date/Time of Note Date/Time of Note DATE: 12/08/16 TIME: 12:40 Assessment/Plan Assessment/Plan Additional Assessment/Plan 1. Hyponatremia likely secondary to liver disease causing hypervolemic hyponatremia. 2. Acute alcoholic hepatitis. 3. Decompensated Liver cirrhosis with symptomatic ascites 4. Systemic inflammatory response syndrome with leukocytosis and lactic acidosis likely secondary to acute alcoholic hepatitis. 5. Macrocytic anemia. 6. History of smoking. 7. History of dyslipidemia. 8. Cholecystitis ruled out with negative HIDA scan. 9. Hyperammonemia without encephalopathy. 10. Persistent leukocytosis secondary to alcoholic hepatitis. 11. Urinary tract infection on oral antifungal Plan: Continue current treatment for Acute hepatitis, WBC still high US guided paracentesis done yesterday 3.7 L removed will continue to follow up pt has hyponatremia due to his liver disease, very limited options- will avoid Na chloride table due to risk of fluid overload/Ascites pt is not a candidate of tolvaptan due to elevated liver enzymes will start Demeclocycline 150mg PO BID for hyponatremia . Consultation Date/Type/Reason Admit Date/Time Nov 16, 2016 at 17:43 Initial Consult Date 12/06/16 Type of Consultation: NEPHROLOGY Referring Provider: ZEUS PHILIPPE 24 HR Interval Summary Free Text/Dictation Na 127, s./p Paracentesis 3.7 L removed Exam/Review of Systems Vital Signs Vitals Vital Signs Date Time Temp Pulse Resp B/P Pulse Ox O2 Delivery O2 Flow Rate FiO2 12/08/16 07:36 97.9 91 16 100/65 97 12/04/16 15:38 Room Air Intake and Output 12/07/16 12/07/16 12/08/16 15:00 23:00 07:00 Intake Total 100 ml 790 ml 580 ml Balance 100 ml 790 ml 580 ml Results Result Diagram: 12/08/16 0605 12/08/16 0605 Results 24 hrs Laboratory Tests Test 12/07/16 16:50 12/08/16 06:05 White Blood Count 23.2 H 21.3 H Red Blood Count 3.18 L 3.19 L Hemoglobin 11.6 L 11.7 L Hematocrit 32.9 L 33.1 L Mean Corpuscular Volume 103.5 H 103.8 H Mean Corpuscular Hemoglobin 36.5 H 36.7 H Mean Corpuscular Hemoglobin Concent 35.3 35.3 Red Cell Distribution Width 17.0 H 17.2 H Platelet Count 150 157 Mean Platelet Volume 14.1 H 13.4 H Neutrophils % 83.0 H 81.7 H Lymphocytes % 9.0 L 10.3 L Monocytes % 5.2 5.3 Eosinophils % 0.7 0.6 Basophils % 0.2 0.1 Nucleated Red Blood Cells % 0.0 0.0 Neutrophils # 19.2 H 17.4 H Lymphocytes # 2.1 2.2 Monocytes # 1.2 H 1.1 H Eosinophils # 0.2 0.1 Basophils # 0.1 0.0 Nucleated Red Blood Cells # 0.0 0.0 Differential Comment AUTO w/SCAN Absolute Reticulocyte Count 0.138 H Percent Reticulocyte Count 4.3 H Sodium Level 127 L Potassium Level 4.4 Chloride Level 95 L Carbon Dioxide Level 25 Anion Gap 11 Blood Urea Nitrogen 17 Creatinine 0.74 Glucose Level 177 Hemoglobin A1c 5.9 Calcium Level 8.5 Phosphorus Level 3.2 Magnesium Level 1.7 Total Bilirubin 9.5 H Direct Bilirubin 7.50 H Indirect Bilirubin 2.0 H Aspartate Amino Transf (AST/SGOT) 139 H Alanine Aminotransferase (ALT/SGPT) 107 H Alkaline Phosphatase 860 H Total Protein 6.4 Albumin 2.6 L Globulin 3.80 H Albumin/Globulin Ratio 0.68 Alpha Fetoprotein 2.66 Medications Medications Current Medications Sucralfate (Carafate) 1 gm QID PO Last administered on 12/08/16 12:15; Admin Dose 1 GM; Start 11/16/16 at 21:00 Ondansetron HCl (Zofran Inj) 4 mg Q6H PRN IV NAUSEA AND/OR VOMITING; Start at 19:30 Morphine Sulfate (morphine) 2 mg Q4H PRN IV pain; Start 11/16/16 at 19:30 Spironolactone (Aldactone) 100 mg DAILY PO Last administered on 12/08/16 09:25 ; Admin Dose 100 MG; Start 11/22/16 at 11:30 Pantoprazole (Protonix Tab) 40 mg DAILY@06 PO Last administered on 12/08/16 05: 43; Admin Dose 40 MG; Start 11/24/16 at 06:00 Furosemide (Lasix) 40 mg DAILY PO Last administered on 12/08/16 09:26; Admin Dose 40 MG; Start 12/03/16 at 09:00 Lactulose (Enulose) 30 gm DAILY PO Last administered on 12/08/16 09:26; Admin Dose 30 GM; Start 12/06/16 at 09:00 Thiamine HCl (Vitamin B1) 100 mg DAILY PO Last administered on 12/08/16 09:26; Admin Dose 100 MG; Start 12/07/16 at 11:30 Enoxaparin Sodium (Lovenox) 30 mg DAILY SC Last administered on 12/08/16 09:28 ; Admin Dose 30 MG; Start 12/07/16 at 11:30 Lactobacillus Acidophilus/ Rhamnosus (Culturelle) 1 cap BID PO Last administered on 12/08/16 09:26; Admin Dose 1 CAP; Start 12/07/16 at 11:30 ISRRAEL MACKEY MD December 08, 2016 12:41
[2016-12-08] MEDS ORDERED: DEMECLOCYCLINE 150 MG TAB PO ONE (13:00)
--- NOTE | 2016-12-08 13:14 | CONS ---
Date/Time of Note Date/Time of Note DATE: 12/08/16 TIME: 13:12 Assessment/Plan Assessment/Plan Chief Complaint/Hosp Course Alberto Gorman is a 65-year-old male with a history of chronic alcoholism and underlying alcoholic cirrhosis, who was admitted with abdominal distention and weakness with significant leukocytosis. He denies any fever. He is being treated for acute alcoholic hepatitis, improving, with history of Hep B exposure without active infection, SIRS with leucocytosis and lactic acidosis likely 2/2 #1, and macrocytic anemia due to alcoholism. This patient with history of cirrhosis now also has positive hepatitis B core antibody. Further serology tests for hepatitis B should be done and consider treatment if necessary for hepatitis B. # Leukocytosis, likely reactive, secondary to acute alcoholic hepatitis and likely exacerbated by steroids - Trend WBC, downtrending from 29.7 to 21.3, likely reactive as ESR and CRP elevated at 76 and 7, respectively - Appreciate ID recs, C. diff negative, observe off antibiotics per ID. Diarrhea likely related to lactulose. - Though lower suspicion, will send flow cytometry for leukemia/lymphoma, BCR/ ABL and JAK2 V617 mutation to eval for underlying primary hematologic process ( pending) # Macrocytic anemia, likely due to alcoholism and anemia of chronic inflammation , mild, stable. Monitor. Iron panel consistent with anemia of chronic inflammation (Fe 39, RIBC 159 low, %sat 25%, ferritin 649), B12/folate/TSH WNL, LDH normal at 421, haptoglobin normal at 161, retic count appropriately elevated at 138K. Will follow peripherally, awaiting flow cytometry, BCR/ABL and JAK2 mutation Problems: Consultation Date/Type/Reason Admit Date/Time Nov 16, 2016 at 17:43 Initial Consult Date 12/04/16 Type of Consultation: Hematology Referring Provider: ZEUS PHILIPPE 24 HR Interval Summary Free Text/Dictation Patient doing well, eating, no complaints. 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 Results Result Diagram: 12/08/16 0605 12/08/16 0605 Results 24 hrs Laboratory Tests Test 12/07/16 16:50 12/08/16 06:05 White Blood Count 23.2 H 21.3 H Red Blood Count 3.18 L 3.19 L Hemoglobin 11.6 L 11.7 L Hematocrit 32.9 L 33.1 L Mean Corpuscular Volume 103.5 H 103.8 H Mean Corpuscular Hemoglobin 36.5 H 36.7 H Mean Corpuscular Hemoglobin Concent 35.3 35.3 Red Cell Distribution Width 17.0 H 17.2 H Platelet Count 150 157 Mean Platelet Volume 14.1 H 13.4 H Neutrophils % 83.0 H 81.7 H Lymphocytes % 9.0 L 10.3 L Monocytes % 5.2 5.3 Eosinophils % 0.7 0.6 Basophils % 0.2 0.1 Nucleated Red Blood Cells % 0.0 0.0 Neutrophils # 19.2 H 17.4 H Lymphocytes # 2.1 2.2 Monocytes # 1.2 H 1.1 H Eosinophils # 0.2 0.1 Basophils # 0.1 0.0 Nucleated Red Blood Cells # 0.0 0.0 Differential Comment AUTO w/SCAN Absolute Reticulocyte Count 0.138 H Percent Reticulocyte Count 4.3 H Sodium Level 127 L Potassium Level 4.4 Chloride Level 95 L Carbon Dioxide Level 25 Anion Gap 11 Blood Urea Nitrogen 17 Creatinine 0.74 Glucose Level 177 Hemoglobin A1c 5.9 Calcium Level 8.5 Phosphorus Level 3.2 Magnesium Level 1.7 Total Bilirubin 9.5 H Direct Bilirubin 7.50 H Indirect Bilirubin 2.0 H Aspartate Amino Transf (AST/SGOT) 139 H Alanine Aminotransferase (ALT/SGPT) 107 H Alkaline Phosphatase 860 H Total Protein 6.4 Albumin 2.6 L Globulin 3.80 H Albumin/Globulin Ratio 0.68 Alpha Fetoprotein 2.66 Medications Medications Current Medications Sucralfate (Carafate) 1 gm QID PO Last administered on 12/08/16t 12:15; Admin Dose 1 GM; Start 11/16/16 at 21:00 Ondansetron HCl (Zofran Inj) 4 mg Q6H PRN IV NAUSEA AND/OR VOMITING; Start at 19:30 Morphine Sulfate (morphine) 2 mg Q4H PRN IV pain; Start 11/16/16 at 19:30 Spironolactone (Aldactone) 100 mg DAILY PO Last administered on 12/08/16 09:25 ; Admin Dose 100 MG; Start 11/22/16 at 11:30 Pantoprazole (Protonix Tab) 40 mg DAILY@06 PO Last administered on 12/08/16 05: 43; Admin Dose 40 MG; Start 11/24/16 at 06:00 Furosemide (Lasix) 40 mg DAILY PO Last administered on 12/08/16 09:26; Admin Dose 40 MG; Start 12/03/16 at 09:00 Lactulose (Enulose) 30 gm DAILY PO Last administered on 12/08/16 09:26; Admin Dose 30 GM; Start 12/06/16 at 09:00 Thiamine HCl (Vitamin B1) 100 mg DAILY PO Last administered on 12/08/16 09:26; Admin Dose 100 MG; Start 12/07/16 at 11:30 Enoxaparin Sodium (Lovenox) 30 mg DAILY SC Last administered on 12/08/16 09:28 ; Admin Dose 30 MG; Start 12/07/16 at 11:30 Lactobacillus Acidophilus/ Rhamnosus (Culturelle) 1 cap BID PO Last administered on 12/08/16 09:26; Admin Dose 1 CAP; Start 12/07/16 at 11:30 Demeclocycline HCl (Declomycin) 150 mg BID PO ; Start 12/08/16 at 21:00 JANIE DUMAS MD December 08, 2016 13:14
--- NOTE | 2016-12-08 14:01 | CONS ---
Date/Time of Note Date/Time of Note DATE: 12/08/16 TIME: 14:00 Assessment/Plan Assessment/Plan Chief Complaint/Hosp Course SUBJECTIVE: The patient is alert, feels good, no fevers MICROBIOLOGY: C dif neg. Blood cultures have been negative. DIAGNOSTICS: Chest x-ray on December 01 revealed bibasilar atelectasis. PHYSICAL EXAMINATION: GENERAL: Well-developed, elderly man who is alert, in no distress. HEENT: Head atraumatic, normocephalic. Sclerae anicteric. Buccal mucosa dry. NECK: Supple. CHEST: Rise symmetrical. Breath sounds clear. HEART: S1, S2. ABDOMEN: Distended, soft. Bowel sounds present. EXTREMITIES: No cyanosis. ASSESSMENT: 1. Persistent leukocytosis, likely reactive 2. Diarrhea. 3. Fungal urinary tract infection. 4. Acute alcoholic hepatitis. Questionable acalculous cholecystitis. 5. Chronic alcohol abuse. 6. Recurrent ascites, status post paracentesis with fluid cultures revealed no evidence of spontaneous bacterial peritonitis. PLAN: Remains stable, off abx, continue present care, f/u GI/hematology rec-s, [facility] for [facility] staff/pt Problems: Consultation Date/Type/Reason Admit Date/Time Nov 16, 2016 at 17:43 Initial Consult Date 12/04/16 Type of Consultation: ID Referring Provider: ZEUS PHILIPPE Exam/Review of Systems Vital Signs Vitals Vital Signs Date Time Temp Pulse Resp B/P Pulse Ox O2 Delivery O2 Flow Rate FiO2 12/08/16 07:36 97.9 91 16 100/65 97 12/04/16 15:38 Room Air Intake and Output 12/07/16 12/07/16 12/08/16 15:00 23:00 07:00 Intake Total 100 ml 790 ml 580 ml Balance 100 ml 790 ml 580 ml Results Result Diagram: 12/08/16 0605 12/08/16 0605 Results 24 hrs Laboratory Tests Test 12/07/16 16:50 12/08/16 06:05 White Blood Count 23.2 H 21.3 H Red Blood Count 3.18 L 3.19 L Hemoglobin 11.6 L 11.7 L Hematocrit 32.9 L 33.1 L Mean Corpuscular Volume 103.5 H 103.8 H Mean Corpuscular Hemoglobin 36.5 H 36.7 H Mean Corpuscular Hemoglobin Concent 35.3 35.3 Red Cell Distribution Width 17.0 H 17.2 H Platelet Count 150 157 Mean Platelet Volume 14.1 H 13.4 H Neutrophils % 83.0 H 81.7 H Lymphocytes % 9.0 L 10.3 L Monocytes % 5.2 5.3 Eosinophils % 0.7 0.6 Basophils % 0.2 0.1 Nucleated Red Blood Cells % 0.0 0.0 Neutrophils # 19.2 H 17.4 H Lymphocytes # 2.1 2.2 Monocytes # 1.2 H 1.1 H Eosinophils # 0.2 0.1 Basophils # 0.1 0.0 Nucleated Red Blood Cells # 0.0 0.0 Differential Comment AUTO w/SCAN Absolute Reticulocyte Count 0.138 H Percent Reticulocyte Count 4.3 H Sodium Level 127 L Potassium Level 4.4 Chloride Level 95 L Carbon Dioxide Level 25 Anion Gap 11 Blood Urea Nitrogen 17 Creatinine 0.74 Glucose Level 177 Hemoglobin A1c 5.9 Calcium Level 8.5 Phosphorus Level 3.2 Magnesium Level 1.7 Total Bilirubin 9.5 H Direct Bilirubin 7.50 H Indirect Bilirubin 2.0 H Aspartate Amino Transf (AST/SGOT) 139 H Alanine Aminotransferase (ALT/SGPT) 107 H Alkaline Phosphatase 860 H Total Protein 6.4 Albumin 2.6 L Globulin 3.80 H Albumin/Globulin Ratio 0.68 Alpha Fetoprotein 2.66 Medications Medications Current Medications Sucralfate (Carafate) 1 gm QID PO Last administered on 12/08/16 12:15; Admin Dose 1 GM; Start 11/16/16 at 21:00 Ondansetron HCl (Zofran Inj) 4 mg Q6H PRN IV NAUSEA AND/OR VOMITING; Start at 19:30 Morphine Sulfate (morphine) 2 mg Q4H PRN IV pain; Start 11/16/16 at 19:30 Spironolactone (Aldactone) 100 mg DAILY PO Last administered on 12/08/16 09:25 ; Admin Dose 100 MG; Start 11/22/16 at 11:30 Pantoprazole (Protonix Tab) 40 mg DAILY@06 PO Last administered on 12/08/16 05: 43; Admin Dose 40 MG; Start 11/24/16 at 06:00 Furosemide (Lasix) 40 mg DAILY PO Last administered on 12/08/16 09:26; Admin Dose 40 MG; Start 12/03/16 at 09:00 Lactulose (Enulose) 30 gm DAILY PO Last administered on 12/08/16 09:26; Admin Dose 30 GM; Start 12/06/16 at 09:00 Thiamine HCl (Vitamin B1) 100 mg DAILY PO Last administered on 12/08/16 09:26; Admin Dose 100 MG; Start 12/07/16 at 11:30 Enoxaparin Sodium (Lovenox) 30 mg DAILY SC Last administered on 12/08/16 09:28 ; Admin Dose 30 MG; Start 12/07/16 at 11:30 Lactobacillus Acidophilus/ Rhamnosus (Culturelle) 1 cap BID PO Last administered on 12/08/16 09:26; Admin Dose 1 CAP; Start 12/07/16 at 11:30 Demeclocycline HCl (Declomycin) 150 mg BID PO ; Start 12/08/16 at 21:00 MARIBETH BARRETT NP December 08, 2016 14:00
--- NOTE | 2016-12-08 16:02 | PN ---
Date/Time of Note Date/Time of Note DATE: 12/08/16 TIME: 15:59 Assessment/Plan VTE Prophylaxis VTE Prophylaxis Intervention: LMWH Lines/Catheters IV [facility] Type (from [facility]): Peripheral IV Urinary Cath still in place: No Assessment/Plan Chief Complaint/Hosp Course S: 66 y M admitted w ascites. 12/08: Feels ok. No abd pain. O: Vss. Systolic around 90. No temp. I/O's +. Wt -6 kg since admission PE No pallor Reg, no m/r/g CTAB BS + nt, distended. No R/R/G. 2+ edema negative Homans A/P 1. Decompensated ascites. Probable cirrhosis. Stable cont spironolactone/ Lasix. Beta-ted? 2. Cirrhosis? 3. Alcoholic liver disease; discharge home once ok w GI. 4. Hepatitis B, chronic status 5. Past alcoholism; thiamine. AA as needed 6. Chr liver disease sequela/anemia. 7. Tobacco abuse 8. Depression 9. Leukocytosis/possible leukemoid reaction 10. Hyponatremia. Possibly hypovolemic/intravascular depleted. dc home once sodium stable. 11. Dyslipidemia 12. Hypoalbuminemia Problems: Exam/Review of Systems Vital Signs Vitals Vital Signs Date Time Temp Pulse Resp B/P Pulse Ox O2 Delivery O2 Flow Rate FiO2 12/08/16 07:36 97.9 91 16 100/65 97 12/04/16 15:38 Room Air Intake and Output 12/07/16 12/07/16 12/08/16 15:00 23:00 07:00 Intake Total 100 ml 790 ml 580 ml Balance 100 ml 790 ml 580 ml Results Result Diagram: 12/08/16 0612/08/16 0605 Results 24 hrs Laboratory Tests Test 12/07/16 16:50 12/08/16 06:05 White Blood Count 23.2 H 21.3 H Red Blood Count 3.18 L 3.19 L Hemoglobin 11.6 L 11.7 L Hematocrit 32.9 L 33.1 L Mean Corpuscular Volume 103.5 H 103.8 H Mean Corpuscular Hemoglobin 36.5 H 36.7 H Mean Corpuscular Hemoglobin Concent 35.3 35.3 Red Cell Distribution Width 17.0 H 17.2 H Platelet Count 150 157 Mean Platelet Volume 14.1 H 13.4 H Neutrophils % 83.0 H 81.7 H Lymphocytes % 9.0 L 10.3 L Monocytes % 5.2 5.3 Eosinophils % 0.7 0.6 Basophils % 0.2 0.1 Nucleated Red Blood Cells % 0.0 0.0 Neutrophils # 19.2 H 17.4 H Lymphocytes # 2.1 2.2 Monocytes # 1.2 H 1.1 H Eosinophils # 0.2 0.1 Basophils # 0.1 0.0 Nucleated Red Blood Cells # 0.0 0.0 Differential Comment AUTO w/SCAN Absolute Reticulocyte Count 0.138 H Percent Reticulocyte Count 4.3 H Sodium Level 127 L Potassium Level 4.4 Chloride Level 95 L Carbon Dioxide Level 25 Anion Gap 11 Blood Urea Nitrogen 17 Creatinine 0.74 Glucose Level 177 Hemoglobin A1c 5.9 Calcium Level 8.5 Phosphorus Level 3.2 Magnesium Level 1.7 Total Bilirubin 9.5 H Direct Bilirubin 7.50 H Indirect Bilirubin 2.0 H Aspartate Amino Transf (AST/SGOT) 139 H Alanine Aminotransferase (ALT/SGPT) 107 H Alkaline Phosphatase 860 H Total Protein 6.4 Albumin 2.6 L Globulin 3.80 H Albumin/Globulin Ratio 0.68 Alpha Fetoprotein 2.66 Medications Medications Current Medications Sucralfate (Carafate) 1 gm QID PO Last administered on 12/08/16 12:15; Admin Dose 1 GM; Start 11/16/16 at 21:00 Ondansetron HCl (Zofran Inj) 4 mg Q6H PRN IV NAUSEA AND/OR VOMITING; Start at 19:30 Morphine Sulfate (morphine) 2 mg Q4H PRN IV pain; Start 11/16/16 at 19:30 Spironolactone (Aldactone) 100 mg DAILY PO Last administered on 12/08/16 09:25 ; Admin Dose 100 MG; Start 11/22/16 at 11:30 Pantoprazole (Protonix Tab) 40 mg DAILY@06 PO Last administered on 12/08/16 05: 43; Admin Dose 40 MG; Start 11/24/16 at 06:00 Furosemide (Lasix) 40 mg DAILY PO Last administered on 12/08/16 09:26; Admin Dose 40 MG; Start 12/03/16 at 09:00 Lactulose (Enulose) 30 gm DAILY PO Last administered on 12/08/16 09:26; Admin Dose 30 GM; Start 12/06/16 at 09:00 Thiamine HCl (Vitamin B1) 100 mg DAILY PO Last administered on 12/08/16 09:26; Admin Dose 100 MG; Start 12/07/16 at 11:30 Enoxaparin Sodium (Lovenox) 30 mg DAILY SC Last administered on 12/08/16 09:28 ; Admin Dose 30 MG; Start 12/07/16 at 11:30 Lactobacillus Acidophilus/ Rhamnosus (Culturelle) 1 cap BID PO Last administered on 12/08/16 09:26; Admin Dose 1 CAP; Start 12/07/16 at 11:30 Demeclocycline HCl (Declomycin) 150 mg BID PO ; Start 12/08/16 at 21:00 VERONICA HARE MD December 08, 2016 16:02
[2016-12-08] MEDS ORDERED: DOCUSATE SODIUM 100 MG CAP PO PRN (16:30)
[2016-12-08] MEDS ORDERED: IBUPROFEN 400 MG TAB PO PRN (16:30)
--- NOTE | 2016-12-08 16:56 | PN ---
Date/Time of Note Date/Time of Note DATE: 12/08/16 TIME: 16:54 Assessment/Plan VTE Prophylaxis VTE Prophylaxis Intervention: SCD's Lines/Catheters [facility] Peripheral IV Urinary Cath still in place: No Assessment/Plan Assessment/Plan Jaundice/Hepatocellular * Acute alcoholic hepatitis Osiris liver discrimination function 37.5 ?Acalculous cholecystitis BY MRCP/ clinically unlikely Hepatitis B exposure/no active infection Ascites Chronic alcoholism Plan: Continue present management Monitor liver function test Paracentesis as needed Prednisolone 40 mg daily for 28 days, Further recommendations depend on clinical course Subjective 24 Hr Interval Summary Free Text/Dictation * Course reviewed with RN * Patient seen and examined * denies abdominal pain/afebrile Exam/Review of Systems Vital Signs Vitals Vital Signs Date Time Temp Pulse Resp B/P Pulse Ox O2 Delivery O2 Flow Rate FiO2 12/08/16 07:36 97.9 91 16 100/65 97 12/04/16 15:38 Room Air Intake and Output 12/07/16 12/07/16 12/08/16 15:00 23:00 07:00 Intake Total 100 ml 790 ml 580 ml Balance 100 ml 790 ml 580 ml Exam Constitutional: alert, oriented Psych: no complaints Neck: non-tender, supple Respiratory: clear to auscultation, normal air movement Cardiovascular: regular rate and rhythm Gastrointestinal: ascites, bowel sounds, distended, soft, No rebound or guarding Musculoskeletal: nl extremities to inspection, nl gait and stance Extremities: normal pulses Neurological: nl speech Results Result Diagram: 12/08/16 0605 12/08/16 0605 Results 24 hrs Laboratory Tests Test 12/08/16 06:05 White Blood Count 21.3 H Red Blood Count 3.19 L Hemoglobin 11.7 L Hematocrit 33.1 L Mean Corpuscular Volume 103.8 H Mean Corpuscular Hemoglobin 36.7 H Mean Corpuscular Hemoglobin Concent 35.3 Red Cell Distribution Width 17.2 H Platelet Count 157 Mean Platelet Volume 13.4 H Neutrophils % 81.7 H Lymphocytes % 10.3 L Monocytes % 5.3 Eosinophils % 0.6 Basophils % 0.1 Nucleated Red Blood Cells % 0.0 Neutrophils # 17.4 H Lymphocytes # 2.2 Monocytes # 1.1 H Eosinophils # 0.1 Basophils # 0.0 Nucleated Red Blood Cells # 0.0 Absolute Reticulocyte Count 0.138 H Percent Reticulocyte Count 4.3 H Sodium Level 127 L Potassium Level 4.4 Chloride Level 95 L Carbon Dioxide Level 25 Anion Gap 11 Blood Urea Nitrogen 17 Creatinine 0.74 Glucose Level 177 Hemoglobin A1c 5.9 Calcium Level 8.5 Phosphorus Level 3.2 Magnesium Level 1.7 Total Bilirubin 9.5 H Direct Bilirubin 7.50 H Indirect Bilirubin 2.0 H Aspartate Amino Transf (AST/SGOT) 139 H Alanine Aminotransferase (ALT/SGPT) 107 H Alkaline Phosphatase 860 H Total Protein 6.4 Albumin 2.6 L Globulin 3.80 H Albumin/Globulin Ratio 0.68 Alpha Fetoprotein 2.66 Medications Medications Current Medications Sucralfate (Carafate) 1 gm QID PO Last administered on 12/08/16 12:15; Admin Dose 1 GM; Start 11/16/16 at 21:00 Ondansetron HCl (Zofran Inj) 4 mg Q6H PRN IV NAUSEA AND/OR VOMITING; Start at 19:30 Morphine Sulfate (morphine) 2 mg Q4H PRN IV pain; Start 11/16/16 at 19:30 Spironolactone (Aldactone) 100 mg DAILY PO Last administered on 12/08/16 09:25 ; Admin Dose 100 MG; Start 11/22/16 at 11:30 Pantoprazole (Protonix Tab) 40 mg DAILY@06 PO Last administered on 12/08/16 05: 43; Admin Dose 40 MG; Start 11/24/16 at 06:00 Furosemide (Lasix) 40 mg DAILY PO Last administered on 12/08/16 09:26; Admin Dose 40 MG; Start 12/03/16 at 09:00 Lactulose (Enulose) 30 gm DAILY PO Last administered on 12/08/16 09:26; Admin Dose 30 GM; Start 12/06/16 at 09:00 Thiamine HCl (Vitamin B1) 100 mg DAILY PO Last administered on 12/08/16 09:26; Admin Dose 100 MG; Start 12/07/16 at 11:30 Enoxaparin Sodium (Lovenox) 30 mg DAILY SC Last administered on 12/08/16 09:28 ; Admin Dose 30 MG; Start 12/07/16 at 11:30 Lactobacillus Acidophilus/ Rhamnosus (Culturelle) 1 cap BID PO Last administered on 5/9/17at 09:26; Admin Dose 1 CAP; Start 12/07/16 at 11:30 Demeclocycline HCl (Declomycin) 150 mg BID PO ; Start 12/08/16 at 21:00 Ibuprofen (Motrin) 400 mg Q6H PRN PO PAIN OR TEMP ABOVE 38C; Start 12/08/16 at 16:30 Docusate Sodium (Colace) 200 mg BID PRN PO CONSTIPATION; Start 12/08/16 at 16:30 MORIS HINES MD December 08, 2016 16:56
[2016-12-08 19:36] VITALS: BP 101/62; RESP 18
[2016-12-08] MEDS: DEMECLOCYCLINE 150 MG TAB PO SCH (22:15)
[2016-12-09] MEDS: PANTOPRAZOLE (EC) 40 MG TAB PO SCH (05:49)
[2016-12-09 06:23] LABS: ADD SCAN DIFF NO
[2016-12-09 06:37] LABS: ABNORMAL IP MESSAGE 1; BASOPHILS % 0.2 % (0.0-2.0); EOSINOPHILS # 0.1 10^3/ul (0.0-0.5); EOSINOPHILS % 0.4 % (0.0-7.0); HEMATOCRIT 34.2 % (42.0-52.0); HEMOGLOBIN 11.7 g/dl (14.0-18.0); LYMPHOCYTES # 2.1 10^3/ul (0.8-2.9); LYMPHOCYTES % 8.8 % (15.0-51.0); MEAN CORPUSCULAR HEMOGLOBIN 35.8 pg (29.0-33.0); MEAN CORPUSCULAR HGB CONC 34.2 g/dl (32.0-37.0); MEAN CORPUSCULAR VOLUME 104.6 fl (82.0-101.0); MEAN PLATELET VOLUME 14.1 fl (7.4-10.4); MONOCYTE # 1.2 10^3/ul (0.3-0.9); MONOCYTES % 5.3 % (0.0-11.0); NEUTROPHIL # 19.3 10^3/ul (1.6-7.5); NEUTROPHILS % 83.1 % (39.0-77.0); PLATELET COUNT 140 10^3/UL (140-415); RED BLOOD COUNT 3.27 10^6/ul (4.70-6.10); RED CELL DISTRIBUTION WIDTH 17.3 % (11.5-14.5); WHITE BLOOD COUNT 23.3 10^3/ul (4.8-10.8)
[2016-12-09 07:06] LABS: ALBUMIN 2.4 g/dl (3.3-4.9); ALBUMIN/GLOBULIN RATIO 0.63; BILIRUBIN,DIRECT 7.4 mg/dl (0.00-0.20); BILIRUBIN,INDIRECT 2.2 mg/dl (0-1.1); BILIRUBIN,TOTAL 9.6 mg/dl (0.2-1.3); CALCIUM 8.2 mg/dl (8.4-10.2); CREATININE 0.82 mg/dl (0.61-1.24); POTASSIUM 4.4 mmol/L (3.5-5.1); TOTAL PROTEIN 6.2 g/dl (6.1-8.1)
[2016-12-09 07:32] VITALS: BP 104/62; RESP 19; RESP 90
[2016-12-09] MEDS: LACTOBACILLUS RHAMNOSUS CAP PO SCH ×2 (08:39→20:43)
[2016-12-09] MEDS: LACTULOSE 30ML CUP PO SCH (08:39)
[2016-12-09] MEDS: THIAMINE 100 MG TAB PO SCH (08:40)
[2016-12-09] MEDS: SPIRONOLACTONE 50 MG TAB PO SCH (08:40)
[2016-12-09] MEDS: SUCRALFATE 1 GM TAB PO SCH ×4 (08:40→20:42)
[2016-12-09] MEDS: DEMECLOCYCLINE 150 MG TAB PO SCH ×2 (08:40→20:42)
[2016-12-09] MEDS: FUROSEMIDE 40 MG TAB PO SCH (08:42)
[2016-12-09] MEDS: ENOXAPARIN 30 MG/0.3 ML SYG SC SCH (08:44)
--- NOTE | 2016-12-09 12:27 | CONS ---
Date/Time of Note Date/Time of Note DATE: 12/09/16 TIME: 12:24 Assessment/Plan Assessment/Plan Additional Assessment/Plan 1. Hyponatremia likely secondary to liver disease causing hypervolemic hyponatremia. 2. Acute alcoholic hepatitis. 3. Decompensated Liver cirrhosis with symptomatic ascites 4. Systemic inflammatory response syndrome with leukocytosis and lactic acidosis likely secondary to acute alcoholic hepatitis. 5. Macrocytic anemia. 6. History of smoking. 7. History of dyslipidemia. 8. Cholecystitis ruled out with negative HIDA scan. 9. Hyperammonemia without encephalopathy. 10. Persistent leukocytosis secondary to alcoholic hepatitis. 11. Urinary tract infection on oral antifungal Plan: Continue current treatment for Acute hepatitis, WBC still high 23.3 US guided paracentesis done yesterday 3.7 L removed will continue to follow up pt has hyponatremia due to his liver disease, very limited options- will avoid Na chloride table due to risk of fluid overload/Ascites pt is not a candidate of tolvaptan due to elevated liver enzymes on Demeclocycline 150mg PO BID for hyponatremia . will continue to follow up on patient Consultation Date/Type/Reason Admit Date/Time Nov 16, 2016 at 17:43 Initial Consult Date 12/06/16 Type of Consultation: NEPHROLOGY Referring Provider: ZEUS PHILIPPE 24 HR Interval Summary Free Text/Dictation s/p paracentesis , Na 128 Exam/Review of Systems Vital Signs Vitals Vital Signs Date Time Temp Pulse Resp B/P Pulse Ox O2 Delivery O2 Flow Rate FiO2 12/09/16 07:32 98.0 19 104/62 18 12/08/16 19:36 96 Intake and Output 12/08/16 12/08/16 12/09/16 15:00 23:00 07:00 Intake Total 960 ml 380 ml Balance 960 ml 380 ml Exam GENERAL: Awake, alert, no acute distress, but the patient has a significantly distended abdomen. HEENT: Mild scleral icterus, pale conjunctivae. Pupils equal, round, reactive to light and accommodation. NECK: Supple, no JVD, no lymphadenopathy. LUNGS: Decreased breath sounds at both lung bases. No crackles, no wheezes. HEART: S1, S2, with regular rhythm, no murmur. ABDOMEN: Soft, distended. Ascites present. Fluid wave is present, nontender. EXTREMITIES: 1 to 2+ pitting edema, no clubbing, no cyanosis. NEUROLOGICAL: Alert, oriented x3. Cranial nerves II through XII intact. No focal deficits. Strength is normal. PSYCHIATRIC: Appropriate affect and mood. Results Result Diagram: 12/09/1644912/09/160 Results 24 hrs Laboratory Tests Test 12/09/16 04:50 White Blood Count 23.3 H Red Blood Count 3.27 L Hemoglobin 11.7 L Hematocrit 34.2 L Mean Corpuscular Volume 104.6 H Mean Corpuscular Hemoglobin 35.8 H Mean Corpuscular Hemoglobin Concent 34.2 Red Cell Distribution Width 17.3 H Platelet Count 140 Mean Platelet Volume 14.1 H Neutrophils % 83.1 H Lymphocytes % 8.8 L Monocytes % 5.3 Eosinophils % 0.4 Basophils % 0.2 Nucleated Red Blood Cells % 0.0 Neutrophils # 19.3 H Lymphocytes # 2.1 Monocytes # 1.2 H Eosinophils # 0.1 Basophils # 0.0 Nucleated Red Blood Cells # 0.0 Sodium Level 128 L Potassium Level 4.4 Chloride Level 96 L Carbon Dioxide Level 26 Anion Gap 10 Blood Urea Nitrogen 19 Creatinine 0.82 Glucose Level 109 # Calcium Level 8.2 L Total Bilirubin 9.6 H Direct Bilirubin 7.40 H Indirect Bilirubin 2.2 H Aspartate Amino Transf (AST/SGOT) 146 H Alanine Aminotransferase (ALT/SGPT) 98 H Alkaline Phosphatase 814 H Total Protein 6.2 Albumin 2.4 L Globulin 3.80 H Albumin/Globulin Ratio 0.63 Medications Medications Current Medications Sucralfate (Carafate) 1 gm QID PO Last administered on 12/09/16 08:40; Admin Dose 1 GM; Start 11/16/16 at 21:00 Ondansetron HCl (Zofran Inj) 4 mg Q6H PRN IV NAUSEA AND/OR VOMITING; Start at 19:30 Morphine Sulfate (morphine) 2 mg Q4H PRN IV pain; Start 11/16/16 at 19:30 Spironolactone (Aldactone) 100 mg DAILY PO Last administered on 12/09/16 08:40 ; Admin Dose 100 MG; Start 11/22/16 at 11:30 Pantoprazole (Protonix Tab) 40 mg DAILY@06 PO Last administered on 12/09/16 05 :49; Admin Dose 40 MG; Start 11/24/16 at 06:00 Furosemide (Lasix) 40 mg DAILY PO Last administered on 12/09/16 08:42; Admin Dose 40 MG; Start 12/03/16 at 09:00 Lactulose (Enulose) 30 gm DAILY PO Last administered on 12/09/16 08:39; Admin Dose 30 GM; Start 12/06/16 at 09:00 Thiamine HCl (Vitamin B1) 100 mg DAILY PO Last administered on 12/09/16 08:40 ; Admin Dose 100 MG; Start 12/07/16 at 11:30 Enoxaparin Sodium (Lovenox) 30 mg DAILY SC Last administered on 12/09/16 08:44 ; Admin Dose 30 MG; Start 12/07/16 at 11:30 Lactobacillus Acidophilus/ Rhamnosus (Culturelle) 1 cap BID PO Last administered on 12/09/16 08:39; Admin Dose 1 CAP; Start 12/07/16 at 11:30 Demeclocycline HCl (Declomycin) 150 mg BID PO Last administered on 12/09/16 08 :40; Admin Dose 150 MG; Start 12/08/16 at 21:00 Ibuprofen (Motrin) 400 mg Q6H PRN PO PAIN OR TEMP ABOVE 38C; Start 12/08/16 at 16:30 Docusate Sodium (Colace) 200 mg BID PRN PO CONSTIPATION; Start 12/08/16 at 16:30 ISRRAEL MACKEY MD December 09, 2016 12:27
--- NOTE | 2016-12-09 13:31 | PN ---
Date/Time of Note Date/Time of Note DATE: 12/09/16 TIME: 13:28 Assessment/Plan VTE Prophylaxis VTE Prophylaxis Intervention: ambulation Lines/Catheters IV [facility] Type (from [email or web address] Peripheral IV Urinary Cath still in place: No Assessment/Plan Assessment/Plan Jaundice/Hepatocellular * Acute alcoholic hepatitis Osiris liver discrimination function 37.5 ?Acalculous cholecystitis BY MRCP/ clinically unlikely Hepatitis B exposure/no active infection Ascites Chronic alcoholism Leukocytosis steroid induced(?) Plan: Continue present management Monitor liver function test Paracentesis as needed Prednisolone 40 mg daily for 28 days, Further recommendations depend on clinical course Subjective 24 Hr Interval Summary Free Text/Dictation * Course reviewed with RN * Patient seen and examined * Denies abdominal pain nor fever * WBC 23.3 Exam/Review of Systems Vital Signs Vitals Vital Signs Date Time Temp Pulse Resp B/P Pulse Ox O2 Delivery O2 Flow Rate FiO2 12/09/16 07:32 98.0 19 104/62 18 12/08/16 19:36 96 Intake and Output 12/08/16 12/08/16 12/09/16 15:00 23:00 07:00 Intake Total 960 ml 380 ml Balance 960 ml 380 ml Exam Constitutional: alert, oriented Eyes: nl conjunctiva Neck: non-tender, supple Respiratory: clear to auscultation, normal air movement Cardiovascular: nl pulses, regular rate and rhythm Gastrointestinal: ascites, distended, soft Musculoskeletal: nl extremities to inspection, nl gait and stance Results Result Diagram: 12/09/16 0450 12/09/16 0450 Results 24 hrs Laboratory Tests Test 12/09/16 04:50 White Blood Count 23.3 H Red Blood Count 3.27 L Hemoglobin 11.7 L Hematocrit 34.2 L Mean Corpuscular Volume 104.6 H Mean Corpuscular Hemoglobin 35.8 H Mean Corpuscular Hemoglobin Concent 34.2 Red Cell Distribution Width 17.3 H Platelet Count 140 Mean Platelet Volume 14.1 H Neutrophils % 83.1 H Lymphocytes % 8.8 L Monocytes % 5.3 Eosinophils % 0.4 Basophils % 0.2 Nucleated Red Blood Cells % 0.0 Neutrophils # 19.3 H Lymphocytes # 2.1 Monocytes # 1.2 H Eosinophils # 0.1 Basophils # 0.0 Nucleated Red Blood Cells # 0.0 Sodium Level 128 L Potassium Level 4.4 Chloride Level 96 L Carbon Dioxide Level 26 Anion Gap 10 Blood Urea Nitrogen 19 Creatinine 0.82 Glucose Level 109 # Calcium Level 8.2 L Total Bilirubin 9.6 H Direct Bilirubin 7.40 H Indirect Bilirubin 2.2 H Aspartate Amino Transf (AST/SGOT) 146 H Alanine Aminotransferase (ALT/SGPT) 98 H Alkaline Phosphatase 814 H Total Protein 6.2 Albumin 2.4 L Globulin 3.80 H Albumin/Globulin Ratio 0.63 Medications Medications Current Medications Sucralfate (Carafate) 1 gm QID PO Last administered on 12/09/16 08:40; Admin Dose 1 GM; Start 11/16/16 at 21:00 Ondansetron HCl (Zofran Inj) 4 mg Q6H PRN IV NAUSEA AND/OR VOMITING; Start at 19:30 Morphine Sulfate (morphine) 2 mg Q4H PRN IV pain; Start 11/16/16 at 19:30 Spironolactone (Aldactone) 100 mg DAILY PO Last administered on 12/09/16 08:40 ; Admin Dose 100 MG; Start 11/22/16 at 11:30 Pantoprazole (Protonix Tab) 40 mg DAILY@06 PO Last administered on 12/09/16 05 :49; Admin Dose 40 MG; Start 11/24/16 at 06:00 Furosemide (Lasix) 40 mg DAILY PO Last administered on 12/09/16 08:42; Admin Dose 40 MG; Start 12/03/16 at 09:00 Lactulose (Enulose) 30 gm DAILY PO Last administered on 12/09/16 08:39; Admin Dose 30 GM; Start 12/06/16 at 09:00 Thiamine HCl (Vitamin B1) 100 mg DAILY PO Last administered on 12/09/16 08:40 ; Admin Dose 100 MG; Start 12/07/16 at 11:30 Enoxaparin Sodium (Lovenox) 30 mg DAILY SC Last administered on 12/09/16 08:44 ; Admin Dose 30 MG; Start 12/07/16 at 11:30 Lactobacillus Acidophilus/ Rhamnosus (Culturelle) 1 cap BID PO Last administered on 12/09/16 08:39; Admin Dose 1 CAP; Start 12/07/16 at 11:30 Demeclocycline HCl (Declomycin) 150 mg BID PO Last administered on 12/09/16 08 :40; Admin Dose 150 MG; Start 12/08/16 at 21:00 Ibuprofen (Motrin) 400 mg Q6H PRN PO PAIN OR TEMP ABOVE 38C; Start 12/08/16 at 16:30 Docusate Sodium (Colace) 200 mg BID PRN PO CONSTIPATION; Start 12/08/16 at 16:30 MORIS HINES MD December 09, 2016 13:31
--- NOTE | 2016-12-09 13:42 | CONS ---
Date/Time of Note Date/Time of Note DATE: 12/09/16 TIME: 13:41 Assessment/Plan Assessment/Plan Chief Complaint/Hosp Course SUBJECTIVE: The patient is alert, feels good, no fevers MICROBIOLOGY: C dif neg. Blood cultures have been negative. DIAGNOSTICS: Chest x-ray on December 07 was unremarkable. PHYSICAL EXAMINATION: GENERAL: Well-developed, elderly man who is alert, in no distress. HEENT: Head atraumatic, normocephalic. Sclerae anicteric. Buccal mucosa dry. NECK: Supple. CHEST: Rise symmetrical. Breath sounds clear. HEART: S1, S2. ABDOMEN: Distended, soft. Bowel sounds present. EXTREMITIES: No cyanosis. ASSESSMENT: 1. Persistent leukocytosis, likely reactive 2. Diarrhea. 3. Fungal urinary tract infection. 4. Acute alcoholic hepatitis. Questionable acalculous cholecystitis. 5. Chronic alcohol abuse. 6. Recurrent ascites, status post paracentesis with fluid cultures revealed no evidence of spontaneous bacterial peritonitis. PLAN: Remains stable, off abx, continue present care, f/u GI/hematology rec-s, [facility] cx prn for [facility] staff/pt Problems: Consultation Date/Type/Reason Admit Date/Time Nov 16, 2016 at 17:43 Initial Consult Date 12/04/16 Type of Consultation: ID Referring Provider: ZEUS PHILIPPE Exam/Review of Systems Vital Signs Vitals Vital Signs Date Time Temp Pulse Resp B/P Pulse Ox O2 Delivery O2 Flow Rate FiO2 12/09/16 07:32 98.0 19 104/62 18 12/08/16 19:36 96 Intake and Output 12/08/16 12/08/16 12/09/16 15:00 23:00 07:00 Intake Total 960 ml 380 ml Balance 960 ml 380 ml Results Result Diagram: 12/09/16 0450 12/09/16 0450 Results 24 hrs Laboratory Tests Test 12/09/16 04:50 White Blood Count 23.3 H Red Blood Count 3.27 L Hemoglobin 11.7 L Hematocrit 34.2 L Mean Corpuscular Volume 104.6 H Mean Corpuscular Hemoglobin 35.8 H Mean Corpuscular Hemoglobin Concent 34.2 Red Cell Distribution Width 17.3 H Platelet Count 140 Mean Platelet Volume 14.1 H Neutrophils % 83.1 H Lymphocytes % 8.8 L Monocytes % 5.3 Eosinophils % 0.4 Basophils % 0.2 Nucleated Red Blood Cells % 0.0 Neutrophils # 19.3 H Lymphocytes # 2.1 Monocytes # 1.2 H Eosinophils # 0.1 Basophils # 0.0 Nucleated Red Blood Cells # 0.0 Sodium Level 128 L Potassium Level 4.4 Chloride Level 96 L Carbon Dioxide Level 26 Anion Gap 10 Blood Urea Nitrogen 19 Creatinine 0.82 Glucose Level 109 # Calcium Level 8.2 L Total Bilirubin 9.6 H Direct Bilirubin 7.40 H Indirect Bilirubin 2.2 H Aspartate Amino Transf (AST/SGOT) 146 H Alanine Aminotransferase (ALT/SGPT) 98 H Alkaline Phosphatase 814 H Total Protein 6.2 Albumin 2.4 L Globulin 3.80 H Albumin/Globulin Ratio 0.63 Medications Medications Current Medications Sucralfate (Carafate) 1 gm QID PO Last administered on 12/09/16 08:40; Admin Dose 1 GM; Start 11/16/16 at 21:00 Ondansetron HCl (Zofran Inj) 4 mg Q6H PRN IV NAUSEA AND/OR VOMITING; Start at 19:30 Morphine Sulfate (morphine) 2 mg Q4H PRN IV pain; Start 11/16/16 at 19:30 Spironolactone (Aldactone) 100 mg DAILY PO Last administered on 12/09/16 08:40 ; Admin Dose 100 MG; Start 11/22/16 at 11:30 Pantoprazole (Protonix Tab) 40 mg DAILY@06 PO Last administered on 12/09/16 05 :49; Admin Dose 40 MG; Start 11/24/16 at 06:00 Furosemide (Lasix) 40 mg DAILY PO Last administered on 12/09/16 08:42; Admin Dose 40 MG; Start 12/03/16 at 09:00 Lactulose (Enulose) 30 gm DAILY PO Last administered on 12/09/16 08:39; Admin Dose 30 GM; Start 12/06/16 at 09:00 Thiamine HCl (Vitamin B1) 100 mg DAILY PO Last administered on 12/09/16 08:40 ; Admin Dose 100 MG; Start 12/07/16 at 11:30 Enoxaparin Sodium (Lovenox) 30 mg DAILY SC Last administered on 12/09/16 08:44 ; Admin Dose 30 MG; Start 12/07/16 at 11:30 Lactobacillus Acidophilus/ Rhamnosus (Culturelle) 1 cap BID PO Last administered on 12/09/16 08:39; Admin Dose 1 CAP; Start 12/07/16 at 11:30 Demeclocycline HCl (Declomycin) 150 mg BID PO Last administered on 12/09/16 08 :40; Admin Dose 150 MG; Start 12/08/16 at 21:00 Ibuprofen (Motrin) 400 mg Q6H PRN PO PAIN OR TEMP ABOVE 38C; Start 12/08/16 at 16:30 Docusate Sodium (Colace) 200 mg BID PRN PO CONSTIPATION; Start 12/08/16 at 16:30 MARIBETH BARRETT NP December 09, 2016 13:42
--- NOTE | 2016-12-09 15:27 | PN ---
Date/Time of Note Date/Time of Note DATE: 12/09/16 TIME: 15:25 Assessment/Plan VTE Prophylaxis VTE Prophylaxis Intervention: LMWH Lines/Catheters IV [facility] ([facility] Peripheral IV Urinary Cath still in place: No Assessment/Plan Chief Complaint/Hosp Course S: 66 y M admitted w ascites. 12/08: Feels ok. No abd pain. 12/09: Feels ok. No dyspnea abd pain. Distention at baseline? O: Vss. I/O's Wt kg since admission PE No pallor Reg, no m/r/g CTAB BS + nt, distended. No R/R/G. edema less A/P 1. Decompensated ascites. Probable cirrhosis. Stable cont spironolactone/ Lasix. Beta-ted? 2. Cirrhosis? 3. Alcoholic liver disease; discharge home once ok w GI. 4. Hepatitis B, chronic status 5. Past alcoholism; thiamine. AA as needed 6. Chr liver disease sequela/anemia. 7. Tobacco abuse 8. Depression 9. Leukocytosis/possible leukemoid reaction 10. Hyponatremia. Possibly hypovolemic/intravascular depleted. No seizure or symptoms. Dc home once sodium stable. 11. Dyslipidemia 12. Hypoalbuminemia Problems: Exam/Review of Systems Vital Signs Vitals Vital Signs Date Time Temp Pulse Resp B/P Pulse Ox O2 Delivery O2 Flow Rate FiO2 12/09/16 07:32 98.0 19 104/62 18 12/08/16 19:36 96 Intake and Output 12/08/16 12/08/16 12/09/16 15:00 23:00 07:00 Intake Total 960 ml 380 ml Balance 960 ml 380 ml Results Result Diagram: 12/09/16 0450 12/09/16 0450 Results 24 hrs Laboratory Tests Test 12/09/16 04:50 White Blood Count 23.3 H Red Blood Count 3.27 L Hemoglobin 11.7 L Hematocrit 34.2 L Mean Corpuscular Volume 104.6 H Mean Corpuscular Hemoglobin 35.8 H Mean Corpuscular Hemoglobin Concent 34.2 Red Cell Distribution Width 17.3 H Platelet Count 140 Mean Platelet Volume 14.1 H Neutrophils % 83.1 H Lymphocytes % 8.8 L Monocytes % 5.3 Eosinophils % 0.4 Basophils % 0.2 Nucleated Red Blood Cells % 0.0 Neutrophils # 19.3 H Lymphocytes # 2.1 Monocytes # 1.2 H Eosinophils # 0.1 Basophils # 0.0 Nucleated Red Blood Cells # 0.0 Sodium Level 128 L Potassium Level 4.4 Chloride Level 96 L Carbon Dioxide Level 26 Anion Gap 10 Blood Urea Nitrogen 19 Creatinine 0.82 Glucose Level 109 # Calcium Level 8.2 L Total Bilirubin 9.6 H Direct Bilirubin 7.40 H Indirect Bilirubin 2.2 H Aspartate Amino Transf (AST/SGOT) 146 H Alanine Aminotransferase (ALT/SGPT) 98 H Alkaline Phosphatase 814 H Total Protein 6.2 Albumin 2.4 L Globulin 3.80 H Albumin/Globulin Ratio 0.63 Medications Medications Current Medications Sucralfate (Carafate) 1 gm QID PO Last administered on 12/09/16 08:40; Admin Dose 1 GM; Start 11/16/16 at 21:00 Ondansetron HCl (Zofran Inj) 4 mg Q6H PRN IV NAUSEA AND/OR VOMITING; Start at 19:30 Morphine Sulfate (morphine) 2 mg Q4H PRN IV pain; Start 11/16/16 at 19:30 Spironolactone (Aldactone) 100 mg DAILY PO Last administered on 12/09/16 08:40 ; Admin Dose 100 MG; Start 11/22/16 at 11:30 Pantoprazole (Protonix Tab) 40 mg DAILY@06 PO Last administered on 12/09/16 05 :49; Admin Dose 40 MG; Start 11/24/16 at 06:00 Furosemide (Lasix) 40 mg DAILY PO Last administered on 12/09/16 08:42; Admin Dose 40 MG; Start 12/03/16 at 09:00 Lactulose (Enulose) 30 gm DAILY PO Last administered on 12/09/16 08:39; Admin Dose 30 GM; Start 12/06/16 at 09:00 Thiamine HCl (Vitamin B1) 100 mg DAILY PO Last administered on 12/09/16 08:40 ; Admin Dose 100 MG; Start 12/07/16 at 11:30 Enoxaparin Sodium (Lovenox) 30 mg DAILY SC Last administered on 12/09/16 08:44 ; Admin Dose 30 MG; Start 12/07/16 at 11:30 Lactobacillus Acidophilus/ Rhamnosus (Culturelle) 1 cap BID PO Last administered on 12/09/16 08:39; Admin Dose 1 CAP; Start 12/07/16 at 11:30 Demeclocycline HCl (Declomycin) 150 mg BID PO Last administered on 12/09/16 08 :40; Admin Dose 150 MG; Start 12/08/16 at 21:00 Ibuprofen (Motrin) 400 mg Q6H PRN PO PAIN OR TEMP ABOVE 38C; Start 12/08/16 at 16:30 Docusate Sodium (Colace) 200 mg BID PRN PO CONSTIPATION; Start 12/08/16 at 16:30 VERONICA HARE MD December 09, 2016 15:27
[2016-12-09 20:38] VITALS: BP 84/56; PULSE 96
[2016-12-09] MEDS ORDERED: SOD CHLORIDE 0.9% 500 ML IV ONE (21:00)
[2016-12-09 21:29] VITALS: BP 82/52; RESP 20
[2016-12-09 22:53] VITALS: BP 95/65; PULSE 95
[2016-12-10 06:02] VITALS: BP 100/65; PULSE 94
[2016-12-10] MEDS: PANTOPRAZOLE (EC) 40 MG TAB PO SCH (06:05)
[2016-12-10 07:14] LABS: ALBUMIN 2.6 g/dl (3.3-4.9); ALBUMIN/GLOBULIN RATIO 0.66; BILIRUBIN,DIRECT 7.3 mg/dl (0.00-0.20); BILIRUBIN,INDIRECT 2.2 mg/dl (0-1.1); BILIRUBIN,TOTAL 9.5 mg/dl (0.2-1.3); CALCIUM 8.2 mg/dl (8.4-10.2); CREATININE 0.92 mg/dl (0.61-1.24); POTASSIUM 4.5 mmol/L (3.5-5.1); TOTAL PROTEIN 6.5 g/dl (6.1-8.1)
[2016-12-10 07:25] VITALS: BP 91/55; RESP 18
[2016-12-10] MEDS: SUCRALFATE 1 GM TAB PO SCH ×3 (08:49→17:00)
[2016-12-10] MEDS: LACTOBACILLUS RHAMNOSUS CAP PO SCH (08:49)
[2016-12-10] MEDS: SPIRONOLACTONE 50 MG TAB PO SCH (08:49)
[2016-12-10] MEDS: THIAMINE 100 MG TAB PO SCH (08:50)
[2016-12-10] MEDS: FUROSEMIDE 40 MG TAB PO SCH (08:50)
[2016-12-10] MEDS: DEMECLOCYCLINE 150 MG TAB PO SCH (08:50)
[2016-12-10] MEDS: ENOXAPARIN 30 MG/0.3 ML SYG SC SCH (08:52)
[2016-12-10] MEDS: LACTULOSE 30ML CUP PO SCH (08:54)
--- NOTE | 2016-12-10 11:04 | CONS ---
Date/Time of Note Date/Time of Note DATE: 12/10/16 TIME: 11:03 Assessment/Plan Assessment/Plan Additional Assessment/Plan 1. Hyponatremia likely secondary to liver disease causing hypervolemic hyponatremia. 2. Acute alcoholic hepatitis. 3. Decompensated Liver cirrhosis with symptomatic ascites 4. Systemic inflammatory response syndrome with leukocytosis and lactic acidosis likely secondary to acute alcoholic hepatitis. 6. History of smoking. 7. History of dyslipidemia. 9. Hyperammonemia without encephalopathy. 10. Persistent leukocytosis secondary to alcoholic hepatitis. 11. Urinary tract infection on oral antifungal Plan: Continue current treatment for Acute hepatitis, WBC still high 23.3 yesterday US guided paracentesis done yesterday 3.7 L removed pt has hyponatremia due to his liver disease, very limited options- will avoid Na chloride table due to risk of fluid overload/Ascites pt is not a candidate of tolvaptan due to elevated liver enzymes on Demeclocycline 150mg PO BID for hyponatremia .- increaase to 300mg PO BID will continue to follow up on patient Consultation Date/Type/Reason Admit Date/Time Nov 16, 2016 at 17:43 Initial Consult Date 12/06/16 Type of Consultation: NEPHROLOGY Referring Provider: ZEUS PHILIPPE 24 HR Interval Summary Free Text/Dictation Na 128,BP stable, afebrile Exam/Review of Systems Vital Signs Vitals Vital Signs Date Time Temp Pulse Resp B/P Pulse Ox O2 Delivery O2 Flow Rate FiO2 12/10/16 07:25 98.4 94 18 91/55 96 Intake and Output 12/09/16 12/09/16 12/10/16 15:00 23:00 07:00 Intake Total 1500 ml 480 ml Balance 1500 ml 480 ml Results Result Diagram: 12/09/16 0450 12/10/16 0530 Results 24 hrs Laboratory Tests Test 12/10/16 05:30 Sodium Level 128 L Potassium Level 4.5 Chloride Level 96 L Carbon Dioxide Level 25 Anion Gap 12 Blood Urea Nitrogen 19 Creatinine 0.92 Glucose Level 101 Calcium Level 8.2 L Total Bilirubin 9.5 H Direct Bilirubin 7.30 H Indirect Bilirubin 2.2 H Aspartate Amino Transf (AST/SGOT) 135 H Alanine Aminotransferase (ALT/SGPT) 86 H Alkaline Phosphatase 807 H Total Protein 6.5 Albumin 2.6 L Globulin 3.90 H Albumin/Globulin Ratio 0.66 Medications Medications Current Medications Sucralfate (Carafate) 1 gm QID PO Last administered on 12/10/16 08:49; Admin Dose 1 GM; Start 11/16/16 at 21:00 Ondansetron HCl (Zofran Inj) 4 mg Q6H PRN IV NAUSEA AND/OR VOMITING; Start at 19:30 Morphine Sulfate (morphine) 2 mg Q4H PRN IV pain; Start 11/16/16 at 19:30 Spironolactone (Aldactone) 100 mg DAILY PO Last administered on 12/10/16 08:49 ; Admin Dose 100 MG; Start 11/22/16 at 11:30 Pantoprazole (Protonix Tab) 40 mg DAILY@06 PO Last administered on 12/10/16 06 :05; Admin Dose 40 MG; Start 11/24/16 at 06:00 Furosemide (Lasix) 40 mg DAILY PO Last administered on 12/10/16 08:50; Admin Dose 40 MG; Start 12/03/16 at 09:00 Lactulose (Enulose) 30 gm DAILY PO Last administered on 12/10/16 08:54; Admin Dose 30 GM; Start 12/06/16 at 09:00 Thiamine HCl (Vitamin B1) 100 mg DAILY PO Last administered on 12/10/16 08:50 ; Admin Dose 100 MG; Start 12/07/16 at 11:30 Enoxaparin Sodium (Lovenox) 30 mg DAILY SC Last administered on 12/10/16 08:52 ; Admin Dose 30 MG; Start 12/07/16 at 11:30 Lactobacillus Acidophilus/ Rhamnosus (Culturelle) 1 cap BID PO Last administered on 12/10/16 08:49; Admin Dose 1 CAP; Start 12/07/16 at 11:30 Demeclocycline HCl (Declomycin) 150 mg BID PO Last administered on 12/10/16 08 :50; Admin Dose 150 MG; Start 12/08/16 at 21:00 Ibuprofen (Motrin) 400 mg Q6H PRN PO PAIN OR TEMP ABOVE 38C; Start 12/08/16 at 16:30 Docusate Sodium (Colace) 200 mg BID PRN PO CONSTIPATION; Start 12/08/16 at 16:30 ISRRAEL MACKEY MD December 10, 2016 11:04
--- NOTE | 2016-12-10 11:55 | PN ---
Date/Time of Note Date/Time of Note DATE: 12/10/16 TIME: 11:53 Assessment/Plan VTE Prophylaxis VTE Prophylaxis Intervention: LMWH Lines/Catheters IV Catheter Type (from [facility]): Peripheral IV Urinary Cath still in place: No Assessment/Plan Chief Complaint/Hosp Course S: 66 y M admitted w ascites. 12/08: Feels ok. No abd pain. 12/09: Feels ok. No dyspnea abd pain. Distention at baseline? 12/10: No distress, no encephalopathy. Positive BM. No GIb. Feels good. O: Vss. I/O's Wt kg since admission PE No pallor Reg, no m/r/g CTAB BS + nt, distended. No R/R/G. edema less A/P 1. Decompensated ascites. Portal has portal hypertension. Stable cont spironolactone/ Lasix. Beta-ted? 2. Cirrhosis? No tumor seen on imaging 3. Alcoholic liver disease; discharge home once ok w GI. 4. Hepatitis B, chr status 5. Past alcoholism; thiamine. AA as needed 6. Chr liver dz/anemia. 7. Tobacco abuse 8. Depression 9. Leukocytosis/probable leukemoid reaction 10. Hyponatremia. Possibly hypovolemic/intravascular depleted. No seizure or symptoms. Dc home once sodium stable. 11. Dyslipidemia 12. Hypoalbuminemia Problems: Exam/Review of Systems Vital Signs Vitals Vital Signs Date Time Temp Pulse Resp B/P Pulse Ox O2 Delivery O2 Flow Rate FiO2 12/10/16 07:25 98.4 94 18 91/55 96 Intake and Output 12/09/16 12/09/16 12/10/16 15:00 23:00 07:00 Intake Total 1500 ml 480 ml Balance 1500 ml 480 ml Results Result Diagram: 12/09/16 0450 12/10/16 0530 Results 24 hrs Laboratory Tests Test 12/10/16 05:30 Sodium Level 128 L Potassium Level 4.5 Chloride Level 96 L Carbon Dioxide Level 25 Anion Gap 12 Blood Urea Nitrogen 19 Creatinine 0.92 Glucose Level 101 Calcium Level 8.2 L Total Bilirubin 9.5 H Direct Bilirubin 7.30 H Indirect Bilirubin 2.2 H Aspartate Amino Transf (AST/SGOT) 135 H Alanine Aminotransferase (ALT/SGPT) 86 H Alkaline Phosphatase 807 H Total Protein 6.5 Albumin 2.6 L Globulin 3.90 H Albumin/Globulin Ratio 0.66 Medications Medications Current Medications Sucralfate (Carafate) 1 gm QID PO Last administered on 12/10/16 08:49; Admin Dose 1 GM; Start 11/16/16 at 21:00 Ondansetron HCl (Zofran Inj) 4 mg Q6H PRN IV NAUSEA AND/OR VOMITING; Start at 19:30 Morphine Sulfate (morphine) 2 mg Q4H PRN IV pain; Start 11/16/16 at 19:30 Spironolactone (Aldactone) 100 mg DAILY PO Last administered on 12/10/16 08:49 ; Admin Dose 100 MG; Start 11/22/16 at 11:30 Pantoprazole (Protonix Tab) 40 mg DAILY@06 PO Last administered on 12/10/16 06 :05; Admin Dose 40 MG; Start 11/24/16 at 06:00 Furosemide (Lasix) 40 mg DAILY PO Last administered on 12/10/16 08:50; Admin Dose 40 MG; Start 12/03/16 at 09:00 Lactulose (Enulose) 30 gm DAILY PO Last administered on 12/10/16 08:54; Admin Dose 30 GM; Start 12/06/16 at 09:00 Thiamine HCl (Vitamin B1) 100 mg DAILY PO Last administered on 12/10/16 08:50 ; Admin Dose 100 MG; Start 12/07/16 at 11:30 Enoxaparin Sodium (Lovenox) 30 mg DAILY SC Last administered on 12/10/16 08:52 ; Admin Dose 30 MG; Start 12/07/16 at 11:30 Lactobacillus Acidophilus/ Rhamnosus (Culturelle) 1 cap BID PO Last administered on 12/10/16 08:49; Admin Dose 1 CAP; Start 12/07/16 at 11:30 Ibuprofen (Motrin) 400 mg Q6H PRN PO PAIN OR TEMP ABOVE 38C; Start 12/08/16 at 16:30 Docusate Sodium (Colace) 200 mg BID PRN PO CONSTIPATION; Start 12/08/16 at 16:30 Demeclocycline HCl (Declomycin) 300 mg BID PO ; Start 12/10/16 at 21:00 VERONICA HARE MD December 10, 2016 11:55
[2016-12-10] MEDS ORDERED: DEME150T8 PO (12:06)
[2016-12-10] MEDS ORDERED: LACT1CAP57 PO (12:07)
[2016-12-10] MEDS ORDERED: SUCR1TAB27 PO (12:07)
[2016-12-10] MEDS ORDERED: FURO40TA4 PO (12:07)
[2016-12-10] MEDS ORDERED: SPIR50TA PO (12:07)
[2016-12-10] MEDS ORDERED: SODI100010 PO (12:07)
[2016-12-10] MEDS ORDERED: Thiamine PO (12:07)
[2016-12-10] MEDS ORDERED: PANT40TA4 PO (12:07)
--- NOTE | 2016-12-10 12:08 | PDOCDIS ---
Discharge Instructions DIAGNOSIS Discharge Diagnosis: ascites CONDITION Patient Condition: Stable HOME CARE INSTRUCTIONS: Special Diet: 2 g Na ACTIVITY: Activity Restrictions: Slowly Increase Activity Activity Restrictions Comment: sleep on side, not on back. FOLLOW UP/APPOINTMENTS Appointments pcp 1wk Dr Silver 1week Dr Myrna Lane -1wk do lab: BMP on wednesday & and have results send to Dr Myrna Lane. VERONICA HARE MD December 10, 2016 12:08
--- NOTE | 2016-12-10 12:59 | DS ---
DATE OF ADMISSION: 11/16/2016 DATE OF DISCHARGE: 12/10/2016 PRIMARY CARE PHYSICIAN: Unknown. CONSULTANTS: Dr. Silver, Dr. Driscoll, Dr. Isrrael Lane DIAGNOSIS ON ADMISSION: Decompensated ascites. DIAGNOSES ON DISCHARGE: 1. Decompensated ascites. 2. Alcoholic liver disease. 3. Chronic hepatitis B exposure. 4. Alcoholism. 5. Chronic liver disease ____. 6. Leukemoid reaction. 7. Hyponatremia. HOSPITAL COURSE: This is a 66-year-old gentleman with chronic alcoholism admitted with ascites, dec ompensated cirrhosis requiring paracentesis about 3 times. Etiology is probably chronic alcoholism, alcoholic hepatitis. There is no encephalopathy. He is stable and fit for discharge. No evidence of SBP on paracentesis. No evidence of GI bleed. No diarrhea, infectious causes. We have started spironolactone and Lasix. He will need to follow up with GI. In terms of alcoholism, I offered him thiamine and AA referral as needed. In terms of his hyponatremia. Unfortunately, he still requires medical therapy with demeclocycline and sodium chloride tablets. Recommend BMP done twice a week next week. His white count was found to be 23. No evidence of sepsis. The patient was seen by ID. Probably h as leukemoid reaction from alcoholic liver disease, cirrhosis. No evidence of cellulitis. Cultures are negative. DISCHARGE ____: Follow up with primary ____ nephrology in 1 to 2 weeks, ID as needed, GI in 1 to 2 weeks. DIET: Regular. ACTIVITY: No driving. The patient was asked to lie down on his side which will help blood pressure . DURABLE MEDICAL EQUIPMENT: None. CODE STATUS: FULL. CONDITION: Stable. BARRIERS TO DISCHARGE: None. PENDING TESTS: Ascites fluid fungal cultures which are held for 6 weeks, although clinically there are no issues at all. There were no PMNs seen in the staining, etc. FUNCTIONAL STATUS: The patient is awake, alert, and agrees with the plan of care. REASON FOR ADMISSION: Ascites. ALLERGIES: NO KNOWN DRUG ALLERGIES. LABORATORIES: Last chest x-ray from the [facility], no acute process. MRCP does not show any masses. The re is fatty metamorphosis, distended gallbladder with mild gallbladder wall thickening, and adjacent fluid. We were suspecting acalculous cholecystitis. Mild ascites. However, there are normal bile ducts and the HIDA scan is showing nonvisualization of the gallbladder up to 50 minutes post inject ion. Objectively there is no evidence of cholecystitis, either calculus or acalculous. The abnorma l HIDA scan is probably due to liver disease and slow flow. Full abdominal ultrasound shows a small amount of free fluid in the abdomen, free fluid adjacent to the gallbladder. CT abdomen and pelvis without contrast on admission, noted portal hypertension with multiple dilated veins in the upper a bdomen and recanalization of the umbilical vein. Gallstones in the gallbladder, diffuse gallbladder wall thickening, atherosclerosis, normal appendix, hepatomegaly, fatty metamorphosis of the liver, coronary artery calcifications, extensive diverticulosis of the colon, mild ascites, DJD. LABORATORIES: Blood cultures negative. C diff testing negative. Urine showed [place] less than 10 ,000. DISCHARGE MEDICATIONS: 1. Demeclocycline 300 b.i.d. 2. Spironolactone 100 daily. 3. Lasix 40. 4. Culturelle 1 capsule twice daily. 5. Protonix 40 daily. 6. Carafate 1 g 4 times a day. 7. Thiamine 100 daily. 8. Sodium chloride tablets 1 g twice daily. Dictated By: VERONICA HARE MD AC/NTS Conf#: [id number] DID#: [id number] CC: MORIS SILVER; JOSE EDUARDO DRISCOLL MD; ISRRAEL LANE MD;*[facility]*
[2016-12-10] MEDS ORDERED: SODIUM CHLORIDE 1 GM TAB PO SCH (13:00)
--- NOTE | 2016-12-10 13:52 | CONS ---
Date/Time of Note Date/Time of Note DATE: 12/10/16 TIME: 13:51 Assessment/Plan Assessment/Plan Chief Complaint/Hosp Course SUBJECTIVE: No acute events, no fevers, alert, feels good MICROBIOLOGY: C dif neg. Blood cultures have been negative. DIAGNOSTICS: Chest x-ray on December 07 was unremarkable. PHYSICAL EXAMINATION: GENERAL: Well-developed, elderly man who is alert, in no distress. HEENT: Head atraumatic, normocephalic. Sclerae anicteric. Buccal mucosa dry. NECK: Supple. CHEST: Rise symmetrical. Breath sounds clear. HEART: S1, S2. ABDOMEN: Distended, soft. Bowel sounds present. EXTREMITIES: No cyanosis. ASSESSMENT: 1. Persistent leukocytosis, likely reactive 2. Diarrhea. 3. Fungal urinary tract infection. 4. Acute alcoholic hepatitis. Questionable acalculous cholecystitis. 5. Chronic alcohol abuse. 6. Recurrent ascites, status post paracentesis with fluid cultures revealed no evidence of spontaneous bacterial peritonitis. PLAN: Remains stable, off abx, continue present care, f/u GI/hematology rec-s, [facility] cx prn for [facility] staff/pt Problems: Consultation Date/Type/Reason Admit Date/Time Nov 16, 2016 at 17:43 Initial Consult Date 12/04/16 Type of Consultation: ID Referring Provider: ZEUS PHILIPPE Exam/Review of Systems Vital Signs Vitals Vital Signs Date Time Temp Pulse Resp B/P Pulse Ox O2 Delivery O2 Flow Rate FiO2 12/10/16 07:25 98.4 94 18 91/55 96 Intake and Output 12/09/16 12/09/16 12/10/16 15:00 23:00 07:00 Intake Total 1500 ml 480 ml Balance 1500 ml 480 ml Results Result Diagram: 12/09/16 0450 12/10/16 0530 Results 24 hrs Laboratory Tests Test 12/10/16 05:30 Sodium Level 128 L Potassium Level 4.5 Chloride Level 96 L Carbon Dioxide Level 25 Anion Gap 12 Blood Urea Nitrogen 19 Creatinine 0.92 Glucose Level 101 Calcium Level 8.2 L Total Bilirubin 9.5 H Direct Bilirubin 7.30 H Indirect Bilirubin 2.2 H Aspartate Amino Transf (AST/SGOT) 135 H Alanine Aminotransferase (ALT/SGPT) 86 H Alkaline Phosphatase 807 H Total Protein 6.5 Albumin 2.6 L Globulin 3.90 H Albumin/Globulin Ratio 0.66 Medications Medications Current Medications Sucralfate (Carafate) 1 gm QID PO Last administered on 12/10/16 12:54; Admin Dose 1 GM; Start 11/16/16 at 21:00 Ondansetron HCl (Zofran Inj) 4 mg Q6H PRN IV NAUSEA AND/OR VOMITING; Start at 19:30 Morphine Sulfate (morphine) 2 mg Q4H PRN IV pain; Start 11/16/16 at 19:30 Spironolactone (Aldactone) 100 mg DAILY PO Last administered on 12/10/16 08:49 ; Admin Dose 100 MG; Start 11/22/16 at 11:30 Pantoprazole (Protonix Tab) 40 mg DAILY@06 PO Last administered on 12/10/16 06 :05; Admin Dose 40 MG; Start 11/24/16 at 06:00 Furosemide (Lasix) 40 mg DAILY PO Last administered on 12/10/16 08:50; Admin Dose 40 MG; Start 12/03/16 at 09:00 Lactulose (Enulose) 30 gm DAILY PO Last administered on 12/10/16 08:54; Admin Dose 30 GM; Start 12/06/16 at 09:00 Thiamine HCl (Vitamin B1) 100 mg DAILY PO Last administered on 12/10/16 08:50 ; Admin Dose 100 MG; Start 12/07/16 at 11:30 Enoxaparin Sodium (Lovenox) 30 mg DAILY SC Last administered on 12/10/16 08:52 ; Admin Dose 30 MG; Start 12/07/16 at 11:30 Lactobacillus Acidophilus/ Rhamnosus (Culturelle) 1 cap BID PO Last administered on 12/10/16 08:49; Admin Dose 1 CAP; Start 12/07/16 at 11:30 Ibuprofen (Motrin) 400 mg Q6H PRN PO PAIN OR TEMP ABOVE 38C; Start 12/08/16 at 16:30 Docusate Sodium (Colace) 200 mg BID PRN PO CONSTIPATION; Start 12/08/16 at 16:30 Demeclocycline HCl (Declomycin) 300 mg BID PO ; Start 12/10/16 at 21:00 Sodium Chloride (Nacl) 1 gm BID PO ; Start 12/10/16 at 13:00 MARIBETH BARRETT NP December 10, 2016 13:52
--- NOTE | 2016-12-10 13:59 | PN ---
Date/Time of Note Date/Time of Note DATE: 12/10/16 TIME: 13:56 Assessment/Plan VTE Prophylaxis VTE Prophylaxis Intervention: ambulation Lines/Catheters IV Catheter Type (from [facility] Peripheral IV Urinary Cath still in place: No Assessment/Plan Assessment/Plan Assessment/Plan Jaundice/Hepatocellular * Acute alcoholic hepatitis ?Acalculous cholecystitis BY MRCP/ clinically unlikely Hepatitis B exposure/no active infection Ascites Chronic alcoholism Leukocytosis steroid induced(?) Plan: Continue present management Monitor liver function test Stable for out patient management Prednisolone 40 mg daily for 28 days, Subjective 24 Hr Interval Summary Free Text/Dictation * Course reviewed with RN * patient seen and examined * afebrile,no abdominal pain Exam/Review of Systems Vital Signs Vitals Vital Signs Date Time Temp Pulse Resp B/P Pulse Ox O2 Delivery O2 Flow Rate FiO2 12/10/16 07:25 98.4 94 18 91/55 96 Intake and Output 12/09/16 12/09/16 12/10/16 15:00 23:00 07:00 Intake Total 1500 ml 480 ml Balance 1500 ml 480 ml Exam Constitutional: alert, oriented Psych: no complaints Eyes: nl conjunctiva Neck: non-tender, supple Respiratory: clear to auscultation, normal air movement Cardiovascular: nl pulses, regular rate and rhythm Gastrointestinal: ascites, bowel sounds, distended, non-tender, soft Musculoskeletal: nl extremities to inspection Results Result Diagram: 12/09/16 0450 12/10/16 0530 Results 24 hrs Laboratory Tests Test 12/10/16 05:30 Sodium Level 128 L Potassium Level 4.5 Chloride Level 96 L Carbon Dioxide Level 25 Anion Gap 12 Blood Urea Nitrogen 19 Creatinine 0.92 Glucose Level 101 Calcium Level 8.2 L Total Bilirubin 9.5 H Direct Bilirubin 7.30 H Indirect Bilirubin 2.2 H Aspartate Amino Transf (AST/SGOT) 135 H Alanine Aminotransferase (ALT/SGPT) 86 H Alkaline Phosphatase 807 H Total Protein 6.5 Albumin 2.6 L Globulin 3.90 H Albumin/Globulin Ratio 0.66 Medications Medications Current Medications Sucralfate (Carafate) 1 gm QID PO Last administered on 12/10/16t 12:54; Admin Dose 1 GM; Start 11/16/16 at 21:00 Ondansetron HCl (Zofran Inj) 4 mg Q6H PRN IV NAUSEA AND/OR VOMITING; Start at 19:30 Morphine Sulfate (morphine) 2 mg Q4H PRN IV pain; Start 11/16/16 at 19:30 Spironolactone (Aldactone) 100 mg DAILY PO Last administered on 12/10/16 08:49 ; Admin Dose 100 MG; Start 11/22/16 at 11:30 Pantoprazole (Protonix Tab) 40 mg DAILY@06 PO Last administered on 12/10/16 06 :05; Admin Dose 40 MG; Start 11/24/16 at 06:00 Furosemide (Lasix) 40 mg DAILY PO Last administered on 12/10/16 08:50; Admin Dose 40 MG; Start 12/03/16 at 09:00 Lactulose (Enulose) 30 gm DAILY PO Last administered on 12/10/16 08:54; Admin Dose 30 GM; Start 12/06/16 at 09:00 Thiamine HCl (Vitamin B1) 100 mg DAILY PO Last administered on 12/10/16 08:50 ; Admin Dose 100 MG; Start 12/07/16 at 11:30 Enoxaparin Sodium (Lovenox) 30 mg DAILY SC Last administered on 12/10/16 08:52 ; Admin Dose 30 MG; Start 12/07/16 at 11:30 Lactobacillus Acidophilus/ Rhamnosus (Culturelle) 1 cap BID PO Last administered on 12/10/16 08:49; Admin Dose 1 CAP; Start 12/07/16 at 11:30 Ibuprofen (Motrin) 400 mg Q6H PRN PO PAIN OR TEMP ABOVE 38C; Start 12/08/16 at 16:30 Docusate Sodium (Colace) 200 mg BID PRN PO CONSTIPATION; Start 12/08/16 at 16:30 Demeclocycline HCl (Declomycin) 300 mg BID PO ; Start 12/10/16 at 21:00 Sodium Chloride (Nacl) 1 gm BID PO ; Start 12/10/16 at 13:00 MORIS HINES MD December 10, 2016 13:59
[2016-12-10] MEDS ORDERED: DEMECLOCYCLINE 150 MG TAB PO SCH (21:00)
== END 2016-12-10 17:13 | disposition home or self-care (01) | DRG 433 ==
LOC: E/R 12:37 → PP2 17:43
PROVIDERS: ADMIT Family Medicine; ATTEND Family Medicine
PROC: 0W9G3ZZ Drainage of Peritoneal Cavity, Percutaneous Approach (ICD-10-PCS; principal; 2016-11-21)
PROC: 0W9G3ZZ Drainage of Peritoneal Cavity, Percutaneous Approach (ICD-10-PCS; 2016-11-27)
PROC: 0W9G3ZZ Drainage of Peritoneal Cavity, Percutaneous Approach (ICD-10-PCS; 2016-12-03)
PROC: 0W9G3ZZ Drainage of Peritoneal Cavity, Percutaneous Approach (ICD-10-PCS; 2016-12-07)
DX: K70.11 Alcoholic hepatitis with ascites (principal); K76.6 Portal hypertension; K70.31 Alcoholic cirrhosis of liver with ascites; R65.10 Systemic inflammatory response syndrome (SIRS) of non-infectious origin without acute organ dysfunction; K81.0 Acute cholecystitis; E72.20 Disorder of urea cycle metabolism, unspecified; E87.1 Hypo-osmolality and hyponatremia; E88.09 Other disorders of plasma-protein metabolism, not elsewhere classified; B37.49 Other urogenital candidiasis; D53.1 Other megaloblastic anemias, not elsewhere classified; K70.0 Alcoholic fatty liver; F10.20 Alcohol dependence, uncomplicated; D53.9 Nutritional anemia, unspecified; E78.5 Hyperlipidemia, unspecified; E87.6 Hypokalemia; K57.90 Diverticulosis of intestine, part unspecified, without perforation or abscess without bleeding; Z20.5 Contact with and (suspected) exposure to viral hepatitis; Z87.891 Personal history of nicotine dependence
CPT/HCPCS: 36415; 71010; 71020; 74176; 74181; 76705; 78226; 80048; 80053; 80061; 80069; 80076; 81003; 82105; 82140; 82306; 82533; 82607; 82728; 82746; 82962; 83010; 83036; 83540; 83605; 83615; 83690; 83735; 83880; 83930; 83935; 84100; 84300; 84439; 84443; 84484; 84560; 85025; 85045; 85610; 85651; 85730; 86140; 86704; 86706; 86803; 87040; 87070; 87075; 87086; 87102; 87116; 88300; 89050; 96374; 97162; J1940; A9537; C9113; J0696; J1650; J2543; J3411; J3480; J7030; J7040; J7510; P9047

== ENCOUNTER 2016-12-18 23:57 | Emergency (ER) | payer OTHER ==
[~2016-12-18] VITALS: Ht 165.1 cm; Wt 77.0 kg
[~2016-12-18 23:57] MED LIST: DEME150T8 PO; FURO40TA4 PO; LACT1CAP57 PO; PANT40TA4 PO; SODI100010 PO; SPIR50TA PO; SUCR1TAB27 PO; Thiamine PO
[2016-12-19 00:10] VITALS: Ht 165.1 cm; Wt 77.0 kg
--- NOTE | 2016-12-19 01:51 | ERA ---
ER Documentation Chief Complaint Date/Time DATE: 12/19/16 TIME: 01:50 Chief Complaint abdominal distention x 1 week HPI The patient is a 66-year-old male, presenting to the ER because of recurrent abdominal distention for 1 week. He was admitted and discharged about a week ago when he had abdominal paracentesis. He denies fever, chills, neck pain, chest pain, abdominal pain, nausea, vomiting, dysuria, diarrhea, constipation. He has history of alcohol abuse, denies smoking. He was admitted recently and had extensive workup and ruled out for pneumonia, spontaneous bacterial peritonitis Past medical history: Cirrhosis, ascites, history of leukocytosis Past surgical history: Ventral herniorrhaphy, frequent abdominal paracentesis ROS All systems reviewed and are negative except as per history of present illness. Medications Home Meds Active Scripts [Thiamine] 100 MG TAB No Conflict Check, 100 MG PO DAILY for 30 Days, #30 6 Refills Prov:VERONICA HARE MD 12/10/16 Sucralfate (Carafate) 1 Gm Tablet, 1 GM PO QID for 10 Days, #20 TAB 1 Refill Prov:VERONICA HARE MD 12/10/16 Pantoprazole* (Pantoprazole*) 40 Mg Tablet.dr, 40 MG PO DAILY@06 for 14 Days, # 14 1 Refill Prov:VERONICA HARE MD 12/10/16 Furosemide* (Furosemide*) 40 Mg Tablet, 40 MG PO DAILY for 10 Days, #10 TAB Prov:VERONICA HARE MD 12/10/16 Spironolactone* (Aldactone*) 50 Mg Tablet, 100 MG PO DAILY for 10 Days, #10 TAB 1 Refill Prov:VERONICA HARE MD 12/10/16 Demeclocycline Hcl* (Declomycin*) 150 Mg Tablet, 300 MG PO BID for 10 Days, #20 TAB 1 Refill Prov:VERONICA HARE MD 12/10/16 Discontinued Scripts Sodium Chloride (Sodium Chloride) 1,000 Mg Tablet.funmilayo, 1 GM PO BID for 10 Days, #20 TAB Prov:VERONICA HARE MD 12/10/16 Lactobacillus Rhamnosus* (Culturelle*) 1 Each Cap.sprink, 1 CAP PO BID for 10 Days, #20 CAP Prov:VERONICA HARE MD 12/10/16 Allergies Allergies: Coded Allergies: No Known Allergy (Unverified , 12/19/16) PMhx/Soc History of Surgery: Yes (umbilical and rt inguinal hernia) Anesthesia Reaction: No Hx Neurological Disorder: No Hx Respiratory Disorders: No Hx Cardiac Disorders: No Hx Psychiatric Problems: No Hx Miscellaneous Medical Probl: No Hx Alcohol Use: Yes (hx ETOH abuse) Hx Substance Use: No Hx Tobacco Use: No Smoking Status: Never smoker Physical Exam Vitals Vital Signs Date Time Temp Pulse Resp B/P Pulse Ox O2 Delivery O2 Flow Rate FiO2 12/19/16 01:49 74 22 117/85 100 Room Air 12/19/16 00:10 99.3 78 20 111/69 99 Physical Exam Const: No acute distress. Head: Atraumatic. Eyes: Normal Conjunctiva. ENT: Normal External Ears, Nose and Mouth. Neck: Full range of motion. No meningismus. Resp: Clear to auscultation bilaterally. Cardio: Regular rate and rhythm, no murmurs. Abd: Soft, ascites, normal bowel sounds, non tender. Skin: No petechiae or rashes. Back: No midline or flank tenderness. Ext: Trace bilateral edema, no calf tenderness Neur: Awake and alert. No focal deficit Psych: Normal Mood and Affect. Result Diagram: 12/19/16 0207 12/19/16 0207 Results 24 hrs Laboratory Tests Test 12/19/16 01:59 12/19/16 02:07 Bedside Urine pH (LAB) 5.5 Bedside Urine Protein (LAB) Negative Bedside Urine Glucose (UA) Negative Bedside Urine Ketones (LAB) Negative Bedside Urine Blood Negative Bedside Urine Nitrite (LAB) Negative Bedside Urine Leukocyte Esterase (L Negative White Blood Count 15.610^3/ul Red Blood Count 3.4810^6/ul Hemoglobin 12.6g/dl Hematocrit 36.1% Mean Corpuscular Volume 103.7fl Mean Corpuscular Hemoglobin 36.2pg Mean Corpuscular Hemoglobin Concent 34.9g/dl Red Cell Distribution Width 16.4% Platelet Count 58846^3/UL Mean Platelet Volume 12.1fl Neutrophils % 76.9% Lymphocytes % 15.3% Monocytes % 5.1% Eosinophils % 1.3% Basophils % 0.3% Nucleated Red Blood Cells % 0.0/100WBC Neutrophils # 12.010^3/ul Lymphocytes # 2.410^3/ul Monocytes # 0.810^3/ul Eosinophils # 0.210^3/ul Basophils # 0.010^3/ul Nucleated Red Blood Cells # 0.010^3/ul Prothrombin Time 17.1Sec Prothrombin Time Ratio 1.3 INR International Normalized Ratio 1.39 Activated Partial Thromboplast Time 35.4Sec Sodium Level 129mmol/L Potassium Level 4.2mmol/L Chloride Level 94mmol/L Carbon Dioxide Level 21mmol/L Anion Gap 18 Blood Urea Nitrogen 26mg/dl Creatinine 1.32mg/dl Glucose Level 179mg/dl Calcium Level 8.5mg/dl Total Bilirubin 5.0mg/dl Direct Bilirubin 3.40mg/dl Indirect Bilirubin 1.6mg/dl Aspartate Amino Transf (AST/SGOT) 128IU/L Alanine Aminotransferase (ALT/SGPT) 65IU/L Alkaline Phosphatase 1432IU/L Total Protein 7.2g/dl Albumin 2.6g/dl Globulin 4.60g/dl Albumin/Globulin Ratio 0.56 Lipase 409U/L Procedures/[place] [id number] Radiology Main Line: [phone] DIAGNOSTIC IMAGING REPORT Patient: NETTE ADAM : 1950 Age: 66 Sex: M MR #: [id number] DOS: 12/19/16 0000 Ordering MD: HUSAM IRELAND MD Location: E/R Room/Bed: PROCEDURE: XR Chest. CLINICAL INDICATION: Shortness of breath. TECHNIQUE: AP Portable chest. COMPARISON: 12/01/2016 FINDINGS: The cardiomediastinal silhouette is normal. There is mild hazy opacity at the left costophrenic angle. The osseous structures are unremarkable. IMPRESSION: Mild opacity at the left costophrenic angle likely due to mild atelectasis and / or pleural effusion. RPTAT: HIKT .Jackson Vasquez MD, MD Date Time Electronically viewed and signed by .Jackson Vasquez MD, MD on 12/19/2016 02:50 .T/ CC: HUSAM IRELAND MD MEDICAL MAKING DECISION: The patient is a 66-year-old male, presenting with recurrent abdominal ascites, renal insufficiency. I do not suspect SBP or CHF or pneumonia The differential diagnoses considered include but are not limited to cholelithiasis, cholecystitis, cystitis, pancreatitis, hepatitis, gastritis, peptic ulcer disease, gastric ulcer, appendicitis, diverticulitis, cholangitis, choledocholithiasis, partial small bowel obstruction. Departure Diagnosis: Primary Impression: Ascites Additional Impressions: Renal insufficiency Anemia Condition: Good Comments He was advised to return tomorrow morning for abdominal paracentesis by radiologist HUSAM IRELAND MD December 19, 2016 01:51
[2016-12-19 01:57] LABS: URINE BLOOD (Dip) POC Negative (NEGATIVE)
[2016-12-19 02:36] LABS: ADD SCAN DIFF NO
[2016-12-19 02:39] LABS: BASOPHILS % 0.3 % (0.0-2.0); EOSINOPHILS # 0.2 10^3/ul (0.0-0.5); EOSINOPHILS % 1.3 % (0.0-7.0); HEMATOCRIT 36.1 % (42.0-52.0); HEMOGLOBIN 12.6 g/dl (14.0-18.0); LYMPHOCYTES # 2.4 10^3/ul (0.8-2.9); LYMPHOCYTES % 15.3 % (15.0-51.0); MEAN CORPUSCULAR HEMOGLOBIN 36.2 pg (29.0-33.0); MEAN CORPUSCULAR HGB CONC 34.9 g/dl (32.0-37.0); MEAN CORPUSCULAR VOLUME 103.7 fl (82.0-101.0); MEAN PLATELET VOLUME 12.1 fl (7.4-10.4); MONOCYTE # 0.8 10^3/ul (0.3-0.9); MONOCYTES % 5.1 % (0.0-11.0); NEUTROPHILS % 76.9 % (39.0-77.0); PLATELET COUNT 205 10^3/UL (140-415); RED BLOOD COUNT 3.48 10^6/ul (4.70-6.10); RED CELL DISTRIBUTION WIDTH 16.4 % (11.5-14.5); WHITE BLOOD COUNT 15.6 10^3/ul (4.8-10.8)
--- NOTE | 2016-12-19 02:51 | RADRPT ---
PROCEDURE: XR Chest. CLINICAL INDICATION: Shortness of breath. TECHNIQUE: AP Portable chest. COMPARISON: 12/01/2016 FINDINGS: The cardiomediastinal silhouette is normal. There is mild hazy opacity at the left costophrenic ang le. The osseous structures are unremarkable. IMPRESSION: Mild opacity at the left costophrenic angle likely due to mild atelectasis and / or pleural effusion . RPTAT: HIKT .Jackson Vasquez MD, MD Date Time Electronically viewed and signed by .Jackson Vasquez MD, MD on 12/19/2016 02:50 .T/
[2016-12-19 02:57] LABS: INR 1.39; PROTIME 17.1 Sec (12.2-14.2); PT RATIO 1.3
[2016-12-19 02:58] LABS: PARTIAL THROMBOPLASTIN TIME 35.4 Sec (25.0-35.0)
[2016-12-19 03:02] LABS: ALBUMIN 2.6 g/dl (3.3-4.9)
[2016-12-19 03:03] LABS: POTASSIUM 4.2 mmol/L (3.5-5.1)
[2016-12-19 03:05] LABS: ALBUMIN/GLOBULIN RATIO 0.56; BILIRUBIN,DIRECT 3.4 mg/dl (0.00-0.20); BILIRUBIN,INDIRECT 1.6 mg/dl (0-1.1); CREATININE 1.32 mg/dl (0.61-1.24); TOTAL PROTEIN 7.2 g/dl (6.1-8.1)
[2016-12-19 03:06] LABS: CALCIUM 8.5 mg/dl (8.4-10.2)
[2016-12-19 03:25] VITALS: BP 98/72; PULSE 79; RESP 21; TEMP 98.2
== END 2016-12-19 03:29 | disposition home or self-care (01) ==
LOC: E/R 23:57
DX: R18.8 Other ascites (principal); N28.9 Disorder of kidney and ureter, unspecified; D64.9 Anemia, unspecified; R40.2142 Coma scale, eyes open, spontaneous, at arrival to emergency department; R40.2252 Coma scale, best verbal response, oriented, at arrival to emergency department; R40.2362 Coma scale, best motor response, obeys commands, at arrival to emergency department; R06.02 Shortness of breath
CPT/HCPCS: 36415; 71010; 80053; 81003; 83690; 85025; 85610; 85730; Z7502

== ENCOUNTER 2016-12-19 07:38 | Emergency (ER) | payer OTHER ==
[~2016-12-19] VITALS: Ht 165.1 cm; Wt 86.4 kg
[2016-12-19 07:42] VITALS: Ht 165.1 cm; Wt 86.4 kg
[2016-12-19] MEDS ORDERED: SOD CHLORIDE 0.9% 500 ML IV STA (07:58)
[2016-12-19] MEDS ORDERED: LIDOCAINE 1% (MPF) 5 ML VIAL ONE (11:38)
--- NOTE | 2016-12-19 11:42 | RADRPT ---
PROCEDURE: Ultrasound guided paracentesis CLINICAL INDICATION: Ascites TECHNIQUE: The risks benefits and alternatives of the procedure were explained to the patient. In formed written consent was obtained. A time out was performed. The patient understood the risks be nefits and alternatives and wished to proceed with the procedure. COMPARISON: None available FINDINGS: A time out was performed. The overlying skin of the left lower quadrant of the abdomen was prepped and draped in the usual sterile fashion. Approximately 10 cc of lidocaine was injected locally for p ain control. Utilizing ultrasound guidance, a 6-Finnish paracentesis catheter catheter was placed in to the peritoneal cavity without difficulty. The patient tolerated the procedure well without comp lication. Approximately 5050 cc of bright yellow fluid was obtained. The fluid was not sent to the lab for further analysis. IMPRESSION: 1. Successful ultrasound-guided paracentesis. RPTAT: QQ .Jamil Teague MD, Date Time Electronically viewed and signed by .Jamil Teague MD, on 12/19/2016 11:42 .R/
--- NOTE | 2016-12-19 12:11 | ERD ---
ER Documentation Chief Complaint Date/Time DATE: 12/19/16 TIME: 12:10 Chief Complaint abdominal pain , fluid accumulation ( ascites) - for paracentesis HPI 66-year-old man presents with abdominal distention and ascites requesting paracentesis. She has a long history of cirrhosis and recurrent ascites and gets paracentesis on a regular basis. Patient denies fevers or chills, no weight loss, no blood per rectum or melena, no chest pain or shortness of breath. ROS All systems reviewed and are negative except as per history of present illness. Medications Home Meds Active Scripts [Thiamine] 100 MG TAB No Conflict Check, 100 MG PO DAILY for 30 Days, #30 6 Refills Prov:VERONICA HARE MD 12/10/16 Sucralfate (Carafate) 1 Gm Tablet, 1 GM PO QID for 10 Days, #20 TAB 1 Refill Prov:VERONICA HARE MD 12/10/16 Pantoprazole* (Pantoprazole*) 40 Mg Tablet.dr, 40 MG PO DAILY@06 for 14 Days, # 14 1 Refill Prov:VERONICA HARE MD 12/10/16 Furosemide* (Furosemide*) 40 Mg Tablet, 40 MG PO DAILY for 10 Days, #10 TAB Prov:VERONICA HARE MD 12/10/16 Spironolactone* (Aldactone*) 50 Mg Tablet, 100 MG PO DAILY for 10 Days, #10 TAB 1 Refill Prov:VERONICA HARE MD 12/10/16 Demeclocycline Hcl* (Declomycin*) 150 Mg Tablet, 300 MG PO BID for 10 Days, #20 TAB 1 Refill Prov:VERONICA HARE MD 12/10/16 Discontinued Scripts Sodium Chloride (Sodium Chloride) 1,000 Mg Tablet.funmilayo, 1 GM PO BID for 10 Days, #20 TAB Prov:VERONICA HARE MD 12/10/16 Lactobacillus Rhamnosus* (Culturelle*) 1 Each Cap.sprink, 1 CAP PO BID for 10 Days, #20 CAP Prov:VERONICA HARE MD 12/10/16 Allergies Allergies: Coded Allergies: No Known Allergy (Unverified , 12/19/16) PMhx/Soc Abdominal hernias, hypertension, cirrhosis, ascites History of Surgery: Yes (umbilical and rt inguinal hernia) Anesthesia Reaction: No Hx Neurological Disorder: No Hx Respiratory Disorders: No Hx Cardiac Disorders: No Hx Psychiatric Problems: No Hx Miscellaneous Medical Probl: No (cirrhosis, ) Hx Alcohol Use: Yes (hx ETOH abuse) Hx Substance Use: No Hx Tobacco Use: No Smoking Status: Former smoker FmHx Family History: No diabetes Physical Exam Vitals Vital Signs Date Time Temp Pulse Resp B/P Pulse Ox O2 Delivery O2 Flow Rate FiO2 12/19/16 12:40 98.5 68 18 134/68 99 Room Air 12/19/16 07:42 98.2 76 18 96/62 98 Physical Exam GENERAL: Well-developed, well-nourished, well-hydrated, in no apparent distress , looks nontoxic in appearance, afebrile HEENT: Moist mucous membranes, pink conjunctiva, positive mild jaundice and icterus, no cervical spine tenderness or deformity, no Kernig's sign NEURO: Alert and oriented 3, cranial nerves II through XII intact bilaterally, pupils equal round reactive to light, no focal deficits or facial asymmetry, sensation intact distally Strength 5/5 in upper and lower extremities bilaterally CARDIAC: Regular rate and rhythm, no murmurs rubs or gallops LUNGS: Clear bilaterally no wheezing crackles or stridor ABDOMEN: Soft nontender protuberant abdomen, no guarding, sign no obturator sign. Normoactive bowel sounds SKIN: Warm and dry to touch, no abrasions, contusions, or hematomas, no lacerations, no ecchymosis, no target lesions, and without ulcers EXTREMITIES: No clubbing cyanosis or edema, calves are bilaterally symmetrical, no Homans sign, no popliteal cord sign. Distal pulses equal and bilateral PSYCH: Normal affect without agitation or irritability Results 24 hrs Current Medications Medications (Trade) Dose Ordered Sig/Carlie Route PRN Reason Start Time Stop Time Status Last Admin Dose Admin Sodium Chloride (NS) 500 ml @ 500 mls/hr Q1H STAT IV 12/19/16 07:58 12/19/16 08:57 DC 12/19/16 08:21 Lidocaine (Xylocaine 1% (Mpf)) 5 ml STK-MED ONCE .ROUTE 12/19/16 11:38 12/19/16 11:39 DC Procedures/MDM Recent labs were normal and reviewed by me. I ordered ultrasound-guided paracentesis, which was performed in radiology department. Multiple liters of clear ascitic fluid was removed. Differential diagnoses considered, included but not limited to acute coronary syndrome, pulmonary embolism, aortic dissection, abdominal aortic aneurysm, sepsis, stroke, meningitis, encephalitis, pneumonia, appendicitis, cholecystitis , bowel obstruction, pyelonephritis, nephrolithiasis, cystitis, as well as metabolic, hematologic, and electrolyte abnormalities. As well as abscess, cellulitis, fractures, and dislocations. Patient feels much better at this time, and vital signs are normal, symptoms have improved. I did give strict instructions to return to the ED if symptoms continue or worsen, patient will otherwise follow-up with primary care physician. Patient understood instructions and agreed to plan. Disclaimer: Inadvertent spelling or grammatical errors are likely due to EHR/ dictation software use and do not reflect on the overall quality of patient care. Departure Diagnosis: Primary Impression: Ascites Ascites type: due to alcoholic cirrhosis Qualified Code: K70.31 - Ascites due to alcoholic cirrhosis Condition: Good Patient Instructions: Ascites DEONNA JOHNSON MD December 19, 2016 12:11
[2016-12-19 12:40] VITALS: BP 134/68; PULSE 68; RESP 18; TEMP 98.5
== END 2016-12-19 12:42 | disposition home or self-care (01) ==
LOC: E/R 07:38
DX: K70.31 Alcoholic cirrhosis of liver with ascites (principal); R40.2142 Coma scale, eyes open, spontaneous, at arrival to emergency department; R40.2252 Coma scale, best verbal response, oriented, at arrival to emergency department; R40.2362 Coma scale, best motor response, obeys commands, at arrival to emergency department; I10 Essential (primary) hypertension; Z87.891 Personal history of nicotine dependence
CPT/HCPCS: J7040; Z7502; Z7610

== ENCOUNTER 2017-01-04 10:24 | Emergency (ER) | payer OTHER ==
[~2017-01-04] VITALS: Ht 165.1 cm; Wt 69.0 kg
[~2017-01-04 10:24] MED LIST changes: -LACT1CAP57 PO; -SODI100010 PO
[2017-01-04 10:33] VITALS: Ht 165.1 cm; Wt 69.0 kg
[2017-01-04] MEDS ORDERED: THIA100T10 PO (11:06)
[2017-01-04] MEDS ORDERED: PROP10TA6 PO ×2 (11:06→14:16)
[2017-01-04] MEDS ORDERED: DEME300T8 PO ×2 (11:07→14:17)
[2017-01-04] MEDS ORDERED: SPIR100T31 PO ×2 (11:08→14:16)
[2017-01-04 11:19] LABS: ADD SCAN DIFF NO
[2017-01-04 11:36] LABS: BASOPHIL # 0.1 10^3/ul (0.0-0.1); BASOPHILS % 0.7 % (0.0-2.0); EOSINOPHILS # 0.5 10^3/ul (0.0-0.5); EOSINOPHILS % 3.6 % (0.0-7.0); HEMOGLOBIN 12.2 g/dl (14.0-18.0); LYMPHOCYTES # 3.4 10^3/ul (0.8-2.9); LYMPHOCYTES % 24.6 % (15.0-51.0); MEAN CORPUSCULAR HEMOGLOBIN 34.4 pg (29.0-33.0); MEAN CORPUSCULAR VOLUME 104.2 fl (82.0-101.0); MEAN PLATELET VOLUME 11.3 fl (7.4-10.4); MONOCYTE # 0.9 10^3/ul (0.3-0.9); MONOCYTES % 6.6 % (0.0-11.0); NEUTROPHIL # 8.6 10^3/ul (1.6-7.5); NEUTROPHILS % 62.7 % (39.0-77.0); PLATELET COUNT 168 10^3/UL (140-415); RED BLOOD COUNT 3.55 10^6/ul (4.70-6.10); RED CELL DISTRIBUTION WIDTH 14.6 % (11.5-14.5); WHITE BLOOD COUNT 13.8 10^3/ul (4.8-10.8)
[2017-01-04 11:44] LABS: ALBUMIN 3.4 g/dl (3.3-4.9); ALBUMIN/GLOBULIN RATIO 0.82; CALCIUM 8.5 mg/dl (8.4-10.2); CREATININE 0.85 mg/dl (0.61-1.24); POTASSIUM 4.5 mmol/L (3.5-5.1); TOTAL PROTEIN 7.5 g/dl (6.1-8.1)
[2017-01-04 12:22] LABS: INR 1.22; PROTIME 15.5 Sec (12.2-14.2); PT RATIO 1.2
[2017-01-04 13:05] LABS: PARTIAL THROMBOPLASTIN TIME 32.9 Sec (25.0-35.0)
[2017-01-04] MEDS ORDERED: THIA100T56 PO (14:16)
[2017-01-04] MEDS ORDERED: FURO-109 PO (14:16)
[2017-01-04] MEDS ORDERED: PANT40TA4 PO (14:16)
--- NOTE | 2017-01-04 14:22 | ERD ---
ER Documentation Chief Complaint Date/Time DATE: 01/04/17 TIME: 14:18 Chief Complaint ABDOMINAL DISTENTION/ABDOMINAL PAIN STARTED 3 DAYS AGO HPI This is a 66 a male with a history of ascites who is here for drainage of his fluid in his abdomen. He has had multiple therapeutic paracentesis in the past. He said his stomach scratch to get larger over the past 3 weeks. He has abdominal pain no chest pain shortness of breath no lower extremity edema or decrease in urine output. He is here just to get his stomach drain and go home ROS All systems reviewed and are negative except as per history of present illness. Medications Home Meds Active Scripts Demeclocycline Hcl* (Demeclocycline Hcl*) 300 Mg Tablet, 300 MG PO BID, #60 TAB Prov:GISSELLE NOEL DO 01/04/17 Thiamine* (Vitamin B-1*) 100 Mg Tablet, 100 MG PO DAILY, #30 TAB Prov:GISSELLE NOEL DO 01/04/17 Propranolol Hcl* (Propranolol Hcl*) 10 Mg Tablet, 10 MG PO TID, #90 TAB Prov:GISSELLE NOEL DO 01/04/17 Pantoprazole* (Pantoprazole*) 40 Mg Tablet.dr, 40 MG PO DAILY, #30 TAB Prov:GISSELLE NOEL DO 01/04/17 Furosemide* (Lasix*) 40 Mg Tablet, 40 MG PO DAILY, #30 TAB Prov:GISSELLE NOEL DO 01/04/17 Spironolactone* (Spironolactone*) 100 Mg Tablet, 100 MG PO DAILY, #30 TAB Prov:GISSELLE ONEL DO 01/04/17 Sucralfate (Carafate) 1 Gm Tablet, 1 GM PO QID for 10 Days, #20 TAB 1 Refill Prov:VERONICA HARE MD 12/10/16 Pantoprazole* (Pantoprazole*) 40 Mg Tablet., 40 MG PO DAILY@06 for 14 Days, # 14 1 Refill Prov:VERONICA HARE MD 12/10/16 Furosemide* (Furosemide*) 40 Mg Tablet, 40 MG PO DAILY for 10 Days, #10 TAB Prov:VERONICA HARE MD 12/10/16 Reported Medications Spironolactone* (Spironolactone*) 100 Mg Tablet, 100 MG PO HS, TAB 01/04/17 Demeclocycline Hcl* (Demeclocycline Hcl*) 300 Mg Tablet, 300 MG PO BID, #60 TAB 01/04/17 Thiamine* (Thiamine*) 100 Mg Tablet, 100 MG PO DAILY, TAB 01/04/17 Propranolol Hcl* (Propranolol Hcl*) 10 Mg Tablet, 10 MG PO TID, TAB 01/04/17 Discontinued Scripts [Thiamine] 100 MG TAB No Conflict Check, 100 MG PO DAILY for 30 Days, #30 6 Refills Prov:VERONICA HARE MD 12/10/16 Spironolactone* (Aldactone*) 50 Mg Tablet, 100 MG PO DAILY for 10 Days, #10 TAB 1 Refill Prov:VERONICA HARE MD 12/10/16 Demeclocycline Hcl* (Declomycin*) 150 Mg Tablet, 300 MG PO BID for 10 Days, #20 TAB 1 Refill Prov:VERONICA HARE MD 12/10/16 Allergies Allergies: Coded Allergies: No Known Allergy (Unverified , 01/04/17) PMhx/Soc History of Surgery: Yes (umbilical and rt inguinal hernia) Anesthesia Reaction: No Hx Neurological Disorder: No Hx Respiratory Disorders: No Hx Cardiac Disorders: No Hx Psychiatric Problems: No Hx Miscellaneous Medical Probl: No (cirrhosis, ) Hx Alcohol Use: Yes (hx ETOH abuse) Hx Substance Use: No Hx Tobacco Use: No Smoking Status: Never smoker FmHx Family History: No coronary disease Physical Exam Vitals Vital Signs Date Time Temp Pulse Resp B/P Pulse Ox O2 Delivery O2 Flow Rate FiO2 01/04/17 10:33 97.8 60 20 113/73 100 Physical Exam Const: [Well-developed, well-nourished] Head: [Atraumatic, normocephalic] Eyes: [Normal Conjunctiva, PERRLA, EOMI, normal sclera, no nystagmus] ENT: [Normal External Ears, Nose and Mouth, moist mucus membranes.] Neck: [Full range of motion. No meningismus, no lymphadenopathy.] Resp: [Clear to auscultation bilaterally, no wheezing, rhonchi, rales] Cardio: [Regular rate and rhythm, no murmurs, S1 S2 present] Abd: [Soft, non tender x 4, distended. Normal bowel sounds, no guarding or rebound, no pulsitile abdominal masses or bruits] Skin: [No petechiae or rashes, no ecchymosis , no maculopapular rash] Back: [No midline or flank tenderness] Ext: [No cyanosis, or edema, FROM x 4, normal inspection, neurovascularly intact x 4] Neur: [Awake and alert, STR 5/5 x 4, sensation intact x 4, no focal findings, cerebellum intact] Psych: [Normal Mood and Affect] Result Diagram: 01/04/17 1106 01/04/17 1106 Results 24 hrs Laboratory Tests Test 01/04/17 11:06 White Blood Count 13.810^3/ul Red Blood Count 3.5510^6/ul Hemoglobin 12.2g/dl Hematocrit 37.0% Mean Corpuscular Volume 104.2fl Mean Corpuscular Hemoglobin 34.4pg Mean Corpuscular Hemoglobin Concent 33.0g/dl Red Cell Distribution Width 14.6% Platelet Count 47013^3/UL Mean Platelet Volume 11.3fl Neutrophils % 62.7% Lymphocytes % 24.6% Monocytes % 6.6% Eosinophils % 3.6% Basophils % 0.7% Nucleated Red Blood Cells % 0.0/100WBC Neutrophils # 8.610^3/ul Lymphocytes # 3.410^3/ul Monocytes # 0.910^3/ul Eosinophils # 0.510^3/ul Basophils # 0.110^3/ul Nucleated Red Blood Cells # 0.010^3/ul Prothrombin Time 15.5Sec Prothrombin Time Ratio 1.2 INR International Normalized Ratio 1.22 Activated Partial Thromboplast Time 32.9Sec Sodium Level 134mmol/L Potassium Level 4.5mmol/L Chloride Level 104mmol/L Carbon Dioxide Level 21mmol/L Anion Gap 14 Blood Urea Nitrogen 19mg/dl Creatinine 0.85mg/dl Glucose Level 139mg/dl Calcium Level 8.5mg/dl Total Bilirubin 1.0mg/dl Direct Bilirubin 0.00mg/dl Indirect Bilirubin 1.0mg/dl Aspartate Amino Transf (AST/SGOT) 107IU/L Alanine Aminotransferase (ALT/SGPT) 49IU/L Alkaline Phosphatase 1218IU/L Total Protein 7.5g/dl Albumin 3.4g/dl Globulin 4.10g/dl Albumin/Globulin Ratio 0.82 Procedures/MDM Patient had a therapeutic paracentesis successful. The patient's abdominal cavity is much smaller he feels much better with discharge He also needed 6 refills of his medication Departure Diagnosis: Primary Impression: Ascites Ascites type: other type Qualified Code: R18.8 - Other ascites Additional Impression: Medication refill Condition: Stable Patient Instructions: Ascites GISSELLE NOEL DO Jan 04, 2017 14:22
--- NOTE | 2017-01-04 14:39 | RADRPT ---
PROCEDURE: US Abdomen limited . CLINICAL INDICATION: Ascites TECHNIQUE: Multiple real-time images were acquired of the patient's abdomen utilizing a high resol ution transducer. COMPARISON: None FINDINGS: There is a small amount of ascites, not enough for paracentesis. RPTAT: AA IMPRESSION: Small amount of ascites. Ulysses Arreaga Physician Date Time Electronically viewed and signed by Ulysses Arreaga Physician on 01/04/2017 13:19 RA/
[2017-01-07] MEDS ORDERED: SUCR1TAB56 PO (12:08)
== END 2017-01-04 17:28 | disposition home or self-care (01) ==
LOC: E/R 10:24
DX: R18.8 Other ascites (principal); Z76.0 Encounter for issue of repeat prescription
CPT/HCPCS: 36415; 76705; 80053; 85025; 85610; 85730; Z7502

== ENCOUNTER 2017-01-26 15:31 | Emergency (ER) | payer OTHER ==
[~2017-01-26] VITALS: Wt 68.0 kg
[~2017-01-26 15:31] MED LIST changes: -DEME150T8 PO; +DEME300T8 PO; +FURO-109 PO; +PROP10TA6 PO; +SPIR100T31 PO; -SPIR50TA PO; +SUCR1TAB56 PO; +THIA100T10 PO; +THIA100T56 PO; -Thiamine PO
[2017-01-26] MEDS ORDERED: SUCR1TAB56 PO ×3 (16:07→16:12)
[2017-01-26] MEDS ORDERED: PANT40TA4 PO (16:07)
[2017-01-26] MEDS ORDERED: FURO-109 PO (16:07)
[2017-01-26] MEDS ORDERED: THIA100T56 PO (16:07)
[2017-01-26] MEDS ORDERED: DEME300T8 PO (16:07)
[2017-01-26] MEDS ORDERED: SPIR100T31 PO (16:07)
[2017-01-26] MEDS ORDERED: PROP10TA6 PO (16:07)
[2017-01-26 16:27] VITALS: BP 108/71; PULSE 65; RESP 17
--- NOTE | 2017-01-26 19:40 | ERD ---
ER Documentation Chief Complaint Date/Time DATE: 01/26/17 TIME: 19:38 Chief Complaint PT HERE FOR MED REFILL HPI Patient is a 66-year-old male who presents to the ED with medication refill. Patient states that his primary care provider is too far from his house and he did not go and get a refill of his medication. Patient states that he has not ran out of his medication but will be running out in the next 2-3 days. She has no complaints today. Patient is asymptomatic. ROS All systems reviewed and are negative except as per history of present illness. Medications Home Meds Active Scripts Sucralfate* (Carafate*) 1 Gm Tab, 1 GM PO QID, #60 TAB Prov:JOSE SANTIAGO PA-C 01/26/17 Thiamine* (Vitamin B-1*) 100 Mg Tablet, 100 MG PO DAILY, #30 TAB Prov:JOES SANTIAGO PA-C 01/26/17 Furosemide* (Lasix*) 40 Mg Tablet, 40 MG PO DAILY, #30 TAB Prov:JOSE SANTIAGO PA-C 01/26/17 Spironolactone* (Spironolactone*) 100 Mg Tablet, 100 MG PO DAILY, #30 TAB Prov:JOSE SANTIAGO PA-C 01/26/17 Demeclocycline Hcl* (Demeclocycline Hcl*) 300 Mg Tablet, 300 MG PO BID, #60 TAB Prov:JOSE SANTIAGO PA-C 01/26/17 Propranolol Hcl* (Propranolol Hcl*) 10 Mg Tablet, 10 MG PO TID for 30 Days, #90 TAB Prov:JOSE SANTIAGO PA-C 01/26/17 Pantoprazole* (Pantoprazole*) 40 Mg Tablet.dr, 40 MG PO DAILY@06 for 14 Days, # 14 1 Refill Prov:JOSE SANTIAGO PA-C 01/26/17 Demeclocycline Hcl* (Demeclocycline Hcl*) 300 Mg Tablet, 300 MG PO BID, #60 TAB Prov:GISSELLE NOEL DO 01/04/17 Propranolol Hcl* (Propranolol Hcl*) 10 Mg Tablet, 10 MG PO TID, #90 TAB Prov:GISSELLE NOEL DO 01/04/17 Pantoprazole* (Pantoprazole*) 40 Mg Tablet.dr, 40 MG PO DAILY, #30 TAB Prov:GISSELLE NOEL DO 01/04/17 Sucralfate (Carafate) 1 Gm Tablet, 1 GM PO QID for 10 Days, #20 TAB 1 Refill Prov:VERONICA HARE MD 12/10/16 Furosemide* (Furosemide*) 40 Mg Tablet, 40 MG PO DAILY for 10 Days, #10 TAB Prov:VERONICA HARE MD 12/10/16 Reported Medications Spironolactone* (Spironolactone*) 100 Mg Tablet, 100 MG PO HS, TAB 01/04/17 Thiamine* (Thiamine*) 100 Mg Tablet, 100 MG PO DAILY, TAB 01/04/17 Discontinued Scripts Sucralfate* (Carafate*) 1 Gm Tab, 1 GM PO QID, #60 TAB Prov:JOSE SANTIAGO PA-C 01/26/17 Allergies Allergies: Coded Allergies: No Known Allergy (Unverified , 01/04/17) PMhx/Soc History of Surgery: Yes (umbilical and rt inguinal hernia) Anesthesia Reaction: No Hx Neurological Disorder: No Hx Respiratory Disorders: No Hx Cardiac Disorders: No Hx Psychiatric Problems: No Hx Miscellaneous Medical Probl: No (cirrhosis, ) Hx Alcohol Use: Yes (hx ETOH abuse) Hx Substance Use: No Hx Tobacco Use: No Smoking Status: Never smoker FmHx Family History: No coronary disease, No diabetes, No other Physical Exam Vitals Vital Signs Date Time Temp Pulse Resp B/P Pulse Ox O2 Delivery O2 Flow Rate FiO2 01/26/17 16:27 65 17 108/71 100 Room Air 01/26/17 15:33 98.7 71 16 121/64 96 Physical Exam GENERAL: Well-developed, well-nourished male. Appears in no acute distress. HEAD: Normocephalic, atraumatic. EYES: Pupils are equally reactive bilaterally. EOMs grossly intact. No conjunctival erythema. ENT: Moist mucous membranes. No uvula deviation. No kissing tonsils. No exudates. NECK: Supple. No lymphadenopathy or thyromegaly. No meningismus. negative kernig. negative brudinski. LUNG: Clear to auscultation bilaterally. No rhonchi, wheezing, rales or coarse breath sounds. HEART: Regular rate and rhythm. No murmurs, rubs or gallops. ABDOMEN: No scars, ecchymosis or rashes noted. Soft, nontender, and nondistended. Positive bowel sounds in all four quadrants. No rebound tenderness , no guarding. (-) McBurneys point tenderness. No CVA tenderness. BACK: No midline tenderness. Extremities: Equal pulses bilaterally. No peripheral clubbing, cyanosis or edema. No unilateral leg swelling. NEUROLOGIC: Alert and oriented. Moving all four extremities. 5/5 strength in all extremities. Normal speech. Steady gait. SKIN: Normal color. Warm and dry. No rashes or lesions. Capillary refill < 2 seconds Procedures/MDM ER COURSE: I kept the patient and/or family informed of laboratory and diagnostic imaging results throughout the emergency room course. MEDICAL DECISION MAKING: This is a 66-year-old man who presents with medication refill. Vital signs were reviewed. Patient is afebrile. Patient is not hypoxic. She is not toxic or ill- appearing. Patient is asymptomatic today is only here for medication refill for his medicines that will be running out in 2-3 days. Patient was given a refill all all 7 medications as listed in his list. Low suspicion for acute abdomen or sepsis DISCHARGE: At this time, patient is stable for discharge and outpatient management with no new complaints during the ER course. Patient was sent home with refill of medication list of primary care providers in the area of which she lives and to follow-up with for future refills. Patient will be discharged home with instructions to recheck for new or worsening symptoms such as fever, nausea, weakness, LOC and to follow up with primary care in the next 1-2 days. Patient was advised to return to the ER for any new or worsening symptoms. Plan was discussed and patient and/or family understands and agrees. Home instructions were given. Departure Diagnosis: Primary Impression: Encounter for medication refill Condition: Stable Patient Instructions: Taking Medicine Safely Referrals: [facility]) [facility] Usted se sandoval hecho un examen mdico de control que le indica que no est en med condicin que requiera tratamiento urgente en el Departamento de Emergencia. Un estudio ms profundo y el tratamiento de castelan condicin pueden esperar sin ningn riesgo hasta que usted sea atendida/o en el consultorio de castelan mdico o med cl babita. Es responsabilidad suya arreglar med romeo para el seguimiento del stacy. MANEJO DE CONDICIONES NO URGENTES EN EL FUTURO 1) Si usted tiene un mdico de atencin primaria: Usted debera llamar a castelan mdico de atencin primaria antes de venir al departamento de emergencia. Despus de las horas de consultorio, castelan doctor o castelan asociado/a est disponible por telfono. El mdico o enfermero de sam en el servicio telefnico puede asesorarle por soledad medio para atender el problema, o stacy contrario se puede programar med romeo. 2) Si usted no tiene un mdico de atencin primaria: Llame al mdico o clnica de referencia que aparece abajo james las horas de consultorio para hacer med romeo para que le vean. CLINICAS: [place] [id number] [phone] [facility] [phone] [address] [facility] [phone] [address] [facility]. [place] [id number] [phone] [facility] [place] [id number] [phone] [facility]. [phone] [address] Additional Instructions: Llame al doctor MAANA y andry med ROMEO PARA DENTRO DE 1-2 RAYMUNDO.Dgale a la secretaria que nosotros le instruimos hacer esta romeo.Avise o llame si castelan condicin se empeora antes de la romeo. Regresa aqui si peor o no mejor. JOSE SANTIAGO PA-C Jan 26, 2017 19:40
== END 2017-01-26 16:29 | disposition home or self-care (01) ==
LOC: FTE 15:31
DX: Z76.0 Encounter for issue of repeat prescription (principal)
CPT/HCPCS: 99281

== ENCOUNTER 2017-03-02 10:45 | Emergency (ER) | payer OTHER ==
[~2017-03-02] VITALS: Ht 165.1 cm; Wt 80.0 kg
[2017-03-02 10:46] VITALS: Ht 165.1 cm; Wt 80.0 kg
[2017-03-02] MEDS ORDERED: FURO-109 PO (11:06)
[2017-03-02] MEDS ORDERED: DEME300T8 PO (11:06)
[2017-03-02] MEDS ORDERED: PROP10TA6 PO (11:06)
[2017-03-02] MEDS ORDERED: SPIR100T31 PO (11:06)
[2017-03-02] MEDS ORDERED: THIA100T56 PO (11:06)
[2017-03-02] MEDS ORDERED: SUCR1TAB56 PO (11:06)
[2017-03-02] MEDS ORDERED: PANT40TA4 PO (11:06)
--- NOTE | 2017-03-02 11:13 | ERD ---
ER Documentation Chief Complaint Date/Time DATE: 03/02/17 TIME: 11:08 Chief Complaint MED REFILL, LASIX, VIT,CARAFATE..... HPI Patient is a 66-year-old male with a past medical history of hypertension, cirrhosis, s/p umbilical hernia repair who presents to the emergency department for medication refill. Patient states that he has run out of his medication. Patient states he is not able to get an appointment with his primary care physician at [facility] [place] until April. Patient has no fevers, chills, nausea, vomiting, vomiting, chest pain, shortness breath, left upper extremity, diaphoresis or loss consciousness. Patient denies any alcohol use. Patient denies any pain or concerns at this time ROS All systems reviewed and are negative except as per history of present illness. Medications Home Meds Active Scripts Sucralfate* (Carafate*) 1 Gm Tab, 1 GM PO QID, #60 TAB Prov:POLLY LOZANO PA-C 03/02/17 Thiamine* (Vitamin B-1*) 100 Mg Tablet, 100 MG PO DAILY, #30 TAB Prov:POLLY LOZANO PA-C 03/02/17 Furosemide* (Lasix*) 40 Mg Tablet, 40 MG PO DAILY, #30 TAB Prov:POLLY LOZANO PA-C 03/02/17 Spironolactone* (Spironolactone*) 100 Mg Tablet, 100 MG PO DAILY, #30 TAB Prov:POLLY LOZANO PA-C 03/02/17 Propranolol Hcl* (Propranolol Hcl*) 10 Mg Tablet, 10 MG PO TID for 30 Days, #90 TAB Prov:POLLY LOZANO PA-C 03/02/17 Demeclocycline Hcl* (Demeclocycline Hcl*) 300 Mg Tablet, 300 MG PO BID, #60 TAB Prov:POLLY LOZANO PA-C 03/02/17 Pantoprazole* (Pantoprazole*) 40 Mg Tablet.dr, 40 MG PO DAILY, #30 TAB Prov:POLLY LOZANO PA-C 03/02/17 Demeclocycline Hcl* (Demeclocycline Hcl*) 300 Mg Tablet, 300 MG PO BID, #60 TAB Prov:JOSE SANTIAGO PA-C 01/26/17 Pantoprazole* (Pantoprazole*) 40 Mg Tablet., 40 MG PO DAILY@06 for 14 Days, # 14 1 Refill Prov:JOSE SANTIAGO PA-C 01/26/17 Propranolol Hcl* (Propranolol Hcl*) 10 Mg Tablet, 10 MG PO TID, #90 TAB Prov:GISSELLE NOEL DO 01/04/17 Sucralfate (Carafate) 1 Gm Tablet, 1 GM PO QID for 10 Days, #20 TAB 1 Refill Prov:VERONICA HARE MD 12/10/16 Furosemide* (Furosemide*) 40 Mg Tablet, 40 MG PO DAILY for 10 Days, #10 TAB Prov:VERONICA HARE MD 12/10/16 Reported Medications Spironolactone* (Spironolactone*) 100 Mg Tablet, 100 MG PO HS, TAB 01/04/17 Thiamine* (Thiamine*) 100 Mg Tablet, 100 MG PO DAILY, TAB 01/04/17 Allergies Allergies: Coded Allergies: No Known Allergy (Unverified , 01/04/17) PMhx/Soc History of Surgery: Yes (umbilical and rt inguinal hernia) Anesthesia Reaction: No Hx Neurological Disorder: No Hx Respiratory Disorders: No Hx Cardiac Disorders: No Hx Psychiatric Problems: No Hx Miscellaneous Medical Probl: No (cirrhosis, ) Hx Alcohol Use: Yes (hx ETOH abuse, not current user) Hx Substance Use: No Hx Tobacco Use: No FmHx Family History: No diabetes Physical Exam Vitals Vital Signs Date Time Temp Pulse Resp B/P Pulse Ox O2 Delivery O2 Flow Rate FiO2 03/02/17 10:46 98.1 72 18 125/74 99 Physical Exam GENERAL: Well-developed, well-nourished male. Appears in no acute distress. HEAD: Normocephalic, atraumatic. EYES: Pupils are equally reactive bilaterally. EOMs grossly intact. No conjunctival erythema. ENT: Moist mucous membranes. No uvula deviation. No kissing tonsils. NECK: Supple. No meningismus. Normal range of motion of the neck. LUNG: Clear to auscultation bilaterally. No rhonchi, wheezing, rales or coarse breath sounds. HEART: Regular rate and rhythm. No murmurs, rubs or gallops. ABDOMEN: Midline surgical scar noted consistent with previous history of hernia repair. soft, nontender, and nondistended. Positive bowel sounds in all four quadrants. No rebound tenderness, no guarding. (-) McBurney's point tenderness. No CVA tenderness. EXTREMITIES: Equal pulses bilaterally. No peripheral clubbing, cyanosis or edema. No unilateral leg swelling. NEUROLOGIC: Alert and oriented. Moving all four extremities without any difficulty. Normal speech. Steady gait. SKIN: Normal color. Warm and dry. No rashes or lesions. Procedures/MDM MEDICAL DECISION MAKING: Patient is a 66-year-old male with a past medical history of cirrhosis, hypertension and surgical repair of the hernia who presents emergency department from medication refill. She denied any pain or symptoms at this time. Patient has no concerns.. Vital signs were reviewed. Patient is afebrile. Patient was not hypoxic. Patient was not toxic or ill-appearing. Patient is currently asymptomatic. I will give the patient a refill of his 7 medications which I did verify with the empty bottles he brings in. As advised that he will need to follow-up with his primary care physician for any additional refills. Patient was encouraged to move his appointment date up from April at the [facility]. Patient is stable for discharge at this time. PRESCRIPTION: Carafate, vitamin B1, Lasix, spironolactone, Demeclocycline, propanolol, pantoprazole DISCHARGE: At this time, patient is stable for discharge and outpatient management. I have instructed the patient to follow-up with his/her primary care physician in 1-2 days. I have discussed with the patient the possibility of needing to see a specialist for further workup and imaging studies if symptoms persist. I have instructed the patient to promptly return to the ER for any new or worsening symptoms including increased pain, fever, nausea, vomiting, weakness or LOC. The patient and/or family expressed understanding of and agreement with this plan. All questions were answered. Home care instructions were provided. Departure Diagnosis: Primary Impression: Encounter for medication refill Patient Instructions: Taking Medication Safely Referrals: [facility] [place] (PCP) Additional Instructions: Call your primary care doctor TOMORROW for an appointment during the next 1-2 days.See the doctor sooner or return here if your condition worsens before your appointment time. POLLY LOZANO PA-C Mar 02, 2017 11:13
== END 2017-03-02 11:42 | disposition home or self-care (01) ==
LOC: FTE 10:45
DX: Z76.0 Encounter for issue of repeat prescription (principal); I10 Essential (primary) hypertension
CPT/HCPCS: 99281

== ENCOUNTER 2017-11-30 12:09 | Day surgery (SDC) | END 2017-11-30 17:19 | disposition home or self-care (01) ==